=== PATIENT | female | born 1985 | race Caucasian/White ===

== ENCOUNTER 2017-10-06 18:30 | Emergency (ER) | payer MEDICAID, SELFPAY ==
[2017-10-06 18:32] VITALS: BP 109/81; PULSE 120; RESP 18; TEMP 36.9; O2SAT 97; BMI 17.6
--- NOTE | 2017-10-06 19:49 | RAD_ITS ---
STUDY: X-RAY - THORACIC SPINE REASON FOR EXAM: Female, 32 years old. Pain, fall TECHNIQUE: 2 view(s) of the thoracic spine were obtained. COMPARISON: None. FINDINGS: Normal kyphosis of the thoracic spine. There is no substantial scoliosis. Normal thoracic vertebrae and endplates. Normal disc space heights. The soft tissue structures are unremarkable. RAD/Thoracic Spine 3 Views IMPRESSION: Normal x-ray examination of the thoracic spine. Electronically Signed: Yoseph Wilson DO at 20:51 EDT Tel [phone], Service support ,
--- NOTE | 2017-10-06 19:49 | RAD_ITS ---
STUDY: X-RAY - LUMBAR SPINE REASON FOR EXAM: Female, 32 years old. Back pain, fall TECHNIQUE: 3 view(s) of the lumbar spine were obtained. COMPARISON: None FINDINGS: Normal lumbar lordosis. There is no substantial scoliosis. There is a normal alignment of the vertebrae. Normal vertebral bodies and endplates. Normal disc space heights. The soft tissue structures are unremarkable. RAD/Lumbar Spine 2 or 3 Views IMPRESSION: Normal x-ray examination of the lumbar spine. Electronically Signed: Yoseph Wilson DO at 20:50 EDT Tel [phone], Service support ,
--- NOTE | 2017-10-06 19:52 | ED.DCSUM_ITS ---
- ER Visit Summary Date of Service: 10/06/17 Chief Complaint: Fall History of Present Illness: The patient is a 32 F presenting after fall. She was running and tripped yesterday and fell. She does not believe she hit her head or lost consciousness. She complains of diffuse back pain today. She has had nausea secondary to pain. She did not take any medications prior to arrival. No vomiting. Denies other complaints. Physical Examination: Vitals are stable. Patient is afebrile. Alert no acute distress. HEENT exam is unremarkable. Neck is supple, diffuse tenderness Lungs are clear and equal bilaterally. Heart is regular rate and rhythm. Abdomen is soft nontender nondistended. Back: diffuse tenderness Extremities are unremarkable. Skin is warm and dry. No focal neurologic deficit. Remainder of exam is unremarkable. Emergency Department Course and Treatment: Patient is given morphine, Zofran IM with improvement. X-ray of the C-spine, thoracic spine, lumbar spine show no acute process. Patient feels improved on reevaluation. She is advised to take Naprosyn for pain. Advised to follow-up with her primary care physician. Advised return to ED if worsening complaints. Disposition: Discharge home Impression: Back strain status post fall This note was generated with [employer] dictation software. It may contain incorrect words, spelling, and punctuation that were not noted in review of the chart prior to signing ED Disposition - Plan for ED Patient: Chief Complaint: Back Referrals: Tee Vogel DO [Primary Care Provider] -
[2017-10-06] MEDS: morphine 8 MG/ML Syringe 6 MG IM (19:54)
[2017-10-06] MEDS: Ondansetron 4 MG/2 ML Vial IM (19:54)
--- NOTE | 2017-10-06 20:01 | RAD_ITS ---
STUDY: X-RAY - CERVICAL SPINE REASON FOR EXAM: Female, 32 years old. Fall TECHNIQUE: 4 view(s) of the cervical spine were obtained. COMPARISON: None FINDINGS: Normal anterior atlantoaxial articulation. Normal odontoid process. Straightening of the cervical lordosis. Normal vertebral bodies and endplates. Normal disc space heights. Normal visualized intervertebral neuroforamina. The soft tissue structures are unremarkable. RAD/Cerv Spine 2 or 3 Views IMPRESSION: Normal x-ray examination of the visualized cervical spine. Electronically Signed: Yoseph Wilson DO at 20:25 EDT Tel [phone], Service support ,
--- NOTE | 2017-10-06 21:43 | DCINST.ED_ITS ---
ED Disposition - Plan for ED Patient: Chief Complaint: Back Instructions: ED Neck Back Pain General Prescriptions: Hydrocodone Bitart/Apap 5-325 [[place] 5/325] 1 tablet PO Q6H PRN PRN 1 Days #4 tablet PRN Reason: Pain Naproxen [Naprosyn] 500 mg PO BID PRN #20 tablet Referrals: Tee Vogel DO [Primary Care Provider] -
[2017-10-06 21:54] VITALS: BP 109/52; PULSE 55; RESP 18; TEMP 36.6; O2SAT 100
== END 2017-10-06 22:05 | disposition home or self-care (01) ==
PROVIDERS: Emergency Provider Emergency Medicine; Family Provider Student in an Organized Health Care Education/Training Program; PCP Student in an Organized Health Care Education/Training Program
DX: S29.012A Strain of muscle and tendon of back wall of thorax, initial encounter (principal); S39.012A Strain of muscle, fascia and tendon of lower back, initial encounter; W01.0XXA Fall on same level from slipping, tripping and stumbling without subsequent striking against object, initial encounter; Y93.02 Activity, running
CPT/HCPCS: 72040; 72072; 72100; 96372; 99282; J2405

== ENCOUNTER 2018-02-19 13:42 | Emergency (ER) | payer MEDICAID, SELFPAY ==
[2018-02-19 13:43] VITALS: BP 119/68; PULSE 92; RESP 16; TEMP 36.6; O2SAT 97; BMI 18.3
--- NOTE | 2018-02-19 14:06 | ED.VISSUMM ---
- ER Visit Summary Date of Service: 02/19/18 Chief Complaint: Chest wall injury History of Present Illness: The patient is a 32 F no senior past medical or surgical history. Patient states last night she was sitting in a reclining chair. Got up quickly after being called by 1 of her children. And had immediate chest wall discomfort. It hurts to move. She denies any shortness of breath. She denies any hemoptysis. She denies any fever. She denies any pleuritic chest pain. She has never had a DVT or PE. She denies any leg pain or swelling. Physical Examination: Well-appearing young female. Vital signs are stable afebrile. Pulse ox 97% on room air no signs of hypoxia. No distress. H EENT exam unremarkable. Neck nontender no lymphadenopathy. Lungs clear to auscultation bilaterally. Heart regular rhythm no murmur. Chest wall is reproducibly tender in the anterior chest wall both sides more so on the left. No crepitance. No subcu air. No bony deformities. Collarbones appear normal. There are nontender without deformities. Abdomen is soft and nontender. She is moving all 4 extremities. They are neurovascularly intact. Equal symmetrical radial pulses. 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 Dorsi plantar flexion intact. Calves are nontender without edema or cords. Back is nontender. Neurologically she is awake and alert. Test Results: Two-view chest x-ray shows shows no acute abnormality. Read both by myself and the radiologist. No bony injuries. No pneumothoraces. Emergency Department Course and Treatment: Patient was offered but deferred anything for pain. Treatment Plan: Repeat exam patient doing well at 1454. Motrin for pain. Disposition: Discharge Impression: Acute chest wall strain This note was generated with [employer] dictation software. It may contain incorrect words, spelling, and punctuation that were not noted in review of the chart prior to signing ED Disposition - Plan for ED Patient: Chief Complaint: Chest Other Referrals: Tee Vogel DO [Primary Care Provider] -
--- NOTE | 2018-02-19 14:54 | ED.DEP ---
ED Disposition - Plan for ED Patient: Disposition: Home or Assisted Living Chief Complaint: Chest Other Instructions: ED Strain Chest Wall Referrals: Tee Vogel DO [Primary Care Provider] - 10-14 Days if not better Additional Instructions: Tylenol and Motrin for pain.
== END 2018-02-19 15:00 | disposition home or self-care (01) ==
PROVIDERS: Emergency Provider Emergency Medicine; Family Provider Student in an Organized Health Care Education/Training Program; PCP Student in an Organized Health Care Education/Training Program
DX: S29.011A Strain of muscle and tendon of front wall of thorax, initial encounter (principal); X50.1XXA Overexertion from prolonged static or awkward postures, initial encounter; Y93.89 Activity, other specified; Y92.9 Unspecified place or not applicable; Z72.0 Tobacco use
CPT/HCPCS: 71046; 99282

== ENCOUNTER 2019-04-01 11:05 | Emergency (ER) | payer MEDICAID, SELFPAY ==
[2019-04-01 11:07] VITALS: BP 108/77; PULSE 73; RESP 17; TEMP 36.6; O2SAT 99; BMI 18.9
[2019-04-01 11:37] LABS: Mucous, Urine 0 SEEN /hpf (<or=2+); White Blood Cells 0 SEEN /hpf (0-5)
[2019-04-01 11:39] LABS: Color, Urine Yellow (Yellow); Glucose, Dipstick Normal (Normal); Ketone-Dipstick Negative (Negative); Leukocyte Esterase-Dipstick 25 /ul (Negative); Nitrite-Dipstick Positive (Negative); Occult Blood-Urine 10 /ul (Negative); Protein-Dipstick Negative (Negative); Specific Gravity, Urine 1.015 (1.002-1.030); Urine Bilirubin Dipstick Negative (Negative); Urine Clarity Sl. Cloudy (Clear); Urine Urobilinogen 1 mg/dl (Normal)
[2019-04-01 11:46] LABS: Absolute Neutrophil Count 2.8 X10^3/uL (2.0-7.7); Basophil# 0.06 X10^3/uL; Basophil% 1.2 % (0-1); Eosinophil# 0.11 X10^3/uL; Eosinophils% 2.2 % (0-5); Hematocrit 44.5 % (37-47); Hemoglobin 14.5 g/dL (12.0-15.0); Lymphocyte % 31.8 % (19-41); Mean Corp Hgb Conc 32.6 g/dL (32-36); Mean Corpuscular Hgb 31.7 pg (27.0-32.0); Mean Corpuscular Volume 97.2 fL (81-99); Mean Platelet Vol. 9.9 fl (6.2-12.0); Monocyte# 0.47 X10^3/uL; Monocyte% 9.3 % (0-10); NRBC Flagged by Analyzer 0 % (0-5); Neutrophil # 2.77 X10^3/uL (2.7-7.7); Neutrophil % 55.1 % (47-70); Platelet Count 210 K/mm3 (150-450); RBC Distribution Width CV 11.9 % (11.6-14.6); RBC Distribution Width SD 42.9 fl (35.1-43.9); Red Blood Count 4.58 M/mm3 (4.2-5.4)
[2019-04-01 11:48] LABS: Bacteria 2+ /hpf (None Seen); Red Blood Cells-Urine 0-5 SEEN /hpf (0-5); Squamous Epithelial Cells - UA 5-10 SEEN /hpf (5-10)
[2019-04-01 11:56] LABS: Internal QC Validated? YES +Cl - CLEAR BKGD; Pregnancy, Serum, hCG Quali. NEGATIVE Negative
[2019-04-01 12:00] LABS: Anion Gap 2 (5-15); BUN 10 mg/dL (7-18); BUN/Creat Ratio 16.6 RATIO (10-20); Calcium,Total 8.8 mg/dL (8.5-10.1); Chloride 107 mmol/L (98-107); EST Glomerular Filtration Rate 123 mL/min (>60); Est Glom Filt Rate - Afr Amer 149 mL/min (>60); Glucose 89 mg/dL (74-106); Potassium 4.1 mmol/L (3.5-5.1); Sodium Level 139 mmol/L (136-145)
--- NOTE | 2019-04-01 13:08 | ED.DCSUM_ITS ---
- ER Visit Summary Date of Service: 04/01/19 Chief Complaint: Abdominal pain History of Present Illness: The patient is a 33 F who presents with abdominal pain that has been constant for the past 2 weeks. Patient states the pain is over the lower abdomen. Patient states it feels like there is a tightness in her uterus. Patient admits to some nausea but denies any vomiting. Patient states she took a home test which was questionably positive. Patient took another home test the next day and was negative. Patient noted some blood in her urine but denies any dysuria. Patient admits to some mild low back pain. Patient also admits to mild headache. Physical Examination: Vital signs are stable. Patient is afebrile. Patient is in no acute distress. Oral mucosa is pink and moist. Neck is supple. Trachea is midline. There is no JVD noted. Heart was regular rate and rhythm. Lungs are clear and equal bilaterally. Abdomen is soft. Bowel sounds are normal. There is no tenderness. There is no guarding noted. Skin is warm dry. Cranial nerves II through XII are intact. There are no focal motor or sensory deficits noted. The remaining physical exam is within normal limits. Test Results: CBC, basic metabolic profile and serum were obtained and were negative. Urinalysis was contaminated with 5-10 epithelial cells and 2+ bacteria. There is no evidence of urinary tract infection. 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 Patient was instructed to eat a bland diet. Patient understood and was agreeable with the plan. All questions were answered. Disposition: Discharge home Impression: Abdominal pain This note was generated with [employer] dictation software. It may contain incorrect words, spelling, and punctuation that were not noted in review of the chart prior to signing ED Disposition - Plan for ED Patient: Disposition: Home or Assisted Living Diagnosis: Abdominal pain Instructions: ABDOMINAL PAIN, Unknown Cause, (Female) Referrals: Tee Vogel DO [Primary Care Provider] - 3-5 Days
[2019-04-01 13:23] VITALS: BP 108/62; PULSE 71; RESP 16; O2SAT 98
== END 2019-04-01 13:23 | disposition home or self-care (01) ==
PROVIDERS: Emergency Provider Emergency Medicine; Family Provider Student in an Organized Health Care Education/Training Program; PCP Student in an Organized Health Care Education/Training Program
DX: R10.30 Lower abdominal pain, unspecified (principal); Z72.0 Tobacco use
CPT/HCPCS: 80048; 81001; 84703; 85025; 99283; A4216

== ENCOUNTER 2019-04-20 14:39 | Emergency (ER) | payer MEDICAID, SELFPAY ==
[2019-04-20 14:40] VITALS: BP 99/64; PULSE 84; RESP 18; TEMP 36.6; O2SAT 98; BMI 18.8
--- NOTE | 2019-04-20 15:04 | ED.VIS.GEN ---
History of Present Illness Chief Complaint: Headache Informant: Patient Onset: Days Context: Gradual Onset Current Severity: Moderate Maximum Severity: Severe Narrative: Patient presents with migraine headache that is been ongoing for the last 3 or 4 days. It is been gradual in onset. She has history of similar migraines. She has light sensitivity, nausea, photophobia. She denies recent head injury or URI symptoms. She tried some Excedrin Migraine yesterday which took the edge off of it. Patient also raises concern of . She states her. Normally start on the 17 every month. Last month she bled early, on the ninth. She then had some spotting late in the month. She had a home test that was questionably positive. She was seen here in the ER in early March and had a negative test. Past Medical History - Allergies and Home Meds Allergies/Adverse Reactions: Allergies No Known Allergies Allergy (Verified 04/20/19 14:43) Primary Care Physician: Tee Vogel DO [Primary Care Provider] - Prior records reviewed: Yes Past Medical History: - - Reviewed Lives: With Family Smoking Status: Current every day smoker Review of Systems General: Denies: Chills, Fever Eyes: Reports: - - Photophobia ENT: Denies: Bilateral ear pain Cardiovascular: Denies: Chest pain Respiratory: Denies: Dyspnea, Cough Gastrointestinal: Reports: Nausea. Denies: Vomiting Genitourinary: Denies: Dysuria Musculoskeletal: Denies: Neck pain, Back pain, Extremity Pain Skin: Denies: Rash Neurological: Reports: Headache. Denies: Weakness, Parasthesia, Numbness Hematologic: Denies: Easy bruising Allergy: Denies: Uticaria Physical Exam Vital Signs/Narrative: Vital Signs Temp Pulse Resp BP Pulse Ox 04/20/19 14:40 97.9 F 84 18 99/64 98 Inital Vital Signs reviewed: Yes General: Well nourished, Well developed Head: Normocephalic ENT: Moist mucous membranes Neck: Supple Cardiovascular: Regular rate, Regular rhythm Respiratory: No distress, CTA bilaterally Abdomen: Soft, Nontender, Hypoactive bowel sounds Extremities: Nontender Skin: Normal color Neurological: Alert, Oriented x3, Normal Strength, Normal Sensation Psychological: Normal affect Diagnostic/Tx/Re-eval Laboratory Results 04/20/19 15:20 Serum , Qual NEGATIVE - Medical Decision Making Patient reports having a bad experience with Reglan in the past. She is given Toradol, Zofran, Benadryl. On repeat evaluation she states her headache is significantly improved. She is comfortable being discharged home at this time. I did advise her that her patency test for me is negative. In light of the fact that she has had abnormal bleeding the last 2 months her migraines may be triggered by her hormone abnormalities. She was encouraged to follow-up with her RADIOLOGY THERAPIST, Dr. Grant. ED Disposition - Plan for ED Patient: Disposition: Home or Assisted Living Diagnosis: Migraine Instructions: ED, Migraine (Classical) Referrals: Elizabeth Grant MD [STAFF PHYSICIAN] - As soon as possible Tee Vogel, DO [Primary Care Provider] - 1-2 Days if not improving
[2019-04-20] MEDS: 0.9% Normal Saline 1,000 ML 1000 ML IV (15:27)
[2019-04-20] MEDS: DiphenhydrAMINE 50 MG/ML Syringe 25 MG IV (15:27)
[2019-04-20] MEDS: Ketorolac 30 MG/ML Syringe IV (15:28)
[2019-04-20] MEDS: Ondansetron 4 MG/2 ML Vial IV (15:28)
[2019-04-20 15:37] LABS: Internal QC Validated? YES +Cl - CLEAR BKGD; Pregnancy, Serum, hCG Quali. NEGATIVE Negative
[2019-04-20 16:35] VITALS: RESP 16
== END 2019-04-20 16:35 | disposition home or self-care (01) ==
PROVIDERS: Emergency Provider Emergency Medicine; Family Provider Student in an Organized Health Care Education/Training Program; PCP Student in an Organized Health Care Education/Training Program
DX: G43.909 Migraine, unspecified, not intractable, without status migrainosus (principal); F17.200 Nicotine dependence, unspecified, uncomplicated
CPT/HCPCS: 84703; 96361; 96374; 96375; 99283; J7030; J2405

== ENCOUNTER 2019-06-01 16:19 | Emergency (ER) | payer MEDICAID, SELFPAY ==
[2019-06-01 16:21] VITALS: BP 122/89; PULSE 85; RESP 14; TEMP 36.7; O2SAT 98; BMI 18.5
[2019-06-01] MEDS: Lactated Ringers 2,000 ML 999 ML IV (17:06)
[2019-06-01] MEDS: Ondansetron 4 MG/2 ML Vial IV (17:06)
[2019-06-01 17:20] LABS: Absolute Lymphocyte Count 0.96 X10^3/uL (0.83-4.51); Absolute Neutrophil Count 1.6 X10^3/uL (2.0-7.7); Basophil# 0.01 X10^3/uL; Basophil% 0.3 % (0-1); Eosinophil# 0.09 X10^3/uL; Eosinophils% 2.8 % (0-5); Hematocrit 41.7 % (37-47); Hemoglobin 13.7 g/dL (12.0-15.0); Lymphocyte # 0.96 X10^3/ul (4.0); Lymphocyte % 30.1 % (19-41); Mean Corp Hgb Conc 32.9 g/dL (32-36); Mean Corpuscular Hgb 30.6 pg (27.0-32.0); Mean Corpuscular Volume 93.3 fL (81-99); Mean Platelet Vol. 10.6 fl (6.2-12.0); Monocyte# 0.55 X10^3/uL; Monocyte% 17.2 % (0-10); NRBC Flagged by Analyzer 0 % (0-5); Neutrophil # 1.58 X10^3/uL (2.7-7.7); Neutrophil % 49.6 % (47-70); Platelet Count 153 K/mm3 (150-450); RBC Distribution Width CV 11.8 % (11.6-14.6); RBC Distribution Width SD 40.3 fl (35.1-43.9); Red Blood Count 4.47 M/mm3 (4.2-5.4); White Blood Count 3.2 K/mm3 (4.4-11.0)
--- NOTE | 2019-06-01 17:26 | ED.DCSUM_ITS ---
History of Present Illness Chief Complaint: General Illness Narrative: Patient presenting for evaluation secondary to nausea and vomiting and possible dehydration. Patient reports that over the course of about the last 4 days she has had persistent nausea vomiting. She states that this is associated with abdominal cramping. She denies any diarrhea. She does have some subjective fevers. No significant respiratory symptoms associated with this. Patient reports that she was seen at urgent care today, they recommended that she come to the ER as they thought that she looked dehydrated and may require IV. Patient denies any exacerbating relieving factors or sick contacts associated with this. Review of systems otherwise negative. Past Medical History - Allergies and Home Meds Allergies/Adverse Reactions: Allergies No Known Allergies Allergy (Verified 06/01/19 16:23) Primary Care Physician: Tee Vogel DO [Primary Care Provider] - Past Medical History: - - Migraine headaches Smoking Status: Current every day smoker Review of Systems All systems negative except as indicated General: Reports: Chills, Malaise Eyes: Denies: Visual changes - bilaterally, Diplopia ENT: Denies: Rhinorrhea, Sore throat Cardiovascular: Denies: Chest pain, Palpitations Respiratory: Denies: Dyspnea, Cough, Dyspnea on exertion Gastrointestinal: Reports: Abdominal pain, Nausea, Vomiting Genitourinary: Denies: Dysuria, Hematuria, Frequency Musculoskeletal: Denies: Back pain, Extremity Pain Skin: Denies: Rash, Wounds Neurological: Denies: Headache, Weakness, Numbness Psych: Denies: Depression Endocrine: Reports: - - Increased thirst secondary to vomiting Hematologic: Denies: Easy bruising Allergy: Denies: Uticaria Physical Exam Vital Signs/Narrative: Vital Signs Temp Pulse Resp BP Pulse Ox 06/01/19 16:21 98.1 F 85 14 122/89 H 98 Inital Vital Signs reviewed: Yes General: Well nourished, Well developed, No Acute Distress Head: Normocephalic, Atraumatic Eyes: Perrl, EOMI ENT: Moist mucous membranes, No rhinorrhea, - - Somewhat dry cracked lips, but moist mucous membranes Neck: Supple, Nontender Cardiovascular: Regular rate, Regular rhythm, No murmurs Respiratory: No distress, CTA bilaterally, Chest nontender Abdomen: Soft, Nontender, Nondistended, Normal bowel sounds Back: Nontender, Normal Inspection Extremities: Nontender, No edema Skin: Normal color, No rash Neurological: Alert, Oriented x3, Cranial nerves II-XII grossly intact, Normal Strength, Normal Sensation Psychological: Normal affect, Normal Mood Diagnostic/Tx/Re-eval - Medical Decision Making Patient presenting for evaluation secondary to nausea and vomiting. She does not have significant vital sign abnormalities but did have some dry cracked lips so work-up was obtained. CBC and chemistry unremarkable. Patient was given lactated Ringer's and Zofran and had symptomatic improvement on repeat evaluation. At this point a believe the patient to be safe and appropriate for discharge. She will be discharged with a course of Zofran. All questions were answered and the patient was discharged. Disposition: Home ED Disposition - Plan for ED Patient: Disposition: Home or Assisted Living Diagnosis: Gastroenteritis Instructions: GASTROENTERITIS, Viral (8y-Adult) Prescriptions: Ondansetron [Zofran Odt] 4 mg PO Q8H PRN PRN #10 tab PRN Reason: Nausea Transmission Status: Pending to [facility] Referrals: Tee Vogel, [Primary Care Provider] - 3-5 Days if not improving
[2019-06-01 17:33] LABS: Anion Gap 3 (5-15); BUN 10 mg/dL (7-18); BUN/Creat Ratio 13.1 RATIO (10-20); Calcium,Total 8.5 mg/dL (8.5-10.1); Chloride 110 mmol/L (98-107); Creatinine, Serum 0.77 mg/dL (0.55-1.02); EST Glomerular Filtration Rate 93 mL/min (>60); Est Glom Filt Rate - Afr Amer 112 mL/min (>60); Estimated Creatinine Clearance 99.89 ml/min; Glucose 80 mg/dL (74-106); Sodium Level 140 mmol/L (136-145)
[2019-06-01 17:35] LABS: Internal QC Validated? YES +Cl - CLEAR BKGD; Pregnancy, Serum, hCG Quali. NEGATIVE Negative
[2019-06-01 18:37] VITALS: BP 184/87; PULSE 65; RESP 16
== END 2019-06-01 19:07 | disposition home or self-care (01) ==
PROVIDERS: Emergency Provider Emergency Medicine; Family Provider Student in an Organized Health Care Education/Training Program; PCP Student in an Organized Health Care Education/Training Program
DX: K52.9 Noninfective gastroenteritis and colitis, unspecified (principal); F17.200 Nicotine dependence, unspecified, uncomplicated
CPT/HCPCS: 80048; 84703; 85025; 96361; 96374; 99284; J7120; A4216; J2405

== ENCOUNTER → 2019-11-03 15:16 | Outpatient (CLI) | payer OTHER, SELFPAY ==
[2019-11-03 15:06] VITALS: BMI 18.5
--- NOTE | 2019-11-03 15:21 | RAD_ITS ---
STUDY: X-RAY - RIGHT ELBOW REASON FOR EXAM: Female, 34 years old. Right elbow pain since May, lifted heavy boxes and felt pop -- pt has had trouble straightening arm TECHNIQUE: 3 view(s) of the elbow. COMPARISON: None. FINDINGS: Normal visualized humerus, radius and ulna. Normal radiocapitellar and ulnotrochlear articulations. The soft tissue structures are unremarkable. RAD/Elbow min 3 Views IMPRESSION: Normal x-ray examination of the elbow. Electronically Signed: Renard Cardoso, at 15:40 EDT , Service support ,
== END ==
PROVIDERS: PCP Student in an Organized Health Care Education/Training Program; Referring Provider Physician Assistant; Visit Provider Physician Assistant
DX: S59.901A Unspecified injury of right elbow, initial encounter (principal)
CPT/HCPCS: 73080

== ENCOUNTER → 2020-02-17 11:29 | Outpatient (CLI) | payer MEDICAID, SELFPAY ==
[2020-02-17 08:07] VITALS: BMI 19.7
--- NOTE | 2020-02-17 11:32 | US_ITS ---
STUDY: ULTRASOUND OF THE FEMALE PELVIS - COMPLETE REASON FOR EXAM: Female, 34 years old. PELVIC PAIN, WORSE LLQ LMP: TECHNIQUE: Transabdominal and Transvaginal TECHNICAL QUALITY: Adequate. COMPARISON: None. FINDINGS: The uterus is anteverted and is in a midline position. The uterus measures 9 x 5.5 x 3.8 cm. Normal uterine cervix. The endometrium measures 10 mm in thickness, and is hypoechoic. There is no demonstrated endometrial mass. There is no demonstrated myometrial mass. I.U.D. - The patient does not have an I.U.D. The right ovary is visualized. The right ovary measures 4 x 2.7 x 2.4 cm. There is a right ovarian cyst measures 2.6 cm. There is no visualized right adnexal mass or complex lesion. There is normal arterial and normal venous vascularity. The left ovary is visualized. The left ovary measures 2.9 x 2.8 x 2.2 cm. There is no left ovarian cyst or ovarian mass. There is no visualized left adnexal mass or complex lesion. There is normal arterial and normal venous vascularity. There is no fluid in the cul-de-sac. The pre void volume of the bladder was 41 ml. US/Transvaginal Non- IMPRESSION: There is a right ovarian cyst measures 2.6 cm. Electronically Signed: Kentrell Sánchez, at 15:01 EDT Tel , Service support ,
--- NOTE | 2020-02-17 11:32 | US_ITS ---
STUDY: ULTRASOUND OF THE FEMALE PELVIS - COMPLETE REASON FOR EXAM: Female, 34 years old. PELVIC PAIN, WORSE LLQ LMP: TECHNIQUE: Transabdominal and Transvaginal TECHNICAL QUALITY: Adequate. COMPARISON: None. FINDINGS: The uterus is anteverted and is in a midline position. The uterus measures 9 x 5.5 x 3.8 cm. Normal uterine cervix. The endometrium measures 10 mm in thickness, and is hypoechoic. There is no demonstrated endometrial mass. There is no demonstrated myometrial mass. I.U.D. - The patient does not have an I.U.D. The right ovary is visualized. The right ovary measures 4 x 2.7 x 2.4 cm. There is a right ovarian cyst measures 2.6 cm. There is no visualized right adnexal mass or complex lesion. There is normal arterial and normal venous vascularity. The left ovary is visualized. The left ovary measures 2.9 x 2.8 x 2.2 cm. There is no left ovarian cyst or ovarian mass. There is no visualized left adnexal mass or complex lesion. There is normal arterial and normal venous vascularity. There is no fluid in the cul-de-sac. The pre void volume of the bladder was 41 ml. US/Pelvic (Non ) IMPRESSION: There is a right ovarian cyst measures 2.6 cm. Electronically Signed: Kentrell Sánchez, at 15:01 EDT Tel , Service support ,
[2020-02-19 03:07] LABS: Chlamydia By Nucleic Acid AMP Negative (Negative)
[2020-02-19 07:31] LABS: Gonococcus By Nucleic Acid AMP Negative (Negative)
[2020-02-22 17:10] LABS: HPV APTIMA, High Risk Positive (Negative)
== END ==
PROVIDERS: PCP Student in an Organized Health Care Education/Training Program; Referring Provider Nurse Practitioner Women's Health; Visit Provider Nurse Practitioner Women's Health
DX: R10.2 Pelvic and perineal pain (principal); Z12.4 Encounter for screening for malignant neoplasm of cervix; Z11.3 Encounter for screening for infections with a predominantly sexual mode of transmission
CPT/HCPCS: 76830; 76856; 87070; 87077; 87205; 87491; 87591; 87624; 88175; 93976; G0145

== ENCOUNTER 2020-04-08 21:22 | Emergency (ER) | payer MEDICAID, SELFPAY ==
[2020-02-17 08:07] VITALS: BMI 19.7
[2020-04-08 21:22] VITALS: BP 134/87; PULSE 109; RESP 16; O2SAT 97
[2020-04-08 21:23] VITALS: BP 134/87; PULSE 106; RESP 16; TEMP 37.6; O2SAT 97; BMI 19.1
--- NOTE | 2020-04-08 22:27 | RAD_ITS ---
STUDY: X-RAY CHEST REASON FOR EXAM: Female, 34 years old. COUGH AND SOB TECHNIQUE: Single frontal view of the chest. COMPARISON: 02/19/2018 FINDINGS: The lungs remain hyperinflated. There is no new focal consolidation. Normal size heart. Normal mediastinum and marion. Normal visualized pulmonary arteries. Normal visualized aortic arch and descending thoracic aorta. Normal visualized thoracic spine. Normal visualized ribs, clavicles, and shoulders. There is no demonstrated abnormality of the visualized soft tissue structures of the upper abdomen. RAD/Chest 1 View (Portable) IMPRESSION: No acute cardiopulmonary process. Electronically Signed: Deidre Morgan MD at 22:51 EDT Tel , Service support ,
[2020-04-08] MEDS: Acetaminophen 500 MG Tablet 1000 MG PO (22:36)
[2020-04-08 22:37] VITALS: O2SAT 99
--- NOTE | 2020-04-08 22:56 | ED.VISSUMM ---
- ER Visit Summary Date of Service: 04/08/20 Chief Complaint: Cough History of Present Illness: The patient is a [address] Vogel. 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 She was exposed to COVID approximately 4 weeks ago. She was last tested for COVID 2 days ago does not have the results back. Patient reports that she began getting sick approximately 8 days ago. She thought that it was nasal congestion from steroids. However, she has developed subjective fever and chills. She has a cough that is productive of green sputum without blood. She reports that she has had mild shortness of breath is increased with exertion. She has a burning chest pain that began tonight and is increased with coughing. She denies any pleuritic chest pain. She reports that she has felt fatigued. She has diffuse myalgias and a headache that is 2 out of 10 in severity. She does have a history of similar headaches. Physical Examination: Vitals: Stable. Afebrile. General: Well-nourished and well-developed. Head: Normocephalic atraumatic. Neck: Supple, no lymphadenopathy. No JVD. Nontender. Cardiovascular: Regular rate and rhythm. No murmurs. Respiratory: No respiratory distress. Clear to auscultation bilaterally. Abdominal: Soft, nontender, nondistended, normal bowel sounds. No guarding, rebound, or peritoneal signs. Back: Nontender. Extremities: Nontender, no edema. Skin: Normal color, no rash. Neurologic: Alert and oriented ?3. Cranial nerves II through XII are intact. Normal strength and sensation. Psych: Normal affect. Test Results: COVID-19 is pending. Clinical Impression(s) from Imaging Studies Chest X-Ray 04/08/20 22:27 IMPRESSION: No acute cardiopulmonary process. Electronically Signed: Deidre Morgan MD at 22:51 EDT Tel , Service support , Emergency Department Course and Treatment: Patient was treated with Tylenol p.o. She is resting comfortably. She did not want an IV placed. Treatment Plan: Patient will be discharged with symptomatic treatment. She does understand that she may have COVID-19 and needs to quarantine. She is given a note for work. Follow-up with her primary care physician in 10 to 14 days if not improving. Return to the emergency department for any worsening symptoms. Disposition: To home in improved and stable condition. Impression: 1. URI, possible COVID-19 infection. This note was generated with [employer] dictation software. It may contain incorrect words, spelling, and punctuation that were not noted in review of the chart prior to signing ED Disposition - Plan for ED Patient: Disposition: Home or Assisted Living Instructions: ED Upper Resp Infec No Abx Tx Referrals: Tee Vogel DO [Primary Care Provider] - 10-14 Days if not better
[2020-04-08 23:14] VITALS: BP 118/83; PULSE 80; RESP 13; O2SAT 97
== END 2020-04-08 23:20 | disposition home or self-care (01) ==
LOC: ED 22:12
PROVIDERS: Emergency Provider Emergency Medicine; PCP Student in an Organized Health Care Education/Training Program
DX: J06.9 Acute upper respiratory infection, unspecified (principal)
CPT/HCPCS: 71045; 87635; 99282; U0003

== ENCOUNTER → 2020-05-09 13:03 | Outpatient (CLI) | payer MEDICAID, SELFPAY ==
--- NOTE | 2020-05-09 | IMM_PTH ---
PATIENT: MADDIE CREWS LOC: [facility] U#:[id number] AGE/SX: 40/F ROOM: RE05/09/[address]: Dr. Shanna Salas MD : 1985 BED: DIS: SPEC #: [id number] RECD: 05/10/20 13:18 STATUS: LAYO REQ #: [id number] HEYDI: 05/09/20 00:[address]: Shanna Salas DEPT: IMMUNOHISTOCHEMISTRY RECD BY: Maria Luisa Tavera ENTERED: 05/10/20 13:19 SP TYPE: IMMUNO OTHR DR: Dr. Tee Vogel DO Tissues: B - Uterine cervix, NOS Procedures: p16 (initial) KI-67 (add) PHYSICIAN & INSTITUTION [place] [id number] SPECIMEN INFORMATION: Tissue Source: B - Cervix, 6 o'clock, biopsy Clinical Info: LGSIL, HPV positive Specimen Number: [id number] CPT code: 87299, 24685 METHODOLOGY: Deparaffinized sections of prefer/formalin-fixed tissue or PAP/DQ stained slides are incubated with monoclonal/polyclonal antibodies/oligonucleotide probes. Localization is made via biotin free immunoperoxidase method. Appropriate controls are performed and reacted as expected. Results on target cell population are indicated in the following table: RESULTS: ANTIBODY / CLONE RESULT Block B P16 (E6H4) positive, block staining Ki-67 (30-9) positive, high These tests were developed and their performance characteristics determined by [facility]. They may not have been cleared or approved by the U.S. Food and Drug Administration. The FDA has determined that such clearance or approval is not necessary. The above immunohistochemical/dualISH markers are ordered and reviewed by the Pathologist. INTERPRETATION: Dara Cervix, 6 o'clock, biopsy: Focal severe squamous dysplasia. SJ:scar 05/11/20
--- NOTE | 2020-05-09 | ECC_PTH ---
PATIENT: MADDIE CREWS LOC: [facility] U#:[id number] AGE/SX: 40/F ROOM: RE05/09/[address]: Dr. Shanna Salas MD : 1985 BED: DIS: SPEC #: [id number] RECD: 05/09/20 12:38 STATUS: LAYO REMargy #: [id number] HEYDI: 05/09/20 00:[address]: Shanna Salas DEPT: SURGICAL PATHOLOGY RECD BY: Ariella Castellano ENTERED: 05/09/20 13:09 SP TYPE: ECC JULIEN DR: Dr. Tee Vogel DO Tissues: A - Endocervical B - Endocervical Procedures: Surgery Specimen Level IV HEADER OPERATION: Colposcopy PRE-OP DIAGNOSIS: LGSIL, HPV positive TISSUE SUBMITTED: A - ECC, B - 6 o'clock MICROSCOPIC DIAGNOSIS A. ECC: Numerous fragments of benign endocervical epithelium, scant fragment of benign ectocervical epithelium, blood and mucous, negative for dysplasia. B. 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 Moderate chronic inflammation and mild acute inflammation. See comment. ANTONIA:scar 05/10/20 COMMENT B. Immunohistochemistry ([id number]) for surrogate HPV marker (p16) supports the above diagnosis. MICROSCOPIC DESCRIPTION Slides are reviewed. GROSS DESCRIPTION A - Received in fixative is one container labeled with the patient's name and designated ECC. The specimen consists of scant fragments of uribe mucoid tissue measuring in aggregate 0.2 x 0.2 x 0.1 cm. The entire specimen is submitted in one cassette. B - Received in fixative is one container labeled with the patient's name and designated 6 o'clock. The specimen consists of one irregular fragment of light uribe soft tissue that measures 0.4 x 0.3 x 0.1 cm. The specimen is totally submitted in one cassette. / ANTONIA:scar 05/09/20 TC:5 CPT: 44214 x2
[2020-05-09 08:15] VITALS: BMI 19.3
== END ==
PROVIDERS: PCP Student in an Organized Health Care Education/Training Program; Referring Provider Obstetrics & Gynecology; Visit Provider Obstetrics & Gynecology
DX: R87.612 Low grade squamous intraepithelial lesion on cytologic smear of cervix (LGSIL) (principal)
CPT/HCPCS: 88305; 88341; 88342

== ENCOUNTER 2020-06-02 14:37 | Emergency (ER) | payer MEDICAID, SELFPAY ==
[2020-06-02 13:55] VITALS: BMI 18.8
[2020-06-02 14:47] VITALS: BP 122/81; PULSE 80; RESP 16; TEMP 36.3; O2SAT 99; BMI 18.2
--- NOTE | 2020-06-02 15:16 | CT_ITS ---
STUDY: CT ABDOMEN AND PELVIS WITH CONTRAST REASON FOR EXAM: Female, 35 years old. RECTAL BLEEDING SINCE COLONOSCOPY 05/09/20 -- , HEAVY VAG BLEEDING ALSO. RADIATION DOSAGE (If Supplied By Facility): CTDIvol = ( 11.46 ) mGy, DLP = ( 312.19 ) mGycm TECHNIQUE: Transaxial images were obtained from the dome of the diaphragm to the symphysis pubis without oral contrast. IV 100mL Isovue-300 was administered. Sagittal and coronal images were reconstructed. Individualized dose optimization techniques were used for this CT. COMPARISON: None. FINDINGS: The visualized lung bases are unremarkable. The visualized portions of the heart are within normal limits. Normal liver. Normal gallbladder and extrahepatic biliary system. Normal spleen. Normal pancreas. Normal bilateral adrenal glands. Normal right kidney. Normal left kidney. Normal visualized stomach. Normal small intestine. Normal colon. The appendix is visualized and appears normal. Normal abdominal aorta. Normal inferior vena cava. Normal retroperitoneum. Normal urinary bladder. Normal abdominal wall. Normal osseous structures. CT/Abdomen/Pelvis W IV Cont ONLY IMPRESSION: Normal enhanced CT of the abdomen and pelvis. Electronically Signed: Rodolfo Evans MD at 17:01 EST Tel , Service support ,
[2020-06-02] MEDS: 0.9% Normal Saline 1,000 ML 1000 ML IV (15:38)
[2020-06-02] MEDS: Morphine 4 MG/ML Syringe IV (15:38)
[2020-06-02] MEDS: Ondansetron 4 MG/2 ML Vial IV (15:39)
[2020-06-02 15:53] VITALS: BP 109/66; BP 115/73; BP 130/89; PULSE 49; PULSE 64; PULSE 74
[2020-06-02 15:58] LABS: Absolute Lymphocyte Count 2.16 X10^3/uL (0.83-4.51); Absolute Neutrophil Count 3.5 X10^3/uL (2.0-7.7); Basophil# 0.06 X10^3/uL; Basophil% 0.9 % (0-1); Eosinophil# 0.12 X10^3/uL; Eosinophils% 1.9 % (0-5); Hematocrit 43.5 % (37-47); Hemoglobin 14.3 g/dL (12.0-15.0); Lymphocyte # 2.16 X10^3/ul (4.0); Lymphocyte % 33.4 % (19-41); Mean Corp Hgb Conc 32.9 g/dL (32-36); Mean Corpuscular Hgb 31.1 pg (27.0-32.0); Mean Corpuscular Volume 94.6 fL (81-99); Mean Platelet Vol. 10.6 fl (6.2-12.0); Monocyte# 0.61 X10^3/uL; Monocyte% 9.4 % (0-10); NRBC Flagged by Analyzer 0 % (0-5); Neutrophil # 3.51 X10^3/uL (2.7-7.7); Neutrophil % 54.2 % (47-70); Platelet Count 213 K/mm3 (150-450); RBC Distribution Width CV 11.7 % (11.6-14.6); RBC Distribution Width SD 39.8 fl (35.1-43.9); White Blood Count 6.5 K/mm3 (4.4-11.0)
[2020-06-02 16:04] LABS: International Normalized Ratio 1.1; Prothrombin Time (Protime)PT. 13.7 SECONDS (11.7-14.9)
[2020-06-02 16:05] LABS: Partial Thromboplast Time 29.1 Seconds (24.1-36.2)
[2020-06-02 16:09] LABS: Internal QC Validated? YES +Cl - CLEAR BKGD; Pregnancy, Serum, hCG Quali. NEGATIVE Negative
[2020-06-02 16:10] LABS: ALB/GLOB Ratio 1.3 RATIO (0.9-2.4); AST(SGOT) 7 U/L (15-37); Alanine Aminotransfer ALT/SGPT 14 U/L (13-56); Albumin, Serum 4.3 g/dL (3.2-5.0); Alkaline Phosphatase 74 U/L (45-117); Anion Gap 6 (5-15); BUN 9 mg/dL (7-18); BUN/Creat Ratio 13.4 RATIO (10-20); Calcium,Total 8.9 mg/dL (8.5-10.1); Chloride 107 mmol/L (98-107); Creatinine, Serum 0.67 mg/dL (0.55-1.02); EST Glomerular Filtration Rate 107 mL/min (>60); Est Glom Filt Rate - Afr Amer 130 mL/min (>60); Estimated Creatinine Clearance 112.03 ml/min; Globulin 3.4 g/dL (2.2-4.2); Glucose 80 mg/dL (74-106); Lipase 430 U/L (73-393); Potassium 3.7 mmol/L (3.5-5.1); Protein, Total 7.7 g/dL (6.4-8.2); Sodium Level 142 mmol/L (136-145)
[2020-06-02 16:38] VITALS: BP 104/71; PULSE 61; RESP 16; O2SAT 98
[2020-06-02 16:59] LABS: Mucous, Urine 0 SEEN /hpf (<or=2+); Squamous Epithelial Cells - UA 0 SEEN /hpf (5-10)
[2020-06-02 17:03] LABS: Color, Urine Yellow (Yellow); Glucose, Dipstick Normal (Normal); Ketone-Dipstick 15 mg/dl (Negative); Leukocyte Esterase-Dipstick 25 /ul (Negative); Nitrite-Dipstick Negative (Negative); Occult Blood-Urine 250 /ul (Negative); Protein-Dipstick 30 mg/dl (Negative); Urine Bilirubin Dipstick Negative (Negative); Urine Clarity Clear (Clear); Urine Urobilinogen Normal (Normal)
[2020-06-02 17:16] LABS: Bacteria 1+ /hpf (None Seen); Red Blood Cells-Urine 0-5 SEEN /hpf (0-5); White Blood Cells 0-5 SEEN /hpf (0-5)
--- NOTE | 2020-06-02 17:50 | ED.VISSUMM ---
- ER Visit Summary Date of Service: 06/02/20 Chief Complaint: Vaginal bleeding, pelvic pain History of Present Illness: The patient is a [address] Vogel and Dr. Salas. She reports that she had a colposcopy on May 09 and has been bleeding ever since then. She reports that she has had heavy bleeding for the past 2 weeks and is changing her pad every 30 minutes. States she is passing clots. Patient complains of a sharp, crampy lower abdominal pain is 10 of 10 at worst and 4-10 currently. Is worsened by sitting or walking. Is relieved by nothing. She been nauseated had dry heaves. She reports that she is also had bright red blood in her stool for the past 2 weeks. Her last bowel was today. She denies any dysuria or frequency. Physical Examination: Vitals: Stable. Afebrile. General: Well-nourished and well-developed. Head: Normocephalic atraumatic. Neck: Supple, no lymphadenopathy. No JVD. Nontender. Cardiovascular: Regular rate and rhythm. No murmurs. Respiratory: No respiratory distress. Clear to auscultation bilaterally. Abdominal: Soft, mild diffuse tenderness palpation that is worst in the suprapubic region, nondistended, normal bowel sounds. No guarding, rebound, or peritoneal signs. Back: Nontender. Extremities: Nontender, no edema. Skin: Normal color, no rash. Neurologic: Alert and oriented ?3. Cranial nerves II through XII are intact. Normal strength and sensation. Psych: Normal affect. Test Results: CBC is normal. Of note her hemoglobin is 14.3. Chem-7 is normal. LFTs show an AST of 7. Lipase is 430. Coags are normal. UA shows no evidence of infection. test is negative. Clinical Impression(s) from Imaging Studies Abdomen/Pelvis CT 06/02/20 15:16 IMPRESSION: Normal enhanced CT of the abdomen and pelvis. Electronically Signed: Rodolfo Evans MD at 17:01 EST Tel , Service support , Emergency Department Course and Treatment: Patient was given a dose of morphine and Zofran IV. She is resting more comfortably. An OARRS report was obtained which was negative. Treatment Plan: Patient discussed with Dr. Salas. She will be discharged with instructions to follow-up Dr. Salas next week for another exam. Instructed to follow-up with her primary care physician 3 to 5 days for another exam. She will be given a prescription for 10 [place] and Colace. Return to the emergency department for any worsening symptoms. Disposition: To home in improved and stable condition. Impression: 1. Vaginal bleeding after colposcopy. 2. Stable lower GI bleed. This note was generated with [employer] software. It may contain incorrect words, spelling, and punctuation that were not noted in review of the chart prior to signing ED Disposition - Plan for ED Patient: Instructions: ED Lower GI Bleeding (Stable), ED Dysfunctional Uterine Bleeding Prescriptions: Docusate Sodium [Colace] 100 mg PO DAILY #20 capsule Hydrocodone Bitart/Apap 5-325 [[place] 5MG-325MG] 1 tablet PO Q4H PRN PRN 2 Days #10 tablet PRN Reason: Pain Referrals: Tee Vogel DO [Primary Care Provider] - 3-5 Days Shanna Salas MD [STAFF PHYSICIAN] - 1 Week
[2020-06-02 18:06] VITALS: BP 109/69; PULSE 75; RESP 14
== END 2020-06-02 18:16 | disposition home or self-care (01) ==
LOC: ED 16:07
PROVIDERS: Emergency Provider Emergency Medicine; PCP Student in an Organized Health Care Education/Training Program
DX: N93.9 Abnormal uterine and vaginal bleeding, unspecified (principal); K92.2 Gastrointestinal hemorrhage, unspecified; F17.200 Nicotine dependence, unspecified, uncomplicated
CPT/HCPCS: 74177; 80053; 81001; 83690; 84703; 85025; 85610; 85730; 96361; 96374; 96375; 99285; Q9967; J2405

== ENCOUNTER 2020-07-25 06:32 | Day surgery (SDC) | payer MEDICAID, SELFPAY ==
[2020-05-15 10:08] VITALS: BMI 19.5
[2020-07-06 13:21] VITALS: BMI 18.7
[2020-07-25] VITALS (13 sets, daily range): BP systolic 94–118; BP diastolic 47–90; PULSE 54–78; RESP 16–18; TEMP 36.6–36.8; O2SAT 94–100; BMI 18.8
--- NOTE | 2020-07-25 | IMM_PTH ---
PATIENT: MADDIE CREWS LOC: [facility] [place] U#:[id number] AGE/SX: 35/F ROOM: RE07/25/[address]: Dr. Shanna Salas MD : 1985 BED: DIS: 07/25/2020 SPEC #: [id number] RECD: 07/26/20 12:35 STATUS: LAYO REQ #: [id number] HEYDI: 07/25/20 00:[address]: Shanna Salas DEPT: IMMUNOHISTOCHEMISTRY RECD BY: Maria Luisa Tavera ENTERED: 07/26/20 12:37 SP TYPE: IMMUNO OTHR DR: Dr. Tee Vogel, Tissues: A - UTERINE CERVIX LEEP Procedures: p16 (initial) KI-67 (add) P16 (add) PHYSICIAN & INSTITUTION [place] [id number] SPECIMEN INFORMATION: Tissue Source: A - LEEP Clinical Info: NATALIE III with severe dysplasia Specimen Number: [id number] A1-A3 CPT code: 18902, 45685 x5 METHODOLOGY: Deparaffinized sections of prefer/formalin-fixed tissue or PAP/DQ stained slides are incubated with monoclonal/polyclonal antibodies/oligonucleotide probes. Localization is made via biotin free immunoperoxidase method. Appropriate controls are performed and reacted as expected. Results on target cell population are indicated in the following table: RESULTS: ANTIBODY / CLONE RESULT Block A1 P16 (E6H4) negative Ki-67 (30-9) negative Block A2 P16 (E6H4) negative Ki-67 (30-9) negative Block A3 P16 (E6H4) positive, focal, patchy Ki-67 (30-9) positive, low These tests were developed and their performance characteristics determined by [facility]. They may not have been cleared or approved by the U.S. Food and Drug Administration. The FDA has determined that such clearance or approval is not necessary. The above immunohistochemical/dualISH markers are ordered and reviewed by the Pathologist. INTERPRETATION: A. Cervix, LEEP conization: Focal HPV change is noted. AM:scar 07/27/2020
[2020-07-25 06:53] LABS: Internal QC Validated? YES +Cl - CLEAR BKGD; Pregnancy, Urine Negative Negative
--- NOTE | 2020-07-25 07:12 | HP.PCM_ITS ---
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 Pap was LSIL with positive HPV. Colpo showed NATALIE 3 with negative ECC. Pregancy History 1 Elective abortions Hx Para 1 Spontaneous abortions Hx # Term Pregnancies Ectopic pregnancies Hx # Pregnancies Multiple births # of living children 1 Past Pregnancies Del. Date Name GA/Weeks Outcome Route Bth Weight Infant Gen Labor Lgth Anesthesia Del Locatn Provider FOB Unknown 2005 Sergey Crews ROS Const Constitutional: Reports system reviewed and no additional complaints, except as docu; denies chills or fever(s) Eyes Eyes: Reports system reviewed and no additional complaints, except as docu ENT ENT: Reports system reviewed and no additional complaints, except as docu Cardio Card: Reports system reviewed and no additional complaints, except as docu; denies chest pain, leg swelling or rapid, pounding, or irregular heartbeat Resp Resp: Reports system reviewed and no additional complaints, except as docu; denies dyspnea GI GI: Reports system reviewed and no additional complaints, except as docu; denies constipation, nausea or vomiting : Reports system reviewed and no additional complaints, except as docu; denies painful urination, pelvic pain, urinary frequency, urinary hesitancy, urinary urgency, vaginal discharge, vaginal odor or vaginal itching Musc Musc: Reports system reviewed and no additional complaints, except as docu Skin Skin/Breast: Reports system reviewed and no additional complaints, except as docu Neuro Neuro: Reports system reviewed and no additional complaints, except as docu Psych Psych: Reports system reviewed and no additional complaints, except as docu Endo Endo: Reports system reviewed and no additional complaints, except as docu Exam Const General: cooperative, healthy appearing, comfortable, well developed, well groomed Neck Neck: normal visual inspection, full ROM Resp Effort & Inspection: normal respiratory effort, able to speak in complete sentences, symmetric chest movement Cardio Rate: regular rate Skin General: no rashes or lesions noted, elasticity normal, turgor normal Lesions: no lesions Rashes: no rashes Neuro General: alert, awake, oriented x3 Cranial Nerves: CN's II-XI intact bilaterally, PERRL, EOM intact bilaterally Cognition: normal cognition Speech: speech normal Gait: normal gait Extrem General: normal to inspection, full ROM, no pedal edema Psych Appearance: grossly normal Mental Status: mental status grossly normal Mood: congruent mood Affect: normal affect Speech and Movement: speech and movement normal Attitude: cooperative Thought Process: normal Thought Content: normal Assessment & Plan 1. 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 Patient was given the opportunity to ask further questions today. She denies further questions or concerns about the procedure. Discussed normal expectations postoperatively as well as postop precautions. Consent form signed with patient in the office today. UPDATE- I have seen the patient and performed any clinically relevant updates to the history and physical exam. Shanna Salas MD
[2020-07-25] MEDS: Lactated Ringers 1,000 ML 100 ML IV ×2 (07:15→09:49)
--- NOTE | 2020-07-25 07:17 | DCINST_ITS ---
Discharge Diet: No Restrictions Discharge Activity: Return to Normal Activity, May not drive while taking narcotic pain medications. May resume sexual activity in: 4 weeks - nothing in the vagina for 4 weeks. Call your doctor if you observe: Fever of 101 or Higher, Using more than one pad per hour Allergies/Adverse Reactions: Allergies No Known Allergies Allergy (Verified 07/25/20 07:00) Medications to take at Discharge Ibuprofen [Motrin] 800 mg PO TID PRN PRN 07/19/20 Orders to be completed after discharge: Type & Screen - PAT ONLY Time Frame: 07/25/20, Facility: [facility], Location: Laboratory CBC-Complete Blood Cnt No Diff Time Frame: 07/25/20, Facility: [facility], Location: Laboratory ,Urine Time Frame: 07/25/20, Facility: [facility], Location: Laboratory Primary Care Physician: Tee Vogel DO [Primary Care Provider] - Test Results: Test results from this visit will be discussed in further detail at your follow- up appointment, if applicable.
--- NOTE | 2020-07-25 08:25 | CONE_PTH ---
PATIENT: MADDIE CREWS LOC: [facility] [place] U#:[id number] AGE/SX: 35/F ROOM: RE07/25/[address]: Dr. Shanna Salas MD : 1985 BED: DIS: 07/25/2020 SPEC #: [id number] RECD: 07/25/20 09:23 STATUS: LAYO REMargy #: [id number] HEYDI: 07/25/20 08:[address]: Shanna Salas DEPT: SURGICAL PATHOLOGY RECD BY: Isabell Merchant ENTERED: 07/25/20 10:37 SP TYPE: Leep Cone JULIEN DR: Dr. Tee Vogel, DO Tissues: A - UTERINE CERVIX LEEP B - Endocervical Procedures: Surgery Specimen Level IV Surgery Specimen Level V HEADER OPERATION: LEEP cone PRE-OP DIAGNOSIS: NATALIE III with severe dysplasia, acute TISSUE SUBMITTED: A - LEEP, B - Endocervical curettings MICROSCOPIC DIAGNOSIS A. Cervix, LEEP conization: Focal mild dysplasia/HPV change. Squamous metaplasia and chronic inflammation. Margins of excision are free of dysplasia. See comment. B. Endocervix, curettings: Rare strips of benign superficial endocervix. No evidence of dysplasia. AM:scar 07/27/2020 COMMENT A. Results from immunohistochemistry ([id number]) for surrogate HPV marker (p16) will be reported separately. MICROSCOPIC DESCRIPTION Slides are reviewed. GROSS DESCRIPTION A - Received in fixative is one container labeled with the patient's name and designated LEEP. The specimen consists of a piece of uribe, indurated tissue consistent with LEEP conization measuring 1.7 x 1.7 cm and up to 1.2 cm in length. The specimen is not oriented. No mucosal lesion is identified. The nonmucosal surface is inked black. The endocervical margin is inked blue. The specimen radially sectioned and submitted entirely in four cassettes with each cassette containing one quadrant. B - Received in fixative is one container labeled with the patient's name and designated endocervical curettings. The specimen consists of multiple irregular fragments of uribe mucoid tissue that in aggregate measure 1 x 0.5 x 0.1 cm. The specimen is totally submitted in one cassette. / ANTONIA:scar 07/25/20 TC:3 CPT: 21017, 70762
[2020-07-25] MEDS: FERRIC SUBSULFATE 8 GM SOLN (08:43)
[2020-07-25] MEDS: Lidocaine 1% (20 ml mdv) 20 ML Vial (08:43)
[2020-07-25] MEDS: Iodine/Potassium Iodide 14ML Bottle 1 DRP TOPICAL (08:43)
--- NOTE | 2020-07-25 09:09 | OP.PCM_ITS ---
Problem List (1) NATALIE III with severe dysplasia Status: Acute Report of Operation Date of Procedure: 07/25/20 Pre-Operative Diagnosis: NATALIE III Post-Operative Diagnosis: Same Surgery/Procedure Performed:: LEEP, ECC Description of Surgical Findings:: Nonstaining area noted from 6-9 o'clock. web marketing specialist: None Type of Anesthesia:: Local MAC Specimen's removed: LEEP, ECC Estimated Blood Loss (mL): 10 cc Fluids Replaced: 600 cc Description of Procedure: Patient was taken to the operating room where general anesthesia was obtained without difficulty. She was prepped and draped in the dorsal lithotomy position with yellowfin stirrups. A insulated speculum was placed in the vagina. A paracervical block was performed using 10 cc of 1% lidocaine. Lugol's solution was applied to the cervix and a nonstaining area was noted from 6-9 o'clock. A 1 cm loop was then used to perform the LEEP on 70 W of pure cut energy. An endocervical curettage was then performed. The rollerball was then used to obtain hemostasis. Adequate hemostasis was noted and Monsel solution was applied to the cervix. All instruments were removed from the vagina. All counts were correct x2. The patient was taken to the recovery room in stable condition. - Complications None apparent - Admit VTE Documentation VTE Present on Admission: No VTE Mechan Device Prophylaxis: SCD's VTE Pharm Prophylaxis ordered?: No Multi Select Codes - Urinary/Genital Urinary/Genital CPT Codes: 67715 LEEP
[2020-07-25] MEDS: Nalbuphine 10 MG/ML Ampul 5 MG IV (10:04)
--- NOTE | 2020-07-25 10:22 | SUR.PHASEI ---
iv morphine given. pt immediately started itching. iv Benadryl given. pt continued to itch. unrelieved by Benadryl. Dr. Peck contacted and an order for iv Nubain given. morphine listed as an allergy on pt's chart. no signs of rash or lesions. will continue to monitor.
== END 2020-07-25 11:29 | disposition home or self-care (01) ==
LOC: SDC 06:32 → AC 06:33
PROVIDERS: Anesthesiology; PCP Student in an Organized Health Care Education/Training Program; Referring Provider Obstetrics & Gynecology; Visit Provider Obstetrics & Gynecology
PROC: 0UBC7ZZ Excision of Cervix, Via Natural or Artificial Opening (ICD-10-PCS; CPT 57522; principal; 2020-07-25 08:10)
DX: D06.9 Carcinoma in situ of cervix, unspecified (principal); K21.9 Gastro-esophageal reflux disease without esophagitis; Z87.891 Personal history of nicotine dependence; Z20.828 Contact with and (suspected) exposure to other viral communicable diseases
CPT/HCPCS: 57522; 81025; 87426; 88305; 88307; 88341; 88342; C9803; J7120; J2405

== ENCOUNTER → 2020-08-31 16:18 | Outpatient (CLI) | payer MEDICAID, SELFPAY ==
[2020-08-31 14:57] VITALS: BMI 19.1
== END ==
PROVIDERS: PCP Student in an Organized Health Care Education/Training Program; Referring Provider Obstetrics & Gynecology; Visit Provider Obstetrics & Gynecology
DX: N89.8 Other specified noninflammatory disorders of vagina (principal)
CPT/HCPCS: 87070; 87205

== ENCOUNTER 2020-09-17 | Emergency (ER) | payer MEDICAID, SELFPAY ==
[2020-08-31 14:57] VITALS: BMI 19.1
[2020-09-17 00:01] VITALS: BP 116/75; PULSE 76; RESP 18; TEMP 36.9; O2SAT 97; BMI 18.8
--- NOTE | 2020-09-17 00:24 | CT_ITS ---
STUDY: CT ABDOMEN AND PELVIS WITH CONTRAST REASON FOR EXAM: Female, 35 years old. Lower abd pain -- Family h/o Crohn''s RADIATION DOSAGE (If Supplied By Facility): CTDIvol = ( 7.58 ) mGy, DLP = ( 326.82 ) mGycm TECHNIQUE: Transaxial images were obtained from the dome of the diaphragm to the symphysis pubis with oral contrast. Oral and amp; IV Gastrografin and amp; 100mL Isovue-370 was administered. Sagittal and coronal images were reconstructed. Individualized dose optimization techniques were used for this CT. COMPARISON: 06/02/2020 FINDINGS: The visualized lung bases are unremarkable. The visualized portions of the heart are within normal limits. There is hepatomegaly with diffuse hepatic enlargement. Normal gallbladder and extrahepatic biliary system. Normal spleen. Normal pancreas. Normal bilateral adrenal glands. Normal right kidney. Normal left kidney. The rectum is distended with gas and stool. There is mild sigmoid colonic wall thickening. No oral contrast within this region at the time of study. The oral contrast reaches the splenic flexure and proximal descending colon at the time of exam. There is no free air identified. The appendix is visualized and appears normal. Normal abdominal aorta. Normal inferior vena cava. Nonspecific subcentimeter short axis mesenteric and retroperitoneal lymph nodes. Normal urinary bladder. Subcentimeter low-attenuation structures within the bilateral adnexa likely ovarian. There may be a tiny amount of fluid within the pelvis. Female hygiene product within the vaginal canal. Normal abdominal wall. Right L4 spondylolysis. CT/Abdomen/Pelvis WITH Contrast IMPRESSION: No CT evidence for acute appendicitis. There is some mild thickening of a segment of the sigmoid colon. However the oral contrast does not reach this region of the colon time of study. This may represent a segment of mild colitis given patient''s symptomology. However this area would be limited due to the lack of distention. There is no rim-enhancing fluid collections or free air identified. Other findings as above. Electronically Signed: Villa Dunaway MD at 4:19 EDT Tel , Service support ,
--- NOTE | 2020-09-17 00:39 | ED.VISSUMM ---
- ER Visit Summary Date of Service: 09/17/20 Chief Complaint: Nausea and vomiting History of Present Illness: The patient is a [address] Vogel. She reports she has had quite relentless nausea since April. She states that she is vomited once today. No blood in her emesis. She frequently has dry heaves. She denies any abdominal pain. Her last bowel was 2 days ago. Typically she goes twice a week. She denies any dysuria or frequency. She denies any vaginal bleeding or discharge. Patient is unsure when her last menstrual period was. She had a LEEP procedure in June by Dr. Salas. She has been spotting ever since. She does complain of generalized weakness. Patient has not seen a test engineer nuclear equipment. She is never had colonoscopy or endoscopies. She has not had CT for this. She does have a family history of Crohn's in her brother. Physical Examination: Vitals: Stable. Afebrile. General: Well-nourished and well-developed. Head: Normocephalic atraumatic. Neck: Supple, no lymphadenopathy. No JVD. Nontender. Cardiovascular: Regular rate and rhythm. No murmurs. Respiratory: No respiratory distress. Clear to auscultation bilaterally. Abdominal: Soft, nontender, nondistended, normal bowel sounds. No guarding, rebound, or peritoneal signs. Back: Nontender. Extremities: Nontender, no edema. Skin: Normal color, no rash. Neurologic: Alert and oriented ?3. Cranial nerves II through XII are intact. Normal strength and sensation. Psych: Depressed and tearful. Test Results: CBC is normal. Chem-7 is normal. LFTs show an AST of 11. Lipase 75. UA shows leukocytes, blood, ketones. test is negative. Clinical Impression(s) from Imaging Studies Abdomen/Pelvis CT 09/17/20 00:24 IMPRESSION: No CT evidence for acute appendicitis. There is some mild thickening of a segment of the sigmoid colon. However the oral contrast does not reach this region of the colon time of study. This may represent a segment of mild colitis given patient''s symptomology. However this area would be limited due to the lack of distention. There is no rim-enhancing fluid collections or free air identified. Other findings as above. Electronically Signed: Villa Dunaway MD at 4:19 EDT Tel , Service support , Emergency Department Course and Treatment: Patient had an IV placed. She is given a liter normal saline. She is given Zofran IV. She is resting comfortably. Treatment Plan: Patient's nausea is been well controlled here with Zofran. She will be discharged prescription for Zofran. Instructed to follow-up the test engineer nuclear equipment soon as possible for further evaluation and treatment. Return to the emergency department for any worsening symptoms. Disposition: To home in improved and stable condition. Impression: 1. Nausea, uncertain cause. This note was generated with [employer] dictation software. It may contain incorrect words, spelling, and punctuation that were not noted in review of the chart prior to signing ED Disposition - Plan for ED Patient: Instructions: ED Vomiting (Adult) Prescriptions: Ondansetron [Zofran Odt] 4 mg PO Q8H PRN PRN #10 tablet PRN Reason: Nausea Referrals: Tee Vgoel DO [Primary Care Provider] - 3-5 Days Elton Santo MD [NON-STAFF] - As soon as possible Santy Ibarra MD [STAFF PHYSICIAN] - As soon as possible
[2020-09-17] MEDS: Ondansetron 4 MG/2 ML Vial IV (01:16)
[2020-09-17] MEDS: 0.9% Normal Saline 1,000 ML 999 ML IV (01:16)
[2020-09-17 01:27] LABS: Absolute Lymphocyte Count 1.25 X10^3/uL (0.83-4.51); Absolute Neutrophil Count 2.8 X10^3/uL (2.0-7.7); Basophil# 0.03 X10^3/uL; Basophil% 0.7 % (0-1); Eosinophils% 2.2 % (0-5); Hematocrit 42.1 % (37-47); Lymphocyte # 1.25 X10^3/ul (4.0); Lymphocyte % 27.5 % (19-41); Mean Corp Hgb Conc 33.3 g/dL (32-36); Mean Corpuscular Hgb 31.1 pg (27.0-32.0); Mean Corpuscular Volume 93.6 fL (81-99); Mean Platelet Vol. 10.6 fl (6.2-12.0); Monocyte# 0.38 X10^3/uL; Monocyte% 8.4 % (0-10); NRBC Flagged by Analyzer 0 % (0-5); Neutrophil # 2.78 X10^3/uL (2.7-7.7); Platelet Count 195 K/mm3 (150-450); RBC Distribution Width CV 11.8 % (11.6-14.6); RBC Distribution Width SD 40.2 fl (35.1-43.9); Red Blood Cells-Urine 0 SEEN /hpf (0-5); White Blood Count 4.6 K/mm3 (4.4-11.0)
[2020-09-17 01:28] LABS: Color, Urine Yellow (Yellow); Glucose, Dipstick Normal (Normal); Leukocyte Esterase-Dipstick 25 /ul (Negative); Nitrite-Dipstick Negative (Negative); Occult Blood-Urine 50 /ul (Negative); Protein-Dipstick 15 mg/dl (Negative); Urine Bilirubin Dipstick Negative (Negative); Urine Clarity Clear (Clear); Urine Urobilinogen Normal (Normal)
[2020-09-17 01:32] LABS: Ketone-Dipstick 150 mg/dl (Negative)
[2020-09-17 01:42] LABS: Squamous Epithelial Cells - UA 0-5 SEEN /hpf (5-10); White Blood Cells 0-5 SEEN /hpf (0-5)
[2020-09-17 01:43] LABS: Bacteria 1+ /hpf (None Seen); Mucous, Urine 2+ /hpf (<or=2+)
[2020-09-17 01:47] LABS: Internal QC Validated? YES +Cl - CLEAR BKGD; Pregnancy, Serum, hCG Quali. NEGATIVE Negative
[2020-09-17 01:55] LABS: ALB/GLOB Ratio 1.2 RATIO (0.9-2.4); AST(SGOT) 11 U/L (15-37); Alanine Aminotransfer ALT/SGPT 16 U/L (13-56); Alkaline Phosphatase 71 U/L (45-117); Anion Gap 4 (5-15); BUN 11 mg/dL (7-18); BUN/Creat Ratio 15.7 RATIO (10-20); Calcium,Total 8.8 mg/dL (8.5-10.1); Chloride 106 mmol/L (98-107); EST Glomerular Filtration Rate 102 mL/min (>60); Est Glom Filt Rate - Afr Amer 124 mL/min (>60); Estimated Creatinine Clearance 107.19 ml/min; Globulin 3.2 g/dL (2.2-4.2); Glucose 90 mg/dL (74-106); Lipase 75 U/L (73-393); Potassium 4.1 mmol/L (3.5-5.1); Protein, Total 7.2 g/dL (6.4-8.2); Sodium Level 140 mmol/L (136-145)
[2020-09-17 04:33] VITALS: BP 101/72; PULSE 78; RESP 18; O2SAT 99
== END 2020-09-17 04:34 | disposition home or self-care (01) ==
LOC: ED 01:11
PROVIDERS: Emergency Provider Emergency Medicine; PCP Student in an Organized Health Care Education/Training Program
DX: R11.2 Nausea with vomiting, unspecified (principal)
CPT/HCPCS: 74177; 80053; 81001; 83690; 84703; 85025; 96361; 96374; 99284; J7030; Q9967; A4216; J2405

== ENCOUNTER 2020-09-28 10:23 | Day surgery (SDC) | payer MEDICAID, SELFPAY ==
[2020-09-28] VITALS (7 sets, daily range): BP systolic 102–104; BP diastolic 61–76; PULSE 45–77; RESP 16–18; TEMP 36.3–36.9; O2SAT 97–100; BMI 18.6
--- NOTE | 2020-09-28 | IMM_PTH ---
PATIENT: MADDIE CREWS LOC: EN U#:[id number] AGE/SX: 35/F ROOM: RE09/28/[address]: Dr. Santy Ibarra MD : 1985 BED: DIS: 09/28/2020 SPEC #: [id number] RECD: 10/02/20 11:40 STATUS: LAYO REQ #: [id number] HEYDI: 09/28/20 00:[address]: Santy Ibarra DEPT: IMMUNOHISTOCHEMISTRY RECD BY: Maria Luisa Tavera ENTERED: 10/02/20 11:41 SP TYPE: IMMUNO OTHR DR: Dr. Tee Vogel DO Tissues: A - Small intestine biopsy Procedures: BCL-2 (add) CD20 (add) CD43 (add) CD45 (add) CD5 (add) CD79A (add) KI-67 (add) CD3 (initial) PHYSICIAN & INSTITUTION [place] [id number] SPECIMEN INFORMATION: Tissue Source: A - Biopsy of small bowel Clinical Info: Lower GI bleed, abdomen pain Specimen Number: [id number] CPT code: 68104, 11908 x7 METHODOLOGY: Deparaffinized sections of prefer/formalin-fixed tissue or PAP/DQ stained slides are incubated with monoclonal/polyclonal antibodies/oligonucleotide probes. Localization is made via biotin free immunoperoxidase method. Appropriate controls are performed and reacted as expected. Results on target cell population are indicated in the following table: RESULTS: ANTIBODY / CLONE RESULT Block A CD3 (PS1) positive CD5 (SP10) positive CD20 (L26) positive CD43 (L60) positive CD45 (RP2/18) positive CD79a (11E3) positive BCL-2 (bcl-2/100/D5) positive Ki-67 (30-9) positive These tests were developed and their performance characteristics determined by [facility]. They may not have been cleared or approved by the U.S. Food and Drug Administration. The FDA has determined that such clearance or approval is not necessary. The above immunohistochemical/dualISH markers are ordered and reviewed by the Pathologist. INTERPRETATION: A. Small bowel, biopsy: Polytypic (benign) lymphoid aggregate. AM:scar 10/03/2020
--- NOTE | 2020-09-28 | COLBX_PTH ---
PATIENT: MADDIE CREWS LOC: EN U#:[id number] AGE/SX: 35/F ROOM: RE09/28/[address]: Dr. Santy Ibarra MD : 1985 BED: DIS: 09/28/2020 SPEC #: [id number] RECD: 09/28/20 13:48 STATUS: LAYO RAJAT #: [id number] HEYDI: 09/28/20 00:[address]: Santy Ibarra DEPT: SURGICAL PATHOLOGY RECD BY: Mikel Lang ENTERED: 09/29/20 07:58 SP TYPE: COLON BX OTHR DR: Dr. Tee Vogel DO Tissues: A - Small intestine biopsy B - COLON BIOPSY Procedures: Surgery Specimen Level IV HEADER OPERATION: Colonoscopy (MAC) PRE-OP DIAGNOSIS: Lower GI bleed, abdomen pain TISSUE SUBMITTED: A - Biopsy of small bowel, B - Random colon biopsies MICROSCOPIC DIAGNOSIS A. Small bowel, biopsy: Prominent polytypic lymphoid aggregates. See comment. B. Colon, random biopsy: No pathologic change. AM:scar 10/02/2020 COMMENT A. Immunohistochemistry ([id number]) supports the above diagnosis. Case has been reviewed in consultation with Dr. Hauser who concurs with the above diagnosis. IDC:ANTONIA MICROSCOPIC DESCRIPTION Slides are reviewed. GROSS DESCRIPTION A - Received in fixative is one container labeled with the patient's name and designated small bowel biopsy. The specimen consists of multiple irregular fragments of light uribe soft tissue that in aggregate measure 0.5 x 0.5 x 0.1 cm. The specimen is totally submitted in one cassette. B - Received in fixative is one container labeled with the patient's name and designated random colon biopsy. The specimen consists of multiple irregular fragments of light uribe soft tissue that in aggregate measure 2 x 0.6 x 0.1 cm. The specimen is totally submitted in one cassette. / ANTONIA:scar 09/29/20 TC:5 CPT: 16567 x2
--- NOTE | 2020-09-28 10:10 | PCM.HP.BLA ---
History and Physical Date of Admission: 09/28/20 HISTORY AND PHYSICAL ? Mayuri Dahl 1985 ? REFERRING PHYSICIAN: ??Sergio Singer, * ? CHIEF COMPLAINT: ??Consult ? HPI: The patient is a 35 year old female referred for endoscopy. ?Mayuri notes the following GI complaints:???Mayuri?notes abdominal pain.?Patient states that the pain is usually in the lower abdomen from the left lower quadrant over lower pelvis into the right lower quadrant..?. ?Mayuri denies?diarrhea. ??Mayuri notes?constipation. ?Mayuri denies?a change in bowel habits. ?Mayuri denies?melena. ?Mayuri notes?bright red blood per rectum. ???Mayuri denies?hemorrhoids. ? ? The patient??notes no history of upper GI complaints. ? Mayuri?has not?undergone prior endoscopy. ?She does have a brother with Crohn's disease. ? The patient is being seen by me today at the request of ?Tee Vogel, DO?for my opinion and advice regarding Lower gi bleed ?(primary encounter diagnosis) Abnormal cat scan.? ? ? PAST MEDICAL HISTORY PAST MEDICAL HISTORY Diagnosis Date ? Cervical dysplasia 06/2020 ? Irregular heart beat ? ? Migraine headache ? ? Pelvic pain in female ? ? ovarian cysts, [facility] ? SVT (supraventricular tachycardia) ([facility]) 2011 ? [address] Dr. Coburn at the time ? Tobacco abuse ? ? ? PAST SURGICAL HISTORY PAST SURGICAL HISTORY Procedure Laterality Date ? NONE ? ? ? UTERINE CERVIX-EXCISION (CONE/LEEP) SYNOPTIC RPT ? 06/2020 ? ? CURRENT MEDICATIONS Current Outpatient Medications Medication Sig ? ibuprofen (MOTRIN) 800 mg tablet Take 1 tablet by mouth every 8 hours as needed for Pain. Take with food. ? SUMAtriptan (IMITREX) 100 mg tablet Take 1 tablet at the onset of headache. ?May repeat dose in 2 hours if needed. Do not exceed 200 mg (2 tabs) in 24 hour period. ? hydrocodone/acetaminophen (VICODIN ORAL) Take by mouth. (Patient not taking: Reported on 09/18/2020 ) ? No current facility-administered medications for this visit. ? ALLERGIES:?Cats, Morphine, and Vicodin [Hydrocodone-Acetaminophen] ? PERSONAL HISTORY:? SOCIAL HISTORY Social History ? Tobacco Use ? Smoking status: Current Some Day Smoker ? ? Packs/day: 0.50 ? ? Years: 4.00 ? ? Pack years: 2.00 ? Smokeless tobacco: Never Used ? Tobacco comment: seldom/3 cigarettes a month Substance Use Topics ? Alcohol use: No ? Drug use: No ? FAMILY HISTORY:? FAMILY HISTORY FAMILY HISTORY Problem Relation Age of Onset ? Thyroid Mother 40 ?cancer ? Hypertension Maternal Grandmother ? ? Heart Maternal Grandmother ?MS ? Arthritis Maternal Grandfather ? ? Hypertension Maternal Grandfather ? ? Arthritis Paternal Grandmother ? ? Colon Cancer Maternal Uncle ? ? REVIEW OF SYMPTOMS: ??The review of systems data was entered by the nurse and reviewed by me ? Nursing Notes: Glenn Alejandre LPN ?09/18/2020 ?3:28 PM ?Signed REVIEW OF SYSTEMS: ?General:???The patient NOTES fatigue, NOTES weight loss, denies weight gain, NOTES feeling hot, and denies feelings of cold. ?Eyes: ?The patient denies glaucoma, denies eye injury/surgery, wears glasses or contacts. ?Ear/Nose/Throat: ?The patient NOTES allergies, denies hayfever, denies ear infections, and denies bloody noses. ?Cardiovascular: ?The patient denies chest pain, denies heart disease, denies high blood pressure,denies cardiac stent, denies prior heart attack, denies irregular heart beat, denies high cholesterol, ?denies poor circulation, denies heart failure, other cardiac issues, denies claudication, denies cold feet, denies peripheral arterial stent. ?Respiratory: ?The patient denies tuberculosis, denies pneumonia, denies frequent cough, denies pulmonary embolism, denies shortness of breath, and denies coughing up blood. ?Gastrointestinal: ?The patient denies difficulty swallowing, NOTES acid reflux, denies ulcers, NOTES vomiting, denies jaundice/hepatitis, denies gallbladder problems, denies black or tarry stools, denies hemorrhoids, NOTES bleeding from rectum, denies diverticulitis, NOTES constipation, denies diarrhea, denies loss of stool control, and denies hernias. ?Kidney/Bladder: ?The patient denies kidney stones, denies urine infections, and denies bloody urine. ?Skin: ?The patient denies a history of skin cancer, denies bleeding/changing moles, and NOTES a history of skin rash. ?Neurologic: ?The patient denies a history of epilepsy/convulsions, NOTES headaches, denies head/spinal injuries, and denies stroke/TIA. ?Psychiatric: ?The patient denies psychiatric medications, denies depression, and denies voices, denies substance abuse. ?Endocrine: ?The patient denies thyroid disorders, denies diabetes, and denies hormonal problems. ?Hematologic: ?The patient NOTES a history of bruising, NOTES bleeding, and denies anemia, denies blood clots. ?Infections: ?The patient denies a history of measles and mumps, denies rheumatic fever, and denies sexually transmitted diseases. ?Musculoskeletal: ?The patient NOTES back pain/injury, denies back problems, denies sciatica, denies knee/foot trouble, denies arthritis, or denies gout. ? ? When was patient's last Mammogram screening? N/A ? ?Last Colonoscopy: ?N/A ? PHYSICAL EXAMINATION: ? General: ?The patient is 35 year old female, well nourished, well hydrated in no acute distress. ?The patient is oriented to time, place, and person. ? VITALS:?Blood pressure 94/70, pulse 103, temperature 37.1 ?C (98.8 ?F), temperature source Temporal Artery, weight 59.9 kg (132 lb), last menstrual period 05/16/2019, SpO2 99 %.?Body mass index is 18.94 kg/m?.? ? HEENT: ?Normal cephalic, ataumatic, pupils are equally round, sclera are anicteric, mucous membranes are moist, oropharynx is clear. ?Neck has no masses, asymmetry or lymphadenopathy. ?Thyroid is unremarkable. ? Respiratory: ?Clear to auscultation and percussion. ?Normal respiratory excursion and pattern. ? Cardiac: ?Examination is regular rate and rhythm. ? Abdominal exam: ?Soft, nontender, ?with no palpable masses. ?No hepatosplenomegaly. ?No palpable hernias. ? Rectal exam:?exam deferred ? Extremities: ?no clubbing, cyanosis or edema. ?No adenopathy. ? Other: ? LABORATORY VALUES: As Noted ? RADIOLOGIC STUDIES:? IMPRESSION: No CT evidence for acute appendicitis. ? There is some mild thickening of a segment of the sigmoid colon. ?However the oral contrast does not reach this region of the colon time of study. This may represent a segment of mild colitis given patient''s symptomology. However this area would be limited due to the lack of distention. ? There is no rim-enhancing fluid collections or free air identified. ? Other findings as above. ? Electronically Signed: Villa Dunaway MD at 4:19 EDT Tel , Service support ? , ? ? ? Assessment ? IMPRESSION:?Lower gi bleed ?(primary encounter diagnosis) Abnormal cat scan ? PLAN: ?I plan to perform lower?endoscopy With random colon biopsies. ??We discussed the risks and benefits of the planned endoscopy. ?I have informed the patient that complications can occur including failure to complete the endoscopy and perforation. ?The patient had the opportunity to ask questions concerning the planned endoscopy. ?My staff has also explained the procedure to the patient in understandable terms and has given the patient printed material concerning the procedure. ?The patient freely consents to surgery. ? I plan to use Miralax bowel preperation for endoscopy? Diagnoses:?(K92.2) Lower GI bleed ?(primary encounter diagnosis) (R93.89) Abnormal CAT scan ? ? My findings have been communicated to Dr.??Tee Vogel DO?via shared medical record. ?This note will be forwarded to Dr. Tee Vogel DO. ?? Return to Clinic: The patient is instructed to follow-up with me?1 week post operatively. ? COVID (Procedure Consent) Procedure Criteria ? Procedure Criteria: Yes Elective ?The surgeon/proceduralist and patient have discussed in detail the risk of exposure to and/or potential harm posed by the COVID-19 virus with having a surgery/procedure at this time versus the risk of??delaying the surgery/procedure. It is not possible to know either the risk of delaying the surgery or procedure or chance of getting an infection with perfect accuracy, but a joint decision was made between the patient and the surgeon/proceduralist ?to proceed at this time with the scheduled surgery/procedure as indicated on the consent form. ? ? Santy Ibarra III, MD I have re-examined the patient. There are no clinical changes since date of exam.
[2020-09-28 10:47] LABS: Internal QC Validated? YES +Cl - CLEAR BKGD; Pregnancy, Urine Negative Negative
[2020-09-28] MEDS: Lactated Ringers 1,000 ML 100 ML IV (10:59)
--- NOTE | 2020-09-28 12:22 | OP.COLON_ITS ---
Patient Name: Mayuri Dahl Procedure Date: 09/28/2020 11:55 AM Date of : 1985 Age: 35 Procedure: Colonoscopy Indications: Gastrointestinal bleeding, Abnormal CT of the GI tract Providers: Santy Ibarra MD Referring MD: Tee Vogel Medicines: See the Anesthesia note for documentation of the administered medications Patient Profile: This is a 35 year old female. Refer to note in patient chart for documentation of history and physical. Last Colonoscopy: none. The patient's first colonoscopy is today. Complications: No immediate complications. Procedure: Pre-Anesthesia Assessment: - Prior to the procedure, a History and Physical was performed, and patient medications and allergies were reviewed. The patient's tolerance of previous anesthesia was also reviewed. The risks and benefits of the procedure and the sedation options and risks were discussed with the patient. All questions were answered, and informed consent was obtained. Prior Anticoagulants: The patient has taken no previous anticoagulant or antiplatelet agents. ASA Grade Assessment: II - A patient with mild systemic disease. After reviewing the risks and benefits, the patient was deemed in satisfactory condition to undergo the procedure. After I obtained informed consent, the scope was passed under direct vision. Throughout the procedure, the patient's blood pressure, pulse, and oxygen saturations were monitored continuously. The adult colonoscope was introduced through the anus and advanced to 5 cm into the ileum. The colonoscopy was performed without difficulty. The patient tolerated the procedure well. The quality of the bowel preparation was adequate to identify polyps 6 mm and larger in size. Scope In: 12:02:01 PM Scope Withdrawal Time 0 hours 7 minutes 33 seconds Scope Out: 12:15:25 PM Total Procedure Duration Time 0 hours 13 minutes 24 seconds Findings: The terminal ileum appeared normal. Biopsies were taken with a cold forceps for histology. Non-bleeding internal hemorrhoids were found during retroflexion. The hemorrhoids were mild and small. The colon (entire examined portion) appeared normal. Biopsies for histology were taken with a cold forceps from the entire colon for evaluation of microscopic colitis. The exam was otherwise without abnormality. Impression: - The examined portion of the ileum was normal. Biopsied. - Non-bleeding internal hemorrhoids. - The entire examined colon is normal. Biopsied. - The examination was otherwise normal. Recommendation: - Discharge patient to home. - Resume previous diet. - Continue present medications. - Await pathology results. - Repeat colonoscopy (date not yet determined) for surveillance based on pathology results. - Return to primary care physician PRN. Procedure Code(s): --- Professional --- 35159, Colonoscopy, flexible; with biopsy, single or multiple Diagnosis Code(s): --- Professional --- K64.8, Other hemorrhoids K92.2, Gastrointestinal hemorrhage, unspecified R93.3, Abnormal findings on diagnostic imaging of other parts of digestive tract CPT copyright 2017 [employer]. All rights reserved. The codes documented in this report are preliminary and upon boat cleaner review may be revised to meet current compliance requirements. MD Santy Zaldivar MD 09/28/2020 12:21:43 PM This report has been signed electronically. Number of Addenda: 0 Note Initiated On: 09/28/2020 11:55 AM
--- NOTE | 2020-09-28 12:22 | OP.CCLET_ITS ---
09/28/2020 Tee Vogel [address] [place] [address] Re : Colonoscopy procedure for Mayuri Dahl Dear Dr. Vogel This procedure was performed on September. My impressions and recommendations are as follows: Impressions : - The examined portion of the ileum was normal. Biopsied. - Non-bleeding internal hemorrhoids. - The entire examined colon is normal. Biopsied. - The examination was otherwise normal. Recommendations : - Discharge patient to home. - Resume previous diet. - Continue present medications. - Await pathology results. - Repeat colonoscopy (date not yet determined) for surveillance based on pathology results. - Return to primary care physician PRN. My findings are described in the full procedure note, which is enclosed. If I can be of further assistance, please feel free to contact me at Doctor phone number(s): , Fax: [phone], Work: . Sincerely, MD Santy Zaldivar MD 09/28/2020 12:21:43 PM This report has been signed electronically.
== END 2020-09-28 13:34 | disposition home or self-care (01) ==
LOC: EN 10:23 → AC 10:23
PROVIDERS: Anesthesiology; PCP Student in an Organized Health Care Education/Training Program; Referring Provider Student in an Organized Health Care Education/Training Program; Visit Provider Surgery
PROC: 0DJD8ZZ Inspection of Lower Intestinal Tract, Via Natural or Artificial Opening Endoscopic (ICD-10-PCS; CPT 45378; principal; 2020-09-28 11:55)
DX: K92.2 Gastrointestinal hemorrhage, unspecified (principal); K64.8 Other hemorrhoids; K92.1 Melena; Z20.828 Contact with and (suspected) exposure to other viral communicable diseases; R93.3 Abnormal findings on diagnostic imaging of other parts of digestive tract; K59.00 Constipation, unspecified; Z83.79 Family history of other diseases of the digestive system; G43.909 Migraine, unspecified, not intractable, without status migrainosus; F17.210 Nicotine dependence, cigarettes, uncomplicated; R94.8 Abnormal results of function studies of other organs and systems
CPT/HCPCS: 45380; 81025; 87426; 88305; 88341; 88342; C9803; J7120; J2405

== ENCOUNTER → 2020-10-02 16:27 | Outpatient (CLI) | payer MEDICAID, SELFPAY ==
[2020-10-05 03:07] LABS: Chlamydia By Nucleic Acid AMP Negative (Negative)
[2020-10-05 09:13] LABS: Gonococcus By Nucleic Acid AMP Negative (Negative)
== END ==
PROVIDERS: PCP Student in an Organized Health Care Education/Training Program; Referring Provider Nurse Practitioner Women's Health; Visit Provider Nurse Practitioner Women's Health
DX: R10.2 Pelvic and perineal pain (principal); N89.8 Other specified noninflammatory disorders of vagina
CPT/HCPCS: 87070; 87186; 87205; 87491; 87591

== ENCOUNTER → 2020-12-04 12:42 | Outpatient (CLI) | payer MEDICAID, SELFPAY ==
[2020-12-04 11:36] VITALS: BMI 19.5
== END ==
PROVIDERS: PCP Student in an Organized Health Care Education/Training Program; Referring Provider Nurse Practitioner Women's Health; Visit Provider Nurse Practitioner Women's Health
DX: N89.8 Other specified noninflammatory disorders of vagina (principal)
CPT/HCPCS: 87070; 87205

== ENCOUNTER 2021-10-10 06:28 | Outpatient (CLI) | payer MEDICAID, SELFPAY ==
[2021-10-11 22:07] LABS: Chlamydia By Nucleic Acid AMP Negative (Negative)
[2021-10-11 22:25] LABS: Gonococcus By Nucleic Acid AMP Negative (Negative)
[2021-10-15 18:18] LABS: HPV APTIMA, High Risk Negative (Negative)
== END 2021-10-10 23:59 | disposition home or self-care (01) ==
LOC: LABSPEC 10-11 06:28
PROVIDERS: PCP Student in an Organized Health Care Education/Training Program; Referring Provider Nurse Practitioner Women's Health; Visit Provider Nurse Practitioner Women's Health
DX: Z11.3 Encounter for screening for infections with a predominantly sexual mode of transmission (principal); Z12.4 Encounter for screening for malignant neoplasm of cervix; N76.0 Acute vaginitis
CPT/HCPCS: 87070; 87205; 87491; 87591; 87624; 88175; G0145

== ENCOUNTER 2022-03-04 11:16 | Emergency (ER) | payer MEDICAID, SELFPAY ==
[2022-03-04 11:17] VITALS: BP 133/86; PULSE 93; RESP 16; TEMP 36.7; O2SAT 99; BMI 19.0
--- NOTE | 2022-03-04 11:42 | EX.ED.UPPERE ---
HPI History of Present Illness Chief Complaint: Upper Extremity Injury Detail of Chief Complaint: pain, no injury, LUE Informant: patient Onset/Context/Timing Onset: Days (several) Context: Gradual Onset Timing: Continuous Quality of Pain: Aching Location: Left hand, ascending up to the shoulder Current Severity: Severe Maximum Severity: Severe Worsened by: Movement Relieved by: Remaining still Associated Symptoms Associated Symptoms: Positive for Parasthesia (Fingers 2-5); Negative for Weakness or Loss of Funtion Narrative Narrative: Patient denies any injury. She states she has been having pain that started in the joints of her left hand, followed by her wrist, then her elbow, and now her shoulder, and still involving all of the aforementioned joints as well. No other joints are involved. No redness or swelling or fevers or chills. No history of gonorrhea, chlamydia, and no recent suspicion for that, she states she has had no sexual activity in the past 2 years, and no vaginal symptoms or discharge. She is having some tingling, every finger except for her thumb. She denies any injury that she can remember. She has never had arthritis before, no rashes that she has noticed. No neck pain. [facility] Medical History Migraines overactive heart Home Medications sumatriptan succinate 25 mg tablet 25 mg PO .X1 PRN 09/22/20 [History Last Taken Unknown] multivitamin 1 tab PO DAILY 10/10/21 [History Last Taken Unknown] prednisone 10 mg tablet 10 mg PO UD #34 tabs 03/04/22 [Rx Last Taken Unknown] Allergy/AdvReac Type Severity Reaction Status Date / Time ketorolac [From Toradol] Allergy Intermediate Other Verified 03/04/22 11:16 acetaminophen [From Vicodin] Allergy Mild throat Verified 03/04/22 11:16 swelling, vomiting hydrocodone [From Vicodin] Allergy Mild throat Verified 03/04/22 11:16 swelling, vomiting morphine AdvReac Itching Verified 03/04/22 11:16 Family History Mother COPD (chronic obstructive pulmonary disease) WILY (obstructive sleep apnea) Brittle bone syndrome Surgical History H/O LEEP (~07/25/20) S/P tooth extraction Social History household members: significant other number of children: 1 current occupational status: employed current occupation: [employer] history of recent travel: No sexually active: Yes Smoking Status: Light Smoker (<10/day) alcohol intake: never substance use type: does not use caffeine: Yes what type of physical activity do you participate in: none seatbelt use: always do you feel safe at home: Yes additional social history: Fiance - Paula Legit ROS ROS ED Constitutional Constitutional ED: Denies chills or fever(s) Musculoskeletal Musculoskeletal: Reports arthralgias and extremity pain; Denies myalgias or neck pain Integumentary Denies Abrasions, rash or wounds Neurologic Neurologic: Reports paresthesias; Denies weakness EXAM Physical Exam Const Vital Signs: 03/04/22 11:17 Temperature 98.0 F Temperature Source Temporal Pulse Rate 93 Respiratory Rate 16 Blood Pressure 133/86 H Blood Pressure Mean 101 Pulse Ox 99 Oxygen Delivery Method Room Air Positive well nourished and well developed General Appearance ED: well developed and NAD Neck full ROM and supple Back/Spine normal ROM and normal to inspection Extremity normal to inspection and full ROM Extremity Narrative: Joints are normal-appearing. Mild diffuse left elbow and left shoulder tenderness, although the shoulder is focused more subacromial. No excessive warmth of any joint. Hand is normal-appearing. Brisk cap refill, strong pulses. Positive Tinel's at the ulnar tunnel. Equivocal median tunnel Tinel's, with that maneuver patient has numbness and tingling throughout fingers 2-5. Neuro oriented x3, no focal motor deficits and no sensory deficits noted Sensorium / Orientation: alert Psych thought process normal Mood & Affect: anxious and tearful Skin no wounds Lesions: no lesions Rashes: no rashes MDM MDM MDM Narrative Medical decision making narrative: Patient does not examine like a septic joint anywhere. She has no objective findings on inspection or palpation except for those mentioned, the Tinel's signs do not reproduce symptoms only in their respective nerve distributions. It is unknown if this could be a peripheral neuropathy, migratory arthritis/polyarthritis, it does not act like a radiculopathy since she is making all of the symptoms worse by moving the respective joints. I think putting her on prednisone would be reasonable to try to help with her pain, and having her follow-up as an outpatient. I do not think doing blood work or x-rays would be helpful at this time. I explained all that to her and she is comfortable with that plan, she was offered some NSAIDs here prior to discharge as well as a first dose of prednisone. Discharge Plan Triage Chief Complaint: Upper Extremity Injury ED Provider: Geovany Gardner Dx/Rx/DC Orders Clinical Impression: Arthralgia of left upper arm, Peripheral neuropathy Instructions: ED Arthralgia, ED Neuropathy, Peripheral Prescriptions: New prednisone 10 mg tablet 10 mg PO UD Qty: 34 0RF Rx Instructions: Take 4 tablets daily for 4 days, then 3 daily for 3 days, then 2 daily for 3 days, then 1 a day for 3 days No Action multivitamin Tablet 1 tab PO DAILY sumatriptan succinate 25 MG tablet 25 mg PO .X1 PRN Stand Alone Forms: ED Work / School Excuse Primary Care Provider: Tee Vogel Referrals: Tee Vogel DO [Primary Care Provider] - As soon as possible Activity Restrictions/Additional Instructions: Start prescription tomorrow (today's dose already given in ED) Disposition Disposition: Home, Self Care
[2022-03-04] MEDS: Ibuprofen 600 MG Tablet PO (11:51)
[2022-03-04] MEDS: predniSONE 20 MG Tablet 60 MG PO (11:52)
== END 2022-03-04 11:56 | disposition home or self-care (01) ==
PROVIDERS: Emergency Provider Emergency Medicine; PCP Student in an Organized Health Care Education/Training Program; Visit Provider Emergency Medicine
DX: M25.542 Pain in joints of left hand (principal); G62.9 Polyneuropathy, unspecified; F17.200 Nicotine dependence, unspecified, uncomplicated
CPT/HCPCS: 99283

== ENCOUNTER 2023-01-07 11:26 | Emergency (ER) | payer MEDICAID, SELFPAY ==
[2023-01-07 11:28] VITALS: BP 140/91; PULSE 126; RESP 24; TEMP 36.2; O2SAT 96; BMI 17.9
[2023-01-07 11:46] VITALS: BP 106/75; PULSE 89; RESP 28
--- NOTE | 2023-01-07 11:52 | EKG12_ITS ---
Test Reason : CP Blood Pressure : / mmHG Vent. Rate : 089 BPM Atrial Rate : 089 BPM P-R Int : 128 ms QRS Dur : 066 ms QT Int : 346 ms P-R-T Axes : 075 077 059 degrees QTc Int : 420 ms Normal sinus rhythm with sinus arrhythmia Right atrial enlargement Borderline ECG Confirmed by KHUSHI RODRIGEZ, ESPINOZA ([id number]), medical editor MADDIE MIDDLETON ([id number]) on 01/08/2023 10:23:16 AM Referred By: UMBERTO Confirmed By:ESPINOZA PURI MD
--- NOTE | 2023-01-07 11:53 | ED.VIS.CHEST ---
HPI History of Present Illness Chief Complaint: Chest Pain Informant: patient Narrative Narrative: Intermittent chest pain substernal since Friday states heaviness occasional sharp sensations right and left side. She has had dyspnea with this. Remote tobacco quit 4 months ago. States family history of heart issues brother at 35 had a pacemaker sister had valve issues. She states she seen Dr. Coburn in the past, states had a stress test sometime 2017. No history of heart cath. Denies any control. Denies recent travel surgery or immobilizations. No history of PE or DVT. Denies hypertension diabetes hyperlipidemia. Patient takes medicines only for migraines. States has tingling lips hands and feet. No weakness. Prior Similar Symptoms: No CVD Risk Factors: Negative for Hypertension, Diabetes, Hypercholesterolemia, Family History 1' </=55 or Smoking PE Risk Factors: Negative for Recent Travel/Surgery, Recent Immobilization, Prior DVT or PE or OCP + Smoking + >/=35 PFSH PFSH Medical History Migraines overactive heart Home Medications sumatriptan succinate 25 mg tablet 25 mg PO .X1 PRN 09/22/20 [History Last Taken Unknown] multivitamin 1 tab PO DAILY 10/10/21 [History Last Taken Unknown] Allergy/AdvReac Type Severity Reaction Status Date / Time ketorolac [From Toradol] Allergy Intermediate Other Verified 01/07/23 11:29 acetaminophen [From Vicodin] Allergy Mild throat Verified 03/04/22 11:16 swelling, vomiting hydrocodone [From Vicodin] Allergy Mild throat Verified 01/07/23 11:29 swelling, vomiting morphine AdvReac Itching Verified 01/07/23 11:29 Family History Mother COPD (chronic obstructive pulmonary disease) WILY (obstructive sleep apnea) Brittle bone syndrome Surgical History H/O LEEP (~07/25/20) S/P tooth extraction Social History household members: significant other number of children: 1 current occupational status: employed current occupation: [employer] history of recent travel: No sexually active: Yes Smoking Status: Light Smoker (<10/day) alcohol intake: never substance use type: does not use caffeine: Yes what type of physical activity do you participate in: none seatbelt use: always do you feel safe at home: Yes additional social history: Anitra Mitchell Starla ROS ROS ED Constitutional Constitutional ED: Denies chills, fever(s) or sweats Eyes Eyes: Denies change in vision ENT ENT ED: Denies dysphagia or sore throat Cardiovascular Cardiovascular: Reports chest pain; Denies leg edema, palpitations or racing heartbeat Respiratory/Chest Respiratory/Chest: Reports dyspnea; Denies cough or dyspnea on exertion Gastrointestinal Gastrointestinal: Denies abdominal pain, diarrhea, nausea or vomiting Genitourinary Genitourinary ED: Denies dysuria, hematuria or urinary frequency Musculoskeletal Musculoskeletal: Denies back pain, extremity pain or neck pain Integumentary Denies rash or wounds Neurologic Neurologic: Reports paresthesias; Denies headache(s) or weakness EXAM Physical Exam Const Vital Signs: 01/07/23 11:28 01/07/23 11:46 01/07/23 11:47 Temperature 97.2 F L Temperature Source Temporal Pulse Rate 126 H 89 Respiratory Rate 24 H 28 H Respiratory Effort Short of Breath Labored Blood Pressure 140/91 H 106/75 Blood Pressure Mean 107 85 Pulse Ox 96 Oxygen Delivery Method Room Air Room Air 01/07/23 12:00 01/07/23 12:00 01/07/23 13:01 Temperature Temperature Source Pulse Rate 85 78 Respiratory Rate 15 16 Respiratory Effort Blood Pressure 119/73 107/72 Blood Pressure Mean 87 82 Pulse Ox 94 Oxygen Delivery Method Room Air 01/07/23 14:00 01/07/23 15:00 Temperature Temperature Source Pulse Rate 65 68 Respiratory Rate 12 12 Respiratory Effort Blood Pressure 105/79 106/74 Blood Pressure Mean 87 84 Pulse Ox Oxygen Delivery Method Positive well nourished and well developed General Appearance ED: well developed and NAD HEENT Reports moist mucous membranes normocephalic and atraumatic Eyes PERRL, EOMs intact bilaterally and conjunctivae normal General Eye ED: Yes normal appearance of both eyes Neck no lymphadenopathy and supple General: Negative for tenderness Chest Wall Chest: Negative for tenderness Resp normal respiratory effort and normal air movement Effort and Inspection: symmetric chest movement; Negative for respiratory distress Cardio regular rate, regular rhythm and no murmurs Peripheral Pulses: pulses 2+ throughout GI normal to inspection, nondistended, normoactive bowel sounds and non-tender Palpation: Negative for guarding or rebound tenderness present Back/Spine no CVA tenderness and no thoracic nor lumbar tenderness Extremity normal to inspection General Extremety ED: Negative for edema or tenderness General Extremity: Negative for edema Neuro oriented x3 and no sensory deficits noted Sensorium / Orientation: awake and alert Skin no rashes or lesions noted and no wounds Heart Score History: Slightly/Non-Suspicious ECG: Normal Age: </= 45 years Risk Factors: 1 or 2 Risk Factors Troponin: </= Normal Limit Score: 1 MDM MDM MDM Narrative Medical decision making narrative: Interventions / MDM: Differential diagnosis: Chest pain, ACS, hyperventilation syndrome Diagnosis considered but do not suspect: Pulmonary embolism, low risk Wells criteria, D-dimer negative My EKG interpretation: Sinus rate of 89, no ST or T wave changes QTc 420. Imaging independently reviewed and interpreted by myself: 2 view chest x-ray: No acute process External documents reviewed: N/A Test considered but not ordered:N/A ED course: Patient presents with chest pains and EKG sinus rhythm present with tachycardia on arrival. Cardiac work-up initiated. Low risk Wells criteria for PE. D-dimer obtained. 2 troponins negative D-dimer negative. Potassium 3.2 orally replaced. Chest x-ray negative. Re-evaluation: stable symptom-free on reevaluation. Discussed hyperventilation syndrome causing paresthesias the patient., She seen cardiology Dr. Coburn in the past, she will follow-up with him. Return precautions. All questions were answered. Disposition discussed with patient/family/significant other: patient Case discussed with consulting clinician: N/A This note was generated with [employer] dictation software. It may contain incorrect words, spelling, and punctuation that were not noted in checking the note before signing. Lab Data Attestation: I reviewed the patient's lab results. Labs: Laboratory Results - last 24 hr 01/07/23 01/07/23 01/07/23 11:55 11:55 11:55 WBC 6.7 RBC 4.77 Hgb 14.9 Hct 43.5 MCV 91.2 MCH 31.2 MCHC 34.3 RDW Std Deviation 38.8 RDW Coeff of Ness 11.6 Plt Count 212 MPV 10.5 Immature Gran % (Auto) 0.100 Neut % (Auto) 60.7 Lymph % (Auto) 31.0 [place] % (Auto) 7.0 Eos % (Auto) 0.6 Baso % (Auto) 0.6 Absolute Neuts (auto) 4.1 Absolute Lymphs (auto) 2.08 Nucleated RBC % 0 PT 13.7 INR 1.0 APTT Cancelled 28.0 D-Dimer Quant (PE/DVT) Cancelled < 0.27 L Sodium 138 Potassium 3.2 L Chloride 107 Carbon Dioxide 24.0 Anion Gap 7 BUN 8 Creatinine 0.75 Estim Creat Clear Calc 93.71 Est GFR (MDRD) Af Amer 112 Est GFR (MDRD) Non-Af 93 BUN/Creatinine Ratio 10.6 Glucose 92 Calcium 9.4 Troponin I High Sens 3 Serum , Qual NEGATIVE 01/07/23 14:10 WBC RBC Hgb Hct MCV MCH MCHC RDW Std Deviation RDW Coeff of Ness Plt Count MPV Immature Gran % (Auto) Neut % (Auto) Lymph % (Auto) [place] % (Auto) Eos % (Auto) Baso % (Auto) Absolute Neuts (auto) Absolute Lymphs (auto) Nucleated RBC % PT INR APTT D-Dimer Quant (PE/DVT) Sodium Potassium Chloride Carbon Dioxide Anion Gap BUN Creatinine Estim Creat Clear Calc Est GFR (MDRD) Af Amer Est GFR (MDRD) Non-Af BUN/Creatinine Ratio Glucose Calcium Troponin I High Sens 4 Serum , Qual Radiography Diagnostic Testing: Clinical Impression(s) from Imaging Studies Chest X-Ray 01/07/23 14:38 IMPRESSION: Hyperinflation. Stable examination. Electronically Signed: Renard Cardoso MD at 15:04 EDT , Discharge Plan Triage Chief Complaint: Chest Pain ED Provider: Matthew Romero Dx/Rx/DC Orders Clinical Impression: Chest pain, Acute hypokalemia, Acute hyperventilation syndrome Instructions: Hyperventilation Syndrome, ED Chest Pain, Uncertain Cause Prescriptions: No Action multivitamin Tablet 1 tab PO DAILY sumatriptan succinate 25 MG tablet 25 mg PO .X1 PRN Stand Alone Forms: Work / School Excuse Primary Care Provider: Tee Vogel Referrals: Maulik Coburn MD [Med Staff - Active Staff] - 3-5 Days Tee Vogel DO [Primary Care Provider] - Activity Restrictions/Additional Instructions: Cardiac work-up including D-dimer negative. Potassium 3.2. Chest x-ray negative. Follow-up with Dr. Coburn as you seen him in the past for further work-up as an outpatient. Return if any worsening symptoms. Disposition Disposition: Home, Self Care Discharge Date/Time: 01/07/23 16:03
[2023-01-07 12:00] VITALS: BP 119/73; PULSE 85; RESP 15; O2SAT 94
[2023-01-07] MEDS: 0.9% Normal Saline 1,000 ML 150 ML IV (12:00)
[2023-01-07 12:09] LABS: Absolute Lymphocyte Count 2.08 X10^3/uL (0.83-4.51); Absolute Neutrophil Count 4.1 X10^3/uL (2.0-7.7); Basophil# 0.04 X10^3/uL; Basophil% 0.6 % (0-1); Eosinophil# 0.04 X10^3/uL; Eosinophils% 0.6 % (0-5); Hematocrit 43.5 % (37-47); Hemoglobin 14.9 g/dL (12.0-15.0); Lymphocyte # 2.08 X10^3/ul (0.83-4.51); Mean Corp Hgb Conc 34.3 g/dL (32-36); Mean Corpuscular Hgb 31.2 pg (27.0-32.0); Mean Corpuscular Volume 91.2 fL (81-99); Mean Platelet Vol. 10.5 fl (6.2-12.0); Monocyte# 0.47 X10^3/uL; NRBC Flagged by Analyzer 0 % (0-5); Neutrophil # 4.06 X10^3/uL (2.7-7.7); Neutrophil % 60.7 % (47-70); Platelet Count 212 K/mm3 (150-450); RBC Distribution Width CV 11.6 % (11.6-14.6); RBC Distribution Width SD 38.8 fl (35.1-43.9); Red Blood Count 4.77 M/mm3 (4.2-5.4); White Blood Count 6.7 K/mm3 (4.4-11.0)
[2023-01-07 12:26] LABS: Anion Gap 7 (5-15); BUN 8 mg/dL (7-18); BUN/Creat Ratio 10.6 RATIO (10-20); Calcium,Total 9.4 mg/dL (8.5-10.1); Chloride 107 mmol/L (98-107); Creatinine, Serum 0.75 mg/dL (0.55-1.02); EST Glomerular Filtration Rate 93 mL/min (>60); Est Glom Filt Rate - Afr Amer 112 mL/min (>60); Estimated Creatinine Clearance 93.71 ml/min; Glucose 92 mg/dL (74-106); Potassium 3.2 mmol/L (3.5-5.1); Sodium Level 138 mmol/L (136-145); Troponin-I HS (w/2H Reflex) 3 pg/mL (3.0-54.0)
[2023-01-07 12:32] LABS: Prothrombin Time (Protime)PT. 13.7 SECONDS (11.7-14.9)
[2023-01-07 12:39] LABS: Internal QC Validated? YES +Cl - CLEAR BKGD; Pregnancy, Serum, hCG Quali. NEGATIVE Negative
[2023-01-07] MEDS: Potassium Chloride Oral Tablet 20 MEQ 40 MEQ PO (12:59)
[2023-01-07 13:01] VITALS: BP 107/72; PULSE 78; RESP 16
[2023-01-07 13:43] LABS: D-Dimer Quantitative (DVT/PE) < 0.27 FEU/ug/m (0.27-0.49)
[2023-01-07 14:00] VITALS: BP 105/79; PULSE 65; RESP 12
[2023-01-07 14:04] LABS: Reflex Troponin-HS? (from REC) Y
[2023-01-07 14:38] LABS: Troponin-I HS 4 pg/mL (3.0-54.0)
--- NOTE | 2023-01-07 14:38 | RAD_ITS ---
STUDY: X-RAY CHEST REASON FOR EXAM: Female, 37 years old. Chest pain TECHNIQUE: Single AP portable view of the chest. COMPARISON: Comparison is made with prior study dated April 08, 2020. FINDINGS: Nipple shadows are seen bilaterally. There is hyperinflation of the lungs consistent with chronic obstructive lung disease (COPD). There is no demonstrated pleural abnormality. Normal size heart. Normal mediastinum and marion. Normal visualized pulmonary arteries. Normal visualized aortic arch and descending thoracic aorta. Normal visualized thoracic spine. Normal visualized ribs, clavicles, and shoulders. There is no demonstrated abnormality of the visualized soft tissue structures of the upper abdomen. RAD/Chest PA and Lateral IMPRESSION: Hyperinflation. Stable examination. Electronically Signed: Renard Cardoso MD at 15:04 EDT ,
[2023-01-07 15:00] VITALS: BP 106/74; PULSE 68; RESP 12
== END 2023-01-07 16:03 | disposition home or self-care (01) ==
PROVIDERS: Emergency Provider Emergency Medicine; PCP Student in an Organized Health Care Education/Training Program; Visit Provider Emergency Medicine
DX: R07.9 Chest pain, unspecified (principal); E87.6 Hypokalemia; F45.8 Other somatoform disorders; Z87.891 Personal history of nicotine dependence
CPT/HCPCS: 71046; 80048; 84484; 84703; 85025; 85379; 85610; 85730; 93005; 99284; J7030; A4216

== ENCOUNTER 2023-07-09 07:30 | Emergency (ER) | payer MEDICAID, SELFPAY ==
[2023-07-09 07:31] VITALS: BP 154/105; PULSE 91; RESP 18; TEMP 35.5; O2SAT 98; BMI 18.5
--- NOTE | 2023-07-09 07:41 | EX.ED.DYSGE1 ---
HPI History of Present Illness Chief Complaint: Nausea/Vomiting/Diarrhea Detail of Chief Complaint: Vomiting and diarrhea and upper abdomen pain Informant: patient Narrative Narrative: Patient presents the emergency department with complaint of nausea vomiting and diarrhea. Patient initially started with symptoms 1 week ago mostly with nausea. She started throwing up 5 days ago. 3 days ago she started with diarrhea having about 3-4 stools per day. She describes a burning sensation in her epigastric region. She has been taking Tums without relief. She went to urgent care today and they were concerned about gallbladder so they referred her to the emergency department. Patient has had no prior abdominal surgeries. Denies other sick contacts. [facility] Medical History (Updated 07/09/23 @ 11:[address] Reece Schwarz, ) Migraines overactive heart SVT (supraventricular tachycardia) Home Medications ibuprofen 800 mg tablet 800 mg PO Q8H PRN 02/17/23 [History Last Taken Unknown] propranolol 40 mg tablet 40 mg PO DAILY 02/17/23 [History Last Taken Unknown] sumatriptan succinate 100 mg tablet 100 mg PO ONCE PRN 02/17/23 [History Last Taken Unknown] lansoprazole 30 mg capsule,delayed release (Prevacid) 30 mg PO DAILY #14 caps 07/09/23 [Rx Last Taken Unknown] ondansetron 4 mg disintegrating tablet 4 mg PO Q8H PRN PRN Nausea #10 tabs 07/09/23 [Rx Last Taken Unknown] Allergy/AdvReac Type Severity Reaction Status Date / Time ketorolac [From Toradol] Allergy Intermediate Other Verified 01/07/23 11:29 acetaminophen [From Vicodin] Allergy Mild throat Verified 03/04/22 11:16 swelling, vomiting hydrocodone [From Vicodin] Allergy Mild throat Verified 01/07/23 11:29 swelling, vomiting cat dander Allergy Unknown Throat Verified 02/17/23 14:50 tightness morphine AdvReac Itching Verified 01/07/23 11:29 Family History (Updated 02/17/23 @ 15:06 by Keren Faustin) Mother COPD (chronic obstructive pulmonary disease) WILY (obstructive sleep apnea) Brittle bone syndrome Thyroid cancer Grandmother Hypertension Myocardial infarction Grandfather Hypertension Brother Pacemaker Sister Heart disease Surgical History H/O LEEP (~07/25/20) History of colonoscopy S/P tooth extraction Social History household members: significant other number of children: 1 current occupational status: employed current occupation: [employer] history of recent travel: No sexually active: Yes Smoking Status: Light Smoker (<10/day) alcohol intake: never substance use type: does not use caffeine: Yes what type of physical activity do you participate in: none seatbelt use: always do you feel safe at home: Yes additional social history: Anitra Cha ROS ROS ED Review of Systems ROS Unobtainable: other Constitutional Constitutional ED: Reports lethargy; Denies chills, fever(s), sweats or weight loss Eyes Eyes: Denies blurry vision, change in vision or diplopia ENT ENT ED: Denies rhinorrhea or sore throat Cardiovascular Cardiovascular: Denies chest pain, orthopnea or racing heartbeat Respiratory/Chest Respiratory/Chest: Denies cough, dyspnea, dyspnea on exertion, orthopnea or sputum Gastrointestinal Gastrointestinal: Reports abdominal pain, diarrhea, nausea and vomiting Genitourinary Genitourinary ED: Denies dysuria, hematuria or urinary frequency Musculoskeletal Musculoskeletal: Denies arthralgias, back pain, myalgias or neck pain Integumentary Denies abscess, Abrasions or rash Neurologic Neurologic: Denies headache(s) or weakness Psychiatric Psychiatric: Denies anxiety, depression or suicidal thoughts Endocrine Endocrinology: Denies polydipsia, polyphagia or polyuria Hematologic/Lymphatic Hematologic/Lymphatic: Denies easy bleeding, easy bruising or lymphadenopathy Allergic/Immunologic Allergic/Immunologic ED: Denies mouth swelling, tongue swelling or urticaria EXAM Physical Exam Const Vital Signs: 07/09/23 07:31 07/09/23 09:30 07/09/23 11:30 Temperature 96 F L Temperature Source Temporal Pulse Rate 91 Respiratory Rate 18 16 16 Blood Pressure 154/105 H Blood Pressure Mean 121 Pulse Ox 98 Oxygen Delivery Method Room Air Positive well nourished and well developed General Appearance ED: well developed and NAD HEENT Reports TM's clear and moist mucous membranes normocephalic and atraumatic; Negative for trauma or tenderness Tympanic Membrane ED: Yes TM's clear Eyes PERRL and EOMs intact bilaterally General Eye ED: Negative for pale conjunctiva or scleral icterus Neck no lymphadenopathy, supple and no JVD General: Negative for tenderness Chest Wall inspection of chest normal and palpation of chest normal Chest: Negative for tenderness Resp normal respiratory effort and clear to auscultation bilaterally Effort and Inspection: Negative for respiratory distress or pain with movement Auscultation: Negative for rhonchi, wheezes or diminished lung sounds Cardio regular rate, regular rhythm, S1 normal heart sound, S2 normal heart sound and no murmurs Peripheral Pulses: pulses 2+ throughout GI normal to inspection, nondistended, normoactive bowel sounds, soft to palpation, non-distended and no masses GI Narrative: Hyperactive bowel sounds. Mild tenderness over the epigastric region which causes her to feel quite nauseated on palpation. Negative Flores sign. There is no rebound ,rigidity or peritoneal signs. Back/Spine no CVA tenderness and no thoracic nor lumbar tenderness Extremity normal to inspection General Extremety ED: Negative for edema General Extremity: Negative for edema Neuro oriented x3, CN's II-XII intact bilaterally, no sensory deficits noted and gait normal Sensorium / Orientation: awake, alert, oriented to person, oriented to place and oriented to time Motor Exam: strength 5/5 throughout and strength abnormal Psych mental status grossly normal Skin no rashes or lesions noted and no wounds MDM MDM MDM Narrative Medical decision making narrative: Patient presents with 1 week history of upper abdomen burning. She started vomiting 5 days ago and started with diarrhea 3 days ago. IV line established. She had a CBC with differential that showed a normal white count of 7.0 with hemoglobin 15.6 and platelet count of 218. Chemistries unremarkable. BUN 15 and creatinine 0.76. LFTs were normal. Lipase was elevated 401. serum was negative. Urinalysis was unremarkable. Patient given the elevated lipase had a CT scan of the abdomen pelvis to rule out mass versus inflammatory changes around the pancreas. CT was read as essentially unremarkable other than some small amount of fluid in the cul-de-sac. Patient received Protonix IV 80 mg x 1. She was given a GI cocktail. She was given Zofran 4 mg IV. She did feel somewhat improved. Discussed case with buffing and sueding machine operator on-call Dr. York and will refer to his office for follow-up as she may need a EGD to evaluate further. Patient was started on Prevacid and will be given a prescription for Zofran. Discharged to home in stable condition. Suspect she may have a gastritis or possibility for peptic ulcer disease. Symptoms may also be due to a viral gastroenteritis. Lab Data Attestation: I reviewed the patient's lab results. Labs: Laboratory Results - last 24 hr 07/09/23 07/09/23 07/09/23 07:50 07:53 08:52 WBC 7.0 RBC 5.05 Hgb 15.6 H Hct 47.7 H MCV 94.5 MCH 30.9 MCHC 32.7 RDW Std Deviation 40.1 RDW Coeff of Ness 11.7 Plt Count 218 MPV 10.4 Immature Gran % (Auto) 0.300 Neut % (Auto) 77.0 H Lymph % (Auto) 15.8 L [place] % (Auto) 5.9 Eos % (Auto) 0.6 Baso % (Auto) 0.4 Absolute Neuts (auto) 5.4 Absolute Lymphs (auto) 1.10 Nucleated RBC % 0 Sodium 139 Potassium 4.3 Chloride 107 Carbon Dioxide 27.0 Anion Gap 5 BUN 15 Creatinine 0.76 Estim Creat Clear Calc 95.99 Est GFR (MDRD) Af Amer 110 Est GFR (MDRD) Non-Af 91 BUN/Creatinine Ratio 19.7 Glucose 113 H Calcium 9.1 Total Bilirubin 0.40 AST 13 L ALT 20 Alkaline Phosphatase 80 Total Protein 7.5 Albumin 4.0 Globulin 3.5 Albumin/Globulin Ratio 1.1 Lipase 401 H Serum , Qual NEGATIVE Urine Color Yellow Urine Clarity Clear Urine pH 6.0 Ur Specific [place] 1.015 Urine Protein Negative Urine Glucose (UA) Normal Urine Ketones Negative Urine Occult Blood 25 H Urine Nitrite Negative Urine Bilirubin Negative Urine Urobilinogen Normal Ur Leukocyte Esterase Negative Urine RBC 0 SEEN Urine WBC 0 SEEN Ur Squamous Epith Cells 0 SEEN Urine Bacteria 0 SEEN Urine Mucus 0 SEEN Radiography Diagnostic Testing: Clinical Impression(s) from Imaging Studies Abdomen/Pelvis CT 07/09/23 10:17 IMPRESSION: Small amount of free fluid is seen in the cul-de-sac. Electronically Signed: Renard Cardoso MD at 11:13 EST , Discharge Plan Triage Chief Complaint: Nausea/Vomiting/Diarrhea ED Provider: Reece Schwarz Dx/Rx/DC Orders Clinical Impression: Viral gastroenteritis, Gastritis, Abdominal pain Instructions: ED Abdominal Pain Unkn Cause Fem, ED Gastritis Ulcer No Abx, ED Gastroenteritis, Viral (Adult), ED Vomit Diarrhea Nonspec Adult Prescriptions: New ondansetron [ondansetron] 4 mg tablet,disintegrating 4 mg PO Q8H PRN PRN (Reason: Nausea) Qty: 10 0RF lansoprazole [Prevacid] 30 mg capsule,delayed release(DR/EC) 30 mg PO DAILY Qty: 14 0RF No Action sumatriptan succinate 100 mg tablet 100 mg PO ONCE PRN Patient Comments: Emergency script Take 1 tablet at the onset of headache. May repeat dose in 2 hours if needed. Do not exceed 2 tablets in 24 hour period. ibuprofen 800 mg tablet 800 mg PO Q8H PRN propranolol 40 mg tablet 40 mg PO DAILY Primary Care Provider: Tee Vogel Referrals: eTe Vogel DO [Primary Care Provider] - FriendBlayne DO [Med Staff - Active Staff] - 3-5 Days Disposition Disposition: Home, Self Care Discharge Date/Time: 07/09/23 11:52
[2023-07-09] MEDS: Ondansetron 4 MG/2 ML Vial IV (07:57)
[2023-07-09] MEDS: 0.9% Normal Saline (1000mL) 1,000 ML 1000 ML IV (07:57)
[2023-07-09 08:00] LABS: Bacteria 0 SEEN /hpf (None Seen); Mucous, Urine 0 SEEN /hpf (<or=2+); Red Blood Cells-Urine 0 SEEN /hpf (0-5); Squamous Epithelial Cells - UA 0 SEEN /hpf (5-10); White Blood Cells 0 SEEN /hpf (0-5)
[2023-07-09 08:06] LABS: Color, Urine Yellow (Yellow); Glucose, Dipstick Normal (Normal); Ketone-Dipstick Negative (Negative); Leukocyte Esterase-Dipstick Negative /ul (Negative); Nitrite-Dipstick Negative (Negative); Occult Blood-Urine 25 /ul (Negative); Protein-Dipstick Negative (Negative); Specific Gravity, Urine 1.015 (1.002-1.030); Urine Bilirubin Dipstick Negative (Negative); Urine Clarity Clear (Clear); Urine Urobilinogen Normal (Normal)
[2023-07-09 08:16] LABS: Absolute Neutrophil Count 5.4 X10^3/uL (2.0-7.7); Basophil# 0.03 X10^3/uL; Basophil% 0.4 % (0-1); Eosinophil# 0.04 X10^3/uL; Eosinophils% 0.6 % (0-5); Hematocrit 47.7 % (37-47); Hemoglobin 15.6 g/dL (12.0-15.0); Lymphocyte % 15.8 % (19-41); Mean Corp Hgb Conc 32.7 g/dL (32-36); Mean Corpuscular Hgb 30.9 pg (27.0-32.0); Mean Corpuscular Volume 94.5 fL (81-99); Mean Platelet Vol. 10.4 fl (6.2-12.0); Monocyte# 0.41 X10^3/uL; Monocyte% 5.9 % (0-10); NRBC Flagged by Analyzer 0 % (0-5); Neutrophil # 5.37 X10^3/uL (2.7-7.7); Platelet Count 218 K/mm3 (150-450); RBC Distribution Width CV 11.7 % (11.6-14.6); RBC Distribution Width SD 40.1 fl (35.1-43.9); Red Blood Count 5.05 M/mm3 (4.2-5.4)
[2023-07-09] MEDS: Pantoprazole Sodium 80 MG in 0.9% Normal Saline (50mL Bag) 15 ML 420 MG IV BOLUS (09:07)
[2023-07-09 09:16] LABS: Internal QC Validated? YES +Cl - CLEAR BKGD; Pregnancy, Serum, hCG Quali. NEGATIVE Negative; Record Kit Lot#, Serum Preg. HCG0000667200
[2023-07-09 09:30] VITALS: RESP 16
[2023-07-09 10:04] LABS: ALB/GLOB Ratio 1.1 RATIO (0.9-2.4); AST(SGOT) 13 U/L (15-37); Alanine Aminotransfer ALT/SGPT 20 U/L (13-56); Alkaline Phosphatase 80 U/L (45-117); Anion Gap 5 (5-15); BUN 15 mg/dL (7-18); BUN/Creat Ratio 19.7 RATIO (10-20); Calcium,Total 9.1 mg/dL (8.5-10.1); Chloride 107 mmol/L (98-107); Creatinine, Serum 0.76 mg/dL (0.55-1.02); EST Glomerular Filtration Rate 91 mL/min (>60); Est Glom Filt Rate - Afr Amer 110 mL/min (>60); Estimated Creatinine Clearance 95.99 ml/min; Globulin 3.5 g/dL (2.2-4.2); Glucose 113 mg/dL (74-106); Lipase 401 U/L (13-75); Potassium 4.3 mmol/L (3.5-5.1); Protein, Total 7.5 g/dL (6.4-8.2); Sodium Level 139 mmol/L (136-145)
--- NOTE | 2023-07-09 10:17 | CT_ITS ---
STUDY: CT ABDOMEN AND PELVIS WITH CONTRAST REASON FOR EXAM: Female, 38 years old. Abdominal pain , elevated lipase RADIATION DOSAGE (If Supplied By Facility): CTDIvol = ( 8.19 ) mGy, DLP = ( 323.52 ) mGycm TECHNIQUE: Transaxial images were obtained from the dome of the diaphragm to the symphysis pubis without oral contrast. IV 100mL Isovue-300 was administered. Sagittal and coronal images were reconstructed. Individualized dose optimization techniques were used for this CT. COMPARISON: Comparison is made with prior study dated September 17, 2020. FINDINGS: The visualized lung bases are unremarkable. The visualized portions of the heart are within normal limits. Normal liver. Normal gallbladder and extrahepatic biliary system. Normal spleen. Normal pancreas. Normal bilateral adrenal glands. Normal right kidney. Normal left kidney. Normal visualized stomach. Normal small intestine. Normal colon. The appendix is visualized and appears normal. Normal abdominal aorta. Normal inferior vena cava. Normal retroperitoneum. Normal urinary bladder. Small amount of free fluid is seen in the cul-de-sac. This may be related to the patient''s menstrual cycle. Normal abdominal wall. Normal osseous structures. CT/Abdomen/Pelvis W IV Cont ONLY IMPRESSION: Small amount of free fluid is seen in the cul-de-sac. Electronically Signed: Renard Cardoso MD at 11:13 EST ,
[2023-07-09 11:30] VITALS: RESP 16
[2023-07-09] MEDS: Mag Hydrox/Al Hydrox/Simeth 30 ML UDC PO (11:35)
== END 2023-07-09 11:52 | disposition home or self-care (01) ==
PROVIDERS: Emergency Provider Emergency Medicine; PCP Student in an Organized Health Care Education/Training Program; Visit Provider Emergency Medicine
DX: A08.4 Viral intestinal infection, unspecified (principal); K29.70 Gastritis, unspecified, without bleeding; F17.200 Nicotine dependence, unspecified, uncomplicated
CPT/HCPCS: 74177; 80053; 81001; 83690; 84703; 85025; 96365; 96366; 96375; 99284; J7030; Q9967; A4216; J2405; J3490

== ENCOUNTER 2023-07-14 10:23 | Outpatient (CLI) | payer MEDICAID, SELFPAY ==
[2023-07-14 10:58] LABS: Erythrocyte Sedimentation Rate < 1 mm/hr (0-30)
[2023-07-14 11:00] LABS: Absolute Lymphocyte Count 1.22 X10^3/uL (0.83-4.51); Absolute Neutrophil Count 5.5 X10^3/uL (2.0-7.7); Basophil# 0.05 X10^3/uL; Basophil% 0.7 % (0-1); Eosinophil# 0.07 X10^3/uL; Hematocrit 43.9 % (37-47); Hemoglobin 14.5 g/dL (12.0-15.0); Lymphocyte # 1.22 X10^3/ul (0.83-4.51); Lymphocyte % 16.6 % (19-41); Mean Corpuscular Volume 93.8 fL (81-99); Mean Platelet Vol. 10.8 fl (6.2-12.0); Monocyte# 0.55 X10^3/uL; Monocyte% 7.5 % (0-10); NRBC Flagged by Analyzer 0 % (0-5); Neutrophil # 5.45 X10^3/uL (2.7-7.7); Neutrophil % 73.9 % (47-70); Platelet Count 200 K/mm3 (150-450); RBC Distribution Width CV 11.7 % (11.6-14.6); RBC Distribution Width SD 40.2 fl (35.1-43.9); Red Blood Count 4.68 M/mm3 (4.2-5.4); White Blood Count 7.4 K/mm3 (4.4-11.0)
[2023-07-14 11:19] LABS: Vitamin B12 365 pg/mL (211-911)
[2023-07-14 13:02] LABS: ALB/GLOB Ratio 1.2 RATIO (0.9-2.4); AST(SGOT) 12 U/L (15-37); Alanine Aminotransfer ALT/SGPT 25 U/L (13-56); Albumin, Serum 3.8 g/dL (3.2-5.0); Alkaline Phosphatase 73 U/L (45-117); Anion Gap 6 (5-15); BUN 14 mg/dL (7-18); BUN/Creat Ratio 19.6 RATIO (10-20); CRP < 2.90 mg/L (0.0-3.0); Calcium,Total 8.6 mg/dL (8.5-10.1); Chloride 105 mmol/L (98-107); Creatinine, Serum 0.71 mg/dL (0.55-1.02); EST Glomerular Filtration Rate 98 mL/min (>60); Est Glom Filt Rate - Afr Amer 119 mL/min (>60); Globulin 3.2 g/dL (2.2-4.2); Glucose 92 mg/dL (74-106); LDH 160 U/L (84-246); Potassium 4.1 mmol/L (3.5-5.1); Sodium Level 139 mmol/L (136-145); T4 Free Direct 0.94 ng/dL (0.76-1.46); Triglycerides 75 mg/dL
[2023-07-16 19:09] LABS: Chromogranin A 81.7 ng/mL (0.0-101.8); Cytoplasmic Ab (C-ANCA) <1:20 titer (Neg:<1:20); Endomysial Antibody IgA Negative (Negative); Gastrin, Serum 20 pg/mL (0-115); IgG, Quant 916 mg/dL (586-1602); Immunoglobulin A 153 mg/dL (87-352); Immunoglobulin E 36 IU/mL (6-495); Immunoglobulin G, Subclass 1 553 mg/dL (248-810); Immunoglobulin G, Subclass 2 204 mg/dL (130-555); Immunoglobulin G, Subclass 3 75 mg/dL (15-102); Immunoglobulin G, Subclass 4 30 mg/dL (2-96); Immunoglobulin M 111 mg/dL (26-217); Perinuclear Ab (P-ANCA) <1:20 titer (Neg:<1:20); t-Transglutaminase IgA <2 U/mL (0-3)
[2023-07-16 21:07] LABS: Anti-Centromere B Ab <0.2 AI (0.0-0.9); Anti-Chromatin <0.2 AI (0.0-0.9); Anti-Jo <0.2 AI (0.0-0.9); Anti-Scleroderma-70 AB <0.2 AI (0.0-0.9); Anti-dsDNA Ab 11 IU/mL (0-9); Beef <0.10 kU/L (Class 0); Chocolate <0.10 kU/L (Class 0); Codfish <0.10 kU/L (Class 0); Corn <0.10 kU/L (Class 0); Egg, Whole <0.10 kU/L (Class 0); Milk (Cow) <0.10 kU/L (Class 0); Mussels <0.10 kU/L (Class 0); Peanut <0.10 kU/L (Class 0); Pork <0.10 kU/L (Class 0); RNP Ab <0.2 AI (0.0-0.9); SJOGREN'S Anti-SS-A test < 0.2 AI (0.0-0.9); SJOGREN'S Anti-SS-B test < 0.2 AI (0.0-0.9); Salmon <0.10 kU/L (Class 0); Shrimp <0.10 kU/L (Class 0); Smith Ab <0.2 AI (0.0-0.9); Soybean <0.10 kU/L (Class 0); Tuna <0.10 kU/L (Class 0); Vitamin D 1,25-Dihydroxy 52.1 pg/mL (24.8-81.5); Wheat <0.10 kU/L (Class 0)
== END 2023-07-14 23:59 | disposition home or self-care (01) ==
PROVIDERS: PCP Student in an Organized Health Care Education/Training Program; Referring Provider Internal Medicine Gastroenterology; Visit Provider Internal Medicine Gastroenterology
DX: R10.9 Unspecified abdominal pain (principal)
CPT/HCPCS: 80053; 82533; 82607; 82652; 82746; 82784; 82785; 82787; 82941; 83516; 83615; 84439; 84443; 84478; 84481; 85025; 85652; 86003; 86005; 86140; 86225; 86235; 86255; 86256; 86316; 86335

== ENCOUNTER 2023-07-17 05:18 | Day surgery (SDC) | payer MEDICAID, SELFPAY ==
[2023-07-17 05:52] VITALS: BP 108/72; PULSE 70; RESP 16; TEMP 36.6; O2SAT 100; BMI 18.7
[2023-07-17] MEDS: Lactated Ringers 1,000 ML 15 ML IV (05:54)
[2023-07-17 06:00] LABS: Internal QC Validated? YES +Cl - CLEAR BKGD; Pregnancy, Urine Negative Negative
--- NOTE | 2023-07-17 06:30 | EGD_PTH ---
PATHOLOGY RESULTS PATIENT: MADDIE CREWS LOC: EN U#:[id number] AGE/SX: 38/F ROOM: RE07/17/[address]: Dr. Blayne York DO : 1985 BED: DIS: 07/17/2023 SPEC #: [id number] RECD: 07/17/23 11:39 STATUS: LAYO RAJAT #: [id number] HEYDI: 07/17/23 06:[address]: Blayne York DEPT: SURGICAL PATHOLOGY RECD BY: Heather Patel ENTERED: 07/17/23 11:40 SP TYPE: EGD BIOPSY OT DR: Dr. Tee Vogel DO Tissues: Duodenum, NOS Gastric mucous membrane Procedures: Surgery Specimen Level IV HEADER OPERATION: EGD, biopsy PRE-OP DIAGNOSIS: Abdominal pain TISSUE SUBMITTED: A - Duodenum biopsy, B - Gastric antrum biopsy for histo and H. pylori MICROSCOPIC DIAGNOSIS A. Duodenum, biopsy: No pathologic change. B. Gastric antrum, biopsy: Chronic gastritis. See comment. AM:scar 07/18/2023 COMMENT B. The results of immunohistochemistry for Helicobacter pylori will be reported separately ([id number]). MICROSCOPIC DESCRIPTION Slides are reviewed. GROSS DESCRIPTION A - Received in fixative is one container labeled with the patient's name and designated duodenum biopsy. The specimen consists of multiple irregular fragments of light uribe soft tissue that in aggregate measure 1.0 x 0.3 x 0.1 cm. The specimen is totally submitted in one cassette. B - Received in fixative is one container labeled with the patient's name and designated gastric antrum biopsy. The specimen consists of two irregular fragments of light uribe soft tissue that in aggregate measure 0.6 x 0.3 x 0.1 cm. The specimen is totally submitted in one cassette. / SJ:scar 07/17/2023 TC:3 CPT: 58129 x2
--- NOTE | 2023-07-17 06:30 | IMM_PTH ---
PATHOLOGY RESULTS PATIENT: MADDIE CREWS LOC: EN U#:[id number] AGE/SX: 38/F ROOM: RE07/17/[address]: Dr. Blayne York DO : 1985 BED: DIS: 07/17/2023 SPEC #: [id number] RECD: 07/17/23 12:44 STATUS: LAYO REMargy #: [id number] HEYDI: 07/17/23 06:[address]: Blayne York DEPT: IMMUNOHISTOCHEMISTRY RECD BY: Maria Luisa Tavera ENTERED: 07/17/23 12:44 SP TYPE: IMMUNO OTHR DR: Dr. Tee Vogel DO Tissues: Stomach, NOS Procedures: H Pylori (initial) PHYSICIAN & INSTITUTION [place] [id number] SPECIMEN INFORMATION: Tissue Source: B - Gastric antrum Clinical Info: Abdominal pain Specimen Number: [id number] CPT code: 35368 METHODOLOGY: Deparaffinized sections of prefer/formalin-fixed tissue or PAP/DQ stained slides are incubated with monoclonal/polyclonal antibodies/oligonucleotide probes. Localization is made via biotin free immunoperoxidase method. Appropriate controls are performed and reacted as expected. Results on target cell population are indicated in the following table: RESULTS: ANTIBODY / CLONE RESULT Block B H Pylori (polyclonal) negative These tests were developed and their performance characteristics determined by [facility]. They may not have been cleared or approved by the U.S. Food and Drug Administration. The FDA has determined that such clearance or approval is not necessary. The above immunohistochemical/dualISH markers are ordered and reviewed by the Pathologist. INTERPRETATION: B. Gastric antrum, biopsy: Negative for Helicobacter pylori organisms. AM:scar 07/18/2023
--- NOTE | 2023-07-17 06:36 | HP.PCM_ITS ---
History and Physical Date of Admission: 07/17/23 38 F who presents to the office today for FH Crohn?s, brother. [facility] general surgery established for evaluation of GIB with abnormal CT. ? CT abd/pel with contrast 09.17.20 diffuse hepatomegaly; rectum distended with gas and stool; sigmoid wall thickening; oral contrast does not reach sigmoid colon ? Colonoscopy 09.28.20 internal hemorrhoids. Small bowel pathology prominent polytypic lymphoid aggregates. [facility] ED 07.09.23 with N/V/D for the last week. GI cocktail and IV Zofran helpful. Discharged. ? Biochemical CBC, CMP without pertinent abnormality.? Lipase H401 ? CT abd/pel IV only small amount of free fluid in cul-de-sac, r/t menstrual cycle. *[facility] established 07.14.23 she has had symptoms throughout her life of symptoms occurring in acute episodes and resolving. Symptoms include N/V, night sweats, stomach gurgling, postprandial cough. Does not weight her self regularly but between and today has lost approximately 40lbs. Her father fall and this has been especially hard for her, but feels she is progressing well through the grieving process. ROS Const Constitutional: No anorexia, fatigue, fever(s), weight change or sleep problems Eyes Eyes: No change in vision ENT ENT: No abnormal hearing, difficulty swallowing, mouth lesions, tongue swelling or throat swelling Resp Respiratory: No cough or shortness of breath Cardio Cardiology: No chest pain at rest, chest pain with exertion, shortness of breath or dyspnea on exertion Gastro GI: No difficulty swallowing Genitourinary-Female: No difficulty urinating or burning urination Musc Musculoskeletal: No joint pain, joint swelling, muscle weakness or decreased muscle mass Skin Skin: No hair loss in leg, yellowing of the eye, itchy eyes, rash, skin ulcer or skin swelling Neuro Neurology: No abnormal hearing, abnormal movements, confusion, unsteady gait /balance or memory loss Psych Psychiatric: No anxiety, No confusion and No memory loss Endo Endocrine: No fatigue or weight change Aller/Imm Allergy/Immunologic: No itchy eyes, throat swelling or tongue swelling Oliver/Lymp Hematologic/Lymphatic: No easy bleeding, easy bruising or enlarged lymph nodes Quality Reporting Tobacco Screening ([facility] 138) Smoking Status: Light Smoker (<10/day) Assessment and Plan Assessment and Plan (1) Abdominal pain: Status: Chronic Qualifiers: Abdominal location: epigastric Qualified Code(s): R10.13 - Epigastric pain Plan: The differential diagnosis for abdominal pain does include peptic ulcer disease, gastroparesis, irritable bowel syndrome, superior mesenteric artery syndrome, acute recurrent pancreatitis. We will get a gastric emptying study, upper endoscopy. Will also get a CT scan with pancreatic protocol and possibly MRI. She was noted to have elevated hemoglobin when she went to the ER. I do not get a chance to ask her she smokes cigarettes. Pending her workup we may need to check erythropoietin level for polycythemia vera. Orders: Orders CBC W/Diff, Automated Today R10.9 - Unspecified abdominal pain Allergen, Food Profile 14 Today R10.9 - Unspecified abdominal pain Erythrocyte Sed Rate Today R10.9 - Unspecified abdominal pain Immunoglobulins G/A/M/E Today R10.9 - Unspecified abdominal pain Comprehensive Metabolic Profil Today R10.9 - Unspecified abdominal pain Immunofixation Urine Today R10.9 - Unspecified abdominal pain CRP Today R10.9 - Unspecified abdominal pain ANCA Today R10.9 - Unspecified abdominal pain LDH Today R10.9 - Unspecified abdominal pain PRECIOUS Comprehensive Panel Today R10.9 - Unspecified abdominal pain Thyroid Stim Hormone (TSH) Today R10.9 - Unspecified abdominal pain Celiac Disease Profile Today R10.9 - Unspecified abdominal pain Free T3 Today R10.9 - Unspecified abdominal pain Miscellaneous Lab Procedure Today R10.9 - Unspecified abdominal pain T4 Free Direct Today R10.9 - Unspecified abdominal pain Gastric Emptying Study Today R10.9 - Unspecified abdominal pain Abdomen without IV Contrast Today R10.9 - Unspecified abdominal pain Triglycerides Today R10.9 - Unspecified abdominal pain IgG Subclasses Today R10.9 - Unspecified abdominal pain MRCP Abdomen without Contrast Today R10.9 - Unspecified abdominal pain Calprotectin, Stool Today R10.9 - Unspecified abdominal pain Stool Lactoferrin/WBC Today K58.9 - Irritable bowel syndrome without diarrhea, R10.9 - Unspecified abdominal pain OVA+PARA w/Giardia EIA [id number] Today R10.9 - Unspecified abdominal pain Pancreatic Elastase, Fecal Today R10.9 - Unspecified abdominal pain Fecal Fat, Qualitative Today R10.9 - Unspecified abdominal pain Vitamin B12 Today R10.9 - Unspecified abdominal pain Vitamin D 1,25-Dihydroxy Today R10.9 - Unspecified abdominal pain Folates, (Folic Acid) Today R10.9 - Unspecified abdominal pain CORTISOL SERUM Today R10.9 - Unspecified abdominal pain Gastrin, Serum Today R10.9 - Unspecified abdominal pain EGD 07/17/23 R10.9 - Unspecified abdominal pain Medications: New scopolamine base 1 patch transdermal Q3D 10 ea 0RF dicyclomine 10 mg PO TID 90 caps 1RF I have examined the patient and the H&P has been reviewed. There are no clinical changes since date of exam.
[2023-07-17 06:53] VITALS: BP 106/73; BP 108/72; PULSE 71; RESP 16; TEMP 36.8; O2SAT 97
[2023-07-17 06:55] VITALS: BP 101/61; BP 108/72; PULSE 73; RESP 16; O2SAT 96
[2023-07-17 07:00] VITALS: BP 108/72; BP 98/60; PULSE 73; RESP 16; O2SAT 95
--- NOTE | 2023-07-17 07:00 | OP.EGD_ITS ---
Patient Name: Mayuri Dahl Procedure Date: 07/17/2023 6:17 AM Date of : 1985 Age: 38 Procedure: Upper GI endoscopy Indications: Epigastric abdominal pain Providers: Blayne York DO Referring MD: Tee Vogel Medicines: Monitored Anesthesia Care Patient Profile: This is a 38 year old female. Refer to note in patient chart for documentation of history and physical. Patient has symptoms of chronic epigastric abdominal pain. Complications: No immediate complications. Procedure: Pre-Anesthesia Assessment: - Prior to the procedure, a History and Physical was performed, and patient medications and allergies were reviewed. The patient is competent. The risks and benefits of the procedure and the sedation options and risks were discussed with the patient. All questions were answered and informed consent was obtained. Patient identification and proposed procedure were verified by the physician in the pre-procedure area. Mental Status Examination: alert and oriented. Airway Examination: normal oropharyngeal airway and neck mobility. Respiratory Examination: clear to auscultation. CV Examination: normal. Prophylactic Antibiotics: The patient does not require prophylactic antibiotics. Prior Anticoagulants: The patient has taken no anticoagulant or antiplatelet agents. ASA Grade Assessment: II - A patient with mild systemic disease. After reviewing the risks and benefits, the patient was deemed in satisfactory condition to undergo the procedure. The anesthesia plan was to use monitored anesthesia care (MAC). Immediately prior to administration of medications, the patient was re-assessed for adequacy to receive sedatives. The heart rate, respiratory rate, oxygen saturations, blood pressure, adequacy of pulmonary ventilation, and response to care were monitored throughout the procedure. The physical status of the patient was re-assessed after the procedure. After obtaining informed consent, the endoscope was passed under direct vision. Throughout the procedure, the patient's blood pressure, pulse, and oxygen saturations were monitored continuously. The gastroscope was introduced through the mouth, and advanced to the second part of duodenum. The upper GI endoscopy was accomplished without difficulty. The patient tolerated the procedure well. Scope In: 6:41:14 AM Scope Out: 6:47:33 AM Total Procedure Duration Time 0 hours 6 minutes 19 seconds Findings: The examined esophagus was normal. Localized mildly erythematous mucosa without bleeding was found in the gastric body. Biopsies were taken with a cold forceps for histology. Verification of patient identification for the specimen was done. Estimated blood loss was minimal. Biopsies were taken with a cold forceps for Helicobacter pylori testing. Verification of patient identification for the specimen was done. Estimated blood loss was minimal. No gross lesions were noted in the second portion of the duodenum. Impression: - Normal esophagus. - Erythematous mucosa in the gastric body. Biopsied. - No gross lesions in the second portion of the duodenum. Recommendation: - Discharge patient to home. - Resume previous diet. - Continue present medications. - Await pathology results. Procedure Code(s): --- Professional --- 42877, Esophagogastroduodenoscopy, flexible, transoral; with biopsy, single or multiple CPT copyright 2021 [employer]. All rights reserved. The codes documented in this report are preliminary and upon financial brokers review may be revised to meet current compliance requirements. Blayne York DO 07/17/2023 6:59:22 AM This report has been signed electronically. Number of Addenda: 0 Note Initiated On: 07/17/2023 6:17 AM
--- NOTE | 2023-07-17 07:01 | OP.CCLET_ITS ---
07/17/2023 Tee Vogel [address] [place] [address] Re : Upper GI endoscopy procedure for Mayuri Hesham Dear Dr. Vogel This procedure was performed on June. My impressions and recommendations are as follows: Impressions : - Normal esophagus. - Erythematous mucosa in the gastric body. Biopsied. - No gross lesions in the second portion of the duodenum. Recommendations : - Discharge patient to home. - Resume previous diet. - Continue present medications. - Await pathology results. My findings are described in the full procedure note, which is enclosed. If I can be of further assistance, please feel free to contact me at . Sincerely, Blayne York, 07/17/2023 6:59:22 AM This report has been signed electronically.
[2023-07-17 07:05] VITALS: BP 108/72; BP 94/59; PULSE 76; RESP 16; TEMP 36.8; O2SAT 100
[2023-07-17 07:25] VITALS: BP 108/72
== END 2023-07-17 07:34 | disposition home or self-care (01) ==
LOC: EN 05:19 → AC 05:21
PROVIDERS: Anesthesiology; PCP Student in an Organized Health Care Education/Training Program; Referring Provider Student in an Organized Health Care Education/Training Program; Visit Provider Internal Medicine Gastroenterology
PROC: 0DJ08ZZ Inspection of Upper Intestinal Tract, Via Natural or Artificial Opening Endoscopic (ICD-10-PCS; CPT 43235; principal; 2023-07-17 06:25)
DX: K29.50 Unspecified chronic gastritis without bleeding (principal); R10.13 Epigastric pain; F17.200 Nicotine dependence, unspecified, uncomplicated; K31.89 Other diseases of stomach and duodenum
CPT/HCPCS: 43239; 81025; 88305; 88342; J7120; J2405

== ENCOUNTER → 2023-07-22 | Outpatient (CLI) | payer MEDICAID, SELFPAY ==
--- NOTE | 2023-07-22 11:41 | NM_ITS ---
CLINICAL: 38-year-old female with history of abdominal pain and nausea, clinical gastroparesis. SOLID PHASE 99m Tc SULFUR COLLOID GASTRIC EMPTYING STUDY COMPARISON: None available FINDINGS: The patient was administered 1.0 mCi of 99m Tc sulfur colloid mixed with egg and consumed per os. Image acquisitions in the anterior projection were obtained for 60 minutes. There is prompt visualization of the stomach. There is no gastroesophageal reflux identified. First order kinetics are maintained throughout the duration of the acquisitions. The T ? linear fit was calculated to be 57.22 minutes, (Normal 65-110 minutes). NM/Gastric Emptying Study IMPRESSION: 1. NORMAL 99m Tc sulfur colloid solid phase gastric emptying imaging examination. A. There is upper limits of normal and preserved solid phase gastric emptying compared to normal controls with maintained first order kinetics throughout all components of the examination. (Paulo et al, Gastroenterology 77: 75, 1979 Neva et al, Semin Nucl Med 12: 116, 1981 Jessica et al, SN Procedure Guidelines Adult Solid Meal Gastric Emptying Study 3.0 [email or web address]). Electronically Signed: Rodolfo Neves DO at 23:01 EST ,
== END | disposition home or self-care (01) ==
LOC: NM 11:40
PROVIDERS: PCP Student in an Organized Health Care Education/Training Program; Referring Provider Internal Medicine Gastroenterology; Visit Provider Internal Medicine Gastroenterology
DX: R10.9 Unspecified abdominal pain (principal)
CPT/HCPCS: 78264; A9541

== ENCOUNTER → 2023-07-28 | Outpatient (CLI) | payer MEDICAID, SELFPAY ==
--- NOTE | 2023-07-28 07:11 | MRI_ITS ---
EXAM: MR ABDOMEN WITHOUT INTRAVENOUS CONTRAST, MRCP PROTOCOL CLINICAL INDICATION: pancreatitis TECHNIQUE: Multiplanar and multisequence MR images of the abdomen without intravenous contrast obtained with MRCP sequence. Three-dimensional post-processing reconstructions were performed. COMPARISON: No relevant prior studies available. FINDINGS: LOWER THORAX: Normal. No pleural effusion. LIVER: Prominent Maribeth''s lobe of liver. GALLBLADDER AND BILE DUCTS: Normal. No gallstones. No gallbladder distention or wall edema. No intra- or extrahepatic biliary ductal dilation. No choledochal filling defect. PANCREAS: Normal. No focal cystic mass. No pancreatic duct dilation. SPLEEN: Normal. Non-enlarged. ADRENALS: Normal. No nodules. KIDNEYS AND URETERS: Normal. Normal renal size and position. No hydronephrosis. INTRAPERITONEAL SPACE: Normal. No ascites or other fluid collection. VASCULATURE: Normal. Abdominal aorta is non-dilated. LYMPH NODES: No enlarged lymph nodes. MRI/MRCP Abdomen without Contrast IMPRESSION: Normal MR/MRCP. Electronically Signed: Gabriel Contreras MD at 8:54 EST ,
--- OUTSIDE RECORDS SUMMARY | 2023-07-28 07:26 | XMS RPT_ITS | CCD ---
Author Name Unknown Address [id number] [place] [address] Organization [facility] Care Team Providers Care Junior Bookkeeper Name Role Phone Paula RODRIGEZ, Elizabeth Zacarias Unavailable [phone] Chelsy BHAGAT, Lore Pemberton Unavailable Jerri Elliott Unavailable Unavailable MARTINE Hay RN, Addie Vivas Unavailable Unavailabl e Jerri Elliott Unavailable Unavailable Tee Horvath DO Primary Care Provider Tee Horvath DO Primary Care Provider Tee Horvath DO Primary Care Provider FRANCES MORILLO Referring Unavailable TEE HORVATH Primary Care Unavailable FRANCES MORILLO Attending Unavailable TEE HORVATH Primary Care Unavailable TEE HORVATH Primary Care Unavailable FRANCES MORILLO Attending Unavailable TEE HORVATH Primary Care Unavailable TEE HORVATH Primary Care Unavailable TEE HORVATH Primary Care Unavailable Allergies Allergy Classification Reported Allergen(s) Allergy Type Date of Onset Reaction(s) Facility (12 sources) Acetaminophen / HYDROcodone; Translations: [HYDROCODONE-ACET AMINOPHEN] Drug Allergy 1 GI Upset [facility] (12 sources) Cat; Translations: [CATS] Allergy to substance 0 Other: See Comments [facility] (12 sources) Morphine; Translations: [MORPHINE] Drug Allergy 1 GI Upset, Itching [facility] Medications Completed/Discontinued Medications Medication Drug Class(es) Dates Sig (Normalized) Sig (Original) Acetaminophen / HYDROcodone (2 sources) Opioid Agonist End: 03-05-2022 hydrocodone/acetami nophen (VICODIN ORAL) Take by mouth. 0 03/05/2022 Discontinued (Course of therapy completed) Problems Active Problems Problem Classification Problem Date Documented Date Episodic/Chronic Abdominal pain (12 sources) Unspecified symptom associated with female genital organs; Translations: [Right upper quadrant pain] Onset: 07-14-2012 07-14-2012 Episodic Cardiac dysrhythmias (6 sources) Paroxysmal supraventricular tachycardia; Translations: [Supraventricular tachycardia] Onset: 08-30-2011 08-30-2011 Chronic Female infertility (6 sources) Anovulation; Translations: [Female infertility associated with anovulation] Onset: 04-02-2017 04-02-2017 Chronic Headache; including migraine (4 sources) Migraine with aura; Translations: [Migraine with aura, not intractable, without status migrainosus] Chronic Immunizations and screening for infectious disease (1 source) Patient encounter status; Translations: [Encounter for immunization] 02-07-2023 Episodic Other connective tissue disease (1 source) Pain in left arm; Translations: [Pain in left arm] Episodic Other nervous system disorders (1 source) Paresthesia of upper limb; Translations: [Anesthesia of skin] Episodic Other upper respiratory infections (1 source) Pharyngitis; Translations: [Acute pharyngitis, unspecified] 02-17-2023 Episodic Unclassified (4 sources) Counseling for infertility done; Translations: [Encounter for other general counseling and advice on procreation] Onset: 04-02-2017 04-02-2017 Viral infection (1 source) Viral disease; Translations: [Viral infection, unspecified] 02-17-2023 Episodic Past or Other Problems Problem Classification Problem Date Documented Da te Episodic/Chronic Cardiac dysrhythmias (6 sources) Palpitations; Translations: [Palpitations] Onset: 08-30-2011 08-30-2011 Episodic Contraceptive and procreative management (2 sources) Encounter for other general counseling and advice on procreation; Translations: [Encounter for other general counseling and advice on procreation] Onset: 04-02-2017 04-02-2017 Episodic Other non-traumatic joint disorders (11 sources) Pain in right knee; Translations: [Pain in joint, lower leg] Onset: 12-18-2012 12-18-2012 Episodic Residual codes; unclassified (11 sources) Tobacco user; Translations: [Tobacco use] Onset: 12-18-2012 12-18-2012 Episodic Residual codes; unclassified (11 sources) Family history of breast cancer; Translations: [Family history of malignant neoplasm of breast] Onset: 09-30-2014 09-30-2014 Episodic Spondylosis; intervertebral disc disorders; other back problems (11 sources) Neck pain; Translations: [Cervicalgia] Onset: 06-10-2016 06-10-2016 Episodic Results Test Name Value Interpretation Reference Range Facil ity Vital Signs Date Time Vital Sign Value Performing Clinician Facility 07-09-2023 07:11-0500 Body temperature 96.91 [degF] Azar Ryan DEICER REPAIRER.RESPIRATORY THERAPIST Work Phone: [facility] 07-09-2023 07:11-0500 Body weight 59.42 kg Azar Ryan DEICER REPAIRER.RESPIRATORY THERAPIST Work Phone: [facility] 07-09-2023 07:11-0500 Diastolic blood pressure 80 mm[Hg] Azar Ryan DEICER REPAIRER.RESPIRATORY THERAPIST Work Phone: [facility] 07-09-2023 07:11-0500 Heart rate 72 /min Azar Ryan DEICER REPAIRER.RESPIRATORY THERAPIST Work Phone: [facility] 07-09-2023 07:11-0500 Respiratory rate 16 /min Azar Ryan DEICER REPAIRER.RESPIRATORY THERAPIST Work Phone: [facility] 07-09-2023 07:11-0500 SaO2% (BldA) [Mass fraction] 98 % Azar Ryan DEICER REPAIRER.RESPIRATORY THERAPIST Work Phone: [facility] 07-09-2023 07:11-0500 Systolic blood pressure 122 mm[Hg] Azar Ryan DEICER REPAIRER.RESPIRATORY THERAPIST Work Phone: [facility] 02-17-2023 09:12-0400 Body temperature 98.91 [degF] Azar Ryan DEICER REPAIRER.RESPIRATORY THERAPIST Work Phone: [facility] 02-17-2023 09:12-0400 Body weight 62.41 kg Azar Ryan DEICER REPAIRER.RESPIRATORY THERAPIST Work Phone: [facility] 02-17-2023 09:12-0400 Diastolic blood pressure 70 mm[Hg] Azar Pendlebury DEICER REPAIRER.RESPIRATORY THERAPIST Work Phone: [facility] 02-17-2023 09:12-0400 Heart rate 92 /min Azar Pendlebury DEICER REPAIRER.RESPIRATORY THERAPIST Work Phone: [facility] 02-17-2023 09:12-0400 Respiratory rate 18 /min Azar Pendlebury DEICER REPAIRER.RESPIRATORY THERAPIST Work Phone: [facility] 02-17-2023 09:12-0400 SaO2% (BldA) [Mass fraction] 96 % Azar Pendlebury DEICER REPAIRER.RESPIRATORY THERAPIST Work Phone: [facility] 02-17-2023 09:12-0400 Systolic blood pressure 109 mm[Hg] Azar Pendlebury DEICER REPAIRER.RESPIRATORY THERAPIST Work Phone: [facility] 02-07-2023 07:06-0400 Body height 180 cm Frances Morillo DEICER REPAIRER.RESPIRATORY THERAPIST Work Phone: [facility] 02-07-2023 07:06-0400 Body weight 62.23 kg Frances Morillo DEICER REPAIRER.RESPIRATORY THERAPIST Work Phone: [facility] 02-07-2023 07:06-0400 Diastolic blood pressure 62 mm[Hg] Frances Morillo DEICER REPAIRER.RESPIRATORY THERAPIST Work Phone: [facility] 02-07-2023 07:06-0400 Heart rate 68 /min Frances Morillo DEICER REPAIRER.RESPIRATORY THERAPIST Work Phone: [facility] 02-07-2023 07:06-0400 Respiratory rate 14 /min Frances Morillo DEICER REPAIRER.RESPIRATORY THERAPIST Work Phone: [facility] 02-07-2023 07:06-0400 Systolic blood pressure 94 mm[Hg] Frances Morillo DEICER REPAIRER.RESPIRATORY THERAPIST Work Phone: [facility] 01-30-2023 08:02-0400 Body temperature 97.9 [degF] Anuj PAGE Work Phone: [facility] 01-30-2023 08:02-0400 Body weight 62.6 kg Krislyn Aberegg PA Work Phone: [facility] 01-30-2023 08:02-0400 Diastolic blood pressure 70 mm[Hg] Krislyn Aberegg PA Work Phone: [facility] 01-30-2023 08:02-0400 Heart rate 78 /min Krislyn Aberegg PA Work Phone: [facility] 01-30-2023 08:02-0400 Respiratory rate 16 /min Krislyn Aberegg PA Work Phone: [facility] 01-30-2023 08:02-0400 SaO2% (BldA) [Mass fraction] 97 % Krislyn Aberegg PA Work Phone: [facility] 01-30-2023 08:02-0400 Systolic blood pressure 96 mm[Hg] Krislyn Aberegg PA Work Phone: [facility] 03-05-2022 09:51-0400 Body weight 58.97 kg Kayla Older DEICER REPAIRER.RESPIRATORY THERAPIST Work Phone: [facility] 03-05-2022 09:51-0400 Diastolic blood pressure 68 mm[Hg] Kayla Older DEICER REPAIRER.RESPIRATORY THERAPIST Work Phone: [facility] 03-05-2022 09:51-0400 Heart rate 64 /min Kayla Older DEICER REPAIRER.RESPIRATORY THERAPIST Work Phone: [facility] 03-05-2022 09:51-0400 Respiratory rate 12 /min Kayla Older DEICER REPAIRER.RESPIRATORY THERAPIST Work Phone: [facility] 03-05-2022 09:51-0400 Systolic blood pressure 104 mm[Hg] Kayla Older DEICER REPAIRER.RESPIRATORY THERAPIST Work Phone: [facility] 08-19-2012 11:33-0500 BMI (Body Mass Index) 1.73 kg/m2 Lore Valentino NP [facility] 08-19-2012 11:33-0500 BP Diastolic 60 mm[Hg] oLre Valentino MANAGER CORPORATE COMM[employer]ICATIONS [facility] 08-19-2012 11:33-0500 BP Systolic 90 mm[Hg] Lore Valentino MANAGER CORPORATE COMMUNICATIONS [facility] 08-19-2012 11:33-0500 Pulse (Heart Rate) 90 /min Lore Valentino MANAGER CORPORATE COMMUNICATIONS [facility] 08-19-2012 11:33-0500 Respiratory Rate 20 /min Lore Olyphant MANAGER [employer]PORATE COMMUNICATIONS [facility] 08-19-2012 11:33-0500 Weight 59.01 kg Lore Nugents MANAGER CORPORATE COMMUNICATIONS [facility] 09-05-2011 10:26-0500 Height 177.8 cm Lore Nugents MANAGER [employer]PORATE COMM[employer]ICATIONS [facility] Encounters Encounter Date Encounter Type Care Provider Facility Start: 07-16-2023 End: 07-16-2023 ambulatory FRANCES MORILLO Facility:[facility] Start: 07-09-2023 End: 07-09-2023 ambulatory TEE HORVATH Facility:[facility] Start: 07-09-2023 End: 07-09-2023 Office outpatient visit 15 minutes Azar Ryan APRN.CNP Work Phone: [facility] Procedures Date Procedure Procedure Detail Performing Clinician Start: 02-17-2023 STREP A MOLECULAR (POC) Azar Ryan APRN.CNP Work Phone: Start: 04-08-2017 End: 04-23-2017 Progesterone [Mass/volume] in Serum or Plasma Lore Valentino MANAGER CORPORATE COMMUNICATIONS Work Phone: Start: 04-02-2017 End: 04-08-2017 Estradiol (E2) [Mass/volume] in Serum or Plasma Lore Valentino MANAGER [employer]PORATE COMMUNICATIONS Work Phone: Start: 04-02-2017 End: 04-08-2017 Follitropin [Units/volume] in Serum or Plasma Lore Valentino MANAGER CORPORATE COMMUNICATIONS Work Phone: Start: 04-02-2017 End: 04-08-2017 Prolactin [Mass/volume] in Serum or Plasma Lore Valentino MANAGER CORPORATE COMMUNICATIONS Work Phone: Start: 04-02-2017 End: 04-08-2017 Thyrotropin [Units/volume] in Serum or Plasma Loreluann PettyOlyphant NP Work Phone: Start: 05-17-2016 Adult depression scr eening assessment Petrona Aggarwal DEICER REPAIRER.RESPIRATORY THERAPIST Work Phone: Start: 08-19-2012 End: 08-19-2012 FIBER TECHNICIAN Maulik Coburn MD Start: 08-19-2012 End: 08-19-2012 Follow Up Appt 3 months Haroldo Christine Start: 05-13-2012 End: 05-13-2012 Follow Up Appt 3 months Haroldo Christine Start: 05-13-2012 End: 08-19-2012 Xtrnl mobile cv telemetry w/i&report 30 days Maulik Coburn MD Start: 09-05-2011 End: 09-05-2011 Follow Up Appt 6 months Haroldo Christine Start: 09-05-2011 End: 08-19-2012 Stress Echocardiogram (treadmill) Maulik Coburn MD Plan of Treatment Date Care Activity Detail Author Start: 02-07-2033 Urine microalbumin profile [facility] Start: 02-08-2024 COVID-19 VACCINE (#1) COVID-19 VACCI NE (#1) [facility] Immunizations Immunization Date Immunization Notes Care Provider Kirt dale 02-07-2023 pneumococcal (PCV20) vaccine, 20 valent (PREVNAR 20) Frances Morillo DEICER REPAIRER.RESPIRATORY THERAPIST Work Phone: [facility] 02-07-2023 tetanus toxoid, redu daisha diphtheria toxoid, and acellular pertussis vaccine, adsorbed Francesmir Morillo DEICER REPAIRER.RESPIRATORY THERAPIST Work Phone: [facility] 02-07-2023 pneumococcal Conjuga te, unspecified formulation Frances Morillo DEICER REPAIRER.RESPIRATORY THERAPIST Work Phone: [facility] Work Phone: Payers Date Payer Category Payer Medicaid [id number] 2009 Medicaid [employer] [facility] [facility] MED[facility]ID [id number] 2009-Present [phone] [address] [place] [address] Medicaid [id number] 2009 Medicaid [id number] Social History Date Type Detail Facility Start: 09-30-2014 End: 01-30-2023 Tobacco smoking status NHIS Occasional tobacco smoker [facility] Work Phone: Start: 09-30-2014 End: 02-07-2023 Cigarettes smoked current (pack per day) - Reported 0.5 [facility] Work Phone: Start: 09-30-2014 End: 01-30-2023 Tobacco use and exposure Smokeless tobacco non-user [facility] Work Phone: Start: 10-02-2020 End: 07-09-2023 Alcohol intake Current non-drinker of alcohol (finding) [facility] Start: 09-18-2020 End: 01-30-2023 Tobacco Comment seldom/3 cigarettes a month [facility] Start: 1985 Sex Assigned At Not on file [facility] History of tobacco use Cigarette Smoker [facility] Start: 02-23-2022 End: 03-05-2022 Exposure to SARS-CoV-2 (event) Not sure [facility] Start: 01-30-2023 End: 02-07-2023 Tobacco use panel [facility] Work Phone: Adult Depression Screening Assessment 1 [facility] Work Phone: Clinical Notes 08-29-2005 to 07-16-2023 Azar Ryan APRN.RESPIRATORY THERAPIST - 07/09/2023 7:15 AM ESTTelephone Encounter - Renate Ivan - 02/24/2023 12:06 PM EDTTelephone Encounter - Frances Morillo APRN.CNP - 02/24/2023 11:13 AM EDT Note Date & Type Note Facility 07-16-2023 Note HNO ID: [id number] Author: FRANCES MORILLO APRN.SUMMER Service: ? Author Type: Nurse Practitioner Type: Progress Notes Filed: 07/16/2023 08:51 Note Text: Chief Complaint Patient presents with: short term disabilityfor migraines HPI Maddie Crews is a 38 year old female who presents here today for Above Complaints. Maddie is an established patient of Dr. Horvath, Do and myself. Concerns today... Headaches -- Ongoing intermittent migraines. Was seen 02/07/23 for this same complaint, please refer to office note. Pt asking about fmla intermittent leave for this. Migraines can be debilitating that she is unable to work and has to call off about 2-3x per month for this. 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 Pt reports when she has a migraine she is unable to focus/concentrate on a task and the noisy and bright environment of her working condition makes it even harder to function with a migraine. Pt reports currently getting migraines anywhere from 1-3x per week -- sometimes they are more mild and manageable with her work environment. Pt has tried changing diet and taking vitamins of Vit D, B2 and Mag without much relief. Imitrex prn works very well for her if she is able to catch headaches quickly. Pt is prescribed Propranolol 40 mg daily --- admits to not taking this since father in February. Admits that she stopped taking care of herself due to this and wants to get back on track. Would like refill of propranolol. Reports she did notice a slight improvement in frequency of migraines while on it. Pt reports she needs ability to take off 3x per month as needed without getting penalized for debilitating headaches. Following with Dr. York for recent GI issues of abd pain and indigestion. Pt has endoscopy and GI emptying test scheduled for this week. Dr. York believes GI issues may be contributing to worsening headaches recently as well. No other concerns or complaints. Past medical history, appointments, medications, allergies reviewed. Previous Medical History PAST MEDICAL HISTORY Diagnosis Date Cervical dysplasia 06/2020 Irregular heart beat Migraine headache Pelvic pain in female ovarian cysts, [facility] SVT (supraventricular tachycardia) [address] Coburn at the time Tobacco abuse Previous Surgical History PAST SURGICAL HISTORY Procedure Laterality Date COLONOSCOPY W/BIOPSY SINGLE/MULTIPLE 09/28/2020 NONE UTERINE CERVIX-EXCISION (CONE/LEEP) SYNOPTIC RPT 06/2020 Family History FAMILY HISTORY Problem Relation Age of Onset Thyroid Mother 40 cancer Hypertension Maternal Grandmother Heart Maternal Grandmother [place] Arthritis Maternal Grandfather Hypertension Maternal Grandfather Arthritis Paternal Grandmother Colon Cancer Maternal Uncle Patient Allergies ALLERGIES Allergen Reactions Cats Other: See Comments Tightness in throat, sinus congestion, swollen eyes Morphine GI Upset, Itching Vicodin [Hydrocodon* GI Upset Current Medications Current Outpatient Medications on File Prior to Visit Medication Sig SUMAtriptan (IMITREX) 100 mg tablet Take 1 tablet at the onset of headache. May repeat dose in 2 hours if needed. Do not exceed 2 tablets in 24 hour period. propranolol (INDERAL) 40 mg tablet Take 1 tablet by mouth once daily. ibuprofen (MOTRIN) 800 mg tablet Take 1 tablet by mouth every 8 hours as needed for Pain. Take with food. No current facility-administered medications on file prior to visit. Social History Social History Tobacco Use Smoking status: Some Days Packs/day: 0.50 Years: 4.00 Additional pack years: 0.00 Total pack years: 2.00 Types: Cigarettes Smokeless tobacco: Never Tobacco comments: seldom/3 cigarettes a month Substance Use Topics Alcohol use: No Drug use: No REVIEW OF SYSTEMS: as above Reviewed relevant PMHx, PSHx, Social Hx, current medications and allergies. Review of Symptoms REVIEW OF SYSTEMS See HPI. EXAM: BP 94/60 (BP Site: Left Arm, BP Position: Sitting, BP Cuff Size: Regular Adult) Pulse 68 Resp 12 Wt 60.1 kg (132 lb 6.4 oz) LMP 05/16/2019 BMI 18.54 kg/m? General Appearance: Well appearing, alert, in no acute distress, well-hydrated, well nourished.. Skin: Skin color, texture, turgor normal, no suspicious rashes or lesions. Head: Normocephalic, no masses, lesions, tenderness or abnormalities. Lungs: Lungs clear to auscultation. No wheezing, rhonchi, rales.. Heart: RRR without murmur, gallop, or rubs. No ectopy. Neurologic: Gait normal. Reflexes normal and symmetric. Sensation grossly intact. Health Maintenance List Hepatitis B Vaccine(1 of 3 - 3-dose series) Never done HPV Testing due on 2017 Pap Testing due on 10/01/2019 Influenza Vaccine(1) Never done Depression Assessment due on 06/30/2023 Covid-19 Vaccine(1) due on 02/08/2024 DTaP,Tdap,Td Vaccine(2 - Td or Tdap) due on (more content not included)... [facility] 07-09-2023 Note HNO ID: [id number] Author: AZAR RYAN APRN.RESPIRATORY THERAPIST Service: ? Author Type: Nurse Practitioner Type: Progress Notes Filed: 07/09/2023 07:37 Note Text: Subjective HPI Nontoxic-appearing female presents urgent care chief complaint nausea vomiting loose stools abdominal cramping. Patient states few loose stools yesterday and 1 loose stool today. States abdominal cramping comes and goes. Describes it as sharp right upper quadrant pain. Is having some sweats with it. Rates pain 11 out of 10. Currently pain is 2-3 out of 10. States a few minutes prior to arriving here she had a sharp attack . Has been using OTC medications for acid reflux this has not helped. Presents today for evaluation. Denies any fevers cough chest pain shortness of breath hemoptysis or rashes. Past medical historyprescription medications allergies reviewed. .Patient presents with: Nausea AND Vomiting: diarrhea, abdominal cramping x 1 week. PAST MEDICAL HISTORY Diagnosis Date Cervical dysplasia 06/2020 Irregular heart beat Migraine headache Pelvic pain in female ovarian cysts, [facility] SVT (supraventricular tachycardia) [address] Coburn at the time Tobacco abuse PAST SURGICAL HISTORY Procedure Laterality Date COLONOSCOPY W/BIOPSY SINGLE/MULTIPLE 09/28/2020 NONE UTERINE CERVIX-EXCISION (CONE/LEEP) SYNOPTIC RPT 06/2020 ALLERGIES Cats, Morphine, and Vicodin [Hydrocodone-Acetaminophen] MEDICATIONS SUMAtriptan (IMITREX) 100 mg tablet Take 1 tablet at the onset of headache. May repeat dose in 2 hours if needed. Do not exceed 2 tablets in 24 hour period. propranolol (INDERAL) 40 mg tablet Take 1 tablet by mouth once daily. ibuprofen (MOTRIN) 800 mg tablet Take 1 tablet by mouth every 8 hours as needed for Pain. Take with food. FAMILY HISTORY Problem Relation Age of Onset Thyroid Mother 40 cancer Hypertension Maternal Grandmother Heart Maternal Grandmother [place] Arthritis Maternal Grandfather Hypertension Maternal Grandfather Arthritis Paternal Grandmother Colon Cancer Maternal Uncle Social History Tobacco Use Smoking status: Some Days Packs/day: 0.50 Years: 4.00 Additional pack years: 0.00 Total pack years: 2.00 Types: Cigarettes Smokeless tobacco: Never Tobacco comments: seldom/3 cigarettes a month Substance Use Topics Alcohol use: No Drug use: No BP 122/80 Pulse 72 Temp 36.1 ?C (96.9 ?F) Resp 16 Wt 59.4 kg (131 lb) LMP 05/16/2019 SpO2 98% BMI 18.34 kg/m? Review of Systems Constitutional: Negative for chills, fever and malaise/fatigue. HENT: Negative for congestion, ear discharge, ear pain, sinus pain and sore throat. Eyes: Negative for blurred vision, pain, discharge and redness. Respiratory: Negative for cough, hemoptysis, sputum production, shortness of breath, wheezing and stridor. Cardiovascular: Negative for chest pain. Gastrointestinal: Positive for abdominal pain, diarrhea, nausea and vomiting. Musculoskeletal: Negative for myalgias. Skin: Negative for itching and rash. Neurological: Negative for dizziness and headaches. Objective Physical Exam Constitutional: General: She is not in acute distress. Appearance: She is not diaphoretic. HENT: Head: Normocephalic. Jaw: No trismus, tenderness, swelling or pain on movement. Mouth/Throat: Mouth: Mucous membranes are moist. Pharynx: Oropharynx is clear. Uvula midline. No pharyngeal swelling, oropharyngeal exudate, posterior oropharyngeal erythema or uvula swelling. Eyes: Conjunctiva/sclera: Conjunctivae normal. Pupils: Pupils are equal, round, and reactive to light. Cardiovascular: Rate and Rhythm: Normal rate and regular rhythm. Heart sounds: Normal heart sounds. Pulmonary: Effort: Pulmonary effort is normal. No tachypnea, accessory muscle usage or respiratory distress. Breath sounds: Normal breath sounds. No stridor. No wheezing, rhonchi or rales. Abdominal: General: There is no distension. Palpations: Abdomen is soft. Tenderness: There is abdominal tenderness in the right upper quadrant. There is guarding. There is no rebound. Musculoskeletal: Cervical back: Normal range of motion and neck supple. No edema, erythema, rigidity or tenderness. No pain with movement. Normal range of motion. Lymphadenopathy: Cervical: No cervical adenopathy. Skin: General: Skin is warm and dry. Neurological: Mental Status: She is alert and oriented to person, place, and time. ASSESSMENT/PLAN: 1. Right upper quadrant pain - ICD9: 789.01, ICD10: R10.11 Differentials include pancreatitis, stomach ulcers, kidney stone, gallstones or viral gastroenteritis. With patient's presenting symptoms concerned about possible c. With patient's level of discomfort I recommended patient be seen the ED today for further evaluation care. Will be sending to [facility]. Azar Ryan APRN.[facility] 07-09-2023 History of Presen t illness Narrative Subjective HPI Nontoxic-appearing female presents urgent care chief complaint nausea vomiting loose stools abdominal cramping. Patient states few loose stools yesterday and 1 loose stool today. States abdominal cramping comes and goes. Describes it as sharp right upper quadrant pain. Is having some sweats with it. Rates pain 11 out of 10. Currently pain is 2-3 out of 10. States a few minutes prior to arriving here she had a sharp attack . Has been using OTC medications for acid reflux this has not helped. Presents today for evaluation. Denies any fevers cough chest pain shortness of breath hemoptysis or rashes. Past medical history prescription medications allergies reviewed. .Patient presents with: Nausea & Vomiting: diarrhea, abdominal cramping x 1 week. PAST MEDICAL HISTORY Diagnosis Date Cervical dysplasia 06/2020 Irregular heart beat Migraine headache Pelvic pain in female ovarian cysts, [facility] SVT (supraventricular tachycardia) [address] Coburn at the time Tobacco abuse PAST SURGICAL HISTORY Procedure Laterality Date COLONOSCOPY W/BIOPSY SINGLE/MULTIPLE 09/28/2020 NONE UTERINE CERVIX-EXCISION (CONE/LEEP) SYNOPTIC RPT 06/2020 ALLERGIES Cats, Morphine, and Vicodin [Hydrocodone-Acetaminophen] MEDICATIONS SUMAtriptan (IMITREX) 100 mg tablet Take 1 tablet at the onset of headache. May repeat dose in 2 hours if needed. Do not exceed 2 tablets in 24 hour period. propranolol (INDERAL) 40 mg tablet Take 1 tablet by mouth once daily. ibuprofen (MOTRIN) 800 mg tablet Take 1 tablet by mouth every 8 hours as needed for Pain. Take with food. FAMILY HISTORY Problem Relation Age of Onset Thyroid Mother 40 cancer Hypertension Maternal Grandmother Heart Maternal Grandmother [place] Arthritis Maternal Grandfather Hypertension Maternal Grandfather Arthritis Paternal Grandmother Colon Cancer Maternal Uncle Social History Tobacco Use Smoking status: Some Days Packs/day: 0.50 Years: 4.00 Additional pack years: 0.00 Total pack years: 2.00 Types: Cigarettes Smokeless tobacco: Never Tobacco comments: seldom/3 cigarettes a month Substance Use Topics Alcohol use: No Drug use: No BP 122/80 Pulse 72 Temp 36.1 C (96.9 F) Resp 16 Wt 59.4 kg (131 lb) LMP 05/16/2019 SpO2 98% BMI 18.34 kg/m Review of Systems Constitutional: Negative for chills, fever and malaise/fatigue. HENT: Negative for congestion, ear discharge, ear pain, sinus pain and sore throat. Eyes: Negative for blurred vision, pain, discharge and redness. Respiratory: Negative for cough, hemoptysis, sputum production, shortness of breath, wheezing and stridor. Cardiovascular: Negative for chest pain. Gastrointestinal: Positive for abdominal pain, diarrhea, nausea and vomiting. Musculoskeletal: Negative for myalgias. Skin: Negative for itching and rash. Neurological: Negative for dizziness and headaches. Objective Physical Exam Constitutional: General: She is not in acute distress. Appearance: She is not diaphoretic. HENT: Head: Normocephalic. Jaw: No trismus, tenderness, swelling or pain on movement. Mouth/Throat: Mouth: Mucous membranes are moist. Pharynx: Oropharynx is clear. Uvula midline. No pharyngeal swelling, oropharyngeal exudate, posterior oropharyngeal erythema or uvula swelling. Eyes: Conjunctiva/sclera: Conjunctivae normal. Pupils: Pupils are equal, round, and reactive to light. Cardiovascular: Rate and Rhythm: Normal rate and regular rhythm. Heart sounds: Normal heart sounds. Pulmonary: Effort: Pulmonary effort is normal. No tachypnea, accessory muscle usage or respiratory distress. Breath sounds: Normal breath sounds. No stridor. No wheezing, rhonchi or rales. Abdominal: General: There is no distension. Palpations: Abdomen is soft. Tenderness: There is abdominal tenderness in the right upper quadrant. There is guarding. There is no rebound. Musculoskeletal: Cervical back: Normal range of motion and neck supple. No edema, erythema, rigidity or tenderness. No pain with movement. Normal range of motion. Lymphadenopathy: Cervical: No cervical adenopathy. Skin: General: Skin is warm and dry. Neurological: Mental Status: She is alert and oriented to person, place, and time. ASSESSMENT/PLAN: 1. Right upper quadrant pain - ICD9: 789.01, ICD10: R10.11 Differentials include pancreatitis, stomach ulcers, kidney stone, gallstones or viral gastroenteritis. With patient's presenting symptoms concerned about possible c. With patient's level of discomfort I recommended patient be seen the ED today for further evaluation care. Will be sending to [facility]. Azar Ryan APRN.SUMMER documented in this encounter [facility] 02-24-2023 Miscellaneous Notes Pt informed, verbalized understanding Renate Ivan Per CDC guidelines, pt only needs to quarantine x 5 days as long as no fever present. Then pt is able to return to normal activities wearing a mask x 5 days -- despite son having it currently. Thank you, Frances Morillo APRN.RESPIRATORY THERAPIST Pt calls to report she is done with her five days of quarantine for Covid but now her son has Covid with a fever. Pt herself does not have a fever. Pt is asking if she can still go out without worrying that she is going to infect others. Please review and advise. Katiana Lombardo LPN documented in this encounter [facility] 02-23-2023 Miscellaneous Notes Reason for Call: Patient tested positive for Covid on 02/17/23. She was planning on returning to work tomorrow but her child has now developed covid symptoms. Asking if she can still return to work or does she need to extend her quarantine? Outcome: Reviewed Covid protocol and referenced CDC.gov but unable to provide an answer. Offered pt to speak to [facility]. She is afebrile but still has slight cough, congestion and fatigue. Suggested pt remain quarantine until certain. documented in this encounter [facility] 02-18-2023 Miscellaneous Notes Patient notified.Eva Orlando LPN Letter done, available at desk, please notify patient. Pt was seen in [facility] on 02/17. Pt calls to report she needs a letter for work that states she tested positive for Covid and how long she has to quarantine and wear a mask. 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 Katiana Lombardo LPN documented in this encounter [facility] 02-17-2023 Note HNO ID: [id number] Author: Azar Ryan APRN.SUMMER Service: ? Author Type: Nurse Practitioner Type: Progress Notes Filed: 02/17/2023 9:45 AM Note Text: Subjective HPI Nontoxic-appearing female presents urgent care chief complaint sore throat vomiting body aches chills fever chest congestion cough. Duration of symptoms 2 days. Associated symptoms as above. Patient states frequent episodes of vomiting last night. Has not vomited in the last hour. Has been able to tolerate some oral fluids. No known sick contacts. Did take Tamiflu yesterday. No medicine today. Denies any significant pain currently. Does have some generalized abdominal pain before vomiting. Denies any high fevers productive cough chest pain shortness of breath rashes change in bowel or bladder habits. Past medical history prescription medication use allergies reviewed. .Patient presents with: Cough: Chest congestion, ST, vomiting x2 days PAST MEDICAL HISTORY Diagnosis Date Cervical dysplasia 06/2020 Irregular heart beat Migraine headache Pelvic pain in female ovarian cysts, [facility] SVT (supraventricular tachycardia) (HCC) [address] Coburn at the time Tobacco abuse PAST SURGICAL HISTORY Procedure Laterality Date COLONOSCOPY W/BIOPSY SINGLE/MULTIPLE 09/28/2020 NONE UTERINE CERVIX-EXCISION (CONE/LEEP) SYNOPTIC RPT 06/2020 ALLERGIES Cats, Morphine, and Vicodin [Hydrocodone-Acetaminophen] MEDICATIONS SUMAtriptan (IMITREX) 100 mg tablet Take 1 tablet at the onset of headache. May repeat dose in 2 hours if needed. Do not exceed 2 tablets in 24 hour period. propranolol (INDERAL) 40 mg tablet Take 1 tablet by mouth once daily. ibuprofen (MOTRIN) 800 mg tablet Take 1 tablet by mouth every 8 hours as needed for Pain. Take with food. FAMILY HISTORY Problem Relation Age of Onset Thyroid Mother 40 cancer Hypertension Maternal Grandmother Heart Maternal Grandmother [place] Arthritis Maternal Grandfather Hypertension Maternal Grandfather Arthritis Paternal Grandmother Colon Cancer Maternal Uncle Social History Tobacco Use Smoking status: Some Days Packs/day: 0.50 Years: 4.00 Additional pack years: 0.00 Total pack years: 2.00 Types: Cigarettes Smokeless tobacco: Never Tobacco comments: seldom/3 cigarettes a month Substance Use Topics Alcohol use: No Drug use: No BP 109/70 Pulse 92 Temp 37.2 ?C (98.9 ?F) Resp 18 Wt 62.4 kg (137 lb 9.6 oz) LMP 05/16/2019 SpO2 96% BMI 19.26 kg/m? Review of Systems Constitutional: Positive for chills, fever and malaise/fatigue. HENT: Positive for congestion and sore throat. Negative for ear discharge, ear pain and sinus pain. Eyes: Negative for blurred vision, pain, discharge and redness. Respiratory: Negative for cough, hemoptysis, sputum production, shortness of breath, wheezing and stridor. Cardiovascular: Negative for chest pain. Gastrointestinal: Positive for abdominal pain, nausea and vomiting. Negative for diarrhea. Musculoskeletal: Positive for myalgias. Skin: Negative for itching and rash. Neurological: Positive for headaches. Negative for dizziness. Objective Physical Exam Constitutional: General: She is not in acute distress. Appearance: She is not diaphoretic. HENT: Head: Normocephalic. Jaw: No trismus, tenderness, swelling or pain on movement. Nose: Rhinorrhea present. Mouth/Throat: Mouth: Mucous membranes are moist. Pharynx: Oropharynx is clear. Uvula midline. No pharyngeal swelling, oropharyngeal exudate, posterior oropharyngeal erythema or uvula swelling. Eyes: Conjunctiva/sclera: Conjunctivae normal. Pupils: Pupils are equal, round, and reactive to light. Cardiovascular: Rate and Rhythm: Normal rate and regular rhythm. Heart sounds: Normal heart sounds. Pulmonary: Effort: Pulmonary effort is normal. No tachypnea, accessory muscle usage or respiratory distress. Breath sounds: Normal breath sounds. No stridor. No wheezing, rhonchi or rales. Abdominal: General: There is no distension. Palpations: Abdomen is soft. Tenderness: There is generalized abdominal tenderness. There is no guarding or rebound. Musculoskeletal: Cervical back: Normal range of motion and neck supple. No edema, erythema, rigidity or tenderness. No pain with movement. Normal range of motion. Lymphadenopathy: Cervical: No cervical adenopathy. Skin: General: Skin is warm and dry. Neurological: Mental Status: She is alert and oriented to person, place, and time. ASSESSMENT/PLAN: 1. Pharyngitis, unspecified etiology - ICD9: 462, ICD10: J02.9 (primary diagnosis) - STREP A MOLECULAR (POC) - COVID AND INFLUENZA A/B AND RSV NAAT, ROUTINE - COVID NAAT, ROUTINE - ROUTINE FLU A/B + RSV 2. Viral illness - ICD9: 079.99, ICD10: B34.9 - COVID AND INFLUENZA A/B AND RSV NAAT, ROUTINE - COVID NAAT, ROUTINE - ROUTINE FLU A/B + RSV Strep test negative. No evidence of dehydration. No focal tende (more content not included)... [facility] 02-17-2023 Instructions Azar Ryan APRN.[facility] - 02/17/2023 9:27 AM EDT How to Manage Common Symptoms Associated with COVID for Adults Fever- Fever is a temperature over 100.4 F and can occur when the body is fighting an infection. To help treat a fever: Drink plenty of fluids and stay well hydrated. Eat small amounts of easy to digest food. Rest. Your body needs rest to recover, but getting up and moving around the house frequently is a good idea. You should try to continue doing your normal daily activities (bathing, toileting, grooming, cooking), though you will probably feel tired, and need to rest often. Avoid any heavy activity or exercise, as this will increase your body temperature. Dress in light clothing and stay covered in a light sheet. Keep the room temperature cool. Take a slightly warm (not cold or cool) bath, or apply damp washcloths to the forehead and wrists. Cough- Cough is a common symptom associated with COVID and can be bothersome. To help treat a cough: Stay well hydrated. Try warm water or tea with lemon and/or honey to help soothe the cough. Use a humidifier to add moisture to the air. Try a product with menthol, like a cough drop or a rub for your chest such as Vicks, which can help reduce cough. Try cough drops. Avoid smoking and other strong odors or perfumes. Try breathing exercises to keep your lungs open and clear. Take a big deep breath through your nose and hold for 5 seconds before slowly releasing. Repeat frequently, while you are awake. Congestion- Runny nose or nasal congestion can occur with COVID. Treatment can help relieve symptoms: Try OTC nasal saline spray, or nasal saline rinse to relieve mucus congestion. Nasal strips can help keep nasal passages open, to increase airflow. Elevating your head with an extra pillow in bed can help reduce congestion. Using a humidifier can increase moisture in the air, and make breathing easier. Sore Throat- Another common symptom with COVID, can be managed at home by: Stay well hydrated. Gargle with salt water - mix teaspoon salt with 1 cup of warm water and gargle. This helps to loosen mucus in the back of the throat and may reduce discomfort. Try ice chips, popsicles or lozenges to soothe the throat. Nausea/Vomiting/Diarrhea- These are common symptoms, and staying hydrated is most important. If you are nauseous or vomiting, start with small sips of water every 10-15 minutes and increase as tolerated. You can try sucking an ice cube too. If tolerating, you can try pedialyte or Gatorade, or flat sprite or christy-donna. Start slowly and increase as you are able to. Instead of meals, try smaller, more frequent snacks. Try eating bland foods like crackers, toast, rice, and applesauce. Avoid spicy, greasy or fried foods and dairy containing foods. Even if you aren't feeling hungry due to lack of smell or taste, it is important to try to take in some food when you are able. After drinking and eating, rest in an upright position for up to two hours as needed to help decrease nauseous feelings. Try closing your eyes, avoid moving and watching TV. Avoid strong odors that can make you feel more nauseated. When to seek emergency medical attention Look for emergency warning signs for COVID-19. If having any of these symptoms, seek emergency medical care immediately: Trouble breathing Persistent pain or pressure in the chest New confusion Inability to wake or stay awake Bluish lips or face *This list is not all possible symptoms. Please call your medical provider for any other symptoms that are severe or concerning to you. documented in this encounter [facility] 02-17-2023 History of Presen t illness Narrative Subjective HPI Nontoxic-appearing female presents urgent care chief complaint sore throat vomiting body aches chills fever chest congestion cough. Duration of symptoms 2 days. Associated symptoms as above. Patient states frequent episodes of vomiting last night. Has not vomited in the last hour. Has been able to tolerate some oral fluids. No known sick contacts. Did take Tamiflu yesterday. No medicine today. Denies any significant pain currently. Does have some generalized abdominal pain before vomiting. Denies any high fevers productive cough chest pain shortness of breath rashes change in bowel or bladder habits. Past medical history prescription medication use allergies reviewed. .Patient presents with: Cough: Chest congestion, ST, vomiting x2 days PAST MEDICAL HISTORY Diagnosis Date Cervical dysplasia 06/2020 Irregular heart beat Migraine headache Pelvic pain in female ovarian cysts, [facility] SVT (supraventricular tachycardia) (HCC) [address] Coburn at the time Tobacco abuse PAST SURGICAL HISTORY Procedure Laterality Date COLONOSCOPY W/BIOPSY SINGLE/MULTIPLE 09/28/2020 NONE UTERINE CERVIX-EXCISION (CONE/LEEP) SYNOPTIC RPT 06/2020 ALLERGIES Cats, Morphine, and Vicodin [Hydrocodone-Acetaminophen] MEDICATIONS SUMAtriptan (IMITREX) 100 mg tablet Take 1 tablet at the onset of headache. May repeat dose in 2 hours if needed. Do not exceed 2 tablets in 24 hour period. propranolol (INDERAL) 40 mg tablet Take 1 tablet by mouth once daily. ibuprofen (MOTRIN) 800 mg tablet Take 1 tablet by mouth every 8 hours as needed for Pain. Take with food. FAMILY HISTORY Problem Relation Age of Onset Thyroid Mother 40 cancer Hypertension Maternal Grandmother Heart Maternal Grandmother [place] Arthritis Maternal Grandfather Hypertension Maternal Grandfather Arthritis Paternal Grandmother Colon Cancer Maternal Uncle Social History Tobacco Use Smoking status: Some Days Packs/day: 0.50 Years: 4.00 Additional pack years: 0.00 Total pack years: 2.00 Types: Cigarettes Smokeless tobacco: Never Tobacco comments: seldom/3 cigarettes a month Substance Use Topics Alcohol use: No Drug use: No BP 109/70 Pulse 92 Temp 37.2 C (98.9 F) Resp 18 Wt 62.4 kg (137 lb 9.6 oz) LMP 05/16/2019 SpO2 96% BMI 19.26 kg/m Review of Systems Constitutional: Positive for chills, fever and malaise/fatigue. HENT: Positive for congestion and sore throat. Negative for ear discharge, ear pain and sinus pain. Eyes: Negative for blurred vision, pain, discharge and redness. Respiratory: Negative for cough, hemoptysis, sputum production, shortness of breath, wheezing and stridor. Cardiovascular: Negative for chest pain. Gastrointestinal: Positive for abdominal pain, nausea and vomiting. Negative for diarrhea. Musculoskeletal: Positive for myalgias. Skin: Negative for itching and rash. Neurological: Positive for headaches. Negative for dizziness. Objective Physical Exam Constitutional: General: She is not in acute distress. Appearance: She is not diaphoretic. HENT: Head: Normocephalic. Jaw: No trismus, tenderness, swelling or pain on movement. Nose: Rhinorrhea present. Mouth/Throat: Mouth: Mucous membranes are moist. Pharynx: Oropharynx is clear. Uvula midline. No pharyngeal swelling, oropharyngeal exudate, posterior oropharyngeal erythema or uvula swelling. Eyes: Conjunctiva/sclera: Conjunctivae normal. Pupils: Pupils are equal, round, and reactive to light. Cardiovascular: Rate and Rhythm: Normal rate and regular rhythm. Heart sounds: Normal heart sounds. Pulmonary: Effort: Pulmonary effort is normal. No tachypnea, accessory muscle usage or respiratory distress. Breath sounds: Normal breath sounds. No stridor. No wheezing, rhonchi or rales. Abdominal: General: There is no distension. Palpations: Abdomen is soft. Tenderness: There is generalized abdominal tenderness. There is no guarding or rebound. Musculoskeletal: Cervical back: Normal range of motion and neck supple. No edema, erythema, rigidity or tenderness. No pain with movement. Normal range of motion. Lymphadenopathy: Cervical: No cervical adenopathy. Skin: General: Skin is warm and dry. Neurological: Mental Status: She is alert and oriented to person, place, and time. ASSESSMENT/PLAN: 1. Pharyngitis, unspecified etiology - ICD9: 462, ICD10: J02.9 (primary diagnosis) - STREP A MOLECULAR (POC) - COVID & INFLUENZA A/B & RSV NAAT, ROUTINE - COVID NAAT, ROUTINE - ROUTINE FLU A/B + RSV 2. Viral illness - ICD9: 079.99, ICD10: B34.9 - COVID & INFLUENZA A/B & RSV NAAT, ROUTINE - COVID NAAT, ROUTINE - ROUTINE FLU A/B + RSV Strep test negative. No evidence of dehydration. No focal tenderness or evidence of acute abdomen. Hemodynamically stable. URI-like symptoms. Suspicious of viral etiology at this time. Treat conservatively. Red flags for prompt reevaluation discussed. Patient was educated on supportive therapies. Patient will follow up with primary care provider as needed. Patient was instructed to immediately proceed to emergency room for any new, worsening, or symptoms lasting longer than anticipated. The patient's clinical presentation is otherwise unremarkable at this time. Based on exam and clinical finding, the patient is stable for discharge. Plan of care was discussed with patient. Patient verbalizes understanding and agrees to plan of care. This note was generated using [employer] software. It may contain errors in wording, punctuation, or spelling. Azar Ryan APRN.SUMMER documented in this encounter [facility] 02-11-2023 Miscellaneous Notes Spoke with pt and information listed below given. Pt verbalizes understanding. Lisa Yadav LPN Yes, this can be normal due to the vaccines. Would recommend tylenol 500 mg every 6-8 hours for the next 24-48 hours as well as increased hydration Tee Horvath DO Pt called to report she was seen on Friday02-07-23. Pt was given a tetanus shot and pneumonia shot. Friday evening started with slight headache, then nauseated, vomiting and now having cold sweats, fever 101 at 4:00 am and tired all the time. Pt asking if this is normal from the above shots . Please advise pt. Lisa Yadav LPN documented in this encounter [facility] 02-07-2023 Note HNO ID: [id number] Author: Frances Morillo APRN.SUMMER Service: ? Author Type: Nurse Practitioner Type: Progress Notes Filed: 02/07/2023 8:56 AM Note Text: Chief Complaint Patient presents with: Physical HPI Maddie Crews is a 37 year old female who presents here today for Above Complaints. Maddie is an established patient of Dr. Jaspreet DO. She is a new patient to me today. Concerns today... Headaches -- Urgent care visit on 01/30 due to migraine. Refilled sumatriptan short-term and given IM Toradol. Migraine with aura presents with eyeball burning, jaw pain, and temporal pain. This most recent migraine lasted 7 days. 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 Pt reports feeling terrible when she has to miss work due to these. Hx of migraines for years, increasing in frequency x 2 months now. Pt reports so debilitating that she is willing to try anything to improve these. Has tried changing diet, taking supplements of Vitamin D, B2, and Mag, and chiropractor with little to no relief. Triptan therapy normally is the only thing to help -- but only if she catches migraine early and takes medication early. No other concerns or complaints. -- PAP testing up to date from OBGYN -- hx of LEEP procedure. Past medical history, appointments, medications, allergies reviewed. Previous Medical History PAST MEDICAL HISTORY Diagnosis Date Cervical dysplasia 06/2020 Irregular heart beat Migraine headache Pelvic pain in female ovarian cysts, [facility] SVT (supraventricular tachycardia) (HCC) [address] Coburn at the time Tobacco abuse Previous Surgical History PAST SURGICAL HISTORY Procedure Laterality Date COLONOSCOPY W/BIOPSY SINGLE/MULTIPLE 09/28/2020 NONE UTERINE CERVIX-EXCISION (CONE/LEEP) SYNOPTIC RPT 06/2020 Family History FAMILY HISTORY Problem Relation Age of Onset Thyroid Mother 40 cancer Hypertension Maternal Grandmother Heart Maternal Grandmother [place] Arthritis Maternal Grandfather Hypertension Maternal Grandfather Arthritis Paternal Grandmother Colon Cancer Maternal Uncle Patient Allergies ALLERGIES Allergen Reactions Cats Other: See Comments Tightness in throat, sinus congestion, swollen eyes Morphine GI Upset, Itching Vicodin [Hydrocodon* GI Upset Current Medications Current Outpatient Medications on File Prior to Visit Medication Sig SUMAtriptan (IMITREX) 100 mg tablet Take 1 tablet at the onset of headache. May repeat dose in 2 hours if needed. Do not exceed 2 tablets in 24 hour period. ibuprofen (MOTRIN) 800 mg tablet Take 1 tablet by mouth every 8 hours as needed for Pain. Take with food. No current facility-administered medications on file prior to visit. Social History Social History Tobacco Use Smoking status: Some Days Packs/day: 0.50 Years: 4.00 Total pack years: 2.00 Types: Cigarettes Smokeless tobacco: Never Tobacco comments: seldom/3 cigarettes a month Substance Use Topics Alcohol use: No Drug use: No REVIEW OF SYSTEMS: as above Reviewed relevant PMHx, PSHx, Social Hx, current medications and allergies. Review of Symptoms REVIEW OF SYSTEMS See HPI. EXAM: BP 94/62 (BP Site: Left Arm, BP Position: Sitting, BP Cuff Size: Regular Adult) Pulse 68 Resp 14 Ht 180 cm (5' 10.87 ) Wt 62.2 kg (137 lb 3.2 oz) LMP 05/16/2019 BMI 19.21 kg/m? General Appearance: Well appearing, alert, in no acute distress, well-hydrated, well nourished.. Skin: Skin color, texture, turgor normal, no suspicious rashes or lesions. Head: Normocephalic, no masses, lesions, tenderness or abnormalities. Nose/Sinuses: Nares normal, septum midline, mucosa normal, no drainage or sinus tenderness. Oropharynx: Lips, mucosa, and tongue normal, teeth and gums normal, oropharynx normal. Neck: Supple, no adenopathy; thyroid symmetric, normal size, no bruits. Back:no pain to palpation of vertebrae, good flexion and extension, good range of motion, no muscle tenderness, reflexes are 2+ and symmetric, motor and sensory appear to be normal, negative SLR test, no evidence of scoliosis Lungs: Lungs clear to auscultation. No wheezing, rhonchi, rales.. Heart: RRR without murmur, gallop, or rubs. No ectopy. Abdomen: Normal abdominal exam, Abdomen soft, non-tender. Bowel sounds normal. No masses, organomegaly. Neurologic: Gait normal. Reflexes normal and symmetric. Sensation grossly intact.. Health Maintenance List HEPATITIS B(1 of 3 - 3-dose series) Never done PNEUMOCOCCAL(1 - PCV) Never done DTAP,TDAP,TD(1 - Tdap) Never done HPV TESTING due on 2017 PAP TESTING due on 10/01/2019 DEPRESSION ASSESSMENT Never done COVID-19 VACCINE(1) due on 02/08/2024 INFLUENZA(1) due on 02/28/2023 HEPATITIS C SCREENING Completed HIV SCREENING Completed HPV VACCINE Aged Out ASSESSMENT/PLAN: 1. Wellness examination - ICD9: V70.0, ICD10: Z00. (more content not included)... [facility] 02-07-2023 History of Presen t illness Narrative Chief Complaint Patient presents with: Physical HPI Maddie Crews is a 37 year old female who presents here today for Above Complaints. Maddie is an established patient of Dr. Jaspreet DO. She is a new patient to me today. Concerns today... Headaches -- Urgent care visit on 01/30 due to migraine. Refilled sumatriptan short-term and given IM Toradol. Migraine with aura presents with eyeball burning, jaw pain, and temporal pain. This most recent migraine lasted 7 days. 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 Pt reports feeling terrible when she has to miss work due to these. Hx of migraines for years, increasing in frequency x 2 months now. Pt reports so debilitating that she is willing to try anything to improve these. Has tried changing diet, taking supplements of Vitamin D, B2, and Mag, and chiropractor with little to no relief. Triptan therapy normally is the only thing to help -- but only if she catches migraine early and takes medication early. No other concerns or complaints. -- PAP testing up to date from OBGYN -- hx of LEEP procedure. Past medical history, appointments, medications, allergies reviewed. Previous Medical History PAST MEDICAL HISTORY Diagnosis Date Cervical dysplasia 06/2020 Irregular heart beat Migraine headache Pelvic pain in female ovarian cysts, [facility] SVT (supraventricular tachycardia) ([facility]) [address] Coburn at the time Tobacco abuse Previous Surgical History PAST SURGICAL HISTORY Procedure Laterality Date COLONOSCOPY W/BIOPSY SINGLE/MULTIPLE 09/28/2020 NONE UTERINE CERVIX-EXCISION (CONE/LEEP) SYNOPTIC RPT 06/2020 Family History FAMILY HISTORY Problem Relation Age of Onset Thyroid Mother 40 cancer Hypertension Maternal Grandmother Heart Maternal Grandmother [place] Arthritis Maternal Grandfather Hypertension Maternal Grandfather Arthritis Paternal Grandmother Colon Cancer Maternal Uncle Patient Allergies ALLERGIES Allergen Reactions Cats Other: See Comments Tightness in throat, sinus congestion, swollen eyes Morphine GI Upset, Itching Vicodin [Hydrocodon* GI Upset Current Medications Current Outpatient Medications on File Prior to Visit Medication Sig SUMAtriptan (IMITREX) 100 mg tablet Take 1 tablet at the onset of headache. May repeat dose in 2 hours if needed. Do not exceed 2 tablets in 24 hour period. ibuprofen (MOTRIN) 800 mg tablet Take 1 tablet by mouth every 8 hours as needed for Pain. Take with food. No current facility-administered medications on file prior to visit. Social History Social History Tobacco Use Smoking status: Some Days Packs/day: 0.50 Years: 4.00 Total pack years: 2.00 Types: Cigarettes Smokeless tobacco: Never Tobacco comments: seldom/3 cigarettes a month Substance Use Topics Alcohol use: No Drug use: No REVIEW OF SYSTEMS: as above Reviewed relevant PMHx, PSHx, Social Hx, current medications and allergies. Review of Symptoms REVIEW OF SYSTEMS See HPI. EXAM: BP 94/62 (BP Site: Left Arm, BP Position: Sitting, BP Cuff Size: Regular Adult) Pulse 68 Resp 14 Ht 180 cm (5' 10.87 ) Wt 62.2 kg (137 lb 3.2 oz) LMP 05/16/2019 BMI 19.21 kg/m General Appearance: Well appearing, alert, in no acute distress, well-hydrated, well nourished.. Skin: Skin color, texture, turgor normal, no suspicious rashes or lesions. Head: Normocephalic, no masses, lesions, tenderness or abnormalities. Nose/Sinuses: Nares normal, septum midline, mucosa normal, no drainage or sinus tenderness. Oropharynx: Lips, mucosa, and tongue normal, teeth and gums normal, oropharynx normal. Neck: Supple, no adenopathy; thyroid symmetric, normal size, no bruits. Back:no pain to palpation of vertebrae, good flexion and extension, good range of motion, no muscle tenderness, reflexes are 2+ and symmetric, motor and sensory appear to be normal, negative SLR test, no evidence of scoliosis Lungs: Lungs clear to auscultation. No wheezing, rhonchi, rales.. Heart: RRR without murmur, gallop, or rubs. No ectopy. Abdomen: Normal abdominal exam, Abdomen soft, non-tender. Bowel sounds normal. No masses, organomegaly. Neurologic: Gait normal. Reflexes normal and symmetric. Sensation grossly intact.. Health Maintenance List HEPATITIS B(1 of 3 - 3-dose series) Never done PNEUMOCOCCAL(1 - PCV) Never done DTAP,TDAP,TD(1 - Tdap) Never done HPV TESTING due on 2017 PAP TESTING due on 10/01/2019 DEPRESSION ASSESSMENT Never done COVID-19 VACCINE(1) due on 02/08/2024 INFLUENZA(1) due on 02/28/2023 HEPATITIS C SCREENING Completed HIV SCREENING Completed HPV VACCINE Aged Out ASSESSMENT/PLAN: 1. Wellness examination - ICD9: V70.0, ICD10: Z00.00 (primary diagnosis) - Counseled on healthy diet and regular exercise - Recommend vitamin containing 0.4 mg of folic acid - Calcium intake with supplements or by diet of 1000 mg/day for under 50, 8953-2070 mg/day for 50+ - Depression screening tool completed and reviewed with patient. Based on score and interview, patient is not at risk for depression and recommended no further intervention at this time. - Follow up for annual exam in one year - COMP METABOLIC PANEL - CBC + DIFF - LIPID PANEL BASIC - HGB A1C 2. Encounter for immunization - ICD9: V03.89, ICD10: Z23 - TDAP VACCINE, AGE 7+ YR (ADACEL, BOOSTRIX) - PNEUMOCOCCAL VACCINE (PREVNAR 20) 3. Migraine without status migrainosus, not intractable, unspecified migraine type - ICD9: 346.90, ICD10: G43.909 Refilled sumatriptan as needed for breakthrough migraines. Start propranolol 40 mg daily for prevention of migraines. RTO in 2 months if headaches do not improve. Discussed possible headache clinic if no improvement as well. - SUMATRIPTAN 100 MG TABLET - PROPRANOLOL 40 MG TABLET RTO in 2 months if symptoms do not improve and annually for wellness. Prescription instructions reviewed with patient as applicable. Potential red flag symptoms discussed with the patient. Reviewed appropriate action plan to take if red flag symptoms occur. Patient agreeable to treatment plan. Frances Hsu APRN.SUMMER [address] [place] [address] documented in this encounter [facility] 01-30-2023 Note HNO ID: [id number] Author: Anuj Arguello PA Service: ? Author Type: Physician Boilers Inspector Type: Progress Notes Filed: 01/30/2023 8:18 AM Note Text: This note was created using Caarbonriter. Subjective Maddie Crews is a 37 year old female. HPI 37-year-old female presents for migraine headache. Patient has history of migraines. She is prescribed sumatriptan hand. She states that she recently ran out of her medication. She has a follow-up scheduled with her primary care doctor next week, this was the earliest she could get in. States she has had a migraine for about 3 days now. It is on the right side of her head. This is typical of her migraines. She said it came on gradually is gradually been getting worse. She has photophobia, nausea and a few episodes of vomiting. No vision changes. No numbness or weakness in the arms or legs. Not the worst headache of her life. Has been using Excedrin Migraine with minimal relief. PAST MEDICAL HISTORY Diagnosis Date Cervical dysplasia 06/2020 Irregular heart beat Migraine headache Pelvic pain in female ovarian cysts, [facility] SVT (supraventricular tachycardia) ([facility]) [address] Coburn at the time Tobacco abuse PAST SURGICAL HISTORY Procedure Laterality Date COLONOSCOPY W/BIOPSY SINGLE/MULTIPLE 09/28/2020 NONE UTERINE CERVIX-EXCISION (CONE/LEEP) SYNOPTIC RPT 06/2020 ALLERGIES Cats, Morphine, and Vicodin [Hydrocodone-Acetaminophen] MEDICATIONS SUMAtriptan (IMITREX) 100 mg tabletTake 1 tablet at the onset of headache. May repeat dose in 2 hours if needed. Do not exceed 2 tablets in 24 hour period.Disp: 9 tabletRfl: 0 ibuprofen (MOTRIN) 800 mg tabletTake 1 tablet by mouth every 8 hours as needed for Pain. Take with food.Disp: 40 tabletRfl: 1 FAMILY HISTORY Problem Relation Age of Onset Thyroid Mother 40 cancer Hypertension Maternal Grandmother Heart Maternal Grandmother [place] Arthritis Maternal Grandfather Hypertension Maternal Grandfather Arthritis Paternal Grandmother Colon Cancer Maternal Uncle Social History Tobacco Use Smoking status: Some Days Packs/day: 0.50 Years: 4.00 Total pack years: 2.00 Types: Cigarettes Smokeless tobacco: Never Tobacco comments: seldom/3 cigarettes a month Substance Use Topics Alcohol use: No Drug use: No Review of Systems Constitutional: Negative for chills and fever. HENT: Negative for congestion, ear pain and sore throat. Eyes: Positive for photophobia. Respiratory: Negative for cough and shortness of breath. Cardiovascular: Negative for chest pain. Gastrointestinal: Positive for nausea and vomiting. Negative for diarrhea. Neurological: Positive for headaches. Objective BP 96/70 Pulse 78 Temp 36.6 ?C (97.9 ?F) Resp 16 Wt 62.6 kg (138 lb) LMP 05/16/2019 SpO2 97% BMI 19.80 kg/m? Physical Exam Vitals and nursing note reviewed. Constitutional: General: She is not in acute distress. Appearance: Normal appearance. She is not toxic-appearing. HENT: Nose: Nose normal. Eyes: Extraocular Movements: Extraocular movements intact. Conjunctiva/sclera: Conjunctivae normal. Pupils: Pupils are equal, round, and reactive to light. Comments: + Photophobia Cardiovascular: Rate and Rhythm: Normal rate and regular rhythm. Pulmonary: Effort: Pulmonary effort is normal. Breath sounds: Normal breath sounds. Neurological: Mental Status: She is alert and oriented to person, place, and time. Sensory: No sensory deficit. Motor: No weakness. Gait: Gait normal. Assessment and Plan ASSESSMENT/PLAN: 1. Migraine without status migrainosus, not intractable, unspecified migraine type - ICD9: 346.90, ICD10: G43.909 (primary diagnosis) -Refill for sumatriptan. Appears she last got this in August. She has a follow-up scheduled with PCP on 02/07. 9 tablets given. - KETOROLAC 60 MG/2 ML INTRAMUSCULAR SOLUTION -No concern for . Has tolerated Toradol in the past. -Advised if symptoms do not improve or any new or worsening neurological symptoms, be evaluated in the emergency room. -If migraine and symptoms intractable at home, recommended ER evaluation for migraine cocktail. She understands. Diagnosis and treatment plan were discussed and questions were answered to the patient's satisfaction. Pt acknowledged understanding of concepts and follow up plan. Specific signs and symptoms that would indicate the need for higher level of care were discussed in detail warranting prompt ER evaluation. KAYLEE Douglas [facility] 01-30-2023 History of Presen t illness Narrative This note was created using Caarbonriter. Subjective Maddie Crews is a 37 year old female. HPI 37-year-old female presents for migraine headache. Patient has history of migraines. She is prescribed sumatriptan hand. She states that she recently ran out of her medication. She has a follow-up scheduled with her primary care doctor next week, this was the earliest she could get in. States she has had a migraine for about 3 days now. It is on the right side of her head. This is typical of her migraines. She said it came on gradually is gradually been getting worse. She has photophobia, nausea and a few episodes of vomiting. No vision changes. No numbness or weakness in the arms or legs. Not the worst headache of her life. Has been using Excedrin Migraine with minimal relief. PAST MEDICAL HISTORY Diagnosis Date Cervical dysplasia 06/2020 Irregular heart beat Migraine headache Pelvic pain in female ovarian cysts, [facility] SVT (supraventricular tachycardia) ([facility]) [address] Coburn at the time Tobacco abuse PAST SURGICAL HISTORY Procedure Laterality Date COLONOSCOPY W/BIOPSY SINGLE/MULTIPLE 09/28/2020 NONE UTERINE CERVIX-EXCISION (CONE/LEEP) SYNOPTIC RPT 06/2020 ALLERGIES Cats, Morphine, and Vicodin [Hydrocodone-Acetaminophen] MEDICATIONS SUMAtriptan (IMITREX) 100 mg tablet^Take 1 tablet at the onset of headache. May repeat dose in 2 hours if needed. Do not exceed 2 tablets in 24 hour period.^Disp: 9 tablet^Rfl: 0 ibuprofen (MOTRIN) 800 mg tablet^Take 1 tablet by mouth every 8 hours as needed for Pain. Take with food.^Disp: 40 tablet^Rfl: 1 FAMILY HISTORY Problem Relation Age of Onset Thyroid Mother 40 cancer Hypertension Maternal Grandmother Heart Maternal Grandmother [place] Arthritis Maternal Grandfather Hypertension Maternal Grandfather Arthritis Paternal Grandmother Colon Cancer Maternal Uncle Social History Tobacco Use Smoking status: Some Days Packs/day: 0.50 Years: 4.00 Total pack years: 2.00 Types: Cigarettes Smokeless tobacco: Never Tobacco comments: seldom/3 cigarettes a month Substance Use Topics Alcohol use: No Drug use: No Review of Systems Constitutional: Negative for chills and fever. HENT: Negative for congestion, ear pain and sore throat. Eyes: Positive for photophobia. Respiratory: Negative for cough and shortness of breath. Cardiovascular: Negative for chest pain. Gastrointestinal: Positive for nausea and vomiting. Negative for diarrhea. Neurological: Positive for headaches. Objective BP 96/70 Pulse 78 Temp 36.6 C (97.9 F) Resp 16 Wt 62.6 kg (138 lb) LMP 05/16/2019 SpO2 97% BMI 19.80 kg/m Physical Exam Vitals and nursing note reviewed. Constitutional: General: She is not in acute distress. Appearance: Normal appearance. She is not toxic-appearing. HENT: Nose: Nose normal. Eyes: Extraocular Movements: Extraocular movements intact. Conjunctiva/sclera: Conjunctivae normal. Pupils: Pupils are equal, round, and reactive to light. Comments: + Photophobia Cardiovascular: Rate and Rhythm: Normal rate and regular rhythm. Pulmonary: Effort: Pulmonary effort is normal. Breath sounds: Normal breath sounds. Neurological: Mental Status: She is alert and oriented to person, place, and time. Sensory: No sensory deficit. Motor: No weakness. Gait: Gait normal. Assessment and Plan ASSESSMENT/PLAN: 1. Migraine without status migrainosus, not intractable, unspecified migraine type - ICD9: 346.90, ICD10: G43.909 (primary diagnosis) -Refill for sumatriptan. Appears she last got this in August. She has a follow-up scheduled with PCP on 02/07. 9 tablets given. - KETOROLAC 60 MG/2 ML INTRAMUSCULAR SOLUTION -No concern for . Has tolerated Toradol in the past. -Advised if symptoms do not improve or any new or worsening neurological symptoms, be evaluated in the emergency room. -If migraine and symptoms intractable at home, recommended ER evaluation for migraine cocktail. She understands. Diagnosis and treatment plan were discussed and questions were answered to the patient's satisfaction. Pt acknowledged understanding of concepts and follow up plan. Specific signs and symptoms that would indicate the need for higher level of care were discussed in detail warranting prompt ER evaluation. KAYLEE Douglas documented in this encounter [facility] 09-07-2022 Miscellaneous Notes Last office visit: 06/05/20 F/u scheduled: none Pt has not been seen since 2019. Zena Rowley Ma documented in this encounter [facility] 03-05-2022 History of Presen t illness Narrative CC: Patient presents with: ED Follow-up HPI Maddie Crews is a 36 year old female who presents today for above follow-up. Facility: [facility] Date of visit: 03/04/22 Reason for visit: left arm pain Hospital course: Exam findings were inconclusive. No concerns for septic arthritis. ER physician did not feel that imaging or lab work was indicated. She was started on prednisone burst with taper and advised to follow-up with PCP Current symptoms: patient has only had one dose of prednisone given in the ER, will take the second dose later today. There has been no improvement in symptoms and no worsening. Pain is located in the left hand, wrist, elbow and shoulder area. Patient states pain started in the left hand/wrist a few months ago and gradually spread up her arm. Described as constant aching along with numbness/tingling in fingers 2-5. Worse at night, has not been able to sleep. Aggravated by movement and eases with rest. Denies joint redness, swelling, stiffness, increased warmth, weakness, decreased ROM, injury. 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 REVIEW OF SYSTEMS General: no fevers, no chills, no night sweats, no change in energy, and no significant changes in weight Skin: Negative for lesions, rash, and itching PAST MEDICAL HISTORY Diagnosis Date Cervical dysplasia 06/2020 Irregular heart beat Migraine headache Pelvic pain in female ovarian cysts, [facility] SVT (supraventricular tachycardia) ([facility]) [address] Coburn at the time Tobacco abuse PAST SURGICAL HISTORY Procedure Laterality Date COLONOSCOPY W/BX 09/28/2020 NONE UTERINE CERVIX-EXCISION (CONE/LEEP) SYNOPTIC RPT 06/2020 ALLERGIES Cats, Morphine, and Vicodin [Hydrocodone-Acetaminophen] MEDICATIONS SUMAtriptan (IMITREX) 100 mg tablet Take 1 tablet at the onset of headache. May repeat dose in 2 hours if needed. Do not exceed 200 mg (2 tabs) in 24 hour period. ibuprofen (MOTRIN) 800 mg tablet Take 1 tablet by mouth every 8 hours as needed for Pain. Take with food. hydrocodone/acetaminophen (VICODIN ORAL) Take by mouth. (Patient not taking: Reported on 09/18/2020 ) FAMILY HISTORY Problem Relation Age of Onset Thyroid Mother 40 cancer Hypertension Maternal Grandmother Heart Maternal Grandmother [place] Arthritis Maternal Grandfather Hypertension Maternal Grandfather Arthritis Paternal Grandmother Colon Cancer Maternal Uncle Social History Tobacco Use Smoking status: Some Days Packs/day: 0.50 Years: 4.00 Pack years: 2.00 Types: Cigarettes Smokeless tobacco: Never Tobacco comments: seldom/3 cigarettes a month Substance Use Topics Alcohol use: No Drug use: No PHYSICAL EXAM BP 104/68 Pulse 64 Resp 12 Wt 59 kg (130 lb) LMP 05/16/2019 BMI 18.65 kg/m General Appearance: well appearing, in no acute distress, alert Pysch: affect is anxious Upper Extremities: No deformities, edema, skin discoloration, clubbing or cyanosis. Good capillary refill. , Pulses: 2+, muscle strength 5/5 bilaterally Musculoskeletal: Tenderness with palpation of left hand, wrist, elbow and shoulder. Full ROM of upper extremity joints but painful. No deformities, erythema, increased warmth, crepitus. Positive Tinel at wrist and elbow. DATA REVIEWED: Outside chart from [facility] ER reviewed. ASSESSMENT/PLAN: 1. Pain of left upper extremity - ICD9: 729.5, ICD10: M79.602 (primary diagnosis) Symptoms and exam findings suspicious for nerve impingement. Arthritis seems unlikely. Discussed options including continued monitoring vs nerve conduction study. Patient prefers to have nerve conduction study done now - check EMG(NEURO/NI), will be done at [facility] per pt request - continue with prednisone as prescribed - recommend wrist splint/brace for Carpal Tunnel - follow-up pending results 2. Numbness and tingling of left upper extremity - ICD9: 782.0, ICD10: R20.0, R20.2 As above - EMG(NEURO/NI) Prescription instructions reviewed with patient as applicable. Potential red flag symptoms discussed with the patient. Reviewed appropriate action plan to take if red flag symptoms occur. Patient agreeable to treatment plan. Kayla Aguilar APRN.CNP documented in this encounter [facility] documented as of this encounter (statuses as of 12/17/2021) [facility] History of Past illness Narrative* Problem Noted Date Resolved Date Hyperemesis gravidarum with metabolic disturbance, antepartum 08/29/2005 11/28/2011 documented as of this encounter (statuses as of 03/05/2022) [address]02-2006 History of Past illness Narrative* Problem Noted Date Resolved Date Hyperemesis gravidarum with metabolic disturbance, antepartum 08/29/2005 11/28/2011 documented as of this encounter (statuses as of 09/09/2022) [address]2006 History of Past illness Narrative* Problem Noted Date Diagnosed Date Resolved Date Hyperemesis gravidarum with metabolic disturbance, antepartum 08/29/2005 11/28/2011 documented as of this encounter (statuses as of 01/30/2023) [address]2006 History of Past illness Narrative* Problem Noted Date Diagnosed Date Resolved Date Hyperemesis gravidarum with metabolic disturbance, antepartum 08/29/2005 11/28/2011 documented as of this encounter (statuses as of 02/07/2023) [address]2006 History of Past illness Narrative* Problem Noted Date Diagnosed Date Resolved Date Hyperemesis gravidarum with metabolic disturbance, antepartum 08/29/2005 11/28/2011 documented as of this encounter (statuses as of 02/11/2023) [address]2006 History of Past illness Narrative* Problem Noted Date Diagnosed Date Resolved Date Hyperemesis gravidarum with metabolic disturbance, antepartum 08/29/2005 11/28/2011 documented as of this encounter (statuses as of 02/17/2023) [facility] History of Past illness Narrative* Problem Noted Date Diagnosed Date Resolved Date Hyperemesis gravidarum with metabolic disturbance, antepartum 08/29/2005 11/28/2011 documented as of this encounter (statuses as of 02/18/2023) [facility] History of Past illness Narrative* Problem Noted Date Diagnosed Date Resolved Date Hyperemesis gravidarum with metabolic disturbance, antepartum 08/29/2005 11/28/2011 documented as of this encounter (statuses as of 02/23/2023) [place] [id number] History of Past illness Narrative* Problem Noted Date Diagnosed Date Resolved Date Hyperemesis gravidarum with metabolic disturbance, antepartum 08/29/2005 11/28/2011 documented as of this encounter (statuses as of 02/24/2023) [address]2006 History of Past illness Narrative* Problem Noted Date Diagnosed Date Resolved Date Hyperemesis gravidarum with metabolic disturbance, antepartum 08/29/2005 11/28/2011 documented as of this encounter (statuses as of 07/09/2023) [facility] note* Diagnosis Migraine with aura, not intractable, without status migrainosus [facility] Diagnosis Pain of left upper extremity- Primary Numbness and tingling of left upper extremity [facility] Diagnosis Migraine with aura, not intractable, without status migrainosus [facility] Diagnosis Migraine without status migrainosus, not intractable, unspecified migraine type- Primary [facility] Diagnosis Wellness examination- Primary Encounter for immunization Need for other specified prophylactic vaccination against single bacterial disease Migraine without status migrainosus, not intractable, unspecified migraine type documented in this encounter [facility] note* Diagnosis Pharyngitis, unspecified etiology- Primary Viral illness Unspecified viral infection, in conditions classified elsewhere and of unspecified site [facility] Diagnosis Right upper quadrant pain- Primary Abdominal pain, right upper quadrant [facility] (narrative)* Outpatient Procedure (Routine) - Pending Review Specialty Diagnoses / Procedures Referred By Lucien mata Referred To [facility] Diagnoses Pain of left upper extremity Numbness and tingling of left upper extremity Procedures EMG(NEURO/NI) NERVE CONDUCTION STUDIES 9-10 STUDIES Kayla Aguilar APRN.CNP [address] [place] [address] [facility] [place] [address] [place] [id number] Referral ID Status Reason Start Date Expiration Date Visits Requested Visits Authorized [id number] Pending Review Auto-Generat ed Referral 03/05/2022 03/05/2023 1 1 [facility] Medications Administered Section Inactive Administered Medications - up to 3 most recent administrations Medication Order MAR Action Action Date Dose Rate Site keTORolac 60 mg injection (Toradol) 60 mg, INTRAMUSCULAR, ONCE, 1 dose, On [place] 01/30/23 at 0830, Ketorolac (Toradol) is indicated for the short-term (up to 5 days) management of moderately severe acute pain. Continuation of ketorolac (Toradol) beyond 5 days increases the risk of developing serious adverse events. Please verify the duration of therapy for ketorolac (Toradol)., If ordered PRN for pain, patient/guardian may elect to receive this medication for higher pain levels INSTEAD of the opioid, if preferred: Yes Given 01/30/2023 8:14 AM EDT 60 mg Buttocks, Right Health Concerns Infection Onset Date Last Indicated Resolved Time COVID-19 Rule-Out 02/17/2023 02/17/2023 Infection Onset Date Last Indicated Resolved Time COVID-19 Confirmed 02/17/2023 02/17/2023 Summary Purpose Family History No Family History Records Found Advance Directives No Advanced Directives Records Found Additional Source Comments Source Comments (unrecognize d section and content) In the event this informatio n is protected by the Federal Confidentiality of Alcohol and Drug Abuse Patient Records regulations: The Federal rules restrict any use of the information to criminally investigate or prosecute any alcohol or drug abuse patient.[facility] the event this information is protected by the Federal Confidentiality of Alcohol and Drug Abuse Patient Records regulations: The Federal rules restrict any use of the information to criminally investigate or prosecute any alcohol or drug abuse patient.[facility] the event this information is protected by the Federal Confidentiality of Alcohol and Drug Abuse Patient Records regulations: The Federal rules restrict any use of the information to criminally investigate or prosecute any alcohol or drug abuse patient.[facility] the event this information is protected by the Federal Confidentiality of Alcohol and Drug Abuse Patient Records regulations: The Federal rules restrict any use of the information to criminally investigate or prosecute any alcohol or drug abuse patient.[facility] the event this information is protected by the Federal Confidentiality of Alcohol and Drug Abuse Patient Records regulations: The Federal rules restrict any use of the information to criminally investigate or prosecute any alcohol or drug abuse patient.[facility] the event this information is protected by the Federal Confidentiality of Alcohol and Drug Abuse Patient Records regulations: The Federal rules restrict any use of the information to criminally investigate or prosecute any alcohol or drug abuse patient.[facility] the event this information is protected by the Federal Confidentiality of Alcohol and Drug Abuse Patient Records regulations: The Federal rules restrict any use of the information to criminally investigate or prosecute any alcohol or drug abuse patient.[facility] the event this information is protected by the Federal Confidentiality of Alcohol and Drug Abuse Patient Records regulations: The Federal rules restrict any use of the information to criminally investigate or prosecute any alcohol or drug abuse patient.[facility] the event this information is protected by the Federal Confidentiality of Alcohol and Drug Abuse Patient Records regulations: The Federal rules restrict any use of the information to criminally investigate or prosecute any alcohol or drug abuse patient.[facility] the event this information is protected by the Federal Confidentiality of Alcohol and Drug Abuse Patient Records regulations: The Federal rules restrict any use of the information to criminally investigate or prosecute any alcohol or drug abuse patient.[facility] the event this information is protected by the Federal Confidentiality of Alcohol and Drug Abuse Patient Records regulations: The Federal rules restrict any use of the information to criminally investigate or prosecute any alcohol or drug abuse patient.[facility] Reason for Visit (unrecogniz ed section and content) Reason Comments ED Follow-up Reason Comments Headache X3 days Reason Comments Physical Reason Comments Question regarding sxs after injections Reason Comments Cough Chest congestion, ST , vomiting x2 days Reason Comments Letter Reason Comments Covid19 Concern Reason Comments Covid Question Reason Comments Nausea & Vomiting diarrhea, abdominal cramping x 1 week. Care Teams (unrecognized sec tion and content) Junior Bookkeeper Relationship Specialty Start Date End Date Tee Horvath DO [address] [place] [address] PCP - General Family Practice 01/18/13 Junior Bookkeeper Relationship Specialty Start Date End Date Tee Horvath DO [address] [place] [address] PCP - General Family Medicine 01/18/13 Junior Bookkeeper Relationship Specialty Start Date End Date Tee Horvath DO [address] [place] [address] PCP - General Family Medicine 01/18/13 Junior Bookkeeper Relationship Specialty Start Date End Date Tee Horvath DO [address] [place] [address] PCP - General Family Medicine 01/18/13 Junior Bookkeeper Relationship Specialty Start Date End Date Tee Horvath DO [address] [place] [address] PCP - General Family Medicine 01/18/13 Junior Bookkeeper Relationship Specialty Start Date End Date Tee Horvath, [address] [place] [address] PCP - General Family Medicine 01/18/13 Junior Bookkeeper Relationship Specialty Start Date End Date Tee Horvath, [address] [place] [address] PCP - General Family Medicine 01/18/13 Junior Bookkeeper Relationship Specialty Start Date End Date Tee Horvath, DO [address] [place], [place] [id number] PCP - General Family Medicine 01/18/13 INFORMATION SOURCE (unrecogn ized section and content) FOR RECORDS PERTAINING TO PATIENTS WHO ARE OR HAVE BEEN ENROLLED IN A CHEMICAL DEPENDENCY/SUBSTANCEABUSE PROGRAM, SOME INFORMATION MAY BE OMITTED. This clinical summary was aggregated from multiple sources. Caution should be exercised in using it in the provision of clinical care. This summary normalizes information from multiple sources, and as a consequence, information in this document may materially change the coding, format and clinical context of patient data. In addition, data may be omitted in some cases. CLINICAL DECISIONS SHOULD BE BASED ON THE PRIMARY CLINICAL RECORDS. [facility] [employer] provides no warranty or guarantee of the accuracy or completeness of information in this document.
== END | disposition home or self-care (01) ==
PROVIDERS: PCP Student in an Organized Health Care Education/Training Program; Referring Provider Internal Medicine Gastroenterology; Visit Provider Internal Medicine Gastroenterology
DX: R10.9 Unspecified abdominal pain (principal)
CPT/HCPCS: 74181

== ENCOUNTER → 2023-09-16 | Outpatient (CLI) | payer MEDICAID, SELFPAY | END | disposition home or self-care (01) | LOC: PSN 06:34 | PROVIDERS: PCP Student in an Organized Health Care Education/Training Program; Referring Provider Internal Medicine Cardiovascular Disease; Visit Provider Internal Medicine Cardiovascular Disease | DX: R07.9 Chest pain, unspecified (principal); R00.2 Palpitations; R06.02 Shortness of breath | CPT/HCPCS: 93225; 93226 ==

== ENCOUNTER → 2023-09-19 | Outpatient (CLI) | payer MEDICAID, SELFPAY ==
--- NOTE | 2023-09-19 12:40 | ECHOD_ITS ---
Reason For Study: chest pain Procedure This was a 2D Doppler, Color Flow transthoracic echocardiogram. Exam performed in department. Left Ventricle Normal LV size. Left ventricular systolic function is normal. The estimated ejection fraction is 60 %. No evidence for diastolic dysfunction. No regional wall motion abnormalities noted. Right Ventricle Normal right ventricle. Normal systolic function. Atria The left and right atria are normal. Mitral Valve The mitral valve is structurally normal. No prolapse or stenosis seen. Trivial mitral valve insufficiency. Tricuspid Valve Normal tricuspid valve. Trivial tricuspid valve insufficiency. Unable to estimate RV systolic pressure due to insufficient tricuspid regurgitant envelope. Aortic Valve Trisinus/trileaflet aortic valve. Pulmonic Valve The pulmonic valve is not well visualized. Great Vessels Normal aortic root. Pericardium/Pleural No pericardial effusion. MMode/2D Measurements & Calculations LVIDd: 4.1 cm IVSd: 0.77 cm Ao root diam: 2.6 cm LVIDs: 3.2 cm LVPWd: 0.90 cm RVDd: 3.0 cm FS: 22.2 % LAV(MOD-bp): 51.0 ml LA A4 area: 19.1 cm2 LA dimension(2D): 2.7 cm LAV(MOD-bp) Indexed: 29.3 ml/m2 LAV(MOD-sp2): 41.6 ml LAV(MOD-sp4): 53.1 ml TAPSE: 2.4 cm RA A4 area: 10.3 cm2 Time Measurements MV dec time: 0.30 sec Doppler Measurements & Calculations MV E max patel: 58.6 cm/sec Lat Peak E' Patel: 14.1 cm/sec Med Peak E' Patel: 13.7 cm/sec MV A max patel: 37.8 cm/sec E/E' lat: 4.1 E/E' med: 4.3 MV E/A: 1.5 MV V2 max: 86.0 cm/sec MV dec slope: 196.9 cm/sec2 Ao V2 max: 106.2 cm/sec MV max P.0 mmHg Ao max P.5 mmHg MV V2 mean: 53.7 cm/sec Ao V2 mean: 67.2 cm/sec MV mean P.3 mmHg Ao mean P.2 mmHg MV V2 VTI: 24.0 cm Ao V2 VTI: 23.8 cm AV (velocity ratio): 0.71 LV V1 max: 92.2 cm/sec PA V2 max: 74.5 cm/sec LV V1 max P.4 mmHg LV V1 mean P.6 mmHg LV V1 mean: 58.6 cm/sec LV V1 VTI: 16.8 cm ECHO/Echo Complete Interpretation Summary The estimated ejection fraction is 60 %. No evidence for diastolic dysfunction. Structually normal valves. Ordering Physician: Jennifer Fernando Referring Physician: Jennifer Fernando Performed By: Sandra Richardson RCS
--- NOTE | 2023-09-24 15:33 | STRESSREP_ITS ---
Stress Test Report Date: 09/19/2023 Procedure: Exercise tolerance test Indications: Chest pain/palpitations Consent: Per the patient Procedure: The patient exercised on a Elio protocol for 12 minutes achieving a peak heart rate of 184 bpm (100% predicted maximal heart rate) with a peak blood pressure 160/70 mmHg and a peak MET capacity of approximately 13.4 MET's. The baseline ECG demonstrated sinus rhythm. The peak exercise ECG demonstrated sinus tachycardia with no ischemic changes. There were no cardiac dysrhythmias pretest, during exercise, or recovery. The functional capacity was considered very good. Patient complained of mild chest tightness at peak exercise. The examination was discontinued secondary to target heart rate being achieved. Impression: 1. Technically adequate (percent predicted maximal heart rate greater than 85%) exercise tolerance test 2. Peak exercise ECG with no ischemic changes 3. There were no cardiac dysrhythmias during exercise or recovery This note was generated with [employer] software. It may contain incorrect words, spelling, and punctuation that were not noted in checking the note before signing.
== END | disposition home or self-care (01) ==
PROVIDERS: PCP Student in an Organized Health Care Education/Training Program; Referring Provider Internal Medicine Cardiovascular Disease; Visit Provider Internal Medicine Cardiovascular Disease
DX: R07.9 Chest pain, unspecified (principal); R00.2 Palpitations; R06.02 Shortness of breath
CPT/HCPCS: 93017; 93306

== ENCOUNTER 2023-10-15 05:45 | Emergency (ER) | payer MEDICAID, SELFPAY ==
[2023-10-15 05:46] VITALS: BP 112/79; PULSE 135; RESP 19; TEMP 37.2; O2SAT 98; BMI 19.2
--- NOTE | 2023-10-15 05:56 | EX.ED.DYSGE1 ---
HPI History of Present Illness Chief Complaint: General Illness Informant: patient Onset/Context/Timing Onset: Days Context: Gradual Onset Timing: Continuous Quality: Burning Location: Epigastric area Worsened by: Laying down Relieved by: Nothing Narrative Narrative: Patient presents with nausea, dizziness, and abdominal pain that has been getting worse over the past few days. Patient states she has had similar symptoms that have been intermittent since the beginning of June. Patient describes her pain as burning. Patient states it is over the upper abdomen. Patient states it is worse when she lays down. Patient states nothing makes it better. Patient admits to some sweats but denies any fevers or chills. Patient also admits to some shortness of breath and cough. Patient states her primary care physician is evaluating that. Patient denies any diarrhea, melena, or hematochezia. Patient denies any urinary complaints. [facility] Medical History Cardiology follow-up encounter NATALIE III with severe dysplasia Easy bruising Friable cervix GERD (gastroesophageal reflux disease) History of echocardiogram History of hiatal hernia History of stress test Irregular heart beat Migraines Ovarian cyst Smoker Strain of right elbow SVT (supraventricular tachycardia) Tobacco dependence Wears glasses Home Medications sumatriptan succinate 100 mg tablet 100 mg PO ONCE PRN migraine headache 02/17/23 [History Last Taken Unknown] cholecalciferol (vitamin D3) 1,250 mcg (50,000 unit) capsule 50,000 unit PO QWEEK 08/26/23 [History Last Taken Unknown] omeprazole 20 mg capsule,delayed release 20 mg PO DAILY #30 CAPSULES 10/15/23 [Rx Last Taken Unknown] propranolol 40 mg tablet 40 mg PO DAILY 10/15/23 [History Last Taken Unknown] Allergy/AdvReac Type Severity Reaction Status Date / Time ketorolac [From Toradol] Allergy Intermediate Other Verified 10/15/23 05:47 acetaminophen [From Vicodin] Allergy Mild throat Verified 10/15/23 05:47 swelling, vomiting hydrocodone [From Vicodin] Allergy Mild throat Verified 10/15/23 05:47 swelling, vomiting cat dander Allergy Unknown Throat Verified 10/15/23 05:47 tightness morphine AdvReac Itching Verified 10/15/23 05:47 Family History Mother COPD (chronic obstructive pulmonary disease) WILY (obstructive sleep apnea) Brittle bone syndrome Thyroid cancer 40 Grandmother Hypertension Myocardial infarction Grandfather Hypertension Arthritis Brother Pacemaker Sister Heart disease Grandmother Arthritis Uncle Colon cancer Surgical History H/O LEEP (~07/25/20) History of colonoscopy History of esophagogastroduodenoscopy (EGD) S/P tooth extraction Social History household members: significant other number of children: 1 current occupational status: employed 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 [employer] history of recent travel: No sexually active: Yes Smoking Status: Former smoker how long ago did patient quit smoking: since May alcohol intake: never substance use type: does not use caffeine: Yes what type of physical activity do you participate in: none seatbelt use: always do you feel safe at home: Yes additional social history: Anitra Cha ROS ROS ED Constitutional Constitutional ED: Reports sweats; Denies chills or fever(s) Eyes Eyes: Denies blurry vision or change in vision ENT ENT ED: Denies rhinorrhea or sore throat Cardiovascular Cardiovascular: Denies chest pain or palpitations Respiratory/Chest Respiratory/Chest: Reports cough and dyspnea Gastrointestinal Gastrointestinal: Reports abdominal pain and nausea; Denies vomiting Genitourinary Genitourinary ED: Denies dysuria or hematuria Musculoskeletal Musculoskeletal: Denies back pain or neck pain Integumentary Denies abscess or rash Neurologic Neurologic: Reports headache(s); Denies weakness Allergic/Immunologic Allergic/Immunologic ED: Denies mouth swelling or urticaria EXAM Physical Exam Const Vital Signs: 10/15/23 05:46 10/15/23 05:46 10/15/23 07:46 Temperature 98.9 F Temperature Source Temporal Pulse Rate 135 H 78 Respiratory Rate 19 H 16 Respiratory Effort Normal Non-Labored Respiratory Pattern Normal Blood Pressure 112/79 119/72 Blood Pressure Mean 90 87 Pulse Ox 98 100 Oxygen Delivery Method Room Air Room Air Positive well nourished and well developed General Appearance ED: well developed and NAD HEENT Reports moist mucous membranes Neck supple and no JVD Resp normal respiratory effort and clear to auscultation bilaterally Cardio regular rhythm Rate: tachycardic GI non-distended Palpation: soft and tender epigastric and LUQ; Negative for guarding or rebound tenderness present Extremity normal to inspection Neuro oriented x3, CN's II-XII intact bilaterally and no sensory deficits noted Sensorium / Orientation: alert Motor Exam: strength 5/5 throughout MDM MDM MDM Narrative Medical decision making narrative: Differential diagnosis includes gastritis, gastroenteritis, peptic ulcer disease, duodenal ulcer, pancreatitis, cholecystitis, cholelithiasis, viral illness, and urinary tract infection. CBC will be obtained to assess for leukocytosis and anemia. Comprehensive metabolic profile will be obtained to assess for hepatic function, renal function, and electrolyte abnormality. Lipase will be obtained to assess for pancreatitis. Urinalysis will be obtained to assess for urinary tract infection. Serum hCG will be obtained to assess for . COVID-19, influenza, and RSV PCR will be obtained to assess for viral illness. Lab Data Attestation: I reviewed the patient's lab results. Lab results narrative: CBC was reviewed and was within normal limits. Serum hCG was reviewed and was negative. Comprehensive metabolic profile was reviewed and was within normal limits. Lipase was reviewed and was normal at 39. COVID-19 PCR was reviewed and was negative. Influenza PCR was reviewed and was negative for influenza A and influenza B. RSV PCR was reviewed and was negative. Urinalysis was reviewed. There is no evidence of urinary tract infection or hematuria. Labs: Laboratory Results - last 24 hr 10/15/23 10/15/23 05:59 08:15 WBC 6.0 RBC 4.82 Hgb 15.0 Hct 45.9 MCV 95.2 MCH 31.1 MCHC 32.7 RDW Std Deviation 40.5 RDW Coeff of Ness 11.7 Plt Count 237 MPV 10.5 Immature Gran % (Auto) 0.200 Neut % (Auto) 54.6 Lymph % (Auto) 32.1 [place] % (Auto) 9.6 Eos % (Auto) 2.7 Baso % (Auto) 0.8 Absolute Neuts (auto) 3.3 Absolute Lymphs (auto) 1.91 Nucleated RBC % 0 Sodium 139 Potassium 4.8 Chloride 106 Carbon Dioxide 28.0 Anion Gap 5 BUN 12 Creatinine 0.73 Estim Creat Clear Calc 105.29 Est GFR (MDRD) Af Amer 116 Est GFR (MDRD) Non-Af 96 BUN/Creatinine Ratio 16.5 Glucose 120 H Calcium 9.2 Total Bilirubin 0.50 AST 28 ALT 19 Alkaline Phosphatase 75 Total Protein 7.3 Albumin 3.9 Globulin 3.4 Albumin/Globulin Ratio 1.1 Lipase 39 Serum , Qual NEGATIVE Urine Color Straw Urine Clarity Clear Urine pH 7.0 Ur Specific [place] 1.010 Urine Protein Negative Urine Glucose (UA) Normal Urine Ketones Negative Urine Occult Blood Negative Urine Nitrite Negative Urine Bilirubin Negative Urine Urobilinogen Normal Ur Leukocyte Esterase Negative Urine RBC 0-5 SEEN Urine WBC 0 SEEN Ur Squamous Epith Cells 0-5 SEEN Urine Bacteria 0 SEEN Urine Mucus 0 SEEN Radiography Diagnostic Testing: Clinical Impression(s) from Imaging Studies Abdomen/Pelvis CT 10/15/23 07:07 IMPRESSION: No acute abnormality is seen. Electronically Signed: Renard Cardoso MD at 8:41 EDT , Treatment and Re-Evaluation :: Patient was given IV fluids and Zofran. Patient was given a dose of Protonix here. Patient was feeling slightly better on reevaluation. Patient was advised of her findings. Patient was given a prescription for omeprazole. Patient was instructed to follow-up with her primary care physician in 3 to 5 days. Patient understood and was agreeable with the plan. All questions were answered. Discharge Plan Triage Chief Complaint: General Illness ED Provider: Tino Elizalde Dx/Rx/DC Orders Clinical Impression: Abdominal pain, Gastritis Instructions: ED Abdominal Pain Unkn Cause Fem Prescriptions: New omeprazole [omeprazole] 20 mg capsule,delayed release(DR/EC) 20 mg PO DAILY Qty: 30 0RF No Action sumatriptan succinate 100 mg tablet 100 mg PO ONCE PRN (Reason: migraine headache) Patient Comments: Emergency script Take 1 tablet at the onset of headache. May repeat dose in 2 hours if needed. Do not exceed 2 tablets in 24 hour period. cholecalciferol (vitamin D3) 1,250 mcg (50,000 unit) capsule 50,000 unit PO QWEEK Patient Comments: take 1 capsule by mouth every week propranolol 40 mg tablet 40 mg PO DAILY Primary Care Provider: Tee Vogel Referrals: Tee Vogel, [Primary Care Provider] - 3-5 Days [facility] Doctor,Out of [Non-Staff] - Disposition Disposition: Home, Self Care
[2023-10-15 06:47] LABS: Absolute Lymphocyte Count 1.91 X10^3/uL (0.83-4.51); Absolute Neutrophil Count 3.3 X10^3/uL (2.0-7.7); Basophil# 0.05 X10^3/uL; Basophil% 0.8 % (0-1); Eosinophil# 0.16 X10^3/uL; Eosinophils% 2.7 % (0-5); Hematocrit 45.9 % (37-47); Lymphocyte # 1.91 X10^3/ul (0.83-4.51); Lymphocyte % 32.1 % (19-41); Mean Corp Hgb Conc 32.7 g/dL (32-36); Mean Corpuscular Hgb 31.1 pg (27.0-32.0); Mean Corpuscular Volume 95.2 fL (81-99); Mean Platelet Vol. 10.5 fl (6.2-12.0); Monocyte# 0.57 X10^3/uL; Monocyte% 9.6 % (0-10); NRBC Flagged by Analyzer 0 % (0-5); Neutrophil # 3.25 X10^3/uL (2.7-7.7); Neutrophil % 54.6 % (47-70); Platelet Count 237 K/mm3 (150-450); RBC Distribution Width CV 11.7 % (11.6-14.6); RBC Distribution Width SD 40.5 fl (35.1-43.9); Red Blood Count 4.82 M/mm3 (4.2-5.4)
[2023-10-15 07:02] LABS: Internal QC Validated? YES +Cl - CLEAR BKGD; Pregnancy, Serum, hCG Quali. NEGATIVE Negative
--- NOTE | 2023-10-15 07:07 | CT_ITS ---
STUDY: CT ABDOMEN AND PELVIS WITH CONTRAST REASON FOR EXAM: Female, 38 years old. Abdominal pain. Nausea. RADIATION DOSAGE (If Supplied By Facility): CTDIvol = ( 10.13 ) mGy, DLP = ( 370.69 ) mGycm TECHNIQUE: Transaxial images were obtained from the dome of the diaphragm to the symphysis pubis without oral contrast. IV 100mL Isovue-300 was administered. Sagittal and coronal images were reconstructed. Individualized dose optimization techniques were used for this CT. COMPARISON: Comparison is made with prior study dated July 09, 2023. FINDINGS: The visualized lung bases are unremarkable. The visualized portions of the heart are within normal limits. Normal liver. Normal gallbladder and extrahepatic biliary system. Normal spleen. Normal pancreas. Normal bilateral adrenal glands. Normal right kidney. Normal left kidney. Normal visualized stomach. Normal small intestine. Moderate amount of fecal material is seen throughout the colon. The appendix is visualized and appears normal. Normal abdominal aorta. Normal inferior vena cava. Normal retroperitoneum. Normal urinary bladder. Normal abdominal wall. Normal osseous structures. CT/Abdomen/Pelvis W IV Cont ONLY IMPRESSION: No acute abnormality is seen. Electronically Signed: Renard Cardoso MD at 8:41 EDT ,
[2023-10-15 07:11] LABS: ALB/GLOB Ratio 1.1 RATIO (0.9-2.4); AST(SGOT) 28 U/L (15-37); Alanine Aminotransfer ALT/SGPT 19 U/L (13-56); Albumin, Serum 3.9 g/dL (3.2-5.0); Alkaline Phosphatase 75 U/L (45-117); Anion Gap 5 (5-15); BUN 12 mg/dL (7-18); BUN/Creat Ratio 16.5 RATIO (10-20); Calcium,Total 9.2 mg/dL (8.5-10.1); Chloride 106 mmol/L (98-107); Creatinine, Serum 0.73 mg/dL (0.55-1.02); EST Glomerular Filtration Rate 96 mL/min (>60); Est Glom Filt Rate - Afr Amer 116 mL/min (>60); Estimated Creatinine Clearance 105.29 ml/min; Globulin 3.4 g/dL (2.2-4.2); Glucose 120 mg/dL (74-106); Lipase 39 U/L (13-75); Potassium 4.8 mmol/L (3.5-5.1); Protein, Total 7.3 g/dL (6.4-8.2); Sodium Level 139 mmol/L (136-145)
[2023-10-15] MEDS: 0.9% Normal Saline (1000mL) 1,000 ML 1000 ML IV (07:21)
[2023-10-15] MEDS: Ondansetron 4 MG/2 ML Vial IV (07:22)
[2023-10-15 07:46] VITALS: BP 119/72; PULSE 78; RESP 16; O2SAT 100
[2023-10-15] MEDS: Pantoprazole Sodium 80 MG in 0.9% Normal Saline (50mL Bag) 15 ML 420 MG IV BOLUS (07:49)
[2023-10-15 08:21] LABS: Bacteria 0 SEEN /hpf (None Seen); Mucous, Urine 0 SEEN /hpf (<or=2+); White Blood Cells 0 SEEN /hpf (0-5)
[2023-10-15 08:23] LABS: Color, Urine Straw (Yellow); Glucose, Dipstick Normal (Normal); Ketone-Dipstick Negative (Negative); Leukocyte Esterase-Dipstick Negative /ul (Negative); Nitrite-Dipstick Negative (Negative); Occult Blood-Urine Negative /ul (Negative); Protein-Dipstick Negative (Negative); Urine Bilirubin Dipstick Negative (Negative); Urine Clarity Clear (Clear); Urine Urobilinogen Normal (Normal)
[2023-10-15 08:29] LABS: Red Blood Cells-Urine 0-5 SEEN /hpf (0-5); Squamous Epithelial Cells - UA 0-5 SEEN /hpf (5-10)
[2023-10-15 09:00] VITALS: BP 119/81; PULSE 67; RESP 16; TEMP 36.7; O2SAT 100
== END 2023-10-15 09:01 | disposition home or self-care (01) ==
PROVIDERS: Emergency Provider Emergency Medicine; PCP Student in an Organized Health Care Education/Training Program; Visit Provider Emergency Medicine
DX: R10.13 Epigastric pain (principal); K29.70 Gastritis, unspecified, without bleeding; Z87.891 Personal history of nicotine dependence; Z79.899 Other long term (current) drug therapy
CPT/HCPCS: 74177; 80053; 81001; 83690; 84703; 85025; 87631; 96365; 96375; 99283; J7030; Q9967; A4216; J2405; J3490

== ENCOUNTER → 2023-10-23 | Outpatient (CLI) | payer MEDICAID, SELFPAY ==
[2023-10-23 13:15] LABS: Amylase 50 U/L (25-115); CRP < 2.90 mg/L (0.0-3.0); LDH 150 U/L (84-246); Lipase 19 U/L (13-75)
[2023-10-28 12:09] LABS: Albumin 4.1 g/dL (2.9-4.4); Alpha-1-Globulins 0.2 g/dL (0.0-0.4); Alpha-2-Globulins 0.7 g/dL (0.4-1.0); Dopamine, Pl <30 pg/mL (0-48); Epinephrine, Pl 41 pg/mL (0-62); Gastrin, Serum 39 pg/mL (0-115); Immunoglobulin A 152 mg/dL (87-352); Immunoglobulin G 1019 mg/dL (586-1602); Immunoglobulin M 127 mg/dL (26-217); Norepinephrine, Pl 397 pg/mL (0-874); PROEL- TOTAL PROTEIN 6.9 g/dL (6.0-8.5)
== END | disposition home or self-care (01) ==
LOC: LAB 11:23
PROVIDERS: PCP Student in an Organized Health Care Education/Training Program; Referring Provider Internal Medicine Gastroenterology; Visit Provider Internal Medicine Gastroenterology
DX: R07.9 Chest pain, unspecified (principal)
CPT/HCPCS: 36415; 82150; 82384; 82784; 82941; 83615; 83690; 84165; 86140; 86316; 86334

== ENCOUNTER → 2023-10-24 | Outpatient (CLI) | payer MEDICAID, SELFPAY | END | disposition home or self-care (01) | LOC: LABSPEC 11:38 | PROVIDERS: PCP Student in an Organized Health Care Education/Training Program; Referring Provider Internal Medicine Gastroenterology; Visit Provider Internal Medicine Gastroenterology | DX: R10.9 Unspecified abdominal pain (principal); K58.9 Irritable bowel syndrome, unspecified | CPT/HCPCS: 80307 ×2; 82384; 84585; 82653; 82705; 83630; 83993; 87177; 87209; 87329 ==

== ENCOUNTER → 2023-10-28 | Outpatient (CLI) | payer MEDICAID, SELFPAY ==
[2023-11-03 17:07] LABS: Dopamine, 24Ur 105 ug/24 hr (0-510); Dopamine, UR 350 ug/L (Undefined); Epinephrine, 24Ur 6 ug/24 hr (0-20); Epinephrine, Ur 21 ug/L (Undefined); Norepinephrine, 24Ur 17 ug/24 hr (0-135); Norepinephrine, Ur 58 ug/L (Undefined); VMA, 24UR 1.2 mg/24 hr (0.0-7.5)
== END | disposition home or self-care (01) ==
LOC: LAB 14:04
PROVIDERS: PCP Student in an Organized Health Care Education/Training Program; Referring Provider Internal Medicine Gastroenterology; Visit Provider Internal Medicine Gastroenterology
DX: R07.9 Chest pain, unspecified (principal); R10.9 Unspecified abdominal pain
CPT/HCPCS: 80307 ×2; 82384; 84585

== ENCOUNTER → 2023-11-25 | Outpatient (CLI) | payer MEDICAID, SELFPAY ==
--- NOTE | 2023-11-25 06:45 | MRI_ITS ---
MRCP without contrast 11/25/2023 6:58 AM COMPARISON: 07/28/2023 CLINICAL HISTORY: Abd pain, nausea TECHNIQUE: Multiplanar and multisequence MR images of the abdomen were obtained with MRCP sequence. Three-dimensional post-processing reconstructions were performed. FINDINGS: Liver: Unremarkable Gallbladder: Unremarkable Bile Ducts: Unremarkable Pancreas: Unremarkable Spleen: Unremarkable Adrenal Glands: Unremarkable Kidneys: Unremarkable GI Tract: Unremarkable Lymphadenopathy: Absent Ascites: Absent Bones: No suspicious lesions MRI/MRCP Abdomen without Contrast IMPRESSION: Normal MRI and MRCP of the abdomen Electronically Signed: Beni Mcclellan MD at 23:46 EDT ,
== END | disposition home or self-care (01) ==
LOC: MRI 06:34
PROVIDERS: PCP Student in an Organized Health Care Education/Training Program; Referring Provider Internal Medicine Gastroenterology; Visit Provider Internal Medicine Gastroenterology
DX: R10.9 Unspecified abdominal pain (principal); R11.0 Nausea
CPT/HCPCS: 74181

== ENCOUNTER → 2024-04-28 | Outpatient (CLI) | payer MEDICAID, SELFPAY ==
--- NOTE | 2024-04-28 07:48 | RAD_ITS ---
STUDY: AIR CONTRAST ESOPHAGRAM AND UPPER GI SERIES REASON FOR EXAM: Female, 39 years old. Epigastric pain,Foreign body sensation, throat FLUOROSCOPY TIME (if supplied): (1 minute and 28 second) minutes/seconds. 10 mGy. TECHNIQUE: SINGLE CONTRAST AND AIR CONTRAST FLUOROSCOPIC IMAGES. COMPARISON: None. FINDINGS: The cervical esophagus demonstrates normal motility without aspiration. There is no stricture or extrinsic mass effect. No intraluminal polypoid mass is identified. The thoracic esophagus distends well without stricture or mucosal fold thickening. No mucosal ulcerations are identified. There is no extrinsic mass effect. There are no diverticula. No hiatal hernia or gastroesophageal reflux was identified. The stomach distends well without mucosal fold thickening or mucosal ulceration. There is no intraluminal mass. The duodenal bulb is freely distensible without deformity or ulceration. The duodenal sweep is normal in position and caliber. RAD/Upper GI w/BA Swallow IMPRESSION: Normal air-contrast upper GI series. Electronically Signed: Renard Cardoso MD at 11:09 EDT ,
--- OUTSIDE RECORDS SUMMARY | 2024-04-28 08:00 | XMS RPT_ITS | CCD ---
Author Organization [facility] Care Team Providers Care Dulite Machine Bluer Name Role Phone Paula RODRIGEZ, Elizabeth Zacarias Unavailable [phone] Chelsy MACHINE OPERATOR HELPER, Lore Pemberton Unavailable Jerri Elliott Unavailable Unavailable MARTINE Hay RN, Addie Vivas Unavailable Unavailalessandra e Jerri Elliott Unavailable Unavailable VogelTee deras DO Primary Care Provider Tee Vogel DO Primary Care Provider VogelTee deras DO Primary Care Provider Vogel DO Tee Inga Primary Care Provider JASPREET TEE L Primary Care Unavailable VGOEL, TEE L Primary Care Unavailable MORILLO, CAILIN Attending Unavailable VOGEL, TEE L Primary Care Unavailable MORILLO, CAILIN Attending Unavailable VOGEL, TEE L Primary Care Unavailable MORILLO, CAILIN Referring Unavailable VOGEL, TEE L Primary Care Unavailable LOGAN RUIZ Attending Unavailable VOGEL, TEE L Primary Care Unavailable LOGAN RUIZ Referring Unavailable VOGEL, TEE L Primary Care Unavailable MORILLO, CAILIN Referring Unavailable MELQUIADES, NARIMAN A Attending Unavailable VOGEL, TEE L Primary Care Unavailable RONNIE, DANIEL Referring Unavailable VOGEL, TEE L Primary Care Unavailable ANITA SWIFT Attending Unavailable MELQUIADES, NARIMAN A Referring Unavailable VOGEL, TEE L Primary Care Unavailable MORILLO, CAILIN Attending Unavailable VOGEL, TEE L Primary Care Unavailable MORILLO, CAILIN Referring Unavailable VOGEL, TEE L Primary Care Unavailable MELQUIADES, NARIMAN A Referring Unavailable VOGEL, TEE L Primary Care Unavailable RONNIE, DANIEL Referring Unavailable VOGEL, TEE L Primary Care Unavailable MORILLO, CAILIN Attending Unavailable TEE VOGEL Primary Care Unavailable MORILLOCAILIN NEGRETE Attending Unavailable TEE VOGEL Primary Care Unavailable MORILLOCAILIN NEGRETE Attending Unavailable TEE VOGEL Primary Care Unavailable MORILLOCAILIN NEGRETE Attending Unavailable TEE VOGEL Primary Care Unavailable MORILLO, CAILIN Referring Unavailable TEE VOGEL Primary Care Unavailable DANIEL TRUJILLO Attending Unavailable TEE VOGEL Primary Care Unavailable MORILLOFISH NEGRETEYSON Referring Unavailable TEE VOGEL Primary Care Unavailable MORILLOFISH NEGRETEYSON Referring Unavailable TEE VOGEL Primary Care Unavailable CAILIN MORILLO Attending Unavailable Allergies Allergy Classification Reported Allergen(s) Allergy Type Date of Onset Reaction(s) Facility (20 sources) Acetaminophen / HYDROcodone; Translations: [HYDROCODONE-ACET AMINOPHEN] Drug Allergy 1 GI Upset [facility] (20 sources) Cat; Translations: [CATS] Allergy to substance 0 Other: See Comments [facility] (20 sources) Morphine; Translations: [MORPHINE] Drug Allergy 1 GI Upset, Itching [facility] (20 sources) Amitriptyline; Translations: [AMITRIPTYLINE] Drug Allergy 4 GI Upset [facility] Medications Current Medications Medication Drug Class(es) Dates Sig (Normalized) Sig (Original) [id number] 200 actuat albuterol 0.09 mg/actuat metered dose inhaler (13 sources) beta2-Adrenergic Agonist Start: 01-13-2024 End: 02-07-2025 take 1 puff(s) by inhalation every four hours as needed for wheezing albuterol HFA (PROVENTIL HFA, VENTOLIN HFA) 90 mcg/actuation inhaler Inhale 1 Puff as instructed every 4 hours as needed for wheezing/shortness of breath. 1 Each 01/13/2024 02/07/2025 Active amoxicillin 875 mg / clavulanate 125 mg oral tablet (2 sources) Penicillin-class Antibacterial Start: 02-16-2024 End: 02-21-2024 take 1 tablet by mouth twice daily amoxicillin-clavulan ate potassium (AUGMENTIN) 875-125 mg per tablet Indications: Bacterial sinusitis Take 1 tablet by mouth two times a day for 5 days. 10 tablet 02/16/2024 02/21/2024 Active Budesonide / formoterol (3 sources) Corticosteroid, beta2-Adrenergic Agonist Start: 04-15-2024 take 2 puff(s) by inhalation twice daily budesonide-formotero l (SYMBICORT) 80-4.5 mcg/actuation inhaler Indications: SOB (shortness of breath) Inhale 2 Puffs as instructed two times a day. 1 Each 5 04/15/2024 Active iv contrast (will be provided with radiology test) (3 sources) Start: 12-16-2023 End: 12-17-2023 iv contrast (will be provided with radiology test) Indications: Systemic lupus erythematosus, unspecified SLE type, unspecified organ involvement status (HCC) , SOB (shortness of breath) , Generalized abdominal pain , Chest pain, unspecified type , Cough, persistent CT Chest W -Inject, intravenously, once for 1 dose.No IV access, insert saline lock prior to the beginning of sedation, infusion, injection of imaging exam. Discontinue saline lock post exam. If Pt. has a central line or IVAD, may access for administration according to line specific nursing protocol. Once exam is complete flush line and de-access according to line specific nursing protocol in the CT contrast administration guidelines link. 1 Each 0 12/16/2023 12/17/2023 Active Start: 11-19-2023 End: 11-20-2023 iv contrast (will be provide d with radiology test) Indications: Systemic lupus erythematosus, unspecified SLE type, unspecified organ involvement status (HCC) , Generalized abdominal pain , SOB (shortness of breath) , Chest pain, unspecified type , Cough, persistent CT Chest W -Inject, intravenously, once for 1 dose.No IV access, insert saline lock prior to the beginning of sedation, infusion, injection of imaging exam. Discontinue saline lock post exam. If Pt. has a central line or IVAD, may access for administration according to line specific nursing protocol. Once exam is complete flush line and de-access according to line specific nursing protocol in the CT contrast administration guidelines link. 1 Each 0 11/19/2023 11/20/2023 Start: 11-19-2023 End: 11-20-2023 iv contrast (will be provide d with radiology test) Indications: Systemic lupus erythematosus, unspecified SLE type, unspecified organ involvement status (HCC) , Generalized abdominal pain , SOB (shortness of breath) , Chest pain, unspecified type , Cough, persistent CT Chest W -Inject, intravenously, once for 1 dose.No IV access, insert saline lock prior to the beginning of sedation, infusion, injection of imaging exam. Discontinue saline lock post exam. If Pt. has a central line or IVAD, may access for administration according to line specific nursing protocol. Once exam is complete flush line and de-access according to line specific nursing protocol in the CT contrast administration guidelines link. 1 Each 0 11/19/2023 11/20/2023 Active propranolol hydrochloride 40 mg oral tablet (20 sources) beta-Adrenergic Caity Start: 07-16-2023 End: 08-14-2024 take 1 tablet by mouth once daily propranolol (INDERAL) 40 mg tablet Indications: Migraine without status migrainosus, not intractable, unspecified migraine type Take 1 tablet by mouth once daily. 30 tablet 4 03/17/2024 08/14/2024 Active Start: 02-07-2023 End: 05-08-2023 take 1 tablet by mouth once daily propranolol (INDERAL) 40 mg tablet Indications: Migraine without status migrainosus, not intractable, unspecified migraine type Take 1 tablet by mouth once daily. 30 tablet 2 02/07/2023 Active Comment on above: Take 1 tablet by chloe th once daily. sucralfate 1000 mg oral tablet (19 sources) Aluminum Complex Start: 03-17-2024 End: 04-16-2024 take 1 tablet by mouth at bedtime sucralfate (CARAFATE) 1 gram tablet Indications: Nausea and vomiting, unspecified vomiting type , Epigastric pain , Feeling of foreign body in throat Take 1 tablet by mouth before meals and at bedtime. 120 tablet 03/17/2024 04/16/2024 Active Start: 10-20-2023 End: 11-19-2023 take 1 tablet by mouth at bedtime sucralfate (CARAFATE) 1 gram tablet Indications: Generalized abdominal pain , Nausea and vomiting, unspecified vomiting type Take 1 tablet by mouth before meals and at bedtime. 120 tablet 0 10/20/2023 11/19/2023 SUMAtriptan 100 mg oral tablet (20 sources) Serotonin-1b and Serotonin-1d Receptor Agonist Start: 09-29-2023 End: 04-22-2024 SUMAtriptan (IMITREX) 100 mg tablet Indications: Migraine without status migrainosus, not intractable, unspecified migraine type Take 1 tablet at the onset of headache. May repeat dose in 2 hours if needed. Do not exceed 2 tablets in 24 hour period. 15 tablet 1 04/22/2024 Active Start: 09-20-2020 End: 09-26-2023 SUMAtriptan (IMITREX) 100 mg tablet Indications: Migraine without status migrainosus, not intractable, unspecified migraine type Take 1 tablet at the onset of headache. May repeat dose in 2 hours if needed. Do not exceed 2 tablets in 24 hour period. 15 tablet 1 02/07/2023 09/26/2023 Discontinued Start: 05-13-2012 End: 04-02-2017 IMITREX 50 MG TABS 1 tablet by mouth at onset of h/a, may repeat X 1 in 2 hours, max 4 per day SUMATRIPTAN SUCCINATE [id number] Maulik Coburn MD Comment on above: Take 1 tablet at the onset of headache. May repeat dose in 2 hours if needed. Do not exceed 200 mg (2 tabs) in 24 hour period. Take 1 tablet at the onset of headache. May repeat dose in 2 hours if needed. Do not exceed 2 tablets in 24 hour period. Completed/Discontinued Medications Medication Drug Class(es) Dates Sig (Normalized) Sig (Original) Acetaminophen / HYDROcodone (2 sources) Opioid Agonist End: 03-05-2022 hydrocodone/acetami nophen (VICODIN ORAL) Take by mouth. 0 03/05/2022 Discontinued (Course of therapy completed) hydrocodone/acet aminophen (VICODIN ORAL) Take by mouth. 0 Active Comment on above: Take by mouth. amitriptyline hydrochloride 10 mg oral tablet (5 sources) Tricyclic Antidepressant Start: End: take 1 tablet by mouth once daily at bedtime amitriptyline (ELAVIL) 10 mg tablet Indications: Fatigue, unspecified type , Migraine without status migrainosus, not intractable, unspecified migraine type , Nausea and vomiting, unspecified vomiting type , Generalized abdominal pain Take 1 tablet by mouth daily at bedtime. 30 tablet 1 10/13/2023 10/20/2023 Discontinued (Other) Comment on above: Take 1 tablet by chloe th daily at bedtime. cholecalciferol 1.25 mg oral capsule (20 sources) Vitamin D Start: End: take 1 capsule by mouth every week cholecalciferol, Vitamin D3, (VITAMIN D3) 1,250 mcg (50,000 unit) cap capsule Take 1 capsule by mouth one time a week. 4 capsule 2 08/21/2023 03/17/2024 Discontinued Comment on above: Take 1 capsule by mo uth one time a week. dicyclomine hydrochloride 10 mg oral capsule (20 sources) Anticholinergic End: take 1 capsule by mouth at bedtime dicyclomine (BENTYL) 10 mg capsule Take 10 mg by mouth before meals and at bedtime. 03/17/2024 Discontinued Comment on above: Take 10 mg by mouth before meals and at bedtime. 120 actuat fluticasone propionate 0.11 mg/actuat metered dose inhaler (11 sources) Corticosteroid Start: End: take 1 puff(s) by mouth twice daily fluticasone (FLOVENT) 110 mcg/actuation inhaler Inhale 1 Puff as instructed two times a day. Shake well before use. Rinse mouth after use. 1 Each 01/13/2024 04/15/2024 Discontinued (Changing Therapy/Dosage Form) ibuprofen 800 mg oral tablet (12 sources) Nonsteroidal Anti-inflammatory Drug Start: End: take 1 tablet by mouth every eight hours as needed for pain ibuprofen (MOTRIN) 800 mg tablet Indications: Pelvic pain Take 1 tablet by mouth every 8 hours as needed for Pain. Take with food. 40 tablet 1 06/05/2020 08/20/2023 Discontinued Comment on above: Take 1 tablet by chloe th every 8 hours as needed for Pain. Take with food. 2 ml ketorolac tromethamine 30 mg/ml injection (1 source) Nonsteroidal Anti-inflammatory Drug, Cyclooxygenase Inhibitor Start: End: keTORolac 60 mg injection (Toradol) Start: 01-30-2023 End: 01-30-2023 keTORolac 60 mg injection (T oradol) lansoprazole 30 mg delayed release oral capsule (20 sources) Proton Pump Inhibitor End: 03-17-2024 take 1 capsule by mouth once daily lansoprazole (PREVACID) 30 mg capsule Take 30 mg by mouth once daily. 03/17/2024 Discontinued Comment on above: Take 30 mg by mouth once daily. 24 hr metoprolol succinate 25 mg extended release oral tablet (12 sources) beta-Adrenergic Caity Start: 08-19-2012 End: 04-02-2017 take 1 tablet by mouth once daily TOPROL XL 25 MG [id number] One tablet by mouth daily METOPROLOL SUCCINATE [id number] Pedro Osborne MD omeprazole 20 mg delayed release oral capsule (20 sources) Proton Pump Inhibitor Start: 10-15-2023 End: 03-17-2024 take 1 capsule by mouth once omeprazole (PRILOSEC) 20 mg capsule Indications: Generalized abdominal pain , Nausea and vomiting, unspecified vomiting type Take 1 capsule by mouth every afternoon. 30 capsule 2 10/20/2023 03/17/2024 Discontinued PARoxetine hydrochloride 20 mg oral tablet (20 sources) Serotonin Reuptake Inhibitor Start: 10-23-2023 End: 03-17-2024 take 1 tablet by mouth once daily PARoxetine (PAXIL) 20 mg tablet Indications: Generalized abdominal pain , Nausea and vomiting, unspecified vomiting type , JUAN MANUEL (generalized anxiety disorder) Take 1 tablet by mouth once daily. 90 tablet 10/23/2023 03/17/2024 Discontinued 72 hr scopolamine 0.0139 mg/hr transdermal system (20 sources) Anticholinergic End: 03-17-2024 scopolamine (TRANSDERM-SCOP) patch 1.5 mg/72 hr (delivers 1 mg over 3 days) Apply 1 Patch as directed every 72 hours. 03/17/2024 Discontinued Comment on above: Apply 1 Patch as dir ected every 72 hours. Problems Active Problems Problem Classification Problem Date Documented Date Episodic/Chronic Anxiety disorders (1 source) Generalized anxiety disorder; Translations: [Generalized anxiety disorder] 10-23-2023 Chronic Asthma (1 source) Uncomplicated mild persistent asthma; Translations: [Mild persistent asthma, uncomplicated] 01-13-2024 Chronic Cardiac dysrhythmias (7 sources) Paroxysmal supraventricular tachycardia; Translations: [Supraventricular tachycardia] Onset: 08-30-2011 08-30-2011 Chronic Female infertility (6 sources) Anovulation; Translations: [Female infertility associated with anovulation] Onset: 04-02-2017 04-02-2017 Chronic Headache; including migraine (8 sources) Migraine with aura; Translations: [Migraine with aura, not intractable, without status migrainosus] Chronic Immunizations and screening for infectious disease (2 sources) Patient encounter status; Translations: [Encounter for immunization] 02-07-2023 Episodic Nausea and vomiting (8 sources) Nausea and vomiting; Translations: [Nausea with vomiting, unspecified] Onset: 03-19-2024 08-20-2023 Episodic Nutritional deficiencies (2 sources) Vitamin D deficiency; Translations: [Vitamin D deficiency, unspecified] Onset: 10-20-2023 08-21-2023 Chronic Other circulatory disease (8 sources) Air trapping; Translations: [Other specified symptoms and signs involving the circulatory and respiratory systems] 10-13-2023 Episodic Other connective tissue disease (1 source) Pain in left arm; Translations: [Pain in left arm] Episodic Other lower respiratory disease (10 sources) Dyspnea; Translations: [Shortness of breath] 11-05-2023 Episodic Other lower respiratory disease (3 sources) Persistent cough; Translations: [Cough, persistent] 11-19-2023 Episodic Other lower respiratory disease (2 sources) Multiple nodules of lung; Translations: [Other nonspecific abnormal finding of lung field] 01-07-2024 Episodic Other nervous system disorders (1 source) Paresthesia of upper limb; Translations: [Anesthesia of skin] Episodic Other screening for suspected conditions (not mental disorders or infectious disease) (1 source) Lung function testing abnormal; Translations: [Abnormal results of pulmonary function studies] 10-30-2023 Episodic Other upper respiratory disease (2 sources) Sensation of foreign body in throat; Translations: [Feeling of foreign body in throat] 03-17-2024 Episodic Other upper respiratory disease (1 source) Feeling of lump in throat; Translations: [Globus sensation] 04-15-2024 Episodic Other upper respiratory infections (1 source) Bacterial sinusitis; Translations: [Chronic sinusitis, unspecified] 02-16-2024 Chronic Other upper respiratory infections (4 sources) Pharyngitis; Translations: [Acute pharyngitis, unspecified] Onset: 02-16-2024 02-17-2023 Episodic Residual codes; unclassified (2 sources) Family history of malignant neoplasm of thyroid; Translations: [Family history of malignant neoplasm of other organs or systems] 03-17-2024 Episodic Residual codes; unclassified (1 source) Family history of malignant neoplasm of other organs or systems; Translations: [Family history of thyroid cancer] Onset: 03-19-2024 Episodic Systemic lupus erythematosus and connective tissue disorders (8 sources) Systemic lupus erythematosus; Translations: [Systemic lupus erythematosus, unspecified] Onset: 03-19-2024 11-05-2023 Chronic Unclassified (4 sources) Counseling for infertility done; Translations: [Encounter for other general counseling and advice on procreation] Onset: 04-02-2017 04-02-2017 Unclassified (1 source) Feeling of foreign body in throat; Translations: [Feeling of foreign body in throat] Onset: 03-19-2024 Unclassified (1 source) Cough, persistent; Translations: [Cough, persistent] Onset: 01-06-2024 Viral infection (1 source) Viral disease; Translations: [Viral infection, unspecified] 02-17-2023 Episodic Past or Other Problems Problem Classification Problem Date Documented Da te Episodic/Chronic Abdominal pain (20 sources) Unspecified symptom associated with female genital organs; Translations: [Right upper quadrant pain] Onset: 07-14-2012 07-14-2012 Episodic Administrative/social admission (3 sources) Financial problem; Translations: [Problem related to housing and economic circumstances, unspecified] Onset: 11-19-2023 11-19-2023 Episodic Cardiac dysrhythmias (6 sources) Palpitations; Translations: [Palpitations] Onset: 08-30-2011 08-30-2011 Episodic Contraceptive and procreative management (2 sources) Encounter for other general counseling and advice on procreation; Translations: [Encounter for other general counseling and advice on procreation] Onset: 04-02-2017 04-02-2017 Episodic Malaise and fatigue (6 sources) Fatigue; Translations: [Other fatigue] Onset: 08-20-2023 08-20-2023 Episodic Nonspecific chest pain (4 sources) Chest pain; Translations: [Chest pain, unspecified] Onset: 01-06-2024 11-19-2023 Episodic Other circulatory disease (2 sources) Other specified symptoms and signs involving the circulatory and respiratory systems; Translations: [Pulmonary air trapping] Onset: 10-27-2023 Episodic Other complications of (20 sources) Hyperemesis gravidarum with metabolic disturbance; Translations: [Hyperemesis gravidarum with metabolic disturbance] Onset: 08-29-2005 Resolved: 11-28-2011 11-28-2011 Episodic Other lower respiratory disease (1 source) Other nonspecific abnormal finding of lung field; Translations: [Lung nodules] Onset: 01-13-2024 Episodic Other lower respiratory disease (1 source) Shortness of breath; Translations: [SOB (shortness of breath)] Onset: 01-13-2024 Episodic Other non-traumatic joint disorders (20 sources) Pain in right knee; Translations: [Pain in joint, lower leg] Onset: 12-18-2012 12-18-2012 Episodic Residual codes; unclassified (20 sources) Tobacco user; Translations: [Tobacco use] Onset: 12-18-2012 12-18-2012 Episodic Residual codes; unclassified (20 sources) Family history of breast cancer; Translations: [Family history of malignant neoplasm of breast] Onset: 09-30-2014 09-30-2014 Episodic Spondylosis; intervertebral disc disorders; other back problems (20 sources) Neck pain; Translations: [Cervicalgia] Onset: 06-10-2016 06-10-2016 Episodic Results Test Name Value Interpretation Reference Range Facility [facility] MAYURI CREWS ([id number]) 1985 F Date Time Provider Department 04/16/24 ANITA SWIFT PULWS During your visit today, we recorded the following information about you: Slime Brennan 04/16/2024 11:28 AM Signed Patient contacted office for assistance with scheduling XR Esophogram and Methacholine Challenge. PSS unable to find [facility] facility with availability that was conducive to patient's personal schedule. Patient choosing to locate external [facility] facility and will call back to notify office where orders are to be sent. Krystal Anderson LPN 04/16/2024 11:51 AM Signed Patient spoke with [facility] and she is able to have the testing completed there. She would like the orders faxed to [phone]. MANSOOR Ramirez Kathleen, LPN 04/16/2024 1:25 PM Signed Orders prepped and signed by EB. Faxed to [facility] scheduling. Nelly Coleman LPN Allergies As of Date: 04/16/2024 Noted Allergy Reaction AMITRIPTYLINE 10/20/2023 8 - GI Upset Comments: GI upset and eye problem CATS 01/21/2020 14 - Other: See Comments Comments: Tightness in throat, sinus congestion, swollen eyes MORPHINE 09/18/2020 8 - GI Upset 9 - Itching VICODIN (HYDROCODONE-ACETAMIN OPHE*09/18/2020 8 - GI Upset Date Reviewed: 04/15/2024 Reviewed by: Anita Swift MD - Fully Assessed Reason for Visit: External Referrals/resources [[id number]] Cmt: Esophogram/Methacholi ne Challenge Prescriptions as of 04/16/2024 - budesonide-formoterol (SYMBICORT) 80-4.5 mcg/actuation inhaler Inhale 2 Puffs as instructed two times a day. - propranolol (INDERAL) 40 mg tablet Take 1 tablet by mouth once daily. - sucralfate (CARAFATE) 1 gram tablet Take 1 tablet by mouth before meals and at bedtime. - albuterol HFA (PROVENTIL HFA, VENTOLIN HFA) 90 mcg/actuation inhaler Inhale 1 Puff as instructed every 4 hours as needed for wheezing/shortness of breath. - SUMAtriptan (IMITREX) 100 mg tablet Take 1 tablet at the onset of headache. May repeat dose in 2 hours if needed. Do not exceed 2 tablets in 24 hour period. Problem List As Of Date 04/16/2024 Noted Resolved Hyperemesis gravidarum with metabolic disturban*08/29/2005 11/28/2011 Pelvic pain 07/14/2012 Tobacco abuse [Z72.0] 12/18/2012 Knee pain, bilateral [M25.561, M25.562] 12/18/2012 Family history of breast cancer [Z80.3] 09/30/2014 Neck and shoulder pain [M54.2, M25.519] 06/10/2016 Encounter Status:Closed by NELLY COLEMAN on 04/16/24 [facility] CNOVon 04-15-2024 CNOV Office Visit (PULMWS ) MAYURI CREWS ([id number]) 1985 F Date Time Provider Department 04/15/24 3:15 PM ANITA SWIFT PULMWS During your visit today, we recorded the following information about you: Weight 62.6 kg Anita Swift MD 04/15/2024 4:43 PM Signed . [facility] [place] Note Patient name: Mayuri Crews PCP: Tee Vogel DO CC: Air trapping HPI: Mayuri Crews 38 year old female former minimal smoker with PMH significant for possible asthma, lung nodules and possible SLE recently seen by Dr. Arnett for her pulmonary issues. Started on ICS with as needed albuterol. She is transferring her care to [facility] office for convenience. She is scheduled for follow up chest CT in December of 2024. She relates her history of respiratory issues starting approximately 2 years ago. She does not have a history of antecedent upper respiratory infection. No history of asthma or allergies as a child. She first presented to [facility] ED for shortness of breath and tingling in her fingertips. She does have a history of anxiety and was concerned that she may be having a panic attack. Chest x-ray at that time showed large lung volumes consistent with hyperinflation. She was prescribed albuterol which she uses up to 6 times a day. Albuterol does help her shortness of breath. She states she is short of breath all the time, has frequent sighing and difficulty speaking. She does not have significant cough or wheezing. She has significant globus sensation. No postnasal drip. She has had intermittent chest pain and recent evaluation for possible reflux was negative. Pulmonary function tests showed air trapping although she had difficulty performing the testing and may have had incomplete emptying. When she was seen by Dr. Arnett, she ordered exhaled nitric oxide level and started her on inhaled corticosteroid. Her exhaled nitric oxide level today was normal. She is not noted any difference in her shortness of breath with the addition of inhaled corticosteroid to her regimen. She is pending evaluation for possible lupus. She has a positive PRECIOUS and slightly positive double-stranded DNA with diffuse joint pain and facial rash. DATA: SERVICE DATE: 04/15/2024 SERVICE TIME: 2:46 PM Oral Exhaled Nitric Oxide measurement: 7.0 (ppb) PFT 09/2023: No obstruction. Air trapping. Technicians comments note that FEV1 may not be valid as patient complained of burning pain in her lungs during forced exhalation which brings up the question of whether she had complete emptying or not Labs: Positive PRECIOUS Double-stranded DNA 11 Imaging / Diagnostic Studies: DATE OF EXAM: Jan 06 2024 11:28AM [facility] 0539 - CT CHEST W IVCON / IMPRESSION: No CT evidence of acute abnormality. 4.5 mm nodule in the right lower lobe I personally reviewed the images which shows several small pulmonary nodules most subpleural. Pertinent for no mosaicism Chest x-ray from [facility] from 2022 read as hyperinflation. She did have borderline large lung volumes but no flattening of her diaphragms PAST MEDICAL HISTORY Diagnosis Date Cervical dysplasia 06/2020 Irregular heart beat Migraine headache Pelvic pain in female ovarian cysts, [facility] Sleep apnea SVT (supraventricular tachycardia) ([facility] [address] Coburn at the time ALLERGIES Allergen Reactions Amitriptyline GI Upset GI upset and eye problem Cats Other: See Comments Tightness in throat, sinus congestion, swollen eyes Morphine GI Upset, Itching Vicodin [Hydrocodon* GI Upset budesonide-formoterol (SYMBICORT) 80-4.5 mcg/actuation inhaler Inhale 2 Puffs as instructed two times a day. propranolol (INDERAL) 40 mg tablet Take 1 tablet by mouth once daily. sucralfate (CARAFATE) 1 gram tablet Take 1 tablet by mouth before meals and at bedtime. albuterol HFA (PROVENTIL HFA, VENTOLIN HFA) 90 mcg/actuation inhaler Inhale 1 Puff as instructed every 4 hours as needed for wheezing/shortness of breath. SUMAtriptan (IMITREX) 100 mg tablet Take 1 tablet at the onset of headache. May repeat dose in 2 hours if needed. Do not exceed 2 tablets in 24 hour period. Social History Tobacco Use Smoking status: Former Current packs/day: 0.00 Average packs/day: 0.5 packs/day for 18.0 years (9.0 ttl pk-yrs) Types: Cigarettes Start date: 05/30/2005 Quit date: 05/30/2023 Years since quittin.8 Smokeless tobacco: Never Substance Use Topics Alcohol use: No Drug use: No Pets: None FAMILY HISTORY Problem Relation Age of Onset Thyroid Mother 40 cancer COPD Mother other (bladder cancer) Father other (alcoholic) Father Celiac Disease Sister Crohn's Disease Brother Hypertension Maternal Grandmother Heart Maternal Grandmother MD Arthritis Maternal Grandfather Hypertension Maternal Grandfather A (more content not included)... Normal [facility] NITRIC OXIDE, EXHALEDon 10- Abelino Maldonado RPF T 04/15/2024 2:46 PM RESPIRATORY THERAPY ORAL EXHALED NITRIC OXIDE SERVICE DATE: 04/15/2024 SERVICE TIME: 2:46 PM Oral Exhaled Nitric Oxide measurement: 7.0 (ppb) Normal: Adult <25 ppb, pediatric (<12 years) <20 ppb High Normal / Increased: Adult 25-50 ppb, pediatric (<12 years) 20-35 ppb Moderately raised exhaled Nitric Oxide may indicate underlying inflammation, but note that: Cold and influenza can raise exhaled Nitric Oxide and some patients have higher baseline exhaled Nitric Oxide levels than others. High: Adult >50 ppb, pediatric (<12 years) >35 ppb Indicative of ongoing eosinophilic inflammation. Symptomatic patient likely to respond to steroids. Possible causes (if already on steroids): Poor compliance, recent allergen exposure, steroid dose inadequate, and steroid resistance. Note that not all patients with high exhaled nitric oxide levels display symptoms. Oral Exhaled Nitric Oxide measurement (Previous Encounters) Test Date Oral Exhaled Nitric Oxide (ppb) 04/15/2024 7.0 NAME: KELSI Snyder PATIENT NAME: Mayuri Crews DATE: April 15, 2024 TIME: 2:46 PM [facility] 03-23-2024 [facility] Telephone (FAMWS) MAYURI CREWS ([id number]) 1985 F Date Time Provider Department 03/23/24 DANIEL TRUJILLO [facility] During your visit today, we recorded the following information about you: Daniel Trujillo APRN.MONITOR TECH 03/23/2024 5:33 PM Signed Please let her know I received her lab results. Her PRECIOUS level is positive, which can be indicative of an autoimmune condition, but not always. The rest of her lab work is all negative. I would recommend she see a aircraft maintenance engineer for further assessment. Please assist her to schedule. Daniel Trujillo APRN.Renate Rosales MA 03/24/2024 9:43 AM Signed Left message to return call SEUN Shore Sherill A, LPN 03/24/2024 10:03 AM Signed Patient notified of results and provider's instructions. Patient verbalizes understanding. Pt advises that she has a Rheumatology appointment already scheduled in Apr with Niurka Rollins in [place]. This was set up through Dr Ortiz's office. Shane Rust LPN Allergies As of Date: 03/23/2024 Noted Allergy Reaction AMITRIPTYLINE 10/20/2023 8 - GI Upset Comments: GI upset and eye problem CATS 01/21/2020 14 - Other: See Comments Comments: Tightness in throat, sinus congestion, swollen eyes MORPHINE 09/18/2020 8 - GI Upset 9 - Itching VICODIN (HYDROCODONE-ACETAMIN OPHE*09/18/2020 8 - GI Upset Date Reviewed: 03/17/2024 Reviewed by: Daniel Trujillo APRN.MONITOR TECH - Fully Assessed Reason for Visit: Results [95] Primary Visit Diagnosis:Positive PRECIOUS (antinuclear antibody) [R76.8] Order(s):CONSULT TO RHEUM/IMMUN DISEASE [9039] Order #: [id number]: 1 FUTURE Prescriptions as of 03/24/2024 - propranolol (INDERAL) 40 mg tablet Take 1 tablet by mouth once daily. - sucralfate (CARAFATE) 1 gram tablet Take 1 tablet by mouth before meals and at bedtime. - albuterol HFA (PROVENTIL HFA, VENTOLIN HFA) 90 mcg/actuation inhaler Inhale 1 Puff as instructed every 4 hours as needed for wheezing/shortness of breath. - fluticasone (FLOVENT) 110 mcg/actuation inhaler Inhale 1 Puff as instructed two times a day. Shake well before use. Rinse mouth after use. - SUMAtriptan (IMITREX) 100 mg tablet Take 1 tablet at the onset of headache. May repeat dose in 2 hours if needed. Do not exceed 2 tablets in 24 hour period. Problem List As Of Date 03/23/2024 Noted Resolved Hyperemesis gravidarum with metabolic disturban*08/29/2005 11/28/2011 Pelvic pain 07/14/2012 Tobacco abuse [Z72.0] 12/18/2012 Knee pain, bilateral [M25.561, M25.562] 12/18/2012 Family history of breast cancer [Z80.3] 09/30/2014 Neck and shoulder pain [M54.2, M25.519] 06/10/2016 Encounter Status:Closed by [facility]UST [facility] Telephone (FAMPWS) MAYURI CREWS ([id number]) 1985 F Date Time Provider Department 03/22/24 TEE VOGEL During your visit today, we recorded the following information about you: Roma Sorenson RN 03/22/2024 12:45 PM Signed Patient calling to say she has been having persistent symptoms of nausea and vomiting with migraine headache since OV on 03/17. She says see has not been able to eat or drink much x 6 days. She says she vomits after eating or drinking anything. She says she has no worsening symptoms but she has a new symptom of esophageal burning. She states she is weak and dizzy. She says the last time she voided was yesterday. She can't remember the time and does not know the color of her urine. Advised ER evaluation due to possible dehydration. She was not able to slate picker Sucralfate stating it was not sent to [facility]. [facility] MARTINE Sahu Bernadette, PA-C 03/22/2024 1:29 PM Signed Agree with ED if vomiting, weakness, dizziness, and last void >12 hours ago. Jackeline Davis PA-C 03/22/2024 Roma Sorenson RN 03/22/2024 1:58 PM Signed Spoke with patient. Given message from provider's office. Patient verbalizes understanding. Roma Michel RN, RN 03/22/2024 2:06 PM Addendum This nurse contacted [facility] regarding Sucralfate script. [facility] says script is there and ready. Attempted to notify patient. No answer. Roma Sorenson RN Allergies As of Date: 03/22/2024 Noted Allergy Reaction AMITRIPTYLINE 10/20/2023 8 - GI Upset Comments: GI upset and eye problem CATS 01/21/2020 14 - Other: See Comments Comments: Tightness in throat, sinus congestion, swollen eyes MORPHINE 09/18/2020 8 - GI Upset 9 - Itching VICODIN (HYDROCODONE-ACETAMIN OPHE*09/18/2020 8 - GI Upset Date Reviewed: 03/17/2024 Reviewed by: Daniel Trujillo APRN.MONITOR TECH - Fully Assessed Reason for Visit: Patient Update [1234] Prescriptions as of 03/22/2024 - propranolol (INDERAL) 40 mg tablet Take 1 tablet by mouth once daily. - sucralfate (CARAFATE) 1 gram tablet Take 1 tablet by mouth before meals and at bedtime. - albuterol HFA (PROVENTIL HFA, VENTOLIN HFA) 90 mcg/actuation inhaler Inhale 1 Puff as instructed every 4 hours as needed for wheezing/shortness of breath. - fluticasone (FLOVENT) 110 mcg/actuation inhaler Inhale 1 Puff as instructed two times a day. Shake well before use. Rinse mouth after use. - SUMAtriptan (IMITREX) 100 mg tablet Take 1 tablet at the onset of headache. May repeat dose in 2 hours if needed. Do not exceed 2 tablets in 24 hour period. Problem List As Of Date 03/22/2024 Noted Resolved Hyperemesis gravidarum with metabolic disturban*08/29/2005 11/28/2011 Pelvic pain 07/14/2012 Tobacco abuse [Z72.0] 12/18/2012 Knee pain, bilateral [M25.561, M25.562] 12/18/2012 Family history of breast cancer [Z80.3] 09/30/2014 Neck and shoulder pain [M54.2, M25.519] 06/10/2016 Encounter Status:Closed by JACKELINE DAVIS on 03/22/24 Normal [facility] US THYROID/PARATHYROIDon US THYROID/PARATHYROID * * *Final Report* * * DATE OF EXAM: Mar 19 2024 8:54AM [facility] 1048 - US THYROID/PARATHYROID / PROCEDURE REASON: multiple diagnoses * * * * Physician Interpretation * * * * EXAMINATION: THYROID ULTRASOUND CLINICAL HISTORY: Nausea and vomiting, unspecified vomiting type Feeling of foreign body in throat Fatigue, unspecified type SOB (shortness of breath) TECHNIQUE: Sonography and Doppler imaging of the thyroid was performed. Images were obtained and stored in a permanent archive. MQ: UST_1 COMPARISON: None. RESULT: Right Lobe: 4.3 x 1.5 x 1.9 cm; homogeneous echogenicity, mildly increased vascular flow on color Doppler imaging. Left Lobe: 4.7 x 1.4 x 1.9 cm; homogeneous echogenicity, mildly increased vascular flow on color Doppler imaging. Isthmus: 0.2 cm Nodules: No discrete nodules seen. IMPRESSION: Unremarkable thyroid ultrasound study. Pump Service Supervisor: MARLENE Transcribe Date/Time: Mar 19 2024 11:12A Dictated by : RANDI BROWNLEE MD This examination was interpreted and the report reviewed and electronically signed by: RANDI BROWNLEE MD on Mar 19 2024 11:13AM EST [id number] N Normal [facility] US Thyroid glandon IMPRESSION: Unremarkable thyroid ultrasound study. Pump Service Supervisor: [facility] Transcribe Date/Time: Mar 19 2024 11:12A Dictated by : RANDI BROWNLEE MD This examination was interpreted and the report reviewed and electronically signed by: RANDI BROWNLEE MD on Mar 19 2024 11:13AM EST DIVISION OF RADIOLOGY * * *Final Report* * * DATE OF EXAM: Mar 19 2024 8:54AM [facility] 1048 - US THYROID/PARATHYROID / PROCEDURE REASON: multiple diagnoses * * * * Physician Interpretation * * * * EXAMINATION: THYROID ULTRASOUND CLINICAL HISTORY: Nausea and vomiting, unspecified vomiting type Feeling of foreign body in throat Fatigue, unspecified type SOB (shortness of breath) TECHNIQUE: Sonography and Doppler imaging of the thyroid was performed. Images were obtained and stored in a permanent archive. MQ: UST_1 COMPARISON: None. RESULT: Right Lobe: 4.3 x 1.5 x 1.9 cm; homogeneous echogenicity, mildly increased vascular flow on color Doppler imaging. Left Lobe: 4.7 x 1.4 x 1.9 cm; homogeneous echogenicity, mildly increased vascular flow on color Doppler imaging. Isthmus: 0.2 cm Nodules: No discrete nodules seen. DIVISION OF RADIOLOGY [facility] * * *Final Report* * * DATE OF EXAM: Mar 19 2024 8:54AM [facility] 1048 - US THYROID/PARATHYROID / PROCEDURE REASON: multiple diagnoses * * * * Physician Interpretation * * * * EXAMINATION: THYROID ULTRASOUND CLINICAL HISTORY: Nausea and vomiting, unspecified vomiting type Feeling of foreign body in throat Fatigue, unspecified type SOB (shortness of breath) TECHNIQUE: Sonography and Doppler imaging of the thyroid was performed. Images were obtained and stored in a permanent archive. MQ: UST_1 COMPARISON: None. RESULT: Right Lobe: 4.3 x 1.5 x 1.9 cm; homogeneous echogenicity, mildly increased vascular flow on color Doppler imaging. Left Lobe: 4.7 x 1.4 x 1.9 cm; homogeneous echogenicity, mildly increased vascular flow on color Doppler imaging. Isthmus: 0.2 cm Nodules: No discrete nodules seen. IMPRESSION IMPRESSION: Unremarkable thyroid ultrasound study. Pump Service Supervisor: PSCB Transcribe Date/Time: Mar 19 2024 11:12A Dictated by : RANDI BROWNLEE MD This examination was interpreted and the report reviewed and electronically signed by: RANDI BROWNLEE MD on Mar 19 2024 11:13AM EST [facility] Radiology Study observation (narrative) [facility] US Thyroid glandOrdered By: Ccf Provider on 03-19-2024 [facility] CBC W Auto Differential pane l (Bld)on 03-17-2024 Basophils (Bld) [#/Vol] 0.04 10*3/uL [facility] Basophils/100 WBC (Bld) 0.5 % [facility] Differential cell count method Nom (Bld) Auto [facility] Eosinophils (Bld) [#/Vol] 0.10 10*3/uL [facility] Eosinophils/100 WBC (Bld) 1.4 % [facility] Erythrocyte distribution width (RBC) [Ratio] 11.7 % 11.5 - 15.0 % [facility] Hematocrit (Bld) [Volume fraction] 43.2 % 36.0 - 46.0 % [facility] Hemoglobin (Bld) [Mass/Vol] 14.4 g/dL 11.5 - 15.5 g/dL [facility] Immature granulocytes (Bld) [#/Vol] 0.03 10*3/uL [facility] Immature granulocytes/100 WBC (Bld) 0.4 % [facility] Lymphocytes (Bld) [#/Vol] 1.48 10*3/uL [facility] Lymphocytes/100 WBC (Bld) 20.3 % [facility] MCH (RBC) [Entitic mass] 31.0 pg 26.0 - 34.0 pg [facility] MCHC (RBC) [Mass/Vol] 33.3 g/dL 30.5 - 36.0 g/dL [facility] MCV (RBC) [Entitic vol] 92.9 fL 80.0 - 100.0 fL [facility] Monocytes (Bld) [#/Vol] 0.58 10*3/uL [facility] Monocytes/100 WBC (Bld) 8.0 % [facility] Neutrophils (Bld) [#/Vol] 5.06 10*3/uL [facility] Neutrophils/100 WBC (Bld) 69.4 % [facility] Nucleated RBC (Bld) [#/Vol] NINF [facility] Nucleated RBC/100 WBC (Bld) [Ratio] 0.0 % /100 WBC [facility] Platelet mean volume (Bld) [Entitic vol] 11.1 fL 9.0 - 12.7 fL [facility] Platelets (Bld) [#/Vol] 196 10*3/uL [facility] RBC (Bld) [#/Vol] 4.65 10*6/uL 3.90 - 5.2 0 m/uL [facility] WBC (Bld) [#/Vol] 7.29 10*3/uL [facility] Basophils (Bld) [#/Vol] 0.04 10*3/uL Normal <0.11 [facility] Comment on above: Order Comment: Speci men Type: BLOOD SPECIMENOrdering Facility: [facility] Address: [address] [place] [address] Performed By: #### 5 7021-8 ####[facility] LABCLIA [id number] [place] [address] [place] Basophils/100 WBC (Bld) 0.5 % Normal [facility] Comment on above: Order Comment: Speci men Type: BLOOD SPECIMENOrdering Facility: [facility] Address: [address] [place] [address] Performed By: #### 5 7021-8 ####[facility] LABCLIA [id number] [place] [address] [place] Differential cell count method Nom (Bld) Auto Normal [facility] Comment on above: Order Comment: Speci men Type: BLOOD SPECIMENOrdering Facility: [facility] Address: [address] [place] [address] Performed By: #### 5 7021-8 ####[facility] LABCLIA [id number] [place] [address] [place] Eosinophils (Bld) [#/Vol] 0.10 10*3/uL Normal <0.46 [facility] Comment on above: Order Comment: Speci men Type: BLOOD SPECIMENOrdering Facility: [facility] Address: [address] [place] [address] Performed By: #### 5 7021-8 ####[facility] LABCLIA [id number] [place] [address] [place] Eosinophils/100 WBC (Bld) 1.4 % Normal [facility] Comment on above: Order Comment: Speci men Type: BLOOD SPECIMENOrdering Facility: [facility] Address: [address] [place] [address] Performed By: #### 5 7021-8 ####[facility] LABCLIA [id number] [place] [address] [place] Erythrocyte distribution width (RBC) [Ratio] 11.7 % Normal 11.5-15.0 [facility] Comment on above: Order Comment: Speci men Type: BLOOD SPECIMENOrdering Facility: [facility] Address: [address] [place] [address] Performed By: #### 5 7021-8 ####[facility] LABCLIA [id number] [place] [address] [place] Hematocrit (Bld) [Volume fraction] 43.2 % Normal 36.0-46.0 [facility] Comment on above: Order Comment: Speci men Type: BLOOD SPECIMENOrdering Facility: [facility] Address: [address] [place] [address] Performed By: #### 5 7021-8 ####[facility] LABCLIA [id number] [place] [address] [place] Hemoglobin (Bld) [Mass/Vol] 14.4 g/dL Normal 11.5-15.5 [facility] Comment on above: Order Comment: Speci men Type: BLOOD SPECIMENOrdering Facility: [facility] Address: [address] [place] [address] Performed By: #### 5 7021-8 ####[facility] LABCLIA [id number] [place] [address] [place] Immature granulocytes (Bld) [#/Vol] 0.03 10*3/uL Normal <0.10 [facility] Comment on above: Order Comment: Speci men Type: BLOOD SPECIMENOrdering Facility: [facility] Address: [address] [place] [address] Performed By: #### 5 7021-8 ####[facility] LABIA [id number] [place] [address] [place] Immature granulocytes/100 WBC (Bld) 0.4 % Normal [facility] Comment on above: Order Comment: Speci men Type: BLOOD SPECIMENOrdering Facility: [facility] Address: [address] [place] [address] Performed By: #### 5 7021-8 ####[facility] LABCLIA [id number] [place] [address] [place] Lymphocytes (Bld) [#/Vol] 1.48 10*3/uL Normal 1.00-4.00 [facility] Comment on above: Order Comment: Speci men Type: BLOOD SPECIMENOrdering Facility: [facility] Address: [address] [place] [address] Performed By: #### 5 7021-8 ####[facility] LABIA [id number] [place] [id number] [place] Lymphocytes/100 WBC (Bld) 20.3 % Normal [facility] Comment on above: Order Comment: Speci men Type: BLOOD SPECIMENOrdering Facility: [facility] Address: [address] [place] [address] Performed By: #### 5 7021-8 ####[facility] LABCLIA [id number] [place] [address] [place] MCH (RBC) [Entitic mass] 31.0 pg Normal 26.0-34.0 [facility] Comment on above: Order Comment: Speci men Type: BLOOD SPECIMENOrdering Facility: [facility] Address: [address] [place] [address] Performed By: #### 5 7021-8 ####[facility] LABCLIA [id number] [place] [address] [place] MCHC (RBC) [Mass/Vol] 33.3 g/dL Normal 30.5-36.0 [facility] Comment on above: Order Comment: Speci men Type: BLOOD SPECIMENOrdering Facility: [facility] Address: [address] [place] [address] Performed By: #### 5 7021-8 ####[facility] LABCLIA [id number] [place] [address] [place] MCV (RBC) [Entitic vol] 92.9 fL Normal 80.0-100.0 [facility] Comment on above: Order Comment: Speci men Type: BLOOD SPECIMENOrdering Facility: [facility] Address: [address] [place] [address] Performed By: #### 5 7021-8 ####[facility] LABCLIA [id number] [place] [address] [place] Monocytes (Bld) [#/Vol] 0.58 10*3/uL Normal <0.87 [facility] Comment on above: Order Comment: Speci men Type: BLOOD SPECIMENOrdering Facility: [facility] Address: [address] [place] [address] Performed By: #### 5 7021-8 ####[facility] LABCLIA [id number] [place] [address] [place] Monocytes/100 WBC (Bld) 8.0 % Normal [facility] Comment on above: Order Comment: Speci men Type: BLOOD SPECIMENOrdering Facility: [facility] Address: [address] [place] [address] Performed By: #### 5 7021-8 ####[facility] LABCLIA [id number] [place] [address] [place] Neutrophils (Bld) [#/Vol] 5.06 10*3/uL Normal 1.45-7.50 [facility] Comment on above: Order Comment: Speci men Type: BLOOD SPECIMENOrdering Facility: [facility] Address: [address] [place] [address] Performed By: #### 5 7021-8 ####[facility] LABCLIA [id number] [place] [address] [place] Neutrophils/100 WBC (Bld) 69.4 % Normal [facility] Comment on above: Order Comment: Speci men Type: BLOOD SPECIMENOrdering Facility: [facility] Address: [address] [place] [address] Performed By: #### 5 7021-8 ####[facility] LABCLIA [id number] [place] [address] [place] Nucleated RBC (Bld) [#/Vol] 10*3/uL Normal <0.01 [facility] Comment on above: Order Comment: Speci men Type: BLOOD SPECIMENOrdering Facility: [facility] Address: [address] [place] [address] Performed By: #### 5 7021-8 ####[facility] LABCLIA [id number] [place] [address] [place] Nucleated RBC/100 WBC (Bld) [Ratio] 0.0 /100 WBC Normal [facility] Comment on above: Order Comment: Speci men Type: BLOOD SPECIMENOrdering Facility: [facility] Address: [address] [place] [address] Performed By: #### 5 7021-8 ####[facility] LABCLIA [id number] [place] [address] [place] Platelet mean volume (Bld) [Entitic vol] 11.1 fL Normal 9.0-12.7 [facility] Comment on above: Order Comment: Speci men Type: BLOOD SPECIMENOrdering Facility: [facility] Address: [address] [place] [address] Performed By: #### 5 7021-8 ####[facility] LABCLIA [id number] [place] [address] [place] Platelets (Bld) [#/Vol] 196 10*3/uL Normal 150-400 [facility] Comment on above: Order Comment: Speci men Type: BLOOD SPECIMENOrdering Facility: [facility] Address: [address] [place] [address] Performed By: #### 5 7021-8 ####[facility] LABIA [id number] [place] [address] [place] RBC (Bld) [#/Vol] 4.65 10*6/uL Normal 3.90-5.20 [facility] Comment on above: Order Comment: Speci men Type: BLOOD SPECIMENOrdering Facility: [facility] Address: [address] [place] [address] Performed By: #### 5 7021-8 ####[facility] LABCLIA [id number] [place] [address] [place] WBC (Bld) [#/Vol] 7.29 10*3/uL Normal 3.70-11.00 [facility] Comment on above: Order Comment: Speci men Type: BLOOD SPECIMENOrdering Facility: [facility] Address: [address] [place] [address] Performed By: #### 5 7021-8 ####[facility] LABCLIA [id number] [address] [place] [id number] [address] [place] CNOVon 03-17-2024 CNOV Office Visit (FAMPWS ) MAYURI CREWS ([id number]) 1985 F Date Time Provider Department 03/17/24 8:20 AM [facility] During your visit today, we recorded the following information about you: Pulse Respiration Blood pressure Weight 83/minute 16/minute 122/76 63.2 kg Daniel Trujillo APRN.MONITOR TECH 03/17/2024 7:55 PM Signed Chief Complaint Patient presents with: Follow Up: Multiple consistent sx, dizziness, fatigue, sob, poor appetite,night sweats. Reports she was recently dx with lupus 09/2023, appt with Rheum in Apr. Mayuri Crews is a 38 year old female who presents here today for Above Complaints.. In 10/[address] Ortiz with [facility] for a lot of GI sx, he did blood work and dx her with lupus. He told her she had inflammation in her stomach lining. Patient states her fecal calprotectin was abnormal, but by review of her labs by myself was 79 and WNL. Epigastric burning, pain. Frequent vomiting, about 4-5 days per week. Very nauseated all the time. Eats only once daily d/t lack of appetite and that any eating makes her nauseated. Tries to eat little packs such as cheese for protein. Is scheduled to see rheumatology in April with Niurka Lucero in [place]. This is the closest place to her. States she is afraid to drive any further than this because it scares her and that she is afraid that she will need to throw up. Mother hx thyroid cancer. Past medical history, appointments, medications, allergies reviewed. [...] cancer Hypertension Maternal Grandmother Heart Maternal Grandmother MD Arthritis Maternal Grandfather Hypertension Maternal Grandfather Arthritis Paternal Grandmother Colon Cancer Maternal Uncle Patient Allergies ALLERGIES Allergen Reactions Amitriptyline GI Upset GI upset and eye problem Cats Other: See Comments Tightness in throat, sinus congestion, swollen eyes Morphine GI Upset, Itching Vicodin [Hydrocodon* GI Upset Current Medications Current Outpatient Medications on File Prior to Visit Medication Sig albuterol HFA (PROVENTIL HFA, VENTOLIN HFA) 90 mcg/actuation inhaler Inhale 1 Puff as instructed every 4 hours as needed for wheezing/shortness of breath. fluticasone (FLOVENT) 110 mcg/actuation inhaler Inhale 1 Puff as instructed two times a day. Shake well before use. Rinse mouth after use. SUMAtriptan (IMITREX) 100 mg tablet Take 1 tablet at the onset of headache. May repeat dose in 2 hours if needed. Do not exceed 2 tablets in 24 hour period. propranolol (INDERAL) 40 mg tablet Take 1 tablet by mouth once daily. PARoxetine (PAXIL) 20 mg tablet Take 1 tablet by mouth once daily. omeprazole (PRILOSEC) 20 mg capsule Take 1 capsule by mouth every afternoon. cholecalciferol, Vitamin D3, (VITAMIN D3) 1,250 mcg (50,000 unit) cap capsule Take 1 capsule by mouth one time a week. dicyclomine (BENTYL) 10 mg capsule Take 10 mg by mouth before meals and at bedtime. lansoprazole (PREVACID) 30 mg capsule Take 30 mg by mouth once daily. scopolamine (TRANSDERM-SCOP) patch 1.5 mg/72 hr (delivers 1 mg over 3 days) Apply 1 Patch as directed every 72 hours. No current facility-administered medications on file prior to visit. Social History Social History Tobacco Use Smoking status: Former Current packs/day: 0.00 Average packs/day: 0.5 packs/day for 18.0 years (9.0 ttl pk-yrs) Types: Cigarettes Start date: 05/30/2005 Quit date: 05/30/2023 Years since quittin.8 Smokeless tobacco: Never Substance Use Topics Alcohol use: No Drug use: No Review of Symptoms REVIEW OF SYSTEMS See HPI, otherwise negative EXAM: BP 122/76 (BP Site: Left Arm, BP Position: Sitting, BP Cuff Size: Regular Adult) Pulse 83 Resp 16 Wt 63.2 kg (139 lb 5.3 oz) LMP 10/13/2023 (Approximate) SpO2 99% BMI 19.99 kg/m? General Appearance: ill-appearing, alert, in no acute distress, well-hydrated, well nourished.. Head: Normocephalic, no masses, lesions, tenderness or abnormalities. Eyes: Anicteric sclera. Pupils are equally round and reactive to light. Extraocular movements are intact. . Ears: External ears normal, canals clear. Nose/Sinuses: Nares normal, septum midline, mucosa normal, no drainage or sinus tenderness. Oropharynx: Lips, mucosa, and tongue normal, teeth and gums normal, oropharynx normal. (more content not included)... Normal [facility] Centromere Ab IF Ql (S)on Centromere Ab Qn (S) <0.2 Normal <1.0 [facility] Comment on above: Order Comment: Speci men Type: BLOOD SPECIMENOrdering Facility: [facility] Address: [address] [place] [address] Result Comment: Anti -centromere antibody is used as in aid in diagnosis of systemic sclerosis. Clinical correlation is required. Test Methodology: Multiplex flow immunoassay. Performed By: #### 1 6570-4, 18796-4, 46685-7, 93552-2, 46961-0, 03834-7 ####[facility] LABCLIA [id number] [place] [id number] [place] CENTROMERE AB QUAL Negative Normal Negative [facility] Comment on above: Order Comment: Speci men Type: BLOOD SPECIMENOrdering Facility: [facility] Address: [address] [place] [address] Performed By: #### 1 6570-4, 21433-8, 56171-6, 47123-1, 92563-7, 80804-5 ####[facility] LABCLIA [id number] [place] [address] [place] Chromatin Ab Qnon 03-17-2024 CHROMATIN AB QUAL Negative Normal Negative [facility] Comment on above: Order Comment: Speci men Type: BLOOD SPECIMENOrdering Facility: [facility] Address: [address] [place] [address] Performed By: #### 2 9374-6, 84246-5, 13845-8 ####[facility] LABIA [id number] [place] [address] [place] Chromatin Ab SerPl-aCncon Chromatin Ab Qn <0.2 Normal <1.0 [facility] Comment on above: Order Comment: Speci men Type: BLOOD SPECIMENOrdering Facility: [facility] Address: [address] [place] [address] Result Comment: Test Methodology: Multiplex flow immunoassay. Performed By: #### 2 9374-6, 65155-4, 14414-9 ####[facility] LABCLIA [id number] [place] [address] [place] Comprehensive metabolic 2000 panelon 03-17-2024 Albumin [Mass/Vol] 4.6 g/dL 3.9 - 4.9 g/dL [facility] ALP [Catalytic activity/Vol] 69 U/L 34 - 123 U/L [facility] ALT [Catalytic activity/Vol] 8 U/L 7 - 38 U/L [facility] Anion gap [Moles/Vol] 11 mmol/L 8 - 15 mmol/L [facility] AST [Catalytic activity/Vol] 13 U/L 13 - 35 U/L [facility] Bilirubin [Mass/Vol] 0.5 mg/dL 0.2 - 1 .3 mg/dL [facility] Calcium [Mass/Vol] 9.4 mg/dL 8.5 - 10. 2 mg/dL [facility] Chloride [Moles/Vol] 103 mmol/L 98 - 10 7 mmol/L [facility] CO2 [Moles/Vol] 26 mmol/L 22 - 30 mmol/L [facility] Creatinine [Mass/Vol] 0.67 mg/dL 0.58 - 0.96 mg/dL [facility] GFR/1.73 sq M.predicted among non-blacks MDRD (S/P/Bld) [Vol rate/Area] 116 mL/min/{1.73_m2} - PINF [facility] Comment on above: Estimated Glomerular Filtration Rate (eGFR) is calculated using the 2020 CKD-EPI creatinine equation. This equation utilizes serum creatinine, sex, and age as parameters. The creatinine assay has traceable calibration to isotope dilution-mass spectrometry. Refer to KDIGO guidelines for clinical interpretation. In patients with unstable renal function, e.g. those with acute kidney injury, the eGFR may not accurately reflect actual GFR. Glucose [Mass/Vol] 99 mg/dL 74 - 99 mg/dL [facility] Comment on above: The [place] Diabete s Association (ADA) provides guidance for cutoff values for fasting glucose and random glucose. The ADA defines fasting as no caloric intake for at least 8 hours. Fasting plasma glucose results between 100 to 125 mg/dL indicate increased risk for diabetes (prediabetes). Fasting plasma glucose results greater than or equal to 126 mg/dL meet the criteria for diagnosis of diabetes. In the absence of unequivocal hyperglycemia, results should be confirmed by repeat testing. In a patient with classic symptoms of hyperglycemia or hyperglycemic crisis, random plasma glucose results greater than or equal to 200 mg/dL meet the criteria for diagnosis of diabetes. Reference: Standards of Medical Care in Diabetes 2016, [place] Diabetes Association. Diabetes Care. 2016.39(Suppl 1). Interpretation and review of laboratory results Normal [facility] Potassium [Moles/Vol] 4.1 mmol/L 3.7 - 5.1 mmol/L [facility] Protein [Mass/Vol] 6.9 g/dL 6.3 - 8.0 g/dL [facility] Sodium [Moles/Vol] 140 mmol/L 136 - 144 mmol/L [facility] Urea nitrogen [Mass/Vol] 7 mg/dL 7 - 21 mg/dL [facility] Albumin [Mass/Vol] 4.6 g/dL Normal 3.9-4.9 [facility] Comment on above: Order Comment: Speci men Type: BLOOD SPECIMENOrdering Facility: [facility] Address: [address] [place] [address] Performed By: #### 3 024-7, 3053-6, 301-3, 82213-4 ####[facility] LABCLIA [id number] [place] [address] [place] ALP [Catalytic activity/Vol] 69 U/L Normal 34-123 [facility] Comment on above: Order Comment: Speci men Type: BLOOD SPECIMENOrdering Facility: [facility] Address: [address] [place] [address] Performed By: #### 3 024-7, 3053-6, 301-3, 09636-4 ####[facility] LABCLIA [id number] [place] [address] [place] ALT [Catalytic activity/Vol] 8 U/L Normal 7-38 [facility] Comment on above: Order Comment: Speci men Type: BLOOD SPECIMENOrdering Facility: [facility] Address: [address] [place] [address] Performed By: #### 3 024-7, 3053-6, 301-3, 72448-8 ####[facility] LABCLIA [id number] [address] [address] [place] Anion gap [Moles/Vol] 11 mmol/L Normal 8-15 [facility] Comment on above: Order Comment: Speci men Type: BLOOD SPECIMENOrdering Facility: [facility] Address: [address] [place] [address] Performed By: #### 3 024-7, 3053-6, 3016-3, 19076-5 ####[facility] LABCLIA [id number] [place] [id number] [place] AST [Catalytic activity/Vol] 13 U/L Normal 13-35 [facility] Comment on above: Order Comment: Speci men Type: BLOOD SPECIMENOrdering Facility: [facility] Address: [address] [place] [address] Performed By: #### 3 024-7, 3053-6, 3016-3, 06826-9 ####[facility] LABCLIA [id number] [place] [address] [place] Bilirubin [Mass/Vol] 0.5 mg/dL Normal 0.2-1.3 [facility] Comment on above: Order Comment: Speci men Type: BLOOD SPECIMENOrdering Facility: [facility] Address: [address] [place] [address] Performed By: #### 3 024-7, 3053-6, 3016-3, 58349-3 ####[facility] LABCLIA [id number] [place] [address] [place] Calcium [Mass/Vol] 9.4 mg/dL Normal 8.5-10.2 [facility] Comment on above: Order Comment: Speci men Type: BLOOD SPECIMENOrdering Facility: [facility] Address: [address] [place] [address] Performed By: #### 3 024-7, 3053-6, 3016-3, 11519-1 ####[facility] LABCLIA [id number] [place] [id number] [place] Chloride [Moles/Vol] 103 mmol/L Normal 98-107 [facility] Comment on above: Order Comment: Speci men Type: BLOOD SPECIMENOrdering Facility: [facility] Address: [address] [place] [address] Performed By: #### 3 024-7, 3053-6, 3016-3, 12918-2 ####[facility] LABCLIA [id number] [place] [address] [place] CO2 [Moles/Vol] 26 mmol/L Normal 22-30 [facility] Comment on above: Order Comment: Speci men Type: BLOOD SPECIMENOrdering Facility: [facility] Address: [address] [place] [address] Performed By: #### 3 024-7, 3053-6, 6-3, 95602-2 ####[facility] LABCLIA [id number] [place] [id number] [place] Creatinine [Mass/Vol] 0.67 mg/dL Normal 0.58-0.96 [facility] Comment on above: Order Comment: Speci men Type: BLOOD SPECIMENOrdering Facility: [facility] Address: [address] [place] [address] Performed By: #### 3 024-7, 3053-6, 3015-08, 72800-4 ####[facility] LABIA [id number] [place] [address] [place] Creatinine and Glomerular filtration rate.predicted panel (S/P/Bld) 116 mL/min/1.73m??? Normal >=60 [facility] Comment on above: Order Comment: Speci men Type: BLOOD SPECIMENOrdering Facility: [facility] Address: [address] [place] [address] Result Comment: Francine mated Glomerular Filtration Rate (eGFR) is calculated using the 2020 CKD-EPI creatinine equation. This equation utilizes serum creatinine, sex, and age as parameters. The creatinine assay has traceable calibration to isotope dilution-mass spectrometry. Refer to KDIGO guidelines for clinical interpretation. In patients with unstable renal function, e.g. those with acute kidney injury, the eGFR may not accurately reflect actual GFR. Performed By: #### 3 024-7, 3053-6, 3016-3, 57701-0 ####[facility] LABCLIA [id number] [address] [address] [place] Glucose [Mass/Vol] 99 mg/dL Normal 74-99 [facility] Comment on above: Order Comment: Speci men Type: BLOOD SPECIMENOrdering Facility: [facility] Address: [address] [place] [address] Result Comment: The [place] Diabetes Association (ADA) provides guidance for cutoff values for fasting glucose and random glucose. The ADA defines fasting as no caloric intake for at least 8 hours. Fasting plasma glucose results between 100 to 125 mg/dL indicate increased risk for diabetes (prediabetes). Fasting plasma glucose results greater than or equal to 126 mg/dL meet the criteria for diagnosis of diabetes. In the absence of unequivocal hyperglycemia, results should be confirmed by repeat testing. In a patient with classic symptoms of hyperglycemia or hyperglycemic crisis, random plasma glucose results greater than or equal to 200 mg/dL meet the criteria for diagnosis of diabetes. Reference: Standards of Medical Care in Diabetes 2016, [place] Diabetes Association. Diabetes Care. 2016.39(Suppl 1). Performed By: #### 3 024-7, 3053-6, 3016-3, 83181-6 ####[facility] LABCLIA [id number] [place] [address] [place] Potassium [Moles/Vol] 4.1 mmol/L Normal 3.7-5.1 [facility] Comment on above: Order Comment: Eriki men Type: BLOOD SPECIMENOrdering Facility: [facility] Address: [address] [place] [address] Performed By: #### 3 024-7, 3053-6, 3016-3, 89911-5 ####[facility] LABCLIA [id number] [place] [id number] [place] Protein [Mass/Vol] 6.9 g/dL Normal 6.3-8.0 [facility] Comment on above: Order Comment: Speci men Type: BLOOD SPECIMENOrdering Facility: [facility] Address: [address] [place] [address] Performed By: #### 3 024-7, 3053-6, 3016-3, 06967-5 ####[facility] LABCLIA [id number] [place] [address] [place] Sodium [Moles/Vol] 140 mmol/L Normal 136-144 [facility] Comment on above: Order Comment: Speci men Type: BLOOD SPECIMENOrdering Facility: [facility] Address: [address] [place] [address] Performed By: #### 3 024-7, 3053-6, 3016-3, 50564-4 ####[facility] [id number] [place] [address] [place] Urea nitrogen [Mass/Vol] 7 mg/dL Normal 7-21 [facility] Comment on above: Order Comment: Speci men Type: BLOOD SPECIMENOrdering Facility: [facility] Address: [address] [place] [address] Performed By: #### 3 024-7, 3053-6, 3016-3, 28645-1 ####[facility] [id number] [place] [address] [place] Cyclic citrullinated peptide IgG Qnon 03-17-2024 CCP ANTIBODY IGG QUALITATIVE Negative Normal Negative [facility] Comment on above: Order Comment: Speci men Type: BLOOD SPECIMENOrdering Facility: [facility] Address: [address] [place] [address] Performed By: #### 3 3935-8 ####[facility] [id number] [place] [address] [place] HERLINDA Jo1 Ab Ser-aCncon 2023 Sommer-1 extractable nuclear Ab Qn (S) <0.2 Normal <1.0 [facility] Comment on above: Order Comment: Speci men Type: BLOOD SPECIMENOrdering Facility: [facility] Address: [address] [place] [address] Performed By: #### 1 6570-4, 59486-6, 98291-4, 17374-9, 14450-0, 99333-3 ####[facility] LABCLIA [id number] [place] [address] [place] HERLINDA STEEP TENDER Ab Ser-aCncon 2023 Ribonucleoprotein extractable nuclear Ab Qn (S) <0.2 Normal <1.0 [facility] Comment on above: Order Comment: Speci men Type: BLOOD SPECIMENOrdering Facility: [facility] Address: [address] [place] [address] Performed By: #### 2 9374-6, 25048-1, 57850-0 ####[facility] LABIA [id number] [place] [address] [place] HERLINDA SM IgG Ser-aCncon 2023 Mcginnis extractable nuclear IgG Qn (S) <0.2 Normal <1.0 [facility] Comment on above: Order Comment: Speci men Type: BLOOD SPECIMENOrdering Facility: [facility] Address: [address] [place] [address] Performed By: #### 1 6570-4, 59927-8, 12637-0, 85744-1, 93646-5, 00308-0 ####[facility] LABIA [id number] [place] [address] [place] HERLINDA SS-A Ab Ser-aCncon 03-17 Sjogrens syndrome-A extractable nuclear Ab Qn (S) <0.2 Normal <1.0 [facility] Comment on above: Order Comment: Speci men Type: BLOOD SPECIMENOrdering Facility: [facility] Address: [address] [place] [address] Result Comment: Test Methodology: Multiplex flow immunoassay. Performed By: #### 2 9374-6, 41786-4, 90362-8 ####[facility] LABIA [id number] [place] [address] [place] HERLINDA SS-B Ab Ser-aCncon 03-17 Sjogrens syndrome-B extractable nuclear Ab Qn (S) <0.2 Normal <1.0 [facility] Comment on above: Order Comment: Annika cao Type: BLOOD SPECIMENOrdering Facility: [facility] Address: [address] [place] [address] Result Comment: Anti -SSB (anti-La) antibody is used as an aid in diagnosis of a variety of systemic autoimmune diseases, especially for Sjogren's syndrome and systemic lupus erythematosus. Clinical correlation is required. Test Methodology: Multiplex flow immunoassay. Performed By: #### 1 6570-4, 33435-1, 03803-9, 48686-5, 68032-0, 01844-4 ####[facility] [id number] [place] [address] [place] Sommer-1 extractable nuclear Ab Qn (S)on 03-17-2024 SOMMER 1 ANTIBODY QUAL Negative Normal Negative [facility] Comment on above: Order Comment: Annika cao Type: BLOOD SPECIMENOrdering Facility: [facility] Address: [address] [place] [address] Result Comment: Anti -SOMMER-1 antibody is used as an aid in diagnosis of polymyositis and dermatomyositis especially with pulmonary involvement. A negative result cannot rule out polymyositis or dermatomyositis. Clinical correlation is required. Test Methodology: Multiplex flow immunoassay. Performed By: #### 1 6570-4, 89652-4, 97502-2, 94813-5, 83263-0, 50134-4 ####[facility] LABIA [id number] [place] [id number] [place] No Panel Informationon 03-17 Interpretation and review of laboratory results Normal [facility] Nuclear Ab IA Ql (S)on 03-17 PRECIOUS SCR QUAL Positive Abnormal Negative [facility] Comment on above: Order Comment: Annika cao Type: BLOOD SPECIMENOrdering Facility: [facility] Address: [address] [place] [address] Result Comment: The qualitative antinuclear antibody screen test performed using the following antigens: dsDNA, Chromatin, Ribosomal P, SS-A 60, SS-A 52, SS-B, Sm, SmRNP, STEEP TENDER A, STEEP TENDER 68, Scl-70, Sommer-1, and Centromere B. Methodology: Multiplex flow immunoassay. Performed By: #### 1 6570-4, 76080-4, 16436-2, 48563-0, 07355-7, 04761-9 ####[facility] LABCLIA [id number] [place] [address] [place] RHEUMATOID FACTORon 03-17-20 24 Rheumatoid factor Qn NINF [facility] Rheumatoid fact SerPl-aCncon 03-17-2024 Rheumatoid factor Qn [IU]/mL Normal <16 [facility] Comment on above: Order Comment: Annika cao Type: BLOOD SPECIMENOrdering Facility: [facility] Address: [address] [place] [address] Performed By: #### 1 1572-5 ####[facility] LABIA [id number] [place] [address] [place] Rheumatoid factor Qnon 03-17 Interpretation and review of laboratory results Normal [facility] Ribonucleoprotein extractabl e nuclear Ab Qn (S)on 03-17-2024 ANTI-STEEP TENDER QUAL Negative Normal Negative [facility] Comment on above: Order Comment: Annika cao Type: BLOOD SPECIMENOrdering Facility: [facility] Address: [address] [place] [address] Performed By: #### 2 9374-6, 51131-4, 89282-1 ####[facility] LABIA [id number] [place] [address] [place] RIBOSOMAL STEEP TENDER QUAL Negative Normal Negative [facility] Comment on above: Order Comment: Annika cao Type: BLOOD SPECIMENOrdering Facility: [facility] Address: [address] [place] [address] Result Comment: Anti -Ribosomal RNA (Ribosomal P) antibody is used as an aid in diagnosis of systemic autoimmune diseases especially systemic lupus erythematosus and mixed connective tissue disease. Cross-reactivity with Anti-mcginnis antibody is not uncommon. Clinical correlation is required. Test Methodology: Multiplex flow immunoassay. Performed By: #### 2 9374-6, 64306-7, 94482-9 ####[facility] [id number] [place] [address] [place] SCL-70 extractable nuclear I gG IA Qn (S)on 03-17-2024 SCLERODERMA AB QUAL Negative Normal Negative [facility] Comment on above: Order Comment: Speci men Type: BLOOD SPECIMENOrdering Facility: [facility] Address: [address] [place] [address] Performed By: #### 1 6570-4, 59359-7, 47613-1, 75823-3, 14195-2, 60967-2 ####[facility] [id number] [address] [place] SCLERODERMA IGG AB <0.2 Normal <1.0 [facility] Comment on above: Order Comment: Speci men Type: BLOOD SPECIMENOrdering Facility: [facility] Address: [address] [place] [address] Result Comment: Scl- 70/Scleroderma antibody test is used as an aid in diagnosis of systemic sclerosis especially the diffuse cutaneous form. A negative result cannot rule out systemic sclerosis. The final interpretation should consider clinical picture and other test results such as anti-centromere antibody. Test Methodology: Multiplex flow immunoassay. Performed By: #### 1 6570-4, 14297-7, 56090-9, 15109-7, 59176-5, 56157-5 ####[facility] [id number] [place] [address] [place] Sjogrens syndrome-A extracta ble nuclear Ab Qn (S)on 03-17-2024 SSA ANTIBODY QUAL Negative Normal Negative [facility] Comment on above: Order Comment: Speci men Type: BLOOD SPECIMENOrdering Facility: [facility] Address: [address] [place] [address] Performed By: #### 2 9374-6, 94036-0, 52435-4 ####[facility] LABIA [id number] [place] [id number] [place] Sjogrens syndrome-B extracta ble nuclear Ab Qn (S)on 03-17-2024 SSB ANTIBODY QUAL Negative Normal Negative [facility] Comment on above: Order Comment: Speci men Type: BLOOD SPECIMENOrdering Facility: [facility] Address: [address] [place] [address] Performed By: #### 1 6570-4, 22363-9, 17465-8, 16366-1, 50454-2, 02935-4 ####[facility] [id number] [place] [address] [place] Mcginnis extractable nuclear Ig G Qn (S)on 03-17-2024 SM ANTIBODY QUAL Negative Normal Negative [facility] Comment on above: Order Comment: Speci men Type: BLOOD SPECIMENOrdering Facility: [facility] Address: [address] [place] [address] Result Comment: Anti -Sm (Mcginnis) antibody is used as an aid in diagnosis of systemic lupus erythematosus and its presence is associated with renal disease. A negative result cannot rule out systemic lupus erythematosus. Clinical correlation is required. Test Methodology: Multiplex flow immunoassay. Performed By: #### 1 6570-4, 05935-2, 90137-2, 46377-9, 15186-8, 54331-4 ####[facility] [id number] [place] [address] [place] T3on 03-17-2024 T3 [Mass/Vol] 137 ng/dL 79 - 165 ng/dL [facility] T3 SerPl-mCncon 03-17-2024 T3 [Mass/Vol] 137 ng/dL Normal 79-165 [facility] Comment on above: Order Comment: Speci men Type: BLOOD SPECIMENOrdering Facility: [facility] Address: [address] [place] [address] Performed By: #### 3 024-7, 3053-6, 3016-3, 79910-6 ####[facility] LABCLIA [id number] [address] [address] [place] T4 FREE/FREE THYROXINEon Free T4 [Mass/Vol] 1.4 ng/dL 0.9 - 1.7 ng/dL [facility] T4 Free SerPl-mCncon 024 Free T4 [Mass/Vol] 1.4 ng/dL Normal 0.9-1.7 [facility] Comment on above: Order Comment: Speci men Type: BLOOD SPECIMENOrdering Facility: [facility] Address: [address] [place] [address] Performed By: #### 3 024-7, 3053-6, 3016-3, 47386-3 ####[facility] LABCLIA [id number] [place] [address] [place] THYROGLOBULIN ANTIBODYon Thyroglobulin Ab Qn [IU]/mL Normal <4.0 [facility] Comment on above: Order Comment: Speci men Type: BLOOD SPECIMENOrdering Facility: [facility] Address: [address] [place] [address] Result Comment: The Thyroglobulin Antibody test was performed using the [employer] Unicel DXI paramagnetic particle chemiluminescent immunoassay method. Results obtained with different assay methods or kits cannot be used interchangeably. Performed By: #### T JOEL ####[facility] LABIA [id number] [place] [address] [place] THYROID PEROXIDASE ANTIBODYo n 03-17-2024 Interpretation and review of laboratory results Normal [facility] TPO Ab Qn NINF [facility] Comment on above: Thyroid Peroxidase A ntibody test is used as an aid in diagnosis of autoimmune thyroid disease. Clinical correlation is required. [facility] TPO Ab Qn [IU]/mL Normal <5.6 [facility] Comment on above: Order Comment: Speci men Type: BLOOD SPECIMENOrdering Facility: [facility] Address: [address] [place] [address] Result Comment: Thyr oid Peroxidase Antibody test is used as an aid in diagnosis of autoimmune thyroid disease. Clinical correlation is required. Performed By: #### M ICRO ####[facility] LABCLIA [id number] [place] [address] [place] THYROID STIMULATING HORMONEo n 03-17-2024 TSH Qn 1.050 m[IU]/L [facility] Comment on above: If the patient is pr egnant, TSH reference range varies by gestational period: First Trimester (weeks 9-12): 0.180-2.990 mIU/L Second Trimester: 0.110-3.980 mIU/L Third Trimester: 0.480-4.710 mIU/L Gabriel Xiong et al. A Practical Approach for the Verifications and Determination of Site- and Trimester-Specific Reference Intervals for Thyroid Function tests in . Thyroid, 2019:29:3:412-420. Isaiah Zacarias, et al. 2017 Guidelines of the [place] Thy[employer] for the Diagnosis and Management of Thyroid Disease during and the . Thyroid, 2017:27:3:315-389. TSH SerPl-aCncon 03-17-2024 TSH Qn 1.050 m[IU]/L Normal 0.270-4.200 [facility] Comment on above: Order Comment: Speci men Type: BLOOD SPECIMENOrdering Facility: [facility] Address: [address] [place] [address] Result Comment: If t he patient is , TSH reference range varies by gestational period: First Trimester (weeks 9-12): 0.180-2.990 mIU/L Second Trimester: 0.110-3.980 mIU/L Third Trimester: 0.480-4.710 mIU/L Gabriel Xiong et al. A Practical Approach for the Verifications and Determination of Site- and Trimester-Specific Reference Intervals for Thyroid Function tests in . Thyroid, 2019:29:3:412-420. Isaiah Zacarias et al. 2017 Guidelines of the [place] Thy[employer] Association for the Diagnosis and Management of Thyroid Disease during and the . Thyroid, 2017:27:3:315-389. Performed By: #### 3 024-7, 3053-6, 3016-3, 22174-0 ####[facility] LABCLIA [id number] [place] [address] [place] cCP IgG SerPl-aCncon 03-17- 024 Cyclic citrullinated peptide IgG Qn <15 Normal <20 [facility] Comment on above: Order Comment: Speci men Type: BLOOD SPECIMENOrdering Facility: [facility] Address: [address] [place] [address] Performed By: #### 3 3935-8 ####[facility] LABCLIA [id number] [address] [place] [facility] CNPN Telephone (HERIBERTO) MAYURI CREWS ([id number]) 1985 F Date Time Provider Department 02/17/24 LOGAN RUIZ During your visit today, we recorded the following information about you: Logan Ruiz APRN.MONITOR TECH 02/17/2024 8:34 AM Signed Please let patient know her viral testing and monotest are normal. Her blood work is also normal. Heather Lora MA 02/17/2024 9:41 AM Signed Left message for patient to return call to office SEUN Rose M Robin, MARTINE 02/17/2024 11:26 AM Signed Pt returned call and given provider's message below with verbalized understanding. Allergies As of Date: 02/17/2024 Noted Allergy Reaction AMITRIPTYLINE 10/20/2023 8 - GI Upset Comments: GI upset and eye problem CATS 01/21/2020 14 - Other: See Comments Comments: Tightness in throat, sinus congestion, swollen eyes MORPHINE 09/18/2020 8 - GI Upset 9 - Itching VICODIN (HYDROCODONE-ACETAMIN OPHE*09/18/2020 8 - GI Upset Date Reviewed: 02/16/2024 Reviewed by: Heather Lora MA - Fully Assessed Reason for Visit: Results [95] Prescriptions as of 02/17/2024 - amoxicillin-clavulana te potassium (AUGMENTIN) 875-125 mg per tablet Take 1 tablet by mouth two times a day for 5 days. - albuterol HFA (PROVENTIL HFA, VENTOLIN HFA) 90 mcg/actuation inhaler Inhale 1 Puff as instructed every 4 hours as needed for wheezing/shortness of breath. - fluticasone (FLOVENT) 110 mcg/actuation inhaler Inhale 1 Puff as instructed two times a day. Shake well before use. Rinse mouth after use. - PARoxetine (PAXIL) 20 mg tablet Take 1 tablet by mouth once daily. - omeprazole (PRILOSEC) 20 mg capsule Take 1 capsule by mouth every afternoon. - SUMAtriptan (IMITREX) 100 mg tablet Take 1 tablet at the onset of headache. May repeat dose in 2 hours if needed. Do not exceed 2 tablets in 24 hour period. - cholecalciferol, Vitamin D3, (VITAMIN D3) 1,250 mcg (50,000 unit) cap capsule Take 1 capsule by mouth one time a week. - dicyclomine (BENTYL) 10 mg capsule Take 10 mg by mouth before meals and at bedtime. - lansoprazole (PREVACID) 30 mg capsule Take 30 mg by mouth once daily. - scopolamine (TRANSDERM-SCOP) patch 1.5 mg/72 hr (delivers 1 mg over 3 days) Apply 1 Patch as directed every 72 hours. - propranolol (INDERAL) 40 mg tablet Take 1 tablet by mouth once daily. Problem List As Of Date 02/17/2024 Noted Resolved Hyperemesis gravidarum with metabolic disturban*08/29/2005 11/28/2011 Pelvic pain 07/14/2012 Tobacco abuse [Z72.0] 12/18/2012 Knee pain, bilateral [M25.561, M25.562] 12/18/2012 Family history of breast cancer [Z80.3] 09/30/2014 Neck and shoulder pain [M54.2, M25.519] 06/10/2016 Encounter Status:Closed by Haroldo SHIN on 02/17/24 Normal [facility] CBC W Auto Differential pane l (Bld)on 02-16-2024 Basophils (Bld) [#/Vol] 0.04 10*3/uL Normal <0.11 [facility] Comment on above: Order Comment: Speci men Type: BLOOD SPECIMENOrdering Facility: [facility] Address: [address] [place] [address] Performed By: #### 5 7021-8 ####[facility] LABCLIA [id number] [place] [address] [place] Basophils/100 WBC (Bld) 0.7 % Normal [facility] Comment on above: Order Comment: Speci men Type: BLOOD SPECIMENOrdering Facility: [facility] Address: [address] [place] [address] Performed By: #### 5 7021-8 ####[facility] LABCLIA [id number] [place] [address] [place] Differential cell count method Nom (Bld) Auto Normal [facility] Comment on above: Order Comment: Speci men Type: BLOOD SPECIMENOrdering Facility: [facility] Address: [address] [place] [address] Performed By: #### 5 7021-8 ####[facility] LABCLIA [id number] [place] [address] [place] Eosinophils (Bld) [#/Vol] 0.08 10*3/uL Normal <0.46 [facility] Comment on above: Order Comment: Speci men Type: BLOOD SPECIMENOrdering Facility: [facility] Address: [address] [place] [address] Performed By: #### 5 7021-8 ####[facility] LABCLIA [id number] [place] [address] [place] Eosinophils/100 WBC (Bld) 1.3 % Normal [facility] Comment on above: Order Comment: Speci men Type: BLOOD SPECIMENOrdering Facility: [facility] Address: [address] [place] [address] Performed By: #### 5 7021-8 ####[facility] LABCLIA [id number] [place] [address] [place] Erythrocyte distribution width (RBC) [Ratio] 12.2 % Normal 11.5-15.0 [facility] Comment on above: Order Comment: Speci men Type: BLOOD SPECIMENOrdering Facility: [facility] Address: [address] [place] [address] Performed By: #### 5 7021-8 ####[facility] LABCLIA [id number] [place] [address] [place] Hematocrit (Bld) [Volume fraction] 44.2 % Normal 36.0-46.0 [facility] Comment on above: Order Comment: Speci men Type: BLOOD SPECIMENOrdering Facility: [facility] Address: [address] [place] [address] Performed By: #### 5 7021-8 ####[facility] LABCLIA [id number] [place] [address] [place] Hemoglobin (Bld) [Mass/Vol] 14.5 g/dL Normal 11.5-15.5 [facility] Comment on above: Order Comment: Speci men Type: BLOOD SPECIMENOrdering Facility: [facility] Address: [address] [place] [address] Performed By: #### 5 7021-8 ####[facility] LABCLIA [id number] [place] [address] [place] Immature granulocytes (Bld) [#/Vol] 10*3/uL Normal <0.10 [facility] Comment on above: Order Comment: Speci men Type: BLOOD SPECIMENOrdering Facility: [facility] Address: [address] [place] [address] Performed By: #### 5 7021-8 ####[facility] LABCLIA [id number] [place] [address] [place] Immature granulocytes/100 WBC (Bld) 0.2 % Normal [facility] Comment on above: Order Comment: Speci men Type: BLOOD SPECIMENOrdering Facility: [facility] Address: [address] [place] [address] Performed By: #### 5 7021-8 ####[facility] LABIA [id number] [place] [address] [place] Lymphocytes (Bld) [#/Vol] 1.51 10*3/uL Normal 1.00-4.00 [facility] Comment on above: Order Comment: Speci men Type: BLOOD SPECIMENOrdering Facility: [facility] Address: [address] [place] [address] Performed By: #### 5 7021-8 ####[facility] LABIA [id number] [place] [address] [place] Lymphocytes/100 WBC (Bld) 25.0 % Normal [facility] Comment on above: Order Comment: Speci men Type: BLOOD SPECIMENOrdering Facility: [facility] Address: [address] [place] [address] Performed By: #### 5 7021-8 ####[facility] [id number] [place] [address] [place] MCH (RBC) [Entitic mass] 31.4 pg Normal 26.0-34.0 [facility] Comment on above: Order Comment: Speci men Type: BLOOD SPECIMENOrdering Facility: [facility] Address: [address] [place] [address] Performed By: #### 5 7021-8 ####[facility] LABIA [id number] [place] [address] [place] MCHC (RBC) [Mass/Vol] 32.8 g/dL Normal 30.5-36.0 [facility] Comment on above: Order Comment: Speci men Type: BLOOD SPECIMENOrdering Facility: [facility] Address: [address] [place] [address] Performed By: #### 5 7021-8 ####[facility] LABIA [id number] [place] [address] [place] MCV (RBC) [Entitic vol] 95.7 fL Normal 80.0-100.0 [facility] Comment on above: Order Comment: Speci men Type: BLOOD SPECIMENOrdering Facility: [facility] Address: [address] [place] [address] Performed By: #### 5 7021-8 ####[facility] LABIA [id number] [place] [address] [place] Monocytes (Bld) [#/Vol] 0.53 10*3/uL Normal <0.87 [facility] Comment on above: Order Comment: Speci men Type: BLOOD SPECIMENOrdering Facility: [facility] Address: [address] [place] [address] Performed By: #### 5 7021-8 ####[facility] LABIA [id number] [place] [address] [place] Monocytes/100 WBC (Bld) 8.8 % Normal [facility] Comment on above: Order Comment: Speci men Type: BLOOD SPECIMENOrdering Facility: [facility] Address: [address] [place] [address] Performed By: #### 5 7021-8 ####[facility] LABIA [id number] [place] [address] [place] Neutrophils (Bld) [#/Vol] 3.88 10*3/uL Normal 1.45-7.50 [facility] Comment on above: Order Comment: Speci men Type: BLOOD SPECIMENOrdering Facility: [facility] Address: [address] [place] [address] Performed By: #### 5 7021-8 ####[facility] LABCLIA [id number] [place] [address] [place] Neutrophils/100 WBC (Bld) 64.0 % Normal [facility] Comment on above: Order Comment: Speci men Type: BLOOD SPECIMENOrdering Facility: [facility] Address: [address] [place] [address] Performed By: #### 5 7021-8 ####[facility] LABCLIA [id number] [place] [address] [place] Nucleated RBC (Bld) [#/Vol] 10*3/uL Normal <0.01 [facility] Comment on above: Order Comment: Speci men Type: BLOOD SPECIMENOrdering Facility: [facility] Address: [address] [place] [address] Performed By: #### 5 7021-8 ####[facility] LABCLIA [id number] [place] [address] [place] Nucleated RBC/100 WBC (Bld) [Ratio] 0.0 /100 WBC Normal [facility] Comment on above: Order Comment: Speci men Type: BLOOD SPECIMENOrdering Facility: [facility] Address: [address] [place] [address] Performed By: #### 5 7021-8 ####[facility] LABCLIA [id number] [place] [address] [place] Platelet mean volume (Bld) [Entitic vol] 10.9 fL Normal 9.0-12.7 [facility] Comment on above: Order Comment: Speci men Type: BLOOD SPECIMENOrdering Facility: [facility] Address: [address] [place] [address] Performed By: #### 5 7021-8 ####[facility] LABCLIA [id number] [place] [address] [place] Platelets (Bld) [#/Vol] 227 10*3/uL Normal 150-400 [facility] Comment on above: Order Comment: Speci men Type: BLOOD SPECIMENOrdering Facility: [facility] Address: [address] [place] [address] Performed By: #### 5 7021-8 ####[facility] LABCLIA [id number] [place] [address] [place] RBC (Bld) [#/Vol] 4.62 10*6/uL Normal 3.90-5.20 [facility] Comment on above: Order Comment: Speci men Type: BLOOD SPECIMENOrdering Facility: [facility] Address: [address] [place] [address] Performed By: #### 5 7021-8 ####[facility] LABCLIA [id number] [place] [address] [place] WBC (Bld) [#/Vol] 6.05 10*3/uL Normal 3.70-11.00 [facility] Comment on above: Order Comment: Speci men Type: BLOOD SPECIMENOrdering Facility: [facility] Address: [address] [place] [address] Performed By: #### 5 7021-8 ####[facility] LABCLIA [id number] [place] [address] [place] CNOVon 02-16-2024 CNOV Office Visit ([facility] ) MAYURI CREWS ([id number]) 1985 F Date Time Provider Department 02/16/24 11:20 AM LOGAN RUIZ During your visit today, we recorded the following information about you: Temperature Pulse Respiration Blood pressure 98.7 degrees 81/minute 14/minute 107/73 Weight 62.1 kg Logan Ruiz, [employer]ATION HELPER.MONITOR TECH 02/16/2024 11:58 AM Signed Chief Complaint Patient presents with: Sore Throat Sinus Problem Head Congestion Cough HPI Mayuri Crews is a 38 year old female who presents here today for Above Complaints.. Patient presents for sore throat, cough, head congestion, and sinus congestion for 3 weeks. Patient has lupus but has not started immunosuppressives at this time. Patient reports symptoms are constant but rotate which ones are worst from day to day. Reports aching pain in shoulders, fatigue. Denies fever, worsening SOB, chest pain, n/v/d/constipation. Past medical history, appointments, medications, allergies reviewed. Previous Medical History PAST MEDICAL HISTORY 06/2020: Cervical dysplasia No date: Irregular heart beat No date: Migraine headache No date: Pelvic pain in female Comment: ovarian cysts, [facility] 2012: SVT (supraventricular tachycardia) ([facility]) Comment: saw Dr. Coburn at the time No date: Tobacco abuse Previous Surgical History PAST SURGICAL HISTORY 09/28/2020: COLONOSCOPY W/BIOPSY SINGLE/MULTIPLE No date: NONE 06/2020: UTERINE CERVIX-EXCISION (CONE/LEEP) SYNOPTIC RPT Family History FAMILY HISTORY Problem Relation Age of Onset Thyroid Mother 40 cancer Hypertension Maternal Grandmother Heart Maternal Grandmother MD Arthritis Maternal Grandfather Hypertension Maternal Grandfather Arthritis Paternal Grandmother Colon Cancer Maternal Uncle Patient Allergies ALLERGIES Allergen Reactions Amitriptyline GI Upset GI upset and eye problem Cats Other: See Comments Tightness in throat, sinus congestion, swollen eyes Morphine GI Upset, Itching Vicodin [Hydrocodon* GI Upset Current Medications Current Outpatient Medications on File Prior to Visit Medication Sig albuterol HFA (PROVENTIL HFA, VENTOLIN HFA) 90 mcg/actuation inhaler Inhale 1 Puff as instructed every 4 hours as needed for wheezing/shortness of breath. fluticasone (FLOVENT) 110 mcg/actuation inhaler Inhale 1 Puff as instructed two times a day. Shake well before use. Rinse mouth after use. PARoxetine (PAXIL) 20 mg tablet Take 1 tablet by mouth once daily. omeprazole (PRILOSEC) 20 mg capsule Take 1 capsule by mouth every afternoon. SUMAtriptan (IMITREX) 100 mg tablet Take 1 tablet at the onset of headache. May repeat dose in 2 hours if needed. Do not exceed 2 tablets in 24 hour period. cholecalciferol, Vitamin D3, (VITAMIN D3) 1,250 mcg (50,000 unit) cap capsule Take 1 capsule by mouth one time a week. dicyclomine (BENTYL) 10 mg capsule Take 10 mg by mouth before meals and at bedtime. lansoprazole (PREVACID) 30 mg capsule Take 30 mg by mouth once daily. scopolamine (TRANSDERM-SCOP) patch 1.5 mg/72 hr (delivers 1 mg over 3 days) Apply 1 Patch as directed every 72 hours. propranolol (INDERAL) 40 mg tablet Take 1 tablet by mouth once daily. No current facility-administered medications on file prior to visit. Social History Social History Tobacco Use Smoking status: Former Current packs/day: 0.00 Average packs/day: 0.5 packs/day for 18.0 years (9.0 ttl pk-yrs) Types: Cigarettes Start date: 05/30/2005 Quit date: 05/30/2023 Years since quittin.7 Smokeless tobacco: Never Substance Use Topics Alcohol use: No Drug use: No Review of Symptoms REVIEW OF SYSTEMS SEE HPI EXAM: BP 107/73 Pulse 81 Temp 37.1 ?C (98.7 ?F) Resp 14 Wt 62.1 kg (137 lb) LMP 10/13/2023 (Approximate) SpO2 96% BMI 19.66 kg/m? General Appearance: Well appearing, alert, in no acute distress, well-hydrated, well nourished.. Oropharynx: Lips, mucosa, and tongue normal, teeth and gums normal, oropharynx normal. Neck: Supple, no adenopathy; thyroid symmetric, normal size, no bruits. Lungs: Lungs clear to auscultation. No wheezing, rhonchi, rales.. Heart: RRR without murmur, gallop, or rubs. No ectopy. Abdomen: Positive findings: tenderness mild generalized. Health Maintenance List Depression Screening Never done Anxiety Screening Never done Hepatitis B Vaccine(1 of 3 - 19+ 3-dose series) Never done Cervical Cancer Screening due on 10/01/2015 Covid-19 Vaccine( - 2022- season) due on 10/12/2024 Influenza Vaccine(1) due on 02/29/2024 DTaP,Tdap,Td Vaccine(2 - Td or Tdap) due on 02/07/2033 Hepatitis C Screening Completed HIV Screening Completed HPV Vaccine Aged Out ASSESSMENT/PLAN: 1. Viral URI - ICD9: 465.9, ICD10: J06.9 (primary diagnosis) - Discussed viral etiology and rationale for treatment. - Symptomatic treatment with prn analgesia (more content not included)... Normal [facility] COVID AND INFLUENZA A/B AND RSV NAAT, ROUTINEon 02-16-2024 SARS-CoV-2 (COVID-19) RNA BLUE+probe Ql (Unsp spec) COVID 19 RESULT: Not detected The method used is RT-PCR or an equivalent NAAT method. Reference Range (the expected result in uninfected individuals): Not detected INFLUENZA A PCR: Not detected INFLUENZA B PCR: Not detected RSV PCR: Not detected Normal [facility] Comment on above: Performed By: #### C VFLRS ####[facility] LABCLIA [id number] [place] [address] [place] Heteroph Ab Ser Ql LAon 01-28 Heterophile Ab LA Ql (S) Negative Normal Negative [facility] Comment on above: Order Comment: Speci men Type: BLOOD SPECIMENOrdering Facility: [facility] Address: [address] [place] [address] Result Comment: Infe ctious Mononucleosis rapid test is used as an aid in diagnosis of acute infection with Erasmo-De Leon virus (EBV). The antibody levels may occasionally remain elevated up to several months after a primary EBV infection. Final interpretation should be done in conjunction with EBV-specific serology and clinical correlation. False positive results may occasionally be seen with other infectious agents such as Cytomegalovirus, Toxoplasma, and HIV among others as well as non-infectious conditions such as lymphoma. Clinical correlation is required. Performed By: #### 5 213-4 ####[facility] LABCLIA [id number] [place] [address] [place] STREP A MOLECULAR (POC)on Procedural Control Valid [facility] Strep A (POCT) Negative Negative [facility] CNOVon 01-13-2024 CNOV Office Visit ([facility] ) MAYURI CREWS ([id number]) 1985 F Date Time Provider Department 01/13/24 1:00 PM SHANELLE ARNETT [facility] During your visit today, we recorded the following information about you: Pulse Blood pressure Weight 86/minute 121/88 60 kg Shanelle Arnett MD 01/13/2024 1:36 PM [facility] OFFICE VISIT CONSULT 01/13/2024 Patient Name: Mayuri Crews PRIMARY CARE PHYSICIAN: Tee Vogel DO REASON FOR CONSULT: lung nodule, abnormal PFTs/air trapping, PND, SLE, ex smoker, SVT REFERRING PHYSICIAN: Cailin Morillo APRN.MONITOR TECH My final recommendations will be communicated to the requesting health care provider by way of the shared medical record for internal providers or by letter via US mail for external providers. CHIEF COMPLAINT: Air trapping, HISTORY OF PRESENT ILLNESS: Mayuri Crews is a 38 year old female, BMI 18.98 kg/m2 with a PMH significant for ex smoking, getting evaluated for SLE, here for abnormal PFTs and lung nodule. Patient feels SOB on exertion since May. She was diagnosed with SLE in June No cough but has post nasal drip and throat clearing Episodes of wheezing Mother accompanying her- has COPD No h/o asthma Sometimes feels dizzy because of her breathing Ex smoker- smoked since age 20- quit in May 2023 No vaping No pets Allergic to cats Not surrently working- no occupational exposure Described epigastric pain- not relieved by PPI- wondering if it is caused by her lungs The symptoms are mild, intermittent, occur at rest and on exertion CT chest12/2023 4.5 mm nodule in the right lower lobe. Spirometry no airflow obstruction Air trapping MMRC Dyspnea Scale: 0. Not troubled by breathlessness except on strenuous exercise Short of breath when hurrying or walking up a slight hill Walks slower than contemporaries on the level because of breathlessness, or has to stop for breath when walking at own pace Stops for breath after about 100 m or after a few minutes on the level Too breathless to leave the house, or breathless when dressing or undressing Environmental/ Occupational Exposure History: Pets: No birds Asbestos: No significant exposure Silica: No significant exposure Curry: No significant exposure Mold: No significant exposure Hot tub: No significant exposure Fumes: No significant exposure Metal dust: No significant exposure Beryllium: No significant exposure Dust: No significant exposure Medications: No relevant exposure for interstitial lung diseases PAST MEDICAL HISTORY Diagnosis Date Cervical dysplasia 06/2020 Irregular heart beat Migraine headache Pelvic pain in female ovarian cysts, [facility] SVT (supraventricular tachycardia) ([facility]) [address] Coburn at the time Tobacco abuse PAST SURGICAL HISTORY Procedure Laterality Date COLONOSCOPY W/BIOPSY SINGLE/MULTIPLE 09/28/2020 NONE UTERINE CERVIX-EXCISION (CONE/LEEP) SYNOPTIC RPT 06/2020 FAMILY HISTORY Problem Relation Age of Onset Thyroid Mother 40 cancer Hypertension Maternal Grandmother Heart Maternal Grandmother MD Arthritis Maternal Grandfather Hypertension Maternal Grandfather Arthritis Paternal Grandmother Colon Cancer Maternal Uncle no pertinent family history Social History Tobacco Use Smoking status: Former Packs/day: 0.50 Years: 18.00 Additional pack years: 0.00 Total pack years: 9.00 Types: Cigarettes Quit date: 05/30/2023 Years since quittin.6 Smokeless tobacco: Never Substance Use Topics Alcohol use: No Drug use: No ALLERGIES ALLERGIES Allergen Reactions Amitriptyline GI Upset GI upset and eye problem Cats Other: See Comments Tightness in throat, sinus congestion, swollen eyes Morphine GI Upset, Itching Vicodin [Hydrocodon* GI Upset CURRENT OUTPATIENT MEDICATIONS SUMAtriptan (IMITREX) 100 mg tablet Take 1 tablet at the onset of headache. May repeat dose in 2 hours if needed. Do not exceed 2 tablets in 24 hour period. PARoxetine (PAXIL) 20 mg tablet Take 1 tablet by mouth once daily. omeprazole (PRILOSEC) 20 mg capsule Take 1 capsule by mouth every afternoon. cholecalciferol, Vitamin D3, (VITAMIN D3) 1,250 mcg (50,000 unit) cap capsule Take 1 capsule by mouth one time a week. dicyclomine (BENTYL) 10 mg capsule Take 10 mg by mouth before meals and at bedtime. lansoprazole (PREVACID) 30 mg capsule Take 30 mg by mouth once daily. scopolamine (TRANSDERM-SCOP) patch 1.5 mg/72 hr (delivers 1 mg over 3 days) Apply 1 Patch as directed every 72 hours. propranolol (INDERAL) 40 mg tablet Take 1 tablet by mouth once daily. REVIEW OF SYSTEMS Review of Systems Constitutional: Negative for chills, fever and weight loss. Respiratory: Positive for shortness of breath and wheezing. Negative for cough, hemoptysis and sputum produ (more content not included)... [facility] MAYURI CREWS ([id number]) 1985 F Date Time Provider Department 01/07/24 CAILIN MORILLO [facility] During your visit today, we recorded the following information about you: Viji Dai LPN 01/07/2024 9:35 AM Signed Pt received a [employer] message regarding the CT scan she had yesterday. The message said unexpected results were found. Pt asking for results. MANSOOR Chauhan Rebekah, APRN.CNP 01/07/2024 10:[address] overall looked good. There was a very small incidental lung nodule on the CT. This is no cause for concern but we can repeat the CT in 12 months just to monitor. Daniel Trujillo APRN.Shannan Gill RN 01/07/2024 11:32 AM Signed Patient returned call and given provider's message below. Patient asking provider why is she having air trapping, SOB and a hard time take a deep breath intermittently? Please advise. Thank you. Daniel Trujillo APRN.CNP 01/07/2024 12:08 PM Signed This can be due to inflammation, occasionally other causes. I'd like her to see pulmonology for further workup if necessary, please assist her to schedule. Daniel Trujillo APRN.Kim Forde LPN 01/07/2024 1:07 PM Signed Phoned patient went over notes below from Lexi Trujillo MACHINE OPERATOR HELPER with understanding. Assisted with transfer to equipment scheduler to get Pulmonary appt set up. Allergies As of Date: 01/07/2024 Noted Allergy Reaction AMITRIPTYLINE 10/20/2023 8 - GI Upset Comments: GI upset and eye problem CATS 01/21/2020 14 - Other: See Comments Comments: Tightness in throat, sinus congestion, swollen eyes MORPHINE 09/18/2020 8 - GI Upset 9 - Itching VICODIN (HYDROCODONE-ACETAMIN OPHE*09/18/2020 8 - GI Upset Date Reviewed: 01/05/2024 Reviewed by: Loraine Gastelum, RT(R) - Fully Assessed Reason for Visit: Results - Ct [3560] Primary Visit Diagnosis:Lung nodules [R91.8] Other Visit Diagnoses:SOB (shortness of breath) [R06.02] Pulmonary air trapping [R09.89] Order(s):CT CHEST WO IVCON [[id number]] Order #: [id number] FUTURE CONSULT TO PULM/CRITICAL CARE [[id number]] Order #: [id number]: 1 FUTURE Prescriptions as of 01/07/2024 - PARoxetine (PAXIL) 20 mg tablet Take 1 tablet by mouth once daily. - omeprazole (PRILOSEC) 20 mg capsule Take 1 capsule by mouth every afternoon. - SUMAtriptan (IMITREX) 100 mg tablet Take 1 tablet at the onset of headache. May repeat dose in 2 hours if needed. Do not exceed 2 tablets in 24 hour period. - cholecalciferol, Vitamin D3, (VITAMIN D3) 1,250 mcg (50,000 unit) cap capsule Take 1 capsule by mouth one time a week. - dicyclomine (BENTYL) 10 mg capsule Take 10 mg by mouth before meals and at bedtime. - lansoprazole (PREVACID) 30 mg capsule Take 30 mg by mouth once daily. - scopolamine (TRANSDERM-SCOP) patch 1.5 mg/72 hr (delivers 1 mg over 3 days) Apply 1 Patch as directed every 72 hours. - propranolol (INDERAL) 40 mg tablet Take 1 tablet by mouth once daily. Problem List As Of Date 01/07/2024 Noted Resolved Hyperemesis gravidarum with metabolic disturban*08/29/2005 11/28/2011 Pelvic pain 07/14/2012 Tobacco abuse [Z72.0] 12/18/2012 Knee pain, bilateral [M25.561, M25.562] 12/18/2012 Family history of breast cancer [Z80.3] 09/30/2014 Neck and shoulder pain [M54.2, M25.519] 06/10/2016 Encounter Status:Closed by KIM PRIEST on 01/07/24 Normal [facility] CT CHEST W IVCONon 4 CT CHEST W IVCON * * *Final Report* * * DATE OF EXAM: Jan 06 2024 11:28AM [facility] 0539 - CT CHEST W IVCON / PROCEDURE REASON: multiple diagnoses * * * * Physician Interpretation * * * * EXAMINATION: CHEST CT WITH CONTRAST CLINICAL HISTORY: SLE. Technique: Spiral CT acquisition of the chest from the thoracic inlet to the upper abdomen following IV contrast. MQ: CTCW_6 Contrast: 50 mL Omnipaque [address] Radiation dose: Integrated Dose-length product (DLP) for this visit = 140 mGy*cm CT Dose Reduction Employed: Automated exposure control(AEC) and iterative recon Comparison: None. RESULT: Limitations: None. Lines, tubes, and devices: None. Lung parenchyma and airways: The central airways are patent. The lungs are clear of consolidations or reticular opacities. No mass lesion identified. There is a 4.5 mm solid nodule in the right lower lobe abutting the pleural surface, series 7 image 123. Mild biapical scarring noted. Pleural space: No pleural effusion. No pleural thickening. Lower neck, lymph nodes, and mediastinum: The imaged thyroid gland is normal. No lymphadenopathy in the supraclavicular, axillary, mediastinal, or hilar regions. Heart, pericardium, and thoracic vessels: The thoracic aorta and main pulmonary artery are normal in caliber. The cardiac chambers are normal in size. No coronary artery atherosclerotic calcifications are noted, although the study is not optimized for coronary assessment. No pericardial effusion or thickening. Bones and soft tissues: No destructive bone lesion. Chest wall soft tissue is unremarkable. Upper abdomen: No abnormality in the imaged upper abdomen. Localizer images: No additional findings. IMPRESSION: No CT evidence of acute abnormality. 4.5 mm nodule in the right lower lobe. Incidental Finding: Follow-up Acuity: Incidental Finding: Solid: <6 mm (solitary or multiple) Routing Code: N/A Recommendation: No imaging follow-up is recommended Time Frame: N/A Comments: If there are risk factors for lung malignancy, a follow-up chest CT exam could be obtained in 12 months --END OF FINDING-- Pump Service Supervisor: [facility] Transcribe Date/Time: Jan 06 2024 3:45P Dictated by : RANDI BROWNLEE MD This examination was interpreted and the report reviewed and electronically signed by: RANDI BROWNLEE MD on Jan 06 2024 3:48PM EST [id number] ACTIONABLE Invalid Interpretation Code [facility] CT Chest W contrast IVOrdere d By: [facility] Provider on 01-06-2024 Interpretation and review of laboratory results Abnormal [facility] Radiology Result ACTIONABLE Abnormal [facility] Comment on above: This report contains an incidental or actionable finding. This finding may be a new finding separate from the reason your provider ordered the imaging test or it may be an already known finding that needs additional or continued follow-up. Because of this incidental or actionable finding, you may need another test (imaging or a different type of test). Please contact your provider for the next steps. [facility] CT Chest W contrast Dao IMPRESSION: No CT evidence of acute abnormality. 4.5 mm nodule in the right lower lobe. Incidental Finding: Follow-up Acuity: Incidental Finding: Solid: <6 mm (solitary or multiple) Routing Code: N/A Recommendation: No imaging follow-up is recommended Time Frame: N/A Comments: If there are risk factors for lung malignancy, a follow-up chest CT exam could be obtained in 12 months --END OF FINDING-- Pump Service Supervisor: [facility] Transcribe Date/Time: Jan 06 2024 3:45P Dictated by : RANDI BROWNLEE MD This examination was interpreted and the report reviewed and electronically signed by: RANDI BROWNLEE MD on Jan 06 2024 3:48PM EST DIVISION OF RADIOLOGY * * *Final Report* * * DATE OF EXAM: Jan 06 2024 11:28AM [facility] 0539 - CT CHEST W IVCON / PROCEDURE REASON: multiple diagnoses * * * * Physician Interpretation * * * * EXAMINATION: CHEST CT WITH CONTRAST CLINICAL HISTORY: SLE. Technique: Spiral CT acquisition of the chest from the thoracic inlet to the upper abdomen following IV contrast. MQ: CTCW_6 Contrast: 50 mL Omnipaque [address] Radiation dose: Integrated Dose-length product (DLP) for this visit = 140 mGy*cm CT Dose Reduction Employed: Automated exposure control(AEC) and iterative recon Comparison: None. RESULT: Limitations: None. Lines, tubes, and devices: None. Lung parenchyma and airways: The central airways are patent. The lungs are clear of consolidations or reticular opacities. No mass lesion identified. There is a 4.5 mm solid nodule in the right lower lobe abutting the pleural surface, series 7 image 123. Mild biapical scarring noted. Pleural space: No pleural effusion. No pleural thickening. Lower neck, lymph nodes, and mediastinum: The imaged thyroid gland is normal. No lymphadenopathy in the supraclavicular, axillary, mediastinal, or hilar regions. Heart, pericardium, and thoracic vessels: The thoracic aorta and main pulmonary artery are normal in caliber. The cardiac chambers are normal in size. No coronary artery atherosclerotic calcifications are noted, although the study is not optimized for coronary assessment. No pericardial effusion or thickening. Bones and soft tissues: No destructive bone lesion. Chest wall soft tissue is unremarkable. Upper abdomen: No abnormality in the imaged upper abdomen. Localizer images: No additional findings. DIVISION OF RADIOLOGY Provider, [facility] - 01/06/2024 * * *Final Report* * * DATE OF EXAM: Jan 06 2024 11:28AM [facility] 0539 - CT CHEST W IVCON / PROCEDURE REASON: multiple diagnoses * * * * Physician Interpretation * * * * EXAMINATION: CHEST CT WITH CONTRAST CLINICAL HISTORY: SLE. Technique: Spiral CT acquisition of the chest from the thoracic inlet to the upper abdomen following IV contrast. MQ: CTCW_6 Contrast: 50 mL Omnipaque [address] Radiation dose: Integrated Dose-length product (DLP) for this visit = 140 mGy*cm CT Dose Reduction Employed: Automated exposure control(AEC) and iterative recon Comparison: None. RESULT: Limitations: None. Lines, tubes, and devices: None. Lung parenchyma and airways: The central airways are patent. The lungs are clear of consolidations or reticular opacities. No mass lesion identified. There is a 4.5 mm solid nodule in the right lower lobe abutting the pleural surface, series 7 image 123. Mild biapical scarring noted. Pleural space: No pleural effusion. No pleural thickening. Lower neck, lymph nodes, and mediastinum: The imaged thyroid gland is normal. No lymphadenopathy in the supraclavicular, axillary, mediastinal, or hilar regions. Heart, pericardium, and thoracic vessels: The thoracic aorta and main pulmonary artery are normal in caliber. The cardiac chambers are normal in size. No coronary artery atherosclerotic calcifications are noted, although the study is not optimized for coronary assessment. No pericardial effusion or thickening. Bones and soft tissues: No destructive bone lesion. Chest wall soft tissue is unremarkable. Upper abdomen: No abnormality in the imaged upper abdomen. Localizer images: No additional findings. IMPRESSION IMPRESSION: No CT evidence of acute abnormality. 4.5 mm nodule in the right lower lobe. Incidental Finding: Follow-up Acuity: Incidental Finding: Solid: <6 mm (solitary or multiple) Routing Code: N/A Recommendation: No imaging follow-up is recommended Time Frame: N/A Comments: If there are risk factors for lung malignancy, a follow-up chest CT exam could be obtained in 12 months --END OF FINDING-- Pump Service Supervisor: MARLENE Transcribe Date/Time: Jan 06 2024 3:45P Dictated by : RANDI BROWNLEE MD This examination was interpreted and the report reviewed and electronically signed by: RANDI BROWNLEE MD on Jan 06 2024 3:48PM EST [facility] Radiology Study observation (narrative) [facility] Ben 12-16-2023 CNPN Telephone (FAMPWS) MAYURI CREWS ([id number]) 1985 F Date Time Provider Department 12/16/23 CAILIN MORILLO During your visit today, we recorded the following information about you: Katiana Lombardo LPN 12/16/2023 11:40 AM Signed Pt calls to report that [facility] is still saying they have not received (TE 12/03) fax regarding CT. Pt was advised to have provider or provider nurse call [phone] and speak directly to [facility] about this. Call pt when this has been done. MANSOOR Sousa Jazzmin, MA 12/17/2023 4:29 PM Signed Abelino from [facility] reports CT that was reordered on 11/19/[address] will need reordered. SEUN Shore Rebekah, APRN.SUMMER 12/16/2023 5:[address] reordered. Daniel Trujillo APRN.Renate Rosales MA 12/17/2023 4:29 PM Signed Left message to return call. Please inform pt CT reordered. Pt needs to check with insurance to confirm nothing else is needed. SEUN Shore Beth, LPN 12/17/2023 4:51 PM Signed Patient returned call and went over notes from Lexi Trujillo MACHINE OPERATOR HELPER with understanding. Shane Rust LPN 12/23/2023 10:24 AM Signed Cuca from [facility] calling regarding CT scan. They are still not able to see order. Faxed order to [facility] [phone]. Also transferred Cuca to pss. She is going to provide a number that they can call to try to get PA and order in the system./ Shane Rust LPN Allergies As of Date: 12/16/2023 Noted Allergy Reaction AMITRIPTYLINE 10/20/2023 8 - GI Upset Comments: GI upset and eye problem CATS 01/21/2020 14 - Other: See Comments Comments: Tightness in throat, sinus congestion, swollen eyes MORPHINE 09/18/2020 8 - GI Upset 9 - Itching VICODIN (HYDROCODONE-ACETAMIN OPHE*09/18/2020 8 - GI Upset Date Reviewed: 12/11/2023 Reviewed by: Cailin Morillo APRN.MONITOR TECH - Fully Assessed Reason for Visit: CT authorization [Other] Primary Visit Diagnosis:Systemic lupus erythematosus, unspecified SLE type, unspecified organ involvement status (HCC) [M32.9] Other Visit Diagnoses:SOB (shortness of breath) [R06.02] Generalized abdominal pain [R10.84] Chest pain, unspecified type [R07.9] Cough, persistent [R05.3] Order(s):CT CHEST W IVCON [[id number]] Order #: [id number] FUTURE [] iv contrast (will be provided with radiology test)CT Chest W -Inject, intravenously, once for 1 dose.No IV access, insert saline lock prior to the beginning of sedation, infusion, injection of imaging exam. Discontinue saline lock post exam. If Pt. has a central line or IVAD, may access for administration according to line specific nursing protocol. Once exam is complete flush line and de-access according to line specific nursing protocol in the CT contrast administration guidelines link.Disp: 1 EachRfl: 0 Prescriptions as of 12/23/2023 - PARoxetine (PAXIL) 20 mg tablet Take 1 tablet by mouth once daily. - omeprazole (PRILOSEC) 20 mg capsule Take 1 capsule by mouth every afternoon. - SUMAtriptan (IMITREX) 100 mg tablet Take 1 tablet at the onset of headache. May repeat dose in 2 hours if needed. Do not exceed 2 tablets in 24 hour period. - cholecalciferol, Vitamin D3, (VITAMIN D3) 1,250 mcg (50,000 unit) cap capsule Take 1 capsule by mouth one time a week. - dicyclomine (BENTYL) 10 mg capsule Take 10 mg by mouth before meals and at bedtime. - lansoprazole (PREVACID) 30 mg capsule Take 30 mg by mouth once daily. - scopolamine (TRANSDERM-SCOP) patch 1.5 mg/72 hr (delivers 1 mg over 3 days) Apply 1 Patch as directed every 72 hours. - propranolol (INDERAL) 40 mg tablet Take 1 tablet by mouth once daily. Problem List As Of Date 12/16/2023 Noted Resolved Hyperemesis gravidarum with metabolic disturban*08/29/2005 11/28/2011 Pelvic pain 07/14/2012 Tobacco abuse [Z72.0] 12/18/2012 Knee pain, bilateral [M25.561, M25.562] 12/18/2012 Family history of breast cancer [Z80.3] 09/30/2014 Neck and shoulder pain [M54.2, M25.519] 06/10/2016 Prescriptions ordered this encounter Disp Refills Start End IV CONTRAST (RADIOLOGY PROCEDURE) 1 Ea* 0 12/16/2023 12/17/2023 Class: In Office Sig: CT Chest W -Inject, intravenously, once for 1 dose.No IV access, insert saline lock prior to the beginning of sedation, infusion, injection of imaging exam. Discontinue saline lock post exam. If Pt. has a central line or IVAD, may access for administration according to line specific nursing protocol. Once exam is complete flush line and de-access according to line specific nursing protocol in the CT contrast administration guidelines link. Encounter Status:Closed by KIM PRIEST on 12/17/23 [facility] CNOVwill 12-11-2023 CNOV Office Visit (FAMPWS ) ELEONORAMAYURI Berrios ([id number]) 1985 F Date Time Provider Department 12/11/23 7:40 AM CAILIN MORILLO [facility]AMPWS During your visit today, we recorded the following information about you: Pulse Respiration Blood pressure Weight 60/minute 14/minute 120/62 62.9 kg Cailin Morillo APRN.MONITOR TECH 12/11/2023 8:11 AM Signed Chief Complaint Patient presents with: FMLA Paperwork HPI Mayuri Crews is a 38 year old female who presents here today for Above Complaints. Mayuri is an established patient of Dr. Jaspreet DO and myself. Concerns today... Ongoing GI, cardiac, and pulmonary symptoms. Please refer to numerous prior encounters. Got fired from job recently d/t illness and taking off so frequently per pt. Pt did have FMLA. Now in office today to have paperwork filled out for unemployment. Did see Dr. Ortiz x2 since our last visit, last seen yesterday. Dr Ortiz tried to give patient medications for n/v and anxiety/depression. Pt declined and reports to me I don't just want a Band-Aid, I want to figure out what is going on with me . Pt reports she is not anxious or depressed and refuses to take these medications. Seeing rheumatology for Lupus dx per Dr. Ortiz's referral. Not scheduled till March. No other concerns or complaints today. Past medical history, appointments, medications, allergies reviewed. [...] cancer Hypertension Maternal Grandmother Heart Maternal Grandmother MD Arthritis Maternal Grandfather Hypertension Maternal Grandfather Arthritis Paternal Grandmother Colon Cancer Maternal Uncle Patient Allergies ALLERGIES Allergen Reactions Amitriptyline GI Upset GI upset and eye problem Cats Other: See Comments Tightness in throat, [...] Take 1 tablet by mouth once daily. PARoxetine (PAXIL) 20 mg tablet Take 1 tablet by mouth once daily. omeprazole (PRILOSEC) 20 mg capsule Take 1 capsule by mouth every afternoon. cholecalciferol, Vitamin D3, (VITAMIN D3) 1,250 mcg (50,000 unit) cap capsule Take 1 capsule by mouth one time a week. dicyclomine (BENTYL) 10 mg capsule Take 10 mg by mouth before meals and at bedtime. lansoprazole (PREVACID) 30 mg capsule Take 30 mg by mouth once daily. scopolamine (TRANSDERM-SCOP) patch 1.5 mg/72 hr (delivers 1 mg over 3 days) Apply 1 Patch as directed every 72 hours. No current facility-administered medications on file prior to visit. Social History Social History Tobacco Use Smoking status: Former Packs/day: 0.50 Years: 4.00 Additional pack years: 0.00 Total pack years: 2.00 Types: Cigarettes Quit date: 05/30/2023 Years since quittin.5 Smokeless tobacco: Never Tobacco comments: seldom/3 cigarettes a month Substance Use Topics Alcohol use: No Drug use: No REVIEW OF SYSTEMS: as above Reviewed relevant PMHx, PSHx, Social Hx, current medications and allergies. Review of Symptoms REVIEW OF SYSTEMS See HPI. EXAM: BP 120/62 (BP Site: Left Arm, BP Position: Sitting, BP Cuff Size: Regular Adult) Pulse 60 Resp 14 Wt 62.9 kg (138 lb 9.6 oz) LMP 10/13/2023 (Approximate) BMI 19.89 kg/m? General Appearance: Well appearing, alert, in no acute distress, well-hydrated, well nourished.. Skin: Skin color, texture, turgor normal, no suspicious rashes or lesions. Head: Normocephalic, no masses, lesions, tenderness or abnormalities. Lungs: Lungs clear to auscultation. No wheezing, rhonchi, rales.. Heart: RRR without murmur, gallop, or rubs. No ectopy. Health Maintenance List Hepatitis B Vaccine(1 of 3 - 19+ 3-dose series) Never done Cervical Cancer Screening due on 10/01/2015 Behavioral Health Screening due on 06/29/2024 Covid-19 Vaccine( - 2022- season) due on 10/12/2024 Influenza Vaccine(Season Ended) due on 02/29/2024 DTaP,Tdap,Td Vaccine(2 - Td or Tdap) due on 02/07/2033 Hepatitis C Screening Completed HIV Screening Completed HPV Vaccine Aged Out ASSESSMENT/PLAN: 1. Unemployment (more content not included)... Normal [facility] 12-04-2023 [facility] Telephone (FAMPWS) MAYURI CREWS ([id number]) 1985 F Date Time Provider Department 12/04/23 TEE VOGEL During your visit today, we recorded the following information about you: Haroldo Shin, RN 12/04/2023 9:11 AM Signed Patient asking provider office to phone her to give her updates on the prior authorization for her CT Chest. Reports her CT was cancelled b/c it was denied b/c they needed more information from provider. Asking if this has been done? Please phone patient with update. Lisa Yadav LPN 12/09/2023 10:02 AM Signed Pt calling in to see where this is at (CT of chest). Pt had a CT of upper abd by Dr. Friend was checking pt's gallbladder and pancreas(something different that what the CT of chest is). Pt reports she spoke with her insurance and was told they are waiting on copies of the Lung Volume test and Spirometry test. Pt concerned and needs to get the CT of chest done. Please review and advise. MANSOOR Telles Jazzmin, MA 12/09/2023 10:41 AM Signed Lung volumes and spirometry refaxed to number given by pt. Please advise. SEUN Shore Alyson, APRN.SUMMER 12/10/2023 7:01 AM Signed Not sure what else needs done on our end. Please refer to 11/12 [facility]. Thank you, Cailin Morillo APRN.Hyacinth Eden LPN 12/10/2023 8:39 AM Signed Called and gave pt information that these things were refaxed and confirmation was given again that went through. Carolyn Ramos LPN 12/10/2023 10:21 AM Signed Sindy called and states they have not received the fax. They gave a different fax #: [phone] to try. Faxed as requested. If fax is not going through we can call [phone]. Allergies As of Date: 12/04/2023 Noted Allergy Reaction AMITRIPTYLINE 10/20/2023 8 - GI Upset Comments: GI upset and eye problem CATS 01/21/2020 14 - Other: See Comments Comments: Tightness in throat, sinus congestion, swollen eyes MORPHINE 09/18/2020 8 - GI Upset 9 - Itching VICODIN (HYDROCODONE-ACETAMIN OPHE*09/18/2020 8 - GI Upset Date Reviewed: 12/02/2023 Reviewed by: Loraine Gastelum, RT(R) - Fully Assessed Reason for Visit: CT prior auth [Other] Prescriptions as of 12/10/2023 - PARoxetine (PAXIL) 20 mg tablet Take 1 tablet by mouth once daily. - omeprazole (PRILOSEC) 20 mg capsule Take 1 capsule by mouth every afternoon. - SUMAtriptan (IMITREX) 100 mg tablet Take 1 tablet at the onset of headache. May repeat dose in 2 hours if needed. Do not exceed 2 tablets in 24 hour period. - cholecalciferol, Vitamin D3, (VITAMIN D3) 1,250 mcg (50,000 unit) cap capsule Take 1 capsule by mouth one time a week. - dicyclomine (BENTYL) 10 mg capsule Take 10 mg by mouth before meals and at bedtime. - lansoprazole (PREVACID) 30 mg capsule Take 30 mg by mouth once daily. - scopolamine (TRANSDERM-SCOP) patch 1.5 mg/72 hr (delivers 1 mg over 3 days) Apply 1 Patch as directed every 72 hours. - propranolol (INDERAL) 40 mg tablet Take 1 tablet by mouth once daily. Problem List As Of Date 12/04/2023 Noted Resolved Hyperemesis gravidarum with metabolic disturban*08/29/2005 11/28/2011 Pelvic pain 07/14/2012 Tobacco abuse [Z72.0] 12/18/2012 Knee pain, bilateral [M25.561, M25.562] 12/18/2012 Family history of breast cancer [Z80.3] 09/30/2014 Neck and shoulder pain [M54.2, M25.519] 06/10/2016 Encounter Status:Closed by HYACINTH MOFFETT on 12/10/23 [facility] 12-02-2023 CNPN Telephone (FAMPWS) MAYURI CREWS Yash ([id number]) 1985 F Date Time Provider Department [facility]/02[facility]23 [facility] your visit today, we recorded the following information about you: Haroldo Shin, RN 12/02/2023 2:50 PM Signed Munira Brush, asking if provider submitted a prior auth for the Chest CT on 11-19-23? Reports the 1st one was denied, and they are looking for the second one that should have been submitted on 11-19-23 but have not received it. Pedro states provider can contact the [employer] , at phone number [phone], to submit PA over the phone, and provider will also be instructed on what is needed. Provider can also call provider services at phone # [phone] Asking provider to update patient on the prior authorization. Daniel Trujillo APRN.CNP 12/02/2023 4:09 PM Signed Can a prior auth be done on this? SAMSON Jackson Melody 12/03/2023 9:45 AM Signed This has already been done. Appears our prior auth team received the denial and is waiting on clinical information. Daniel Trujillo APRN.CNP 12/03/2023 10:44 AM Signed Noted, thank you. Daniel Trujillo APRN.CNP Allergies As of Date: 12/02/2023 Noted Allergy Reaction AMITRIPTYLINE 10/20/2023 8 - GI Upset Comments: GI upset and eye problem CATS 01/21/2020 14 - Other: See Comments Comments: Tightness in throat, sinus congestion, swollen eyes MORPHINE 09/18/2020 8 - GI Upset 9 - Itching VICODIN (HYDROCODONE-ACETAMIN OPHE*09/18/2020 8 - GI Upset Date Reviewed: 12/02/2023 Reviewed by: Loraine Gastelum, RT(R) - Fully Assessed Reason for Visit: Chest CT prior auth [Other] Prescriptions as of 12/03/2023 - PARoxetine (PAXIL) 20 mg tablet Take 1 tablet by mouth once daily. - omeprazole (PRILOSEC) 20 mg capsule Take 1 capsule by mouth every afternoon. - SUMAtriptan (IMITREX) 100 mg tablet Take 1 tablet at the onset of headache. May repeat dose in 2 hours if needed. Do not exceed 2 tablets in 24 hour period. - cholecalciferol, Vitamin D3, (VITAMIN D3) 1,250 mcg (50,000 unit) cap capsule Take 1 capsule by mouth one time a week. - dicyclomine (BENTYL) 10 mg capsule Take 10 mg by mouth before meals and at bedtime. - lansoprazole (PREVACID) 30 mg capsule Take 30 mg by mouth once daily. - scopolamine (TRANSDERM-SCOP) patch 1.5 mg/72 hr (delivers 1 mg over 3 days) Apply 1 Patch as directed every 72 hours. - propranolol (INDERAL) 40 mg tablet Take 1 tablet by mouth once daily. Problem List As Of Date 12/02/2023 Noted Resolved Hyperemesis gravidarum with metabolic disturban*08/29/2005 11/28/2011 Pelvic pain 07/14/2012 Tobacco abuse [Z72.0] 12/18/2012 Knee pain, bilateral [M25.561, M25.562] 12/18/2012 Family history of breast cancer [Z80.3] 09/30/2014 Neck and shoulder pain [M54.2, M25.519] 06/10/2016 Encounter Status:Closed by DANIEL TRUJILLO on 12/03/23 [facility] 11-20-2023 [facility] Telephone (NAVWST) MAYURI CREWS ([id number]) 1985 F Date Time Provider Department 11/20/23 JEFF MUSTAFA During your visit today, we recorded the following information about you: Jeff Mustafa, SHIELD CLEANER 11/20/2023 8:33 AM Signed Sw left patient message to return call to discuss financial assistance needs. Sw will send My Chart message to patient as well. It may be easier to communicate back and forth on that platform. Allergies As of Date: 11/20/2023 Noted Allergy Reaction AMITRIPTYLINE 10/20/2023 8 - GI Upset Comments: GI upset and eye problem CATS 01/21/2020 14 - Other: See Comments Comments: Tightness in throat, sinus congestion, swollen eyes MORPHINE 09/18/2020 8 - GI Upset 9 - Itching VICODIN (HYDROCODONE-ACETAMIN OPHE*09/18/2020 8 - GI Upset Date Reviewed: 11/19/2023 Reviewed by: Cailin Morillo APRN.MONITOR TECH - Fully Assessed Prescriptions as of 11/20/2023 - iv contrast (will be provided with radiology test) CT Chest W -Inject, intravenously, once for 1 dose.No IV access, insert saline lock prior to the beginning of sedation, infusion, injection of imaging exam. Discontinue saline lock post exam. If Pt. has a central line or IVAD, may access for administration according to line specific nursing protocol. Once exam is complete flush line and de-access according to line specific nursing protocol in the CT contrast administration guidelines link. - PARoxetine (PAXIL) 20 mg tablet Take 1 tablet by mouth once daily. - omeprazole (PRILOSEC) 20 mg capsule Take 1 capsule by mouth every afternoon. - SUMAtriptan (IMITREX) 100 mg tablet Take 1 tablet at the onset of headache. May repeat dose in 2 hours if needed. Do not exceed 2 tablets in 24 hour period. - cholecalciferol, Vitamin D3, (VITAMIN D3) 1,250 mcg (50,000 unit) cap capsule Take 1 capsule by mouth one time a week. - dicyclomine (BENTYL) 10 mg capsule Take 10 mg by mouth before meals and at bedtime. - lansoprazole (PREVACID) 30 mg capsule Take 30 mg by mouth once daily. - scopolamine (TRANSDERM-SCOP) patch 1.5 mg/72 hr (delivers 1 mg over 3 days) Apply 1 Patch as directed every 72 hours. - propranolol (INDERAL) 40 mg tablet Take 1 tablet by mouth once daily. Problem List As Of Date 11/20/2023 Noted Resolved Hyperemesis gravidarum with metabolic disturban*08/29/2005 11/28/2011 Pelvic pain 07/14/2012 Tobacco abuse [Z72.0] 12/18/2012 Knee pain, bilateral [M25.561, M25.562] 12/18/2012 Family history of breast cancer [Z80.3] 09/30/2014 Neck and shoulder pain [M54.2, M25.519] 06/10/2016 Encounter Status:Closed by JEFF MUSTAFA on 11/20/23 [facility] CNOVon 11-19-2023 CNOV Office Visit (FAMPWS ) MAYURI CREWS Yash ([id number]) 1985 F Date Time Provider Department 11/19/23 2:40 PM [facility] During your visit today, we recorded the following information about you: Pulse Respiration Blood pressure Weight 64/minute 12/minute 90/62 62.1 kg Cailin Morillo APRN.MONITOR TECH 11/19/2023 6:27 PM Signed Chief Complaint Patient presents with: one month f/up : Forms were not filled out correct she went to work and they sent her back home. Now needs a letter with all she can and can not do . Sent HPI Mayuri Crews is a 38 year old female who presents here today for Above Complaints. Mayuri is an established patient of Dr. Jaspreet DO and myself. Concerns today... Made appointment today to get letter for work further explaining FMLA paperwork corrections. Reports CT chest scan needs reordered d/t accidentally cancelled. Feels SOB is worsening and hard to take deep breath intermittently. Concern d/t likely lupus diagnosis and associated GI, cardiac and now pulmonary symptoms. Dr. Ortiz put in rheumatology consult with Dr. Felipe but nothing scheduled yet. Pt concerns about finances d/t being off work so much d/t symptoms.. she can not afford this. Past medical history, appointments, medications, allergies reviewed. [...] cancer Hypertension Maternal Grandmother Heart Maternal Grandmother MD Arthritis Maternal Grandfather Hypertension Maternal Grandfather Arthritis Paternal Grandmother Colon Cancer Maternal Uncle Patient Allergies ALLERGIES Allergen Reactions Amitriptyline GI Upset GI upset and eye problem Cats Other: See Comments Tightness in throat, sinus congestion, swollen eyes Morphine GI Upset, Itching Vicodin [Hydrocodon* GI Upset Current Medications Current Outpatient Medications on File Prior to Visit Medication Sig PARoxetine (PAXIL) 20 mg tablet Take 1 tablet by mouth once daily. sucralfate (CARAFATE) 1 gram tablet Take 1 tablet by mouth before meals and at bedtime. omeprazole (PRILOSEC) 20 mg capsule Take 1 capsule by mouth every afternoon. SUMAtriptan (IMITREX) 100 mg tablet Take 1 tablet at the onset of headache. May repeat dose in 2 hours if needed. Do not exceed 2 tablets in 24 hour period. cholecalciferol, Vitamin D3, (VITAMIN D3) 1,250 mcg (50,000 unit) cap capsule Take 1 capsule by mouth one time a week. dicyclomine (BENTYL) 10 mg capsule Take 10 mg by mouth before meals and at bedtime. lansoprazole (PREVACID) 30 mg capsule Take 30 mg by mouth once daily. scopolamine (TRANSDERM-SCOP) patch 1.5 mg/72 hr (delivers 1 mg over 3 days) Apply 1 Patch as directed every 72 hours. propranolol (INDERAL) 40 mg tablet Take 1 tablet by mouth once daily. No current facility-administered medications on file prior to visit. Social History Social History Tobacco Use Smoking status: Former Packs/day: 0.50 Years: 4.00 Additional pack years: 0.00 Total pack years: 2.00 Types: Cigarettes Quit date: 05/30/2023 Years since quittin.4 Smokeless tobacco: Never Tobacco comments: seldom/3 cigarettes a month Substance Use Topics Alcohol use: No Drug use: No REVIEW OF SYSTEMS: as above Reviewed relevant PMHx, PSHx, Social Hx, current medications and allergies. Review of Symptoms REVIEW OF SYSTEMS See HPI. EXAM: BP 90/62 (BP Site: Left Arm, BP Position: Sitting, BP Cuff Size: Regular Adult) Pulse 64 Resp 12 Wt 62.1 kg (136 lb 12.8 oz) LMP 10/13/2023 (Approximate) BMI 19.63 kg/m? General Appearance: Well appearing, alert, in no acute distress, well-hydrated, well nourished.. Skin: Skin color, texture, turgor normal, no suspicious rashes or lesions. Head: Normocephalic, no masses, lesions, tenderness or abnormalities. Lungs: Lungs clear to auscultation. No wheezing, rhonchi, rales.. Heart: RRR without murmur, gallop, or rubs. No ectopy. Health Maintenance List Hepatitis B Vaccine(1 of 3 - 19+ 3-dose series) Never done HPV Testing due on 2017 Pap Testing due on 10/01/2019 Behavioral Health Screening due on 06/29/2024 Covid-19 Vaccine( - 2022- season) due on 10/12/2024 Influenza Vaccine(Season Ended) due on 02/29/2024 DTaP,Tdap,Td Vaccine(2 - Td or Tdap) due on 02/07/2033 Hepatitis C Screening Completed HIV Screening Completed HPV Vaccine Aged Out ASSES (more content not included)... Normal [facility] 11-19-2023 [facility] Telephone (FAMPWS) MAYURI CREWS ([id number]) 1985 F Date Time Provider Department 11/19/23 CAILIN MORILLO During your visit today, we recorded the following information about you: Kim Priest LPN 11/19/2023 3:56 PM Signed Patient calling she called Dr Felipe office and she is on vacation from November 13 through November 27 not back in office until November 30. Patient is asking what do you want her to do? Please advise Cailin Morillo APRN.SUMMER 11/19/2023 6:00 PM S[address] Wait until Dr. Felipe is back. OR if she is willing to travel far can stay with [facility]. Thank you, Cailin Morillo APRN.Renate Rosales MA 11/19/2023 6:03 PM Signed Pt informed, verbalized understanding. Renate Ivan MA Allergies As of Date: 11/19/2023 Noted Allergy Reaction AMITRIPTYLINE 10/20/2023 8 - GI Upset Comments: GI upset and eye problem CATS 01/21/2020 14 - Other: See Comments Comments: Tightness in throat, sinus congestion, swollen eyes MORPHINE 09/18/2020 8 - GI Upset 9 - Itching VICODIN (HYDROCODONE-ACETAMIN OPHE*09/18/2020 8 - GI Upset Date Reviewed: 11/19/2023 Reviewed by: Cailin Morillo APRN.MONITOR TECH - Fully Assessed Reason for Visit: Patient Question [3797] Prescriptions as of 12/09/2023 - PARoxetine (PAXIL) 20 mg tablet Take 1 tablet by mouth once daily. - omeprazole (PRILOSEC) 20 mg capsule Take 1 capsule by mouth every afternoon. - SUMAtriptan (IMITREX) 100 mg tablet Take 1 tablet at the onset of headache. May repeat dose in 2 hours if needed. Do not exceed 2 tablets in 24 hour period. - cholecalciferol, Vitamin D3, (VITAMIN D3) 1,250 mcg (50,000 unit) cap capsule Take 1 capsule by mouth one time a week. - dicyclomine (BENTYL) 10 mg capsule Take 10 mg by mouth before meals and at bedtime. - lansoprazole (PREVACID) 30 mg capsule Take 30 mg by mouth once daily. - scopolamine (TRANSDERM-SCOP) patch 1.5 mg/72 hr (delivers 1 mg over 3 days) Apply 1 Patch as directed every 72 hours. - propranolol (INDERAL) 40 mg tablet Take 1 tablet by mouth once daily. Problem List As Of Date 11/19/2023 Noted Resolved Hyperemesis gravidarum with metabolic disturban*08/29/2005 11/28/2011 Pelvic pain 07/14/2012 Tobacco abuse [Z72.0] 12/18/2012 Knee pain, bilateral [M25.561, M25.562] 12/18/2012 Family history of breast cancer [Z80.3] 09/30/2014 Neck and shoulder pain [M54.2, M25.519] 06/10/2016 Encounter Status:Closed by KIM PRIEST on 12/09/23 [facility] MAYURI CREWS ([id number]) 1985 F Date Time Provider Department 11/11/23 CAILIN MORILLO [facility] During your visit today, we recorded the following information about you: Shannan Borja, MARTINE 11/11/2023 10:10 AM Signed Patient calling to give Cailin Morillo CNP a message. Pt states her insurance has denied the Chest CT scan that Cailin ordered. Asking if provider wants to do anything to push the order through in some way? Of note, a 11/10 [employer] message was sent to patient from a Buffing Machine Operator with other information. Patient also checking for reply to her message to Cailin from 11/08. Pt aware that provider has been out of the office and will respond as soon as possible. Thank you. Cailin Morillo APRN.SUMMER 11/12/2023 3:26 PM Signed Not sure why this was denied. Can we look into this? She likely has lupus and abnormal PFTs and abnormal chest x-ray. This should be covered. This paperwork was filled out the day of her appointment. Was copy scanned into computer? Thank you, Cailin Morillo APRN.Hyacinth Eden LPN 11/12/2023 6:11 PM Signed This is completed by our financial dept prior to a ct being scheduled. I will have to reach out to someone in that dept.They have all left for tonight so will need to check into this tomorrow. Lisa Yadav LPN 11/13/2023 10:05 AM Signed Pt called back to check status and see what she needs to do. Pt does not feel well and needs to be called back as soon as you can find out anything regarding CT of chest. MANSOOR Telles Linda M, LPN 11/13/2023 10:21 AM Signed This form was faxed on November 04 and also just faxed again today. Pt notified of such. Allergies As of Date: 11/11/2023 Noted Allergy Reaction AMITRIPTYLINE 10/20/2023 8 - GI Upset Comments: GI upset and eye problem CATS 01/21/2020 14 - Other: See Comments Comments: Tightness in throat, sinus congestion, swollen eyes MORPHINE 09/18/2020 8 - GI Upset 9 - Itching VICODIN (HYDROCODONE-ACETAMIN OPHE*09/18/2020 8 - GI Upset Date Reviewed: 11/05/2023 Reviewed by: Cailin Morillo APRN.SUMMER - Fully Assessed Reason for Visit: Patient Update [1234] Prescriptions as of 11/13/2023 - PARoxetine (PAXIL) 20 mg tablet Take 1 tablet by mouth once daily. - sucralfate (CARAFATE) 1 gram tablet Take 1 tablet by mouth before meals and at bedtime. - omeprazole (PRILOSEC) 20 mg capsule Take 1 capsule by mouth every afternoon. - SUMAtriptan (IMITREX) 100 mg tablet Take 1 tablet at the onset of headache. May repeat dose in 2 hours if needed. Do not exceed 2 tablets in 24 hour period. - cholecalciferol, Vitamin D3, (VITAMIN D3) 1,250 mcg (50,000 unit) cap capsule Take 1 capsule by mouth one time a week. - dicyclomine (BENTYL) 10 mg capsule Take 10 mg by mouth before meals and at bedtime. - lansoprazole (PREVACID) 30 mg capsule Take 30 mg by mouth once daily. - scopolamine (TRANSDERM-SCOP) patch 1.5 mg/72 hr (delivers 1 mg over 3 days) Apply 1 Patch as directed every 72 hours. - propranolol (INDERAL) 40 mg tablet Take 1 tablet by mouth once daily. Problem List As Of Date 11/11/2023 Noted Resolved Hyperemesis gravidarum with metabolic disturban*08/29/2005 11/28/2011 Pelvic pain 07/14/2012 Tobacco abuse [Z72.0] 12/18/2012 Knee pain, bilateral [M25.561, M25.562] 12/18/2012 Family history of breast cancer [Z80.3] 09/30/2014 Neck and shoulder pain [M54.2, M25.519] 06/10/2016 Encounter Status:Closed by HYACINTH MOFFETT on 11/13/23 [facility] 11-05-2023 CN Office Visit (GUILLERMINAWS ) MAYURI CREWS ([id number]) 1985 F Date Time Provider Department 11/05/23 9:00 AM CAILIN MORILLO During your visit today, we recorded the following information about you: Pulse Respiration Blood pressure Weight 62/minute 12/minute 90/60 61.6 kg Cailin Morillo APRN.MONITOR TECH 11/05/2023 10:57 AM Signed Chief Complaint Patient presents with: work leave HPI Mayuri Crews is a 38 year old female who presents here today for Above Complaints. Mayuri is an established patient of Dr. Jaspreet DO and myself. Concerns today... Ongoing GI issues -- Was dx with likely lupus attacking GI tract by Dr. Ortiz recently, per pt. Records of this are not in our chart, will need to get his office notes and testing results. Was told she will be set up with rheumatology at [facility], but has not heard anything about a schedule appointment yet. GI issues are ongoing and constant with abd pain and n/v/d. Pt also reports mild, vague complaints of burning in lungs with deep breathes and chest discomfort. 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 Pt is set up for CT scan of chest for next week as ordered by me last month. Main reason for visit today was to bring in [facility] paperwork. Initially filled out [place] paperwork 2 weeks ago but this was the wrong paperwork. New paperwork given today. Past medical history, appointments, medications, allergies reviewed. Previous Medical History PAST MEDICAL HISTORY Diagnosis Date Cervical dysplasia 06/2020 Irregular heart beat Migraine headache Pelvic pain in female ovarian cysts, [facility] SVT (supraventricular tachycardia) ([facility]) [address] Coburn at the time Tobacco abuse Previous Surgical History PAST SURGICAL HISTORY Procedure Laterality Date COLONOSCOPY W/BIOPSY SINGLE/MULTIPLE 09/28/2020 NONE UTERINE CERVIX-EXCISION (CONE/LEEP) SYNOPTIC RPT 06/2020 Family History FAMILY HISTORY Problem Relation Age of Onset Thyroid Mother 40 cancer Hypertension Maternal Grandmother Heart Maternal Grandmother MD Arthritis Maternal Grandfather Hypertension Maternal Grandfather Arthritis Paternal Grandmother Colon Cancer Maternal Uncle Patient Allergies ALLERGIES Allergen Reactions Amitriptyline GI Upset GI upset and eye problem Cats Other: See Comments Tightness in throat, sinus congestion, swollen eyes Morphine GI Upset, Itching Vicodin [Hydrocodon* GI Upset Current Medications Current Outpatient Medications on File Prior to Visit Medication Sig PARoxetine (PAXIL) 20 mg tablet Take 1 tablet by mouth once daily. sucralfate (CARAFATE) 1 gram tablet Take 1 tablet by mouth before meals and at bedtime. omeprazole (PRILOSEC) 20 mg capsule Take 1 capsule by mouth every afternoon. SUMAtriptan (IMITREX) 100 mg tablet Take 1 tablet at the onset of headache. May repeat dose in 2 hours if needed. Do not exceed 2 tablets in 24 hour period. cholecalciferol, Vitamin D3, (VITAMIN D3) 1,250 mcg (50,000 unit) cap capsule Take 1 capsule by mouth one time a week. dicyclomine (BENTYL) 10 mg capsule Take 10 mg by mouth before meals and at bedtime. lansoprazole (PREVACID) 30 mg capsule Take 30 mg by mouth once daily. scopolamine (TRANSDERM-SCOP) patch 1.5 mg/72 hr (delivers 1 mg over 3 days) Apply 1 Patch as directed every 72 hours. propranolol (INDERAL) 40 mg tablet Take 1 tablet by mouth once daily. No current facility-administered medications on file prior to visit. Social History Social History Tobacco Use Smoking status: Former Packs/day: 0.50 Years: 4.00 Additional pack years: 0.00 Total pack years: 2.00 Types: Cigarettes Quit date: 05/30/2023 Years since quittin.4 Smokeless tobacco: Never Tobacco comments: seldom/3 cigarettes a month Substance Use Topics Alcohol use: No Drug use: No REVIEW OF SYSTEMS: as above Reviewed relevant PMHx, PSHx, Social Hx, current medications and allergies. Review of Symptoms REVIEW OF SYSTEMS See HPI. EXAM: BP 90/60 (BP Site: Left Arm, BP Position: Sitting, BP Cuff Size: Regular Adult) Pulse 62 Resp 12 Wt 61.6 kg (135 lb 12.8 oz) LMP 10/13/2023 (Approximate) BMI 19.49 kg/m? General Appearance: Well appearing, alert, in no acute distress, well-hydrated, well nourished.. Skin: Skin color, texture, turgor normal, no suspicious rashes or lesions. Head: Normocephalic, no masses, lesions, tenderness or abnormalities. Lungs: Lungs clear to auscultation. No wheezing, rhonchi, rales.. Heart: RRR without murmur, gallop, or rubs. No ectopy. Abdomen: Normal abdominal exam, Abdomen soft, non-tender. Bowel sounds normal. No masses, organomegaly. Health Maintenance List Hepatitis B Vaccine(1 of 3 - 19+ 3-dose series) Never done HPV Testing due on 2017 Pap Testing due on 10/01/2019 Behavioral Health Screening due on (more content not included)... [facility] CREWSMAYURI ZIMMER Yash ([id number]) 1985 F Date Time Provider Department 10/29/23 CAILIN MORILLO [facility] During your visit today, we recorded the following information about you: Cailin Morillo APRN.CNP 10/29/2023 1:52 PM Signed Please call patient and let her know that PFTs shows possible air trapping. However the spirometry was normal. Therefore, we need to continue with CT scan of chest to further look into this to confirm. No acute concerns. Thank you, SAMSON Patel Susan LPN 10/29/2023 3:56 PM Signed Pt. informed. Please schedule CT scan. Karen Hardin 10/30/2023 11:[address] scan was denied, peer to peer was not done as requested by [facility]. Please advise if a new referral needs placed. Cailin Morillo APRN.CNP 10/30/2023 2:[address] order placed with new diagnosis of abnormal PFTs and symptoms. Should be covered now. Thank you, Cailin Morillo APRN.MONITOR TECH Allergies As of Date: 10/29/2023 Noted Allergy Reaction AMITRIPTYLINE 10/20/2023 8 - GI Upset Comments: GI upset and eye problem CATS 01/21/2020 14 - Other: See Comments Comments: Tightness in throat, sinus congestion, swollen eyes MORPHINE 09/18/2020 8 - GI Upset 9 - Itching VICODIN (HYDROCODONE-ACETAMIN OPHE*09/18/2020 8 - GI Upset Date Reviewed: 10/27/2023 Reviewed by: Abelino Maldonado RPFT - Fully Assessed Reason for Visit: Results [95] Primary Visit Diagnosis:Hyperinflat ion of lungs [R09.89] Other Visit Diagnoses:Abnormal PFTs [R94.2] SOB (shortness of breath) [R06.02] Order(s):CT CHEST WO IVCON [1238006] Order #: [id number] FUTURE Prescriptions as of 11/07/2023 - PARoxetine (PAXIL) 20 mg tablet Take 1 tablet by mouth once daily. - sucralfate (CARAFATE) 1 gram tablet Take 1 tablet by mouth before meals and at bedtime. - omeprazole (PRILOSEC) 20 mg capsule Take 1 capsule by mouth every afternoon. - SUMAtriptan (IMITREX) 100 mg tablet Take 1 tablet at the onset of headache. May repeat dose in 2 hours if needed. Do not exceed 2 tablets in 24 hour period. - cholecalciferol, Vitamin D3, (VITAMIN D3) 1,250 mcg (50,000 unit) cap capsule Take 1 capsule by mouth one time a week. - dicyclomine (BENTYL) 10 mg capsule Take 10 mg by mouth before meals and at bedtime. - lansoprazole (PREVACID) 30 mg capsule Take 30 mg by mouth once daily. - scopolamine (TRANSDERM-SCOP) patch 1.5 mg/72 hr (delivers 1 mg over 3 days) Apply 1 Patch as directed every 72 hours. - propranolol (INDERAL) 40 mg tablet Take 1 tablet by mouth once daily. Problem List As Of Date 10/29/2023 Noted Resolved Hyperemesis gravidarum with metabolic disturban*08/29/2005 11/28/2011 Pelvic pain 07/14/2012 Tobacco abuse [Z72.0] 12/18/2012 Knee pain, bilateral [M25.561, M25.562] 12/18/2012 Family history of breast cancer [Z80.3] 09/30/2014 Neck and shoulder pain [M54.2, M25.519] 06/10/2016 Encounter Status:Closed by DANIEL TRUJILLO on 11/07/23 Normal [facility] LUNG VOLUMESon 10-27-2023 ERV BOX (L) 0.81 L [facility] XYN43-07% POST (L/S) 3.44 L/S [facility] OUP96-80% PRE (L/S) 4.12 L/S [facility] FEV1 PRE (L) 3.36 L [facility] FEV1/FVC POST (%) [facility] FEV1/FVC PRE (%) 89 % [facility] FEV1_POST (L) 3.16 L [facility] FRC Box (L) 4.02 L [facility] FVC POST (L) 3.49 L [facility] FVC PRE (L) 3.78 L [facility] IC BOX (L) 1.63 L [facility] PEF POST (L/S) 4.72 L/S [facility] PEF PRE (L/S) 5.46 L/S [facility] RV Box (L) 3.27 L [facility] RV/TLC Box (%) 58 % [facility] TLC Box (L) 5.60 L [facility] VC (L) BOX 2.61 L 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 No contraindications or sensitivities were noted. Meds taken: None before testing. 2 puffs Albuterol (180 mcg) delivered by MDI via holding chamber. HR pre = 89/min, HR post = 84/min. Pre Bronchodilator: The two largest FVCs were repeatable. The two largest FEV1s were repeatable. Time to Peak Flow greater than ATS/ERS standard, FEV1 may not be valid. Post Bronchodilator: Current ATS/ERS acceptability and repeatability standards for spirometry met. Start of test and EOFE criteria met. Patient with c/o burning pain in lungs during forced exhale. IMPRESSION: Spirometry is normal. There was not a significant bronchodilator response. The RV and RV/TLC are elevated indicating air trapping. Electronically Signed On 10-27-2023 15:45:27 EDT by Anita Swift MD ID: [id number] Name: MAYURI CREWS Race: White Ht: 70.00 in Wt: 133.00 lbs Age: 38 Gender: Female : 1985 Dx: Chest congestion_ Smoking Hx: Non-smoker Doctor: CAILIN [facility] Test Date: 10/27/2023 Site: Tech: Abelino Maldonado PRE-BRONCH POST-BRONCH Pre LLN Pred ULN %Pred Post %Pred %Chg SPIROMETRY FVC (L) 3.78 3.38 4.41 5.47 85 3.49 79 -6 FEV1 (L) 3.36 2.76 3.62 4.45 92 3.16 87 -5 FEV1/FVC 0.89 0.72 0.83 0.91 107 0.91 109 1 PEF L/s (L/sec) 5.46 5.92 7.97 10.02 68 4.72 59 -13 FEF50 (L/sec) 4.41 2.79 4.39 6.00 100 3.90 88 -11 FIF50 (L/sec) 2.05 1.22 -40 FEF50/FIF50 2.16 90-100 3.19 48 FIVC (L) 2.72 2.93 7 RTZ20-77 (L/sec) 4.12 2.35 3.77 5.47 109 3.44 91 -16 Time (sec) 3.60 2.94 -18 FET PEF (sec) 0.23 0.12 -48 INOCENCIA (L) 0.10 0.09 -8 Vol Extrap % (%) 3 3 0 LUNG VOLUMES TGV (L) 4.02 2.47 3.33 4.19 120 ERV (L) 0.81 1.47 54 RV (Pleth) (L) 3.27 1.19 1.82 2.44 180 SVC (L) 2.61 3.38 4.41 5.47 59 IC (L) 1.63 2.94 55 TLC (Pleth) (L) 5.60 5.07 5.95 6.83 94 RV/TLC (Pleth) (%) 58 21 30 39 197 Comments: Medications and Allergies were reviewed for possible drug interactions per policy. No contraindications or sensitivities were noted. Meds taken: None before testing. 2 puffs Albuterol (180 mcg) delivered by MDI via holding chamber. HR pre = 89/min, HR post = 84/min. Pre Bronchodilator: The two largest FVCs were repeatable. The two largest FEV1s were repeatable. Time to Peak Flow greater than ATS/ERS standard, FEV1 may not be valid. Post Bronchodilator: Current ATS/ERS acceptability and repeatability standards for spirometry met. Start of test and EOFE criteria met. Patient with c/o burning pain in lungs during forced exhale. PULMONARY FUNCTION LAB [facility] CNOVon 10-23-2023 CNOV Office Visit (FAMPWS ) CREWSMAYURI ZIMMER Yash ([id number]) 1985 F Date Time Provider Department 10/23/23 8:20 AM [facility] During your visit today, we recorded the following information about you: Pulse Respiration Blood pressure Weight 68/minute 12/minute 110/68 62.2 kg Cailin Morillo APRN.MONITOR TECH 10/23/2023 9:10 AM Signed Chief Complaint Patient presents with: paperwork for work HPI Mayuri Crews is a 38 year old female who presents here today for Above Complaints. Mayuri is an established patient of Dr. Vogel, and myself. Concerns today.. Here today to fill out intermittent FMLA paperwork for time off work d/t ongoing, uncontrolled GI symptoms of n/v and abd pain. Pt also willing to try SSRI therapy for possible IBS. Tried amitriptyline and did not tolerate well after 1 dose so this was discontinued. Willing to try a different regimen. Still taking Carafate and omeprazole with some relief. Day to day feeling better but still having ongoing episodes of uncontrolled n/v and pain. No other concerns or complaints. Past medical [...] cancer Hypertension Maternal Grandmother Heart Maternal Grandmother MD Arthritis Maternal Grandfather Hypertension Maternal Grandfather Arthritis Paternal Grandmother Colon Cancer Maternal Uncle Patient Allergies ALLERGIES Allergen Reactions Amitriptyline GI Upset GI upset and eye problem Cats Other: See Comments Tightness in throat, sinus congestion, swollen eyes Morphine GI Upset, Itching Vicodin [Hydrocodon* GI Upset Current Medications Current Outpatient Medications on File Prior to Visit Medication Sig sucralfate (CARAFATE) 1 gram tablet Take 1 tablet by mouth before meals and at bedtime. omeprazole (PRILOSEC) 20 mg capsule Take 1 capsule by mouth every afternoon. SUMAtriptan (IMITREX) 100 mg tablet Take 1 tablet at the onset of headache. May repeat dose in 2 hours if needed. Do not exceed 2 tablets in 24 hour period. cholecalciferol, Vitamin D3, (VITAMIN D3) 1,250 mcg (50,000 unit) cap capsule Take 1 capsule by mouth one time a week. dicyclomine (BENTYL) 10 mg capsule Take 10 mg by mouth before meals and at bedtime. lansoprazole (PREVACID) 30 mg capsule Take 30 mg by mouth once daily. scopolamine (TRANSDERM-SCOP) patch 1.5 mg/72 hr (delivers 1 mg over 3 days) Apply 1 Patch as directed every 72 hours. propranolol (INDERAL) 40 mg tablet Take 1 tablet by mouth once daily. No current facility-administered medications on file prior to visit. Social History Social History Tobacco Use Smoking status: Former Packs/day: 0.50 Years: 4.00 Additional pack years: 0.00 Total pack years: 2.00 Types: Cigarettes Quit date: 05/30/2023 Years since quittin.4 Smokeless tobacco: Never Tobacco comments: seldom/3 cigarettes a month Substance Use Topics Alcohol use: No Drug use: No REVIEW OF SYSTEMS: as above Reviewed relevant PMHx, PSHx, Social Hx, current medications and allergies. Review of Symptoms REVIEW OF SYSTEMS See HPI. EXAM: BP 110/68 (BP Site: Left Arm, BP Position: Sitting, BP Cuff Size: Regular Adult) Pulse 68 Resp 12 Wt 62.2 kg (137 lb 3.2 oz) LMP 10/13/2023 (Approximate) BMI 19.14 kg/m? General Appearance: Well appearing, alert, in no acute distress, well-hydrated, well nourished.. Skin: Skin color, texture, turgor normal, no suspicious rashes or lesions. Head: Normocephalic, no masses, lesions, tenderness or abnormalities. Abdomen: Normal abdominal exam, Abdomen soft. Bowel sounds normal. No masses, organomegaly, Positive findings: tenderness moderate RUQ and LUQ. Health Maintenance List Hepatitis B Vaccine(1 of 3 - 19+ 3-dose series) Never done HPV Testing due on 2017 Pap Testing due on 10/01/2019 Behavioral Health Screening due on 06/29/2024 Covid-19 Vaccine( - 2022- season) due on 10/12/2024 Influenza Vaccine(Season Ended) due on 02/29/2024 DTaP,Tdap,Td Vaccine(2 - Td or Tdap) due on 02/07/2033 Hepatitis C Screening Completed HIV Screening Completed HPV Vaccine Aged Out ASSESSMENT/PLAN: 1. Generalized abdominal pain - ICD9: 789.07, ICD10: R10.84 (primary diagnosis) Ongoing s/s. Continue with upcoming GI appointment. Trial paxil 20 mg daily. Will discuss and reas (more content not included)... Normal [facility] Ben 10-23-2023 SUMMREN Telephone (GUILLERMINAWS) MAYURI CREWS ([id number]) 1985 F Date Time Provider Department 10/23/23 TEE VOGEL FAMRosaWS During your visit today, we recorded the following information about you: Roma Sorenson RN 10/23/2023 12:48 PM Signed Patient calling to let provider know she saw DrChanda Ortiz today. He is doing testing for lupus. MARTINE Sahu Alyson, APRN.SUMMER 10/23/2023 3:01 PM Signed Noted. Thank you for update. Thank you, Cailin Morillo APRN.MONITOR TECH Allergies As of Date: 10/23/2023 Noted Allergy Reaction AMITRIPTYLINE 10/20/2023 8 - GI Upset Comments: GI upset and eye problem CATS 01/21/2020 14 - Other: See Comments Comments: Tightness in throat, sinus congestion, swollen eyes MORPHINE 09/18/2020 8 - GI Upset 9 - Itching VICODIN (HYDROCODONE-ACETAMIN OPHE*09/18/2020 8 - GI Upset Date Reviewed: 10/23/2023 Reviewed by: Cailin Morillo APRN.MONITOR TECH - Fully Assessed Reason for Visit: Patient Update [1234] Prescriptions as of 10/23/2023 - PARoxetine (PAXIL) 20 mg tablet Take 1 tablet by mouth once daily. - sucralfate (CARAFATE) 1 gram tablet Take 1 tablet by mouth before meals and at bedtime. - omeprazole (PRILOSEC) 20 mg capsule Take 1 capsule by mouth every afternoon. - SUMAtriptan (IMITREX) 100 mg tablet Take 1 tablet at the onset of headache. May repeat dose in 2 hours if needed. Do not exceed 2 tablets in 24 hour period. - cholecalciferol, Vitamin D3, (VITAMIN D3) 1,250 mcg (50,000 unit) cap capsule Take 1 capsule by mouth one time a week. - dicyclomine (BENTYL) 10 mg capsule Take 10 mg by mouth before meals and at bedtime. - lansoprazole (PREVACID) 30 mg capsule Take 30 mg by mouth once daily. - scopolamine (TRANSDERM-SCOP) patch 1.5 mg/72 hr (delivers 1 mg over 3 days) Apply 1 Patch as directed every 72 hours. - propranolol (INDERAL) 40 mg tablet Take 1 tablet by mouth once daily. Problem List As Of Date 10/23/2023 Noted Resolved Hyperemesis gravidarum with metabolic disturban*08/29/2005 11/28/2011 Pelvic pain 07/14/2012 Tobacco abuse [Z72.0] 12/18/2012 Knee pain, bilateral [M25.561, M25.562] 12/18/2012 Family history of breast cancer [Z80.3] 09/30/2014 Neck and shoulder pain [M54.2, M25.519] 06/10/2016 Encounter Status:Closed by CAILIN MORILLO on 10/23/23 Normal [facility] 25(OH)D3 SerPl-mCncon 2023 25-hydroxyvitamin D3 [Mass/Vol] 77.9 ng/mL Normal 31.0-80.0 [facility] Comment on above: Order Comment: Speci men Type: BLOOD SPECIMENOrdering Facility: [facility] Address: [address] [place] [address] Result Comment: Clas sification of 25 [place] Vitamin D status: Deficiency/Insufficiency: < or = 30 ng/ml. Sufficiency/Optimal Levels: 31-80 ng/mL Toxicity: > 100 ng/mL. Test performed by chemiluminescent immunoassay. Performed By: #### 1 989-3 ####[facility] LABCLIA [id number] [facility] [id number] [place] [address] [facility] CNOVon 10-20-2023 CNOV Office Visit (FAMPWS ) MAYURI CREWS ([id number]) 1985 F Date Time Provider Department 10/20/23 8:40 AM CAILIN MORILLO FAMPWS During your visit today, we recorded the following information about you: Pulse Respiration Blood pressure Weight 87/minute 16/minute 90/70 62.2 kg Height Last Period 1.803 m 10/13/23 Cailin Morillo APRN.MONITOR TECH 10/20/2023 9:15 AM Signed Chief Complaint Patient presents with: ED Follow-up: [facility] 10/15/23 HPI Mayuri Crews is a 38 year old female who presents here today for Above Complaints. Mayuri is an established patient of Dr. Jaspreet Do and myself. Concerns today... ER follow-up --- [facility] ER visit on 10/15/23 d/t nausea, dizziness, and abd pain. CBC, hCG, CMP, lipase, COVID/flu/RSV testing was all normal/negative. UA normal. CT abd/pelvis was normal. Dx with gastritis. Given IV fluids, zofran, and Protonix. Sent home with rx for omeprazole. In office today... Pt reports omeprazole regimen working very well for a few days but now she feels like she is back to square one today. Reports s/s of n/v and diarrhea shortly after eating anything and significant upper abd pain with eating. Pt had EGD done in June (unknown results, nothing in computer and pt was never given results from Dr. Ortiz's office). ER also told her is sounds like possible GI ulcer. Stopped amitriptyline after 1 dose d/t disorientation and n/v after taking it. Symptoms resolved after d/c. Last 14 Encounter BP Readings: Date: BP: 10/20/2023 90/70 10/13/2023 112/60 08/20/2023 118/60 07/16/2023 94/60 07/09/2023 122/80 02/17/2023 109/70 02/07/2023 94/62 01/30/2023 96/70 03/05/2022 104/68 09/18/2020 94/70 06/05/2020 128/70 03/31/2020 104/68 01/21/2020 112/60 09/22/2019 106/62 Past medical history, appointments, medications, allergies reviewed. [...] cancer Hypertension Maternal Grandmother Heart Maternal Grandmother MD Arthritis Maternal Grandfather Hypertension Maternal Grandfather Arthritis Paternal Grandmother Colon Cancer Maternal Uncle Patient Allergies ALLERGIES Allergen Reactions Amitriptyline GI Upset GI upset and eye problem Cats Other: See Comments Tightness in throat, sinus congestion, swollen eyes Morphine GI Upset, Itching Vicodin [Hydrocodon* GI Upset Current Medications Current Outpatient Medications on File Prior to Visit Medication Sig amitriptyline (ELAVIL) 10 mg tablet Take 1 tablet by mouth daily at bedtime. SUMAtriptan (IMITREX) 100 mg tablet Take 1 tablet at the onset of headache. May repeat dose in 2 hours if needed. Do not exceed 2 tablets in 24 hour period. cholecalciferol, Vitamin D3, (VITAMIN D3) 1,250 mcg (50,000 unit) cap capsule Take 1 capsule by mouth one time a week. dicyclomine (BENTYL) 10 mg capsule Take 10 mg by mouth before meals and at bedtime. lansoprazole (PREVACID) 30 mg capsule Take 30 mg by mouth once daily. scopolamine (TRANSDERM-SCOP) patch 1.5 mg/72 hr (delivers 1 mg over 3 days) Apply 1 Patch as directed every 72 hours. (Patient not taking: Reported on 08/20/2023) propranolol (INDERAL) 40 mg tablet Take 1 tablet by mouth once daily. No current facility-administered medications on file prior to visit. Social History Social History Tobacco Use Smoking status: Former Packs/day: 0.50 Years: 4.00 Additional pack years: 0.00 Total pack years: 2.00 Types: Cigarettes Quit date: 05/30/2023 Years since quittin.3 Smokeless tobacco: Never Tobacco comments: seldom/3 cigarettes a month Substance Use Topics Alcohol use: No Drug use: No REVIEW OF SYSTEMS: as above Reviewed relevant PMHx, PSHx, Social Hx, current medications and allergies. Review of Symptoms REVIEW OF SYSTEMS See HPI. EXAM: BP 90/70 Pulse 87 Resp 16 Ht 180.3 cm (5' 11 ) Wt 62.2 kg (137 lb 3.2 oz) LMP 10/13/2023 (Approximate) BMI 19.14 kg/m? General Appearance: Well appearing, alert, in no acute distress, well-hydrated, well nourished.. Skin: Skin color, texture, turgor normal, no suspicious rashes or lesions. Head: Normocephalic, no masses, lesions, tenderness or abnormalities. Lungs: Lungs clear to auscultation. No wheezing, rhonchi, rales.. Heart: RRR without murmur, gallop, or rubs. No ectopy. Abdomen: Normal abdominal exam, Positive findings: tenderness mild gener (more content not included)... Normal [facility] CNOVon 10-13-2023 CNOV Office Visit (FAMPWS ) MAYURI CREWS ([id number]) 1985 F Date Time Provider Department 10/13/23 12:40 PM CAILIN MORILLO [facility] During your visit today, we recorded the following information about you: Pulse Respiration Blood pressure Weight 68/minute 14/minute 112/60 60.9 kg Cailin Morillo APRN.MONITOR TECH 10/13/2023 1:12 PM Signed Chief Complaint Patient presents with: nausea and abdominal pain continues: Curtis calls to Dr. Campbell office with no reply HPI Mayuri Crews is a 38 year old female who presents here today for Above Complaints. Mayuri is an established patient of Dr. Jaspreet DO and myself. Concerns today... Ongoing GI symptoms, see prior encounter/office visits. Intermittent n/v, epigastric burning, generalized abd pain, and overall extreme fatigue. Ongoing > 1 year. Had numerous testing done with Dr. Ortiz in June but still has not heard back with results. Pt does not feel like stress/anxiety is playing a role however mother at appointment with patient may disagree. Pt has been through a lot recently with father passing away and these ongoing health issues. Pt also concerned about chest x-ray results from ER visit in December at [facility]. Results scanned in our documents as well. Showed hyperinflation and concerns for COPD. Pt has never been dx with COPD or asthma. Mother with hx of COPD. Pt does report hx of chest pain and SOB daily. Does see sports trainer routinely, next visit is scheduled for next week. No other concerns or complaints. Past medical [...] cancer Hypertension Maternal Grandmother Heart Maternal Grandmother MD Arthritis Maternal Grandfather Hypertension Maternal Grandfather Arthritis [...] exceed 2 tablets in 24 hour period. cholecalciferol, Vitamin D3, (VITAMIN D3) 1,250 mcg (50,000 unit) cap capsule Take 1 capsule by mouth one time a week. dicyclomine (BENTYL) 10 mg capsule Take 10 mg by mouth before meals and at bedtime. lansoprazole (PREVACID) 30 mg capsule Take 30 mg by mouth once daily. scopolamine (TRANSDERM-SCOP) patch 1.5 mg/72 hr (delivers 1 mg over 3 days) Apply 1 Patch as directed every 72 hours. (Patient not taking: Reported on 08/20/2023) propranolol (INDERAL) 40 mg tablet Take 1 tablet by mouth once daily. No current facility-administered medications on file prior [...] REVIEW OF SYSTEMS See HPI. EXAM: BP 112/60 (BP Site: Left Arm, BP Position: Sitting, BP Cuff Size: Regular Adult) Pulse 68 Resp 14 Wt 60.9 kg (134 lb 3.2 oz) LMP 05/16/2019 BMI 18.79 kg/m? General Appearance: Well appearing, alert, in no acute distress, well-hydrated, well nourished.. Skin: Skin color, texture, turgor normal, no suspicious rashes or lesions. Head: Normocephalic, no masses, lesions, tenderness or abnormalities. Lungs: Lungs clear to auscultation. No wheezing, rhonchi, rales.. Heart: RRR without murmur, gallop, or rubs. No ectopy. Health Maintenance List Hepatitis B Vaccine(1 of 3 - 19+ 3-dose series) Never done HPV Testing due on 2017 Pap Testing due on 10/01/2019 Behavioral Health Screening due on 06/29/2024 Covid-19 Vaccine(2022- season) due on 10/12/2024 Influenza Vaccine(Season Ended) due on 02/29/2024 DTaP,Tdap,Td Vaccine(2 - Td or Tdap) due on 02/07/2033 Hepatitis C Screening Completed HIV Screening Completed Pneumococcal Vaccine Completed HPV Vaccine (more content not included)... [facility] MAYURI CREWS ([id number]) 1985 F Date Time Provider Department 08/21/23 CAILIN MORILLO During your visit today, we recorded the following information about you: Cailin Morillo APRN.MONITOR TECH 08/21/2023 7:12 AM Signed Please call patient and let her know that lab work results look fantastic! The only abnormality is a very low vitamin D level. I would recommend starting a vitamin D3 supplement of 50,000 units once per week. Rx sent to pharmacy. Repeat lab in 3 months. Thank you, Cailin Morillo APRN.Hyacinth Eden LPN 08/21/2023 8:07 AM Signed Left message to return call. Purvi Wagner RN 08/21/2023 8:29 AM Signed Patient notified of results and provider's instructions. Patient verbalizes understanding. Please place order for future Vitamin D labs. Patient also asking if Dr. Ortiz's office was contacted? MARTINE Holm Alyson, APRN.SUMMER 08/21/2023 9:08 AM Signed Lab work is in. Hyacinth, any update on Dr. Ortiz's office? Thank you, Cailin Morillo APRN.Hyacinth Eden LPN 08/21/2023 2:31 PM Signed I left a message again on Dr. Campbell nurse line to notify pt of results of testing. Cailin Morillo APRN.CNP 08/21/2023 2:36 PM Signed Thank you. Please update pt. Cailin Morillo APRN.Renate Rosales 08/21/2023 3:31 PM Signed Pt updated Renate Ivan Allergies As of Date: 08/21/2023 Noted Allergy Reaction CATS 01/21/2020 14 - Other: See Comments Comments: Tightness in throat, sinus congestion, swollen eyes MORPHINE 09/18/2020 8 - GI Upset 9 - Itching VICODIN (HYDROCODONE-ACETAMIN OPHE*09/18/2020 8 - GI Upset Date Reviewed: 08/20/2023 Reviewed by: Cailin Morillo APRN.CNP - Fully Assessed Reason for Visit: Results [95] Primary Visit Diagnosis:Vitamin D deficiency [E55.9] Order(s):cholecalcife rol, Vitamin D3, (VITAMIN D3) 1,250 mcg (50,000 unit) cap capsuleTake 1 capsule by mouth one time a week.Disp: 4 capsuleRfl: 2 VITAMIN D 25 HYDROXY [SQVITD] Order #: [id number] FUTURE Prescriptions as of 08/21/2023 - cholecalciferol, Vitamin D3, (VITAMIN D3) 1,250 mcg (50,000 unit) cap capsule Take 1 capsule by mouth one time a week. - dicyclomine (BENTYL) 10 mg capsule Take 10 mg by mouth before meals and at bedtime. - lansoprazole (PREVACID) 30 mg capsule Take 30 mg by mouth once daily. - scopolamine (TRANSDERM-SCOP) patch 1.5 mg/72 hr (delivers 1 mg over 3 days) Apply 1 Patch as directed every 72 hours. - propranolol (INDERAL) 40 mg tablet Take 1 tablet by mouth once daily. - SUMAtriptan (IMITREX) 100 mg tablet Take 1 tablet at the onset of headache. May repeat dose in 2 hours if needed. Do not exceed 2 tablets in 24 hour period. Problem List As Of Date 08/21/2023 Noted Resolved Hyperemesis gravidarum with metabolic disturban*08/29/2005 11/28/2011 Pelvic pain 07/14/2012 Tobacco abuse [Z72.0] 12/18/2012 Knee pain, bilateral [M25.561, M25.562] 12/18/2012 Family history of breast cancer [Z80.3] 09/30/2014 Neck and shoulder pain [M54.2, M25.519] 06/10/2016 Prescriptions ordered this encounter Disp Refills Start End CHOLECALCIFEROL (VITAMIN D3) 1,250 M* 4 ca* 2 08/21/2023 11/19/2023 Route: ORAL Sig: Take 1 capsule by mouth one time a week. Encounter Status:Closed by HOLIDAY, RENATE on 08/21/23 Normal [facility] 25(OH)D3 SerPl-sarahon 2023 25-hydroxyvitamin D3 [Mass/Vol] 18.8 ng/mL Low 31.0-80.0 [facility] Comment on above: Order Comment: Speci men Type: BLOOD SPECIMENOrdering Facility: [facility] Address: [address] [place], [place] [address] [address] Result Comment: Clas sification of 25 [place] Vitamin D status: Deficiency/Insufficiency: < or = 30 ng/ml. Sufficiency/Optimal Levels: 31-80 ng/mL Toxicity: > 100 ng/mL. Test performed by chemiluminescent immunoassay. Performed By: #### 1 989-3 ####[facility] LABCLIA [id number] [place] [id number] [place] CBC W Auto Differential pane l (Bld)on 08-20-2023 Basophils (Bld) [#/Vol] 0.04 10*3/uL <0.11 k/uL [facility] Basophils/100 WBC (Bld) 0.6 % [facility] Differential cell count method Nom (Bld) Auto [facility] Eosinophils (Bld) [#/Vol] 0.09 10*3/uL <0.46 k/uL [facility] Eosinophils/100 WBC (Bld) 1.4 % [facility] Erythrocyte distribution width (RBC) [Ratio] 12.1 % 11.5 - 15.0 % [facility] Hematocrit (Bld) [Volume fraction] 42.3 % 36.0 - 46.0 % [facility] Hemoglobin (Bld) [Mass/Vol] 13.8 g/dL 11.5 - 15.5 g/dL [facility] Immature granulocytes (Bld) [#/Vol] <0.10 k/uL [facility] Immature granulocytes/100 WBC (Bld) 0.2 % [facility] Lymphocytes (Bld) [#/Vol] 2.20 10*3/uL 1.00 - 4.00 k/uL [facility] Lymphocytes/100 WBC (Bld) 33.4 % [facility] MCH (RBC) [Entitic mass] 30.9 pg 26.0 - 34.0 pg [facility] MCHC (RBC) [Mass/Vol] 32.6 g/dL 30.5 - 36.0 g/dL [facility] MCV (RBC) [Entitic vol] 94.8 fL 80.0 - 100.0 fL [facility] Monocytes (Bld) [#/Vol] 0.51 10*3/uL <0.87 k/uL [facility] Monocytes/100 WBC (Bld) 7.7 % [facility] Neutrophils (Bld) [#/Vol] 3.74 10*3/uL 1.45 - 7.50 k/uL [facility] Neutrophils/100 WBC (Bld) 56.7 % [facility] Nucleated RBC (Bld) [#/Vol] <0.01 k/uL [facility] Nucleated RBC/100 WBC (Bld) [Ratio] 0.0 /100 WBC [facility] Platelet mean volume (Bld) [Entitic vol] 10.5 fL 9.0 - 12.7 fL [facility] Platelets (Bld) [#/Vol] 202 10*3/uL 150 - 400 k/uL [facility] RBC (Bld) [#/Vol] 4.46 10*6/uL 3.90 - 5.2 0 m/uL [facility] WBC (Bld) [#/Vol] 6.59 10*3/uL 3.70 - 11. 00 k/uL [facility] Basophils (Bld) [#/Vol] 0.04 10*3/uL Normal <0.11 [facility] Comment on above: Order Comment: Speci men Type: BLOOD SPECIMENOrdering Facility: [facility] Address: [address] [place] [address] Performed By: #### 5 7021-8 ####[facility] LABCLIA [id number] [place] [address] [place] Basophils/100 WBC (Bld) 0.6 % Normal [facility] Comment on above: Order Comment: Speci men Type: BLOOD SPECIMENOrdering Facility: [facility] Address: [address] [place] [address] Performed By: #### 5 7021-8 ####[facility] LABCLIA [id number] [place] [address] [place] Differential cell count method Nom (Bld) Auto Normal [facility] Comment on above: Order Comment: Speci men Type: BLOOD SPECIMENOrdering Facility: [facility] Address: [address] [place] [address] Performed By: #### 5 7021-8 ####[facility] LABIA [id number] [place] [address] [place] Eosinophils (Bld) [#/Vol] 0.09 10*3/uL Normal <0.46 [facility] Comment on above: Order Comment: Speci men Type: BLOOD SPECIMENOrdering Facility: [facility] Address: [address] [place] [address] Performed By: #### 5 7021-8 ####[facility] LABCLIA [id number] [place] [address] [place] Eosinophils/100 WBC (Bld) 1.4 % Normal [facility] Comment on above: Order Comment: Speci men Type: BLOOD SPECIMENOrdering Facility: [facility] Address: [address] [place] [address] Performed By: #### 5 7021-8 ####[facility] LABCLIA [id number] [place] [address] [place] Erythrocyte distribution width (RBC) [Ratio] 12.1 % Normal 11.5-15.0 [facility] Comment on above: Order Comment: Speci men Type: BLOOD SPECIMENOrdering Facility: [facility] Address: [address] [place] [address] Performed By: #### 5 7021-8 ####[facility] LABIA [id number] [place] [address] [place] Hematocrit (Bld) [Volume fraction] 42.3 % Normal 36.0-46.0 [facility] Comment on above: Order Comment: Speci men Type: BLOOD SPECIMENOrdering Facility: [facility] Address: [address] [place] [address] Performed By: #### 5 7021-8 ####[facility] LABCLIA [id number] [place] [address] [place] Hemoglobin (Bld) [Mass/Vol] 13.8 g/dL Normal 11.5-15.5 [facility] Comment on above: Order Comment: Speci men Type: BLOOD SPECIMENOrdering Facility: [facility] Address: [address] [place] [address] Performed By: #### 5 7021-8 ####[facility] LABCLIA [id number] [place] [address] [place] Immature granulocytes (Bld) [#/Vol] 10*3/uL Normal <0.10 [facility] Comment on above: Order Comment: Speci men Type: BLOOD SPECIMENOrdering Facility: [facility] Address: [address] [place] [address] Performed By: #### 5 7021-8 ####[facility] LABCLIA [id number] [place] [address] [place] Immature granulocytes/100 WBC (Bld) 0.2 % Normal [facility] Comment on above: Order Comment: Speci men Type: BLOOD SPECIMENOrdering Facility: [facility] Address: [address] [place] [address] Performed By: #### 5 7021-8 ####[facility] LABCLIA [id number] [place] [address] [place] Lymphocytes (Bld) [#/Vol] 2.20 10*3/uL Normal 1.00-4.00 [facility] Comment on above: Order Comment: Speci men Type: BLOOD SPECIMENOrdering Facility: [facility] Address: [address] [place] [address] Performed By: #### 5 7021-8 ####[facility] LABCLIA [id number] [place] [address] [place] Lymphocytes/100 WBC (Bld) 33.4 % Normal [facility] Comment on above: Order Comment: Speci men Type: BLOOD SPECIMENOrdering Facility: [facility] Address: [address] [place] [address] Performed By: #### 5 7021-8 ####[facility] LABCLIA [id number] [place] [address] [place] MCH (RBC) [Entitic mass] 30.9 pg Normal 26.0-34.0 [facility] Comment on above: Order Comment: Speci men Type: BLOOD SPECIMENOrdering Facility: [facility] Address: [address] [place] [address] Performed By: #### 5 7021-8 ####[facility] LABCLIA [id number] [place] [address] [place] MCHC (RBC) [Mass/Vol] 32.6 g/dL Normal 30.5-36.0 [facility] Comment on above: Order Comment: Speci men Type: BLOOD SPECIMENOrdering Facility: [facility] Address: [address] [place] [address] Performed By: #### 5 7021-8 ####[facility] LABIA [id number] [place] [address] [place] MCV (RBC) [Entitic vol] 94.8 fL Normal 80.0-100.0 [facility] Comment on above: Order Comment: Speci men Type: BLOOD SPECIMENOrdering Facility: [facility] Address: [address] [place] [address] Performed By: #### 5 7021-8 ####[facility] LABIA [id number] [place] [address] [place] Monocytes (Bld) [#/Vol] 0.51 10*3/uL Normal <0.87 [facility] Comment on above: Order Comment: Speci men Type: BLOOD SPECIMENOrdering Facility: [facility] Address: [address] [place] [address] Performed By: #### 5 7021-8 ####[facility] LABCLIA [id number] [place] [address] [place] Monocytes/100 WBC (Bld) 7.7 % Normal [facility] Comment on above: Order Comment: Speci men Type: BLOOD SPECIMENOrdering Facility: [facility] Address: [address] [place] [address] Performed By: #### 5 7021-8 ####[facility] LABCLIA [id number] [place] [address] [place] Neutrophils (Bld) [#/Vol] 3.74 10*3/uL Normal 1.45-7.50 [facility] Comment on above: Order Comment: Speci men Type: BLOOD SPECIMENOrdering Facility: [facility] Address: [address] [place] [address] Performed By: #### 5 7021-8 ####[facility] LABCLIA [id number] [place] [address] [place] Neutrophils/100 WBC (Bld) 56.7 % Normal [facility] Comment on above: Order Comment: Speci men Type: BLOOD SPECIMENOrdering Facility: [facility] Address: [address] [place] [address] Performed By: #### 5 7021-8 ####[facility] LABCLIA [id number] [place] [address] [place] Nucleated RBC (Bld) [#/Vol] 10*3/uL Normal <0.01 [facility] Comment on above: Order Comment: Speci men Type: BLOOD SPECIMENOrdering Facility: [facility] Address: [address] [place] [address] Performed By: #### 5 7021-8 ####[facility] LABCLIA [id number] [place] [address] [place] Nucleated RBC/100 WBC (Bld) [Ratio] 0.0 /100 WBC Normal [facility] Comment on above: Order Comment: Speci men Type: BLOOD SPECIMENOrdering Facility: [facility] Address: [address] [place] [address] Performed By: #### 5 7021-8 ####[facility] LABCLIA [id number] [place] [address] [place] Platelet mean volume (Bld) [Entitic vol] 10.5 fL Normal 9.0-12.7 [facility] Comment on above: Order Comment: Speci men Type: BLOOD SPECIMENOrdering Facility: [facility] Address: [address] [place] [address] Performed By: #### 5 7021-8 ####[facility] LABIA [id number] [place] [address] [place] Platelets (Bld) [#/Vol] 202 10*3/uL Normal 150-400 [facility] Comment on above: Order Comment: Speci men Type: BLOOD SPECIMENOrdering Facility: [facility] Address: [address] [place] [address] Performed By: #### 5 7021-8 ####[facility] [id number] [place] [address] [place] RBC (Bld) [#/Vol] 4.46 10*6/uL Normal 3.90-5.20 [facility] Comment on above: Order Comment: Speci men Type: BLOOD SPECIMENOrdering Facility: [facility] Address: [address] [place] [address] Performed By: #### 5 7021-8 ####[facility] LABIA [id number] [place] [address] [place] WBC (Bld) [#/Vol] 6.59 10*3/uL Normal 3.70-11.00 [facility] Comment on above: Order Comment: Speci men Type: BLOOD SPECIMENOrdering Facility: [facility] Address: [address] [place] [address] Performed By: #### 5 7021-8 ####[facility] LABIA [id number] [place] [address] [place] CNCOon 08-20-2023 CNCO Letter Text Normal [facility] CNOVon 08-20-2023 CNOV Office Visit (FAMPWS ) MAYURI CREWS ([id number]) 1985 F Date Time Provider Department 08/20/23 11:20 AM CAILIN MORILLO During your visit today, we recorded the following information about you: Pulse Respiration Blood pressure Weight 76/minute 12/minute 118/60 60.1 kg Cailin Morillo APRN.MONITOR TECH 08/20/2023 12:22 PM Signed Chief Complaint Patient presents with: TEST RESULTS: dR. Ortiz COMPLETED NOT GOTTEN ANY RESULTS AFTER MULTIPLE CALLS HPI Mayuri Crews is a 38 year old female who presents here today for Above Complaints. Mayuri is an established patient of Dr. Vogel, and myself. Concerns today.. Ongoing abd pain and frequent/daily n/v. Pt reports being seen for this by Dr. Ortiz and has been reaching out to his office numerous times to get results of recent testing and she has not got a call back. Pt reports: EGD, gastric emptying study, and MRI MRCP all within the last month without any results. Pt just wants answers and wants to know what to do next. Last seen by Dr. Ortiz on 07/17. Pt was given 2-3 weeks of FMLA from Dr. Ortiz's office for these complaints and is now back to work without any relief of symptoms. Pt reports employer is very accommodating about her complaints and limitations currently and is working with her now that she is back at work. Pt reports symptoms are not improving at all, symptoms include: burning in belly, upper abd pain, organs feel shaky , dry heaving and n/v numerous x per day, severe fatigue, and poor sleep due to night sweats. Pt made this appointment to see if I could give her any results or input on what to do next. Past medical history, appointments, medications, allergies reviewed. [...] cancer Hypertension Maternal Grandmother Heart Maternal Grandmother MD Arthritis Maternal Grandfather Hypertension Maternal Grandfather Arthritis Paternal Grandmother Colon Cancer Maternal Uncle Patient Allergies ALLERGIES Allergen Reactions Cats Other: See Comments Tightness in throat, sinus congestion, swollen eyes Morphine GI Upset, Itching Vicodin [Hydrocodon* GI Upset Current Medications Current Outpatient Medications on File Prior to Visit Medication Sig dicyclomine (BENTYL) 10 mg capsule Take 10 mg by mouth before meals and at bedtime. lansoprazole (PREVACID) 30 mg capsule Take 30 mg by mouth once daily. propranolol (INDERAL) 40 mg tablet Take 1 tablet by mouth once daily. SUMAtriptan (IMITREX) 100 mg tablet Take 1 tablet at the onset of headache. May repeat dose in 2 hours if needed. Do not exceed 2 tablets in 24 hour period. scopolamine (TRANSDERM-SCOP) patch 1.5 mg/72 hr (delivers 1 mg over 3 days) Apply 1 Patch as directed every 72 hours. (Patient not taking: Reported on 08/20/2023) ibuprofen (MOTRIN) 800 mg tablet Take 1 tablet by mouth every 8 hours as needed for Pain. Take with food. (Patient not taking: Reported on 07/16/2023) No current facility-administered medications on file prior [...] REVIEW OF SYSTEMS See HPI. EXAM: BP 118/60 (BP Site: Left Arm, BP Position: Sitting, BP Cuff Size: Regular Adult) Pulse 76 Resp 12 Wt 60.1 kg (132 lb [...] soft, non-tender. Bowel sounds normal. No masses, organomegaly, Positive findings: tenderness mild generalized. Health Maintenance List Hepatitis B Vaccine(1 of 3 - 3-dose series) Never done HPV Testing due on 2017 Pap Testing due on 10/01/2019 Influenza Vacc (more content not included)... Normal [facility] Comprehensive metabolic 2000 panelon 08-20-2023 Albumin [Mass/Vol] 4.5 g/dL Normal 3.9-4.9 [facility] Comment on above: Order Comment: Speci men Type: BLOOD SPECIMENOrdering Facility: [facility] Address: [address] [place] [address] Performed By: #### 2 4323-8, 16142-2, 3053-6, 3024-7 ####[facility] LABCLIA [id number] [place] [address] [place] ALP [Catalytic activity/Vol] 67 U/L Normal 34-123 [facility] Comment on above: Order Comment: Speci men Type: BLOOD SPECIMENOrdering Facility: [facility] Address: [address] [place] [address] Performed By: #### 2 4323-8, 82299-8, 3053-6, 302-7 ####[facility] LABCLIA [id number] [place] [id number] [place] ALT [Catalytic activity/Vol] 17 U/L Normal 7-38 [facility] Comment on above: Order Comment: Speci men Type: BLOOD SPECIMENOrdering Facility: [facility] Address: [address] [place] [address] Performed By: #### 2 4323-8, 20985-0, 3053-6, 3024-7 ####[facility] LABCLIA [id number] [address] [address] [place] Anion gap [Moles/Vol] 9 mmol/L Normal 9-18 [facility] Comment on above: Order Comment: Speci men Type: BLOOD SPECIMENOrdering Facility: [facility] Address: [address] [place] [address] Performed By: #### 2 4323-8, 98742-7, 3053-6, 3024-7 ####[facility] LABCLIA [id number] [address] [address] [place] AST [Catalytic activity/Vol] 17 U/L Normal 13-35 [facility] Comment on above: Order Comment: Speci men Type: BLOOD SPECIMENOrdering Facility: [facility] Address: [address] [place] [address] Performed By: #### 2 4323-8, 56260-0, 3053-6, 3024-7 ####[facility] LABCLIA [id number] [place] [address] [place] Bilirubin [Mass/Vol] 0.5 mg/dL Normal 0.2-1.3 [facility] Comment on above: Order Comment: Speci men Type: BLOOD SPECIMENOrdering Facility: [facility] Address: [address] [place] [address] Performed By: #### 2 4323-8, 80778-2, 3053-6, 3024-7 ####[facility] LABCLIA [id number] [address] [address] [place] Calcium [Mass/Vol] 9.6 mg/dL Normal 8.5-10.2 [facility] Comment on above: Order Comment: Speci men Type: BLOOD SPECIMENOrdering Facility: [facility] Address: [address] [place] [address] Performed By: #### 2 4323-8, 48168-5, 3053-6, 3024-7 ####[facility] LABCLIA [id number] [address] [address] [place] Chloride [Moles/Vol] 101 mmol/L Normal 97-105 [facility] Comment on above: Order Comment: Speci men Type: BLOOD SPECIMENOrdering Facility: [facility] Address: [address] [place] [address] Performed By: #### 2 4323-8, 65974-7, 3053-6, 3024-7 ####[facility] LABCLIA [id number] [address] [address] [place] CO2 [Moles/Vol] 28 mmol/L Normal 22-30 [facility] Comment on above: Order Comment: Speci men Type: BLOOD SPECIMENOrdering Facility: [facility] Address: [address] [place] [address] Performed By: #### 2 4323-8, 26208-1, 3053-6, 3024-7 ####[facility] LABCLIA [id number] [address] [address] [place] Creatinine [Mass/Vol] 0.58 mg/dL Normal 0.58-0.96 [facility] Comment on above: Order Comment: Speci men Type: BLOOD SPECIMENOrdering Facility: [facility] Address: [address] [place] [address] Performed By: #### 2 4323-8, 92246-7, 3053-6, 3024-7 ####[facility] LABIA [id number] [address] [address] [place] Creatinine and Glomerular filtration rate.predicted panel (S/P/Bld) 120 mL/min/1.73m??? Normal >=60 [facility] Comment on above: Order Comment: Speci men Type: BLOOD SPECIMENOrdering Facility: [facility] Address: [address] [place] [address] Result Comment: Francine mated Glomerular Filtration Rate (eGFR) is calculated using the 2020 CKD-EPI creatinine equation. This equation utilizes serum creatinine, sex, and age as parameters. The creatinine assay has traceable calibration to isotope dilution-mass spectrometry. Refer to KDIGO guidelines for clinical interpretation. In patients with unstable renal function, e.g. those with acute kidney injury, the eGFR may not accurately reflect actual GFR. Performed By: #### 2 4323-8, 50866-0, 3053-6, 3023-7 ####[facility] LABIA [id number] [address] [address] [place] Glucose [Mass/Vol] 77 mg/dL Normal 74-99 [facility] Comment on above: Order Comment: Annika cao Type: BLOOD SPECIMENOrdering Facility: [facility] Address: [address] [place] [address] Result Comment: The [place] Diabetes Association (ADA) provides guidance for cutoff values for fasting glucose and random glucose. The ADA defines fasting as no caloric intake for at least 8 hours. Fasting plasma glucose results between 100 to 125 mg/dL indicate increased risk for diabetes (prediabetes). Fasting plasma glucose results greater than or equal to 126 mg/dL meet the criteria for diagnosis of diabetes. In the absence of unequivocal hyperglycemia, results should be confirmed by repeat testing. In a patient with classic symptoms of hyperglycemia or hyperglycemic crisis, random plasma glucose results greater than or equal to 200 mg/dL meet the criteria for diagnosis of diabetes. Reference: Standards of Medical Care in Diabetes 2016, [place] [employer] Association. Diabetes Care. 2016.39(Suppl 1). Performed By: #### 2 4323-8, 81790-5, 305-6, 3023-7 ####[facility] LABIA [id number] [address] [address] [place] Potassium [Moles/Vol] 4.2 mmol/L Normal 3.7-5.1 [facility] Comment on above: Order Comment: Annika cao Type: BLOOD SPECIMENOrdering Facility: [facility] Address: [address] [place] [address] Performed By: #### 2 4323-8, 60864-9, 3053-6, 3023-7 ####[facility] LABIA [id number] [address] [address] [place] Protein [Mass/Vol] 7.0 g/dL Normal 6.3-8.0 [facility] Comment on above: Order Comment: Speci men Type: BLOOD SPECIMENOrdering Facility: [facility] Address: [address] [place], [place] [address] Performed By: #### 2 4323-8, 93019-1, 3053-6, 3024-7 ####[facility] LABIA [id number] [address] [address] [place] Sodium [Moles/Vol] 138 mmol/L Normal 136-144 [facility] Comment on above: Order Comment: Speci men Type: BLOOD SPECIMENOrdering Facility: [facility] Address: [address] [place] [address] Performed By: #### 2 4323-8, 08499-3, 3053-6, 3024-7 ####[facility] [id number] [address] [address] [place] Urea nitrogen [Mass/Vol] 10 mg/dL Normal 7-21 [facility] Comment on above: Order Comment: Speci men Type: BLOOD SPECIMENOrdering Facility: [facility] Address: [address] [place] [address] Performed By: #### 2 4323-8, 97103-7, 3053-6, 3024-7 ####[facility] LABIA [id number] [address] [address] [place] Ferritin SerPl-mCncon 2023 Ferritin [Mass/Vol] 78.6 ng/mL Normal 14.7-205.1 [facility] Comment on above: Order Comment: Speci men Type: BLOOD SPECIMENOrdering Facility: [facility] Address: [address] [place] [address] Performed By: #### 2 276-4, 3016-3, 2132-9 ####[facility] LABIA [id number] [place] [address] [place] HbA1c (Bld)on 08-20-2023 Average glucose Estimated from glycated hemoglobin (Bld) [Mass/Vol] 100 mg/dL Normal [facility] Comment on above: Order Comment: Speci men Type: BLOOD SPECIMENOrdering Facility: [facility] Address: [address] [place] [address] Result Comment: eAG: (Estimated average glucose) is a calculated value from HgbA1c and is compliance representative dealer of the average blood glucose level in the last 2-3 month period. Performed By: #### 5 5454-3 ####[facility] [id number] [address] [place] [facility] HbA1c (Bld) [Mass fraction] 5.1 % Normal 4.3-5.6 [facility] Comment on above: Order Comment: Annika men Type: BLOOD SPECIMENOrdering Facility: [facility] Address: [address] [place] [address] Result Comment: [place] Diabetes Association guidelines indicate that patients with HgbA1c in the range 5.7-6.4% are at increased risk for development of diabetes, and intervention by lifestyle modification may be beneficial. HgbA1c greater or equal to 6.5% is considered diagnostic of diabetes. Performed By: #### 5 5454-3 ####[facility] LABIA [id number] [address] [place] Iron and Iron binding capaci ty panelon 08-20-2023 Iron [Mass/Vol] 148 ug/dL Normal 41-186 [facility] Comment on above: Order Comment: Annika cao Type: BLOOD SPECIMENOrdering Facility: [facility] Address: [address] [place] [address] Performed By: #### 2 4323-8, 19993-6, 3053-6, 3024-7 ####[facility] LABCLIA [id number] [place] [id number] [place] Iron binding capacity [Mass/Vol] 350 ug/dL Normal 232-386 [facility] Comment on above: Order Comment: Speci men Type: BLOOD SPECIMENOrdering Facility: [facility] Address: [address] [place] [address] Performed By: #### 2 4323-8, 64495-2, 3053-6, 3024-7 ####[facility] LABIA [id number] [place] [address] [place] Iron/TIBC [Molar ratio] 42.3 % Normal 15.0-57.0 [facility] Comment on above: Order Comment: Speci men Type: BLOOD SPECIMENOrdering Facility: [facility] Address: [address] [place] [address] Performed By: #### 2 4323-8, 74739-3, 3053-6, 3024-7 ####[facility] [id number] [place] [address] [place] T3 SerPl-mCncon 08-20-2023 T3 [Mass/Vol] 137 ng/dL Normal 79-165 [facility] Comment on above: Order Comment: Speci men Type: BLOOD SPECIMENOrdering Facility: [facility] Address: [address] [place] [address] Performed By: #### 2 4323-8, 51425-3, 3053-6, 3024-7 ####[facility] LABIA [id number] [place] [id number] [place] T4 Free SerPl-mCncon 024 Free T4 [Mass/Vol] 1.3 ng/dL Normal 0.9-1.7 [facility] Comment on above: Order Comment: Speci men Type: BLOOD SPECIMENOrdering Facility: [facility] Address: [address] [place] [address] Performed By: #### 2 4323-8, 68146-3, 3053-6, 3024-7 ####[facility] LABCLIA [id number] [place] [id number] [place] TSH SerPl-aCncon 08-20-2023 TSH Qn 0.728 m[IU]/L Normal 0.270-4.200 [facility] Comment on above: Order Comment: Eriki kiley Type: BLOOD SPECIMENOrdering Facility: [facility] Address: [address] [place] [address] Result Comment: If t he patient is , TSH reference range varies by gestational period: First Trimester (weeks 9-12): 0.180-2.990 mIU/L Second Trimester: 0.110-3.980 mIU/L Third Trimester: 0.480-4.710 mIU/L Gabriel Xiong et al. A Practical Approach for the Verifications and Determination of Site- and Trimester-Specific Reference Intervals for Thyroid Function tests in . Thyroid, 2019:29:3:412-420. Isaiah Zacarias, et al. 2017 Guidelines of the [place] [employer] for the Diagnosis and Management of Thyroid Disease during and the . Thyroid, 2017:27:3:315-389. Performed By: #### 2 276-4, 3016-3, 2132-02 ####[facility] LABIA [id number] [place] [id number] [place] Vit B12 SerPl-mCncon 024 Cobalamin (Vitamin B12) [Mass/Vol] 402 pg/mL Normal 232-1245 [facility] Comment on above: Order Comment: Annika cao Type: BLOOD SPECIMENOrdering Facility: [facility] Address: [address] [place] [address] Performed By: #### 2 276-4, 3016-3, 9 ####[facility] LABIA [id number] [place] [id number] [place] CNOVon 07-16-2023 CNOV Office Visit (FAMPWS ) MAYURI CREWS ([id number]) 1985 F Date Time Provider Department 07/16/23 8:00 AM CAILIN MORILLO During your visit today, we recorded the following information about you: Pulse Respiration Blood pressure Weight 68/minute 12/minute 94/60 60.1 kg Cailin Morillo APRN.MONITOR TECH 07/16/2023 8:51 AM Signed Chief Complaint Patient presents with: short term disabilityfor migraines HPI Mayuri Crews is a 38 year old female who presents here today for Above Complaints. Mayuri is an established patient of Dr. Vogel, Do and myself. Concerns today... Headaches -- [...] penalized for debilitating headaches. Following with Dr. Ortiz for recent GI issues of abd pain and indigestion. Pt has endoscopy and GI emptying test scheduled for this week. Dr. Ortiz believes GI issues may be contributing to [...] cancer Hypertension Maternal Grandmother Heart Maternal Grandmother MD Arthritis Maternal Grandfather Hypertension Maternal Grandfather Arthritis [...] Maintenance List Hepatitis B Vaccine(1 of 3 (more content not included)... Normal [facility] CNOVon 07-09-2023 CNOV Office Visit (UCWSTR ) MAYURI CREWS ([id number]) 1985 F Date Time Provider Department 07/09/23 7:15 AM ZBIGNIEW RYAN [facility] During your visit today, we recorded the following information about you: Temperature Pulse Respiration Blood pressure 96.9 degrees 72/minute 16/minute 122/80 Weight 59.4 kg Zbigniew Ryan, DEIDRE.MONITOR TECH 07/09/2023 7:37 AM Signed Subjective HPI Nontoxic-appearing female presents urgent care [...] headache Pelvic pain in female ovarian cysts, [facility] SVT (supraventricular tachycardia) [address] Coburn at the time Tobacco abuse PAST SURGICAL HISTORY Procedure Laterality Date COLONOSCOPY W/BIOPSY SINGLE/MULTIPLE 09/28/2020 NONE UTERINE CERVIX-EXCISION (CONE/LEEP) SYNOPTIC RPT 06/2020 ALLERGIES Cats, Morphine, and Vicodin [Hydrocodone-Acetamin ophen] MEDICATIONS SUMAtriptan (IMITREX) 100 mg tablet Take [...] cancer Hypertension Maternal Grandmother Heart Maternal Grandmother MD Arthritis Maternal Grandfather Hypertension Maternal Grandfather Arthritis [...] stone, gallstones or viral gastroenteritis. With patient's present (more content not included)... Normal [facility] STREP A MOLECULAR (POC)on Procedural Control Valid [facility] Strep A (POCT) Negative Negative [facility] CBC W Auto Differential pane l (Bld)on 02-07-2023 Basophils (Bld) [#/Vol] 0.05 10*3/uL <0.11 k/uL [facility] Basophils/100 WBC (Bld) 1.2 % [facility] Differential cell count method Nom (Bld) Auto [facility] Eosinophils (Bld) [#/Vol] 0.10 10*3/uL <0.46 k/uL [facility] Eosinophils/100 WBC (Bld) 2.5 % [facility] Erythrocyte distribution width (RBC) [Ratio] 12.0 % 11.5 - 15.0 % [facility] Hematocrit (Bld) [Volume fraction] 44.7 % 36.0 - 46.0 % [facility] Hemoglobin (Bld) [Mass/Vol] 14.4 g/dL 11.5 - 15.5 g/dL [facility] Immature granulocytes (Bld) [#/Vol] <0.10 k/uL [facility] Immature granulocytes/100 WBC (Bld) 0.0 % [facility] Lymphocytes (Bld) [#/Vol] 1.34 10*3/uL 1.00 - 4.00 k/uL [facility] Lymphocytes/100 WBC (Bld) 32.8 % [facility] MCH (RBC) [Entitic mass] 31.0 pg 26.0 - 34.0 pg [facility] MCHC (RBC) [Mass/Vol] 32.2 g/dL 30.5 - 36.0 g/dL [facility] MCV (RBC) [Entitic vol] 96.1 fL 80.0 - 100.0 fL [facility] Monocytes (Bld) [#/Vol] 0.48 10*3/uL <0.87 k/uL [facility] Monocytes/100 WBC (Bld) 11.8 % [facility] Neutrophils (Bld) [#/Vol] 2.11 10*3/uL 1.45 - 7.50 k/uL [facility] Neutrophils/100 WBC (Bld) 51.7 % [facility] Nucleated RBC (Bld) [#/Vol] <0.01 k/uL [facility] Nucleated RBC/100 WBC (Bld) [Ratio] 0.0 /100 WBC [facility] Platelet mean volume (Bld) [Entitic vol] 11.1 fL 9.0 - 12.7 fL [facility] Platelets (Bld) [#/Vol] 229 10*3/uL 150 - 400 k/uL [facility] RBC (Bld) [#/Vol] 4.65 10*6/uL 3.90 - 5.2 0 m/uL [facility] WBC (Bld) [#/Vol] 4.08 10*3/uL 3.70 - 11. 00 k/uL [facility] Comprehensive metabolic 2000 panelon 02-07-2023 Albumin [Mass/Vol] 4.6 g/dL 3.9 - 4.9 g/dL [facility] ALP [Catalytic activity/Vol] 72 U/L 34 - 123 U/L [facility] ALT [Catalytic activity/Vol] 14 U/L 7 - 38 U/L [facility] Anion gap [Moles/Vol] 12 mmol/L 9 - 18 mmol/L [facility] AST [Catalytic activity/Vol] 18 U/L 13 - 35 U/L [facility] Bilirubin [Mass/Vol] 0.6 mg/dL 0.2 - 1 .3 mg/dL [facility] Calcium [Mass/Vol] 9.6 mg/dL 8.5 - 10. 2 mg/dL [facility] Chloride [Moles/Vol] 104 mmol/L 97 - 10 5 mmol/L [facility] CO2 [Moles/Vol] 23 mmol/L 22 - 30 mmol/L [facility] Creatinine [Mass/Vol] 0.65 mg/dL 0.58 - 0.96 mg/dL [facility] Estimated Glomerular Filtration Rate 118 mL/min/1.73m >=60 mL/min/1.73m [facility] Glucose [Mass/Vol] 87 mg/dL 74 - 99 mg/dL [facility] Potassium [Moles/Vol] 4.3 mmol/L 3.7 - 5.1 mmol/L [facility] Protein [Mass/Vol] 7.2 g/dL 6.3 - 8.0 g/dL [facility] Sodium [Moles/Vol] 139 mmol/L 136 - 144 mmol/L [facility] Urea nitrogen [Mass/Vol] 11 mg/dL 7 - 21 mg/dL [facility] HbA1c (Bld)on 02-07-2023 Average glucose Estimated from glycated hemoglobin (Bld) [Mass/Vol] 100 mg/dL [facility] HbA1c (Bld) [Mass fraction] 5.1 % 4.3 - 5.6 % [facility] Lipid 1996 panelon Cholesterol [Mass/Vol] 207 mg/dL High <200 mg/dL [facility] Cholesterol in HDL [Mass/Vol] 64 mg/dL >39 mg/dL [facility] Cholesterol in LDL [Mass/Vol] 135 mg/dL High <100 mg/dL [facility] Cholesterol in LDL/Cholesterol in HDL [Mass ratio] 2.11 {ratio} <2.54 [facility] Cholesterol in VLDL [Mass/Vol] 8 mg/dL <30 mg/dL [facility] Cholesterol non HDL [Mass/Vol] 143 mg/dL High <130 mg/dL [facility] Cholesterol.total/Cho lesterol in HDL [Mass ratio] 3.23 {ratio} <5.10 [facility] Fasting Time 13 hrs [facility] Triglyceride [Mass/Vol] 42 mg/dL <150 mg/dL [facility] Lab Report: Progesterone Lev richard 04-23-2017 Progesterone mass conc 5.75 ng/mL Invalid Interpretation Code See Comment [facility] Lab Report: Estradiolon Estradiol Free [Mass/volume] in Serum or Plasma 64.7 pg/mL Invalid Interpretation Code [facility] [employer] Work Phone: Lab Report: Follicle Stimula ting Hormoneon 04-04-2017 Follitropin [Moles/volume] in Serum or Plasma 7.8 m[iU]/mL Invalid Interpretation Code [facility] [employer] Work Phone: Lab Report: Prolactinon Prolactin mass conc 7.2 ng/mL Invalid Interpretation Code [facility] [employer] Work Phone: Lab Report: Thyroid Stim Hor nina (TSH)on 04-04-2017 Thyrotropin Qn 0.64 u[iU]/mL Invalid Interpretation Code 0.358-3.74 [facility] [employer] Work Phone: Office Visit: infertility co nsulton 04-02-2017 Documentation of current medications (procedure) Done Invalid Interpretation Code [facility] Documentation of current medications (procedure) T Invalid Interpretation Code [facility] Protein mass conc T Invalid Interpretation Code [facility] Protein mass conc Done Invalid Interpretation Code [facility] Tobacco smoking status NHIS Never Invalid Interpretation Code [facility] Tobacco smoking status NHIS Current every day smoker Invalid Interpretation Code [facility] Tobacco use CPHS Current every day smoker Invalid Interpretation Code [facility] Office Visit: infertility co nsulton 08-29-2015 General categories [Interpretation] of Cervical or vaginal smear or scraping by Cyto stain Normal Invalid Interpretation Code [facility] Office Visiton 09-05-2011 Protein mass conc yes Invalid Interpretation Code [facility] Smoking cessation education (procedure) yes Invalid Interpretation Code [facility] Clinical Lists Update: 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 08-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 Chloride 110 mmol/L Invalid Interpretation Code [facility] CO2 28.0 mmol/L Invalid Interpretation Code [facility] CO2 ppres (BldV) 28.0 mmol/L Invalid Interpretation Code [facility] Creatinine 0.6 mg/dL Invalid Interpretation Code [facility] Erythrocytes (RBC) 4.74 10*6/uL Invalid Interpretation Code [facility] Hematocrit (HCT) 44.0 % Invalid Interpretation Code [facility] Hemoglobin mass conc (Bld) 15.1 g/dL Invalid Interpretation Code [facility] Platelets 194 10*3/mm3 Invalid Interpretation Code [facility] Potassium molar conc 4.2 mmol/L Invalid Interpretation Code [facility] Sodium 144 mmol/L Invalid Interpretation Code [facility] Thyroid stimulating hormone (TSH) 0.83 u[iU]/mL Invalid Interpretation Code [facility] Urea nitrogen 11 mg/dL Invalid Interpretation Code [facility] WBC (Leukocytes) 5.9 10*3/uL Invalid Interpretation Code [facility] MCH 32 pg Invalid Interpretation Code [facility] MCV 93 fL Invalid Interpretation Code [facility] Vital Signs Date Time Vital Sign Value Performing Clinician Facility 04-15-2024 14:43-0400 Body mass index (BMI) [Ratio] 19.8 kg/m2 Anita Swift MD Work Phone: [facility] 04-15-2024 14:43-0400 Body weight 62.6 kg Anita Swift MD Work Phone: [facility] 03-17-2024 08:16-0400 Body mass index (BMI) [Ratio] 19.99 kg/m2 Daniel Trujillo APRN.MONITOR TECH Work Phone: [facility] 03-17-2024 08:16-0400 Body weight 63.2 kg Daniel Trujillo [employer]STALLATION HELPER.MONITOR TECH Work Phone: [facility] 03-17-2024 08:16-0400 Diastolic blood pressure 76 mm[Hg] Daniel Trujillo APRN.MONITOR TECH Work Phone: [facility] 03-17-2024 08:16-0400 Heart rate 83 /min Daniel Trujillo [employer] INSTALLATION HELPER.MONITOR TECH Work Phone: [facility] 03-17-2024 08:16-0400 Respiratory rate 16 /min Daniel Trujillo APRN.MONITOR TECH Work Phone: [facility] 03-17-2024 08:16-0400 SaO2% (BldA) [Mass fraction] 99 % Daniel Trujillo APRN.MONITOR TECH Work Phone: [facility] 03-17-2024 08:16-0400 Systolic blood pressure 122 mm[Hg] Daniel Trujillo APRN.MONITOR TECH Work Phone: [facility] 02-16-2024 10:59-0400 Body mass index (BMI) [Ratio] 19.66 kg/m2 Logan Ruiz APRN.MONITOR TECH Work Phone: [facility] 02-16-2024 10:59-0400 Body temperature 98.71 [degF] Logan Ruiz APRN.MONITOR TECH Work Phone: [facility] 02-16-2024 10:59-0400 Body weight 62.14 kg Logan Ruiz APRN.MONITOR TECH Work Phone: [facility] 02-16-2024 10:59-0400 Diastolic blood pressure 73 mm[Hg] Logan Ruiz APRN.MONITOR TECH Work Phone: [facility] 02-16-2024 10:59-0400 Heart rate 81 /min Logan Ruiz APRN.MONITOR TECH Work Phone: [facility] 02-16-2024 10:59-0400 Respiratory rate 14 /min Logan Ruiz APRN.MONITOR TECH Work Phone: [facility] 02-16-2024 10:59-0400 SaO2% (BldA) [Mass fraction] 96 % Logan Ruiz APRN.MONITOR TECH Work Phone: [facility] 02-16-2024 10:59-0400 Systolic blood pressure 107 mm[Hg] Logan Ruiz APRN.MONITOR TECH Work Phone: [facility] 01-13-2024 12:49-0400 Body mass index (BMI) [Ratio] 18.98 kg/m2 Shanelle Arnett MD Work Phone: [facility] 01-13-2024 12:49-0400 Body weight 60 kg Shanelle Arnett MD Work Phone: [facility] 01-13-2024 12:49-0400 Diastolic blood pressure 88 mm[Hg] Shanelle Arnett MD Work Phone: [facility] 01-13-2024 12:49-0400 Heart rate 86 /min Shanelle Arnett MD Work Phone: [facility] 01-13-2024 12:49-0400 SaO2% (BldA) [Mass fraction] 96 % Shanelle Arnett MD Work Phone: [facility] 01-13-2024 12:49-0400 Systolic blood pressure 121 mm[Hg] Shanelle Arnett MD Work Phone: [facility] 12-11-2023 07:20-0400 Body mass index (BMI) [Ratio] 19.89 kg/m2 Cailin Morillo [employer] INSTALLATION HELPER.MONITOR TECH Work Phone: [facility] 12-11-2023 07:20-0400 Body weight 62.87 kg Cailin Morillo [employer] INSTALLATION HELPER.MONITOR TECH Work Phone: [facility] 12-11-2023 07:20-0400 Diastolic blood pressure 62 mm[Hg] Cailin Morillo [employer]BLE INSTALLATION HELPER.MONITOR TECH Work Phone: [facility] 12-11-2023 07:20-0400 Heart rate 60 /min Cailin Morillo [employer] INSTALLATION HELPER.MONITOR TECH Work Phone: [facility] 12-11-2023 07:20-0400 Respiratory rate 14 /min Cailin Morillo [employer] INSTALLATION HELPER.MONITOR TECH Work Phone: [facility] 12-11-2023 07:20-0400 Systolic blood pressure 120 mm[Hg] Cailin Morillo [employer] INSTALLATION HELPER.MONITOR TECH Work Phone: [facility] 11-19-2023 14:43-0400 Body mass index (BMI) [Ratio] 19.63 kg/m2 Cailin Morillo [employer] INSTALLATION HELPER.MONITOR TECH Work Phone: [facility] 11-19-2023 14:43-0400 Body weight 62.05 kg Cailin Morillo [employer]BLE INSTALLATION HELPER.MONITOR TECH Work Phone: [facility] 11-19-2023 14:43-0400 Diastolic blood pressure 62 mm[Hg] Cailin Morillo [employer]BLE INSTALLATION HELPER.MONITOR TECH Work Phone: [facility] 11-19-2023 14:43-0400 Heart rate 64 /min Cailin Morillo [employer]BLE INSTALLATION HELPER.MONITOR TECH Work Phone: [facility] 11-19-2023 14:43-0400 Respiratory rate 12 /min Cailin Morillo [employer]BLE INSTALLATION HELPER.MONITOR TECH Work Phone: [facility] 11-19-2023 14:43-0400 Systolic blood pressure 90 mm[Hg] Cailin Morillo [employer]BLE INSTALLATION HELPER.MONITOR TECH Work Phone: [facility] 11-05-2023 09:08-0400 Body mass index (BMI) [Ratio] 19.49 kg/m2 Cailin Morillo [employer]BLE INSTALLATION HELPER.MONITOR TECH Work Phone: [facility] 11-05-2023 09:08-0400 Body weight 61.6 kg Cailin Morillo [employer]BLE INSTALLATION HELPER.MONITOR TECH Work Phone: [facility] 11-05-2023 09:08-0400 Diastolic blood pressure 60 mm[Hg] Cailin Morillo [employer]BLE INSTALLATION HELPER.MONITOR TECH Work Phone: [facility] 11-05-2023 09:08-0400 Heart rate 62 /min Cailin Morillo [employer]BLE INSTALLATION HELPER.MONITOR TECH Work Phone: [facility] 11-05-2023 09:08-0400 Respiratory rate 12 /min Cailin Morillo [employer]BLE INSTALLATION HELPER.MONITOR TECH Work Phone: [facility] 11-05-2023 09:08-0400 Systolic blood pressure 90 mm[Hg] Cailin Morillo [employer]BLE INSTALLATION HELPER.MONITOR TECH Work Phone: [facility] 10-27-2023 14:08-0400 Body height 177.8 cm Pul Wstr Work Phone: [facility] 10-27-2023 14:08-0400 Body mass index (BMI) [Ratio] 19.08 kg/m2 Pulm Wstr Work Phone: [facility] 10-27-2023 14:08-0400 Body weight 60.33 kg Pulm Wstr Work Phone: [facility] 10-27-2023 14:08-0400 Heart rate 89 /min Pulm Wstr Work Phone: [facility] 10-27-2023 14:08-0400 Respiratory rate 16 /min Pulm Wstr Work Phone: [facility] 10-27-2023 14:08-0400 SaO2% (BldA) [Mass fraction] 98 % Pulm Wstr Work Phone: [facility] 10-23-2023 07:59-0400 Body mass index (BMI) [Ratio] 19.14 kg/m2 Cailin Morillo [employer]BLE INSTALLATION HELPER.MONITOR TECH Work Phone: [facility] 10-23-2023 07:59-0400 Body weight 62.23 kg Cailin Morillo [employer]BLE INSTALLATION HELPER.MONITOR TECH Work Phone: [facility] 10-23-2023 07:59-0400 Diastolic blood pressure 68 mm[Hg] Cailin Morillo [employer]BLE INSTALLATION HELPER.MONITOR TECH Work Phone: [facility] 10-23-2023 07:59-0400 Heart rate 68 /min Cailin Morillo [employer]BLE INSTALLATION HELPER.MONITOR TECH Work Phone: [facility] 10-23-2023 07:59-0400 Respiratory rate 12 /min Cailin Morillo MARBLE INSTALLATION HELPER.MONITOR TECH Work Phone: [facility] 10-23-2023 07:59-0400 Systolic blood pressure 110 mm[Hg] Cailin Morillo MARBLE INSTALLATION HELPER.MONITOR TECH Work Phone: [facility] 10-20-2023 08:26-0400 Body height 180.3 cm Cailin Morillo MARBLE INSTALLATION HELPER.MONITOR TECH Work Phone: [facility] 10-20-2023 08:26-0400 Body mass index (BMI) [Ratio] 19.14 kg/m2 Cailin Morillo [employer]BLE INSTALLATION HELPER.MONITOR TECH Work Phone: [facility] 10-20-2023 08:26-0400 Body weight 62.23 kg Cailin Morillo [employer]BLE INSTALLATION HELPER.MONITOR TECH Work Phone: [facility] 10-20-2023 08:26-0400 Diastolic blood pressure 70 mm[Hg] Cailin Morillo [employer]BLE INSTALLATION HELPER.MONITOR TECH Work Phone: [facility] 10-20-2023 08:26-0400 Heart rate 87 /min Cailin Morillo MARBLE INSTALLATION HELPER.MONITOR TECH Work Phone: [facility] 10-20-2023 08:26-0400 Respiratory rate 16 /min Cailin Morillo MARBLE INSTALLATION HELPER.MONITOR TECH Work Phone: [facility] 10-20-2023 08:26-0400 Systolic blood pressure 90 mm[Hg] Cailin Morillo MARBLE INSTALLATION HELPER.MONITOR TECH Work Phone: [facility] 10-13-2023 12:28-0400 Body weight 60.87 kg Cailin Morillo MARBLE INSTALLATION HELPER.MONITOR TECH Work Phone: [facility] 10-13-2023 12:28-0400 Diastolic blood pressure 60 mm[Hg] Cailin Morillo MARBLE INSTALLATION HELPER.MONITOR TECH Work Phone: [facility] 10-13-2023 12:28-0400 Heart rate 68 /min Cailin Morillo MARBLE INSTALLATION HELPER.MONITOR TECH Work Phone: [facility] 10-13-2023 12:28-0400 Respiratory rate 14 /min Cailin Morillo MARBLE INSTALLATION HELPER.MONITOR TECH Work Phone: [facility] 10-13-2023 12:28-0400 Systolic blood pressure 112 mm[Hg] Cailin Morillo MARBLE INSTALLATION HELPER.MONITOR TECH Work Phone: [facility] 08-20-2023 11:16-0500 Body weight 60.06 kg Cailin Morillo MARBLE INSTALLATION HELPER.MONITOR TECH Work Phone: [facility] 08-20-2023 11:16-0500 Diastolic blood pressure 60 mm[Hg] Cailin Morillo MARBLE INSTALLATION HELPER.MONITOR TECH Work Phone: [facility] 08-20-2023 11:16-0500 Heart rate 76 /min Cailin Morillo MARBLE INSTALLATION HELPER.MONITOR TECH Work Phone: [facility] 08-20-2023 11:16-0500 Respiratory rate 12 /min Cailin Morillo MARBLE INSTALLATION HELPER.MONITOR TECH Work Phone: [facility] 08-20-2023 11:16-0500 Systolic blood pressure 118 mm[Hg] Cailin Morillo MARBLE INSTALLATION HELPER.MONITOR TECH Work Phone: [facility] 07-09-2023 07:11-0500 Body temperature 96.91 [degF] Zbigniew Ryan [employer]BLE INSTALLATION HELPER.MONITOR TECH Work Phone: [facility] 07-09-2023 07:11-0500 Body weight 59.42 kg Zbigniew Ryan [employer]BLE INSTALLATION HELPER.MONITOR TECH Work Phone: [facility] 07-09-2023 07:11-0500 Diastolic blood pressure 80 mm[Hg] Zbigniew Ryan MARBLE INSTALLATION HELPER.MONITOR TECH Work Phone: [facility] 07-09-2023 07:11-0500 Heart rate 72 /min Zbigniew Ryan [employer]BLE INSTALLATION HELPER.MONITOR TECH Work Phone: [facility] 07-09-2023 07:11-0500 Respiratory rate 16 /min Zbigniew Ryan MARBLE INSTALLATION HELPER.MONITOR TECH Work Phone: [facility] 07-09-2023 07:11-0500 SaO2% (BldA) [Mass fraction] 98 % Zbigniew Ryan [employer]BLE INSTALLATION HELPER.MONITOR TECH Work Phone: [facility] 07-09-2023 07:11-0500 Systolic blood pressure 122 mm[Hg] Zbigniew Ryan [employer]BLE INSTALLATION HELPER.MONITOR TECH Work Phone: [facility] 02-17-2023 09:12-0400 Body temperature 98.91 [degF] Zbigniew Pendlebury [employer] INSTALLATION HELPER.MONITOR TECH Work Phone: [facility] 02-17-2023 09:12-0400 Body weight 62.41 kg Zbigniew Pendlebury [employer]BLE INSTALLATION HELPER.MONITOR TECH Work Phone: [facility] 02-17-2023 09:12-0400 Diastolic blood pressure 70 mm[Hg] Zbigniew Pendlebury [employer]BLE INSTALLATION HELPER.MONITOR TECH Work Phone: [facility] [facility] 02-17-2023 09:12-0400 Heart rate 92 /min Zbigniew Pendlebury MARBLE INSTALLATION HELPER.MONITOR TECH Work Phone: [facility] 02-17-2023 09:12-0400 Respiratory rate 18 /min Zbigniew Pendlebury MARBLE INSTALLATION HELPER.MONITOR TECH Work Phone: [facility] 02-17-2023 09:12-0400 SaO2% (BldA) [Mass fraction] 96 % Zbigniew Pendlebury MARBLE INSTALLATION HELPER.MONITOR TECH Work Phone: [facility] 02-17-2023 09:12-0400 Systolic blood pressure 109 mm[Hg] Zbigniew Pendlebury MARBLE INSTALLATION HELPER.MONITOR TECH Work Phone: [facility] 02-07-2023 07:06-0400 Body height 180 cm Cailin Morillo MARBLE INSTALLATION HELPER.MONITOR TECH Work Phone: [facility] 02-07-2023 07:06-0400 Body weight 62.23 kg Cailin Morillo MARBLE INSTALLATION HELPER.MONITOR TECH Work Phone: [facility] 02-07-2023 07:06-0400 Diastolic blood pressure 62 mm[Hg] Cailin Morillo MARBLE INSTALLATION HELPER.MONITOR TECH Work Phone: [facility] 02-07-2023 07:06-0400 Heart rate 68 /min Cailin Morillo MARBLE INSTALLATION HELPER.MONITOR TECH Work Phone: [facility] 02-07-2023 07:06-0400 Respiratory rate 14 /min Cailin Morillo MARBLE INSTALLATION HELPER.MONITOR TECH Work Phone: [facility] 02-07-2023 07:06-0400 Systolic blood pressure 94 mm[Hg] Cailin Morillo MARBLE INSTALLATION HELPER.MONITOR TECH Work Phone: [facility] 01-30-2023 08:02-0400 Body temperature 97.9 [degF] Krislyn Aberegg PA Work Phone: [facility] 01-30-2023 08:02-0400 Body weight 62.6 kg Krislyn Aberegg PA Work Phone: [facility] 01-30-2023 08:02-0400 Diastolic blood pressure 70 mm[Hg] Krislyn Aberegg PA Work Phone: [facility] 01-30-2023 08:02-0400 Heart rate 78 /min Krislyn Aberegg PA Work Phone: [facility] 01-30-2023 08:02-0400 Respiratory rate 16 /min Krislyn Aberegg PA Work Phone: [facility] 01-30-2023 08:02-0400 SaO2% (BldA) [Mass fraction] 97 % Krislyn Aberegg PA Work Phone: [facility] 01-30-2023 08:02-0400 Systolic blood pressure 96 mm[Hg] Krislyn Aberegg PA Work Phone: [facility] 03-05-2022 09:51-0400 Body weight 58.97 kg Kayla Older MARBLE INSTALLATION HELPER.MONITOR TECH Work Phone: [facility] 03-05-2022 09:51-0400 Diastolic blood pressure 68 mm[Hg] Kayla Older MARBLE INSTALLATION HELPER.MONITOR TECH Work Phone: [facility] 03-05-2022 09:51-0400 Heart rate 64 /min Kayla Older MARBLE INSTALLATION HELPER.MONITOR TECH Work Phone: [facility] 03-05-2022 09:51-0400 Respiratory rate 12 /min Kayla Older MARBLE INSTALLATION HELPER.MONITOR TECH Work Phone: [facility] 03-05-2022 09:51-0400 Systolic blood pressure 104 mm[Hg] Kayla Older MARBLE INSTALLATION HELPER.MONITOR TECH Work Phone: [facility] 08-19-2012 11:33-0500 BMI (Body Mass Index) 1.73 kg/m2 Lore Valentino NP [facility] 08-19-2012 11:33-0500 BP Diastolic 60 mm[Hg] Lore Valentino NP [facility] 08-19-2012 11:33-0500 BP Systolic 90 mm[Hg] Lore Valentino MACHINE OPERATOR HELPER [facility] 08-19-2012 11:33-0500 Pulse (Heart Rate) 90 /min Lore Valentino NP [facility] 08-19-2012 11:33-0500 Respiratory Rate 20 /min Lore Valentino NP [facility] 08-19-2012 11:33-0500 Weight 59.01 kg Lore Valentino NP [facility] 09-05-2011 10:26-0500 Height 177.8 cm Lore Valentino NP [facility] Encounters Encounter Date Encounter Type Care Provider Facility Start: 04-22-2024 End: 04-22-2024 Refill Tee Vogel DO Work Phone: [facility] [place] Comment on above: Refill Request Start: 04-16-2024 End: 04-16-2024 Telephone encounter Anita Swift MD Work Phone: Pulmonary Medicine Comment on above: External Referrals/r esources (Esophogram/Methacholine Challenge/) Start: 04-15-2024 End: 04-15-2024 Patient encounter procedure Pulm Lab [facility] Work Phone: PULM LAB [facility] Comment on above: SOB (shortness of br eath) (Primary Dx); Pulmonary air trapping; Globus sensation Start: 04-15-2024 End: 04-15-2024 ambulatory Pulm Lab [facility] Work Phone: PULM LAB [facility] Comment on above: Spirometry Start: 03-23-2024 End: 03-24-2024 Telephone encounter Daniel Trujillo APRN.CNP Work Phone: [facility] [place] Comment on above: Results Start: 03-22-2024 End: 03-22-2024 Telephone encounter Tee Vogel DO Work Phone: [facility] [place] Comment on above: Patient Update Start: 03-19-2024 End: 03-19-2024 ambulatory TEE VOGEL Facility:[facility] Start: 03-19-2024 End: 03-19-2024 Subsequent hospital visit by physician [facility] Work Phone: Radiology Comment on above: Nausea and vomiting, unspecified vomiting type [R11.2] Start: 03-17-2024 End: 03-17-2024 ambulatory TEE VOGEL Facility:[facility] Start: 03-17-2024 End: 03-17-2024 Office outpatient visit 40 minutes Daniel Trujillo APRN.CNP Work Phone: [facility] [place] Comment on above: Nausea and vomiting, unspecified vomiting type (Primary Dx); Migraine without status migrainosus, not intractable, unspecified migraine type; Epigastric pain; Feeling of foreign body in throat; Fatigue, unspecified type; SOB (shortness of breath); Systemic lupus erythematosus, unspecified SLE type, unspecified organ involvement status (HCC); Family history of thyroid cancer Start: 03-10-2024 End: 03-10-2024 E-mail encounter from caregiver Cailin Ilia DAVIES Work Phone: [facility] [place] Start: 03-10-2024 End: 03-10-2024 Patient encounter procedure Cailin Morillo APRN.CNP Work Phone: [facility] [place] Comment on above: Appointment Request Start: 02-17-2024 End: 02-17-2024 Telephone encounter Logan Ruiz APRN.CNP Work Phone: [facility] [place] Comment on above: Results Start: 02-16-2024 End: 02-16-2024 ambulatory TEE VOGEL Facility:[facility] Start: 02-16-2024 End: 02-16-2024 Patient encounter procedure Logan Ruiz APRN.CNP Work Phone: [facility] [place] Comment on above: Viral URI (Primary D x); Sore throat; Fatigue, unspecified type; Bacterial sinusitis Start: 01-13-2024 End: 01-13-2024 ambulatory TEE Inga PULLIAMVOGEL Facility:[facility] Start: 01-13-2024 End: 01-13-2024 Patient encounter procedure Shanelle Arnett MD Work Phone: Pulmonary Medicine Comment on above: Mild persistent asth ma without complication (Primary Dx); Pulmonary air trapping; Lung nodules; SOB (shortness of breath); Systemic lupus erythematosus, unspecified SLE type, unspecified organ involvement status (HCC); SVT (supraventricular tachycardia) (HCC) Start: 01-07-2024 Telephone encounter Cailin negrete MARBLE INSTALLATION HELPER.MONITOR TECH Work Phone: [facility] [place] Comment on above: Results - Ct Start: 01-06-2024 End: 01-06-2024 [facility] TEE VOGEL Facility:[facility] Start: 01-06-2024 End: 01-06-2024 Subsequent hospital visit by physician [facility] (I-Stat) Work Phone: Cat Scan Comment on above: Systemic lupus eryth ematosus, unspecified SLE type, unspecified organ involvement status (HCC) [M32.9] Start: 12-16-2023 Telephone encounter Cailin negrete MARBLE INSTALLATION HELPER.MONITOR TECH Work Phone: [facility] [place] Comment on above: CT authorization Start: 12-11-2023 End: 12-11-2023 ambulatory TEE Inga JASPREET Facility:[facility] Start: 12-11-2023 End: 12-11-2023 Patient encounter procedure Cailin Morillo MARBLE INSTALLATION HELPER.MONITOR TECH Work Phone: [facility] [place] Comment on above: Unemployment (Primar y Dx); Nausea and vomiting, unspecified vomiting type Start: 12-04-2023 Telephone encounter Tee gonsalves DO Work Phone: [facility] [place] Comment on above: CT prior auth Start: 12-02-2023 Telephone encounter Tee gonsalves DO Work Phone: [facility] [place] Comment on above: Chest CT prior auth Start: 11-20-2023 Telephone encounter Jeff Chenglindaluann Mathur ABHIJIT Pantoja Start: 11-19-2023 End: 11-19-2023 Patient encounter procedure Cailin Morillo MARBLE INSTALLATION HELPER.MONITOR TECH Work Phone: [facility] [place] Comment on above: Financial difficulti es (Primary Dx); Systemic lupus erythematosus, unspecified SLE type, unspecified organ involvement status (HCC); Generalized abdominal pain; SOB (shortness of breath); Chest pain, unspecified type; Cough, persistent Start: 11-19-2023 End: 11-19-2023 ambulatory ETE L VOGEL Facility:[facility] Start: 11-19-2023 Telephone encounter Cailin negrete MARBLE INSTALLATION HELPER.MONITOR TECH Work Phone: [facility] [place] Comment on above: Patient Question Start: 11-13-2023 ambulatory Cailin Morillo MARBLE INSTALLATION HELPER.MONITOR TECH Work Phone: [facility] [place] Comment on above: AmandaHuff Start: 11-11-2023 Telephone encounter Cailin negrete MARBLE INSTALLATION HELPER.MONITOR TECH Work Phone: [facility] [place] Comment on above: Patient Update Start: 11-09-2023 ambulatory Cailin Morillo MARBLE INSTALLATION HELPER.MONITOR TECH Work Phone: [facility] [place] Comment on above: Paperwork Start: 11-05-2023 End: 11-05-2023 ambulatory TEE L VOGEL Facility:[facility] Start: 11-05-2023 End: 11-05-2023 Patient encounter procedure Cailin Morillo MARBLE INSTALLATION HELPER.MONITOR TECH Work Phone: [facility] [place] Comment on above: Systemic lupus eryth ematosus, unspecified SLE type, unspecified organ involvement status (HCC) (Primary Dx); SOB (shortness of breath); Generalized abdominal pain Start: 10-29-2023 Telephone encounter Cailin negrete MARBLE INSTALLATION HELPER.MONITOR TECH Work Phone: [facility] [place] Comment on above: Results Start: 10-27-2023 End: 10-27-2023 ambulatory Pulm Lab [facility] Work Phone: PULM LAB [facility] Comment on above: Spirometry [employer] Start: 10-27-2023 End: 10-27-2023 [facility] Work Phone: [facility]ULM LAB [facility] Start: 10-23-2023 Telephone encounter Tee gonsalves DO Work Phone: [facility] [place] Comment on above: Patient Update Start: 10-23-2023 End: 10-23-2023 ambulatory TEE VOGEL Facility:[facility] Start: 10-23-2023 End: 10-23-2023 Patient encounter procedure Cailin Ilia MARBLE INSTALLATION HELPER.MONITOR TECH Work Phone: [facility] [place] Comment on above: Generalized abdomina l pain (Primary Dx); Nausea and vomiting, unspecified vomiting type; JUAN MANUEL (generalized anxiety disorder) Start: 10-20-2023 End: 10-20-2023 ambulatory TEE PULLIAMRISON Facility:[facility] Start: 10-20-2023 End: 10-20-2023 Patient encounter procedure Cailinwill Morillo MARBLE INSTALLATION HELPER.MONITOR TECH Work Phone: [facility] [place] Comment on above: Generalized abdomina l pain (Primary Dx); Nausea and vomiting, unspecified vomiting type Start: 10-17-2023 E-mail encounter conor mathur caregiver Cailin Madrigalpenelope JIANG.MONITOR TECH Work Phone: [facility] [place] Start: 10-17-2023 Patient encounter procedure Cailin Ilia MARBLE INSTALLATION HELPER.MONITOR TECH Work Phone: [facility] [place] Comment on above: Appointment Request Start: 10-14-2023 ambulatory Tee negrete DO Work Phone: [facility] [place] Comment on above: Medication Problem New medicine Start: 10-13-2023 End: 10-13-2023 ambulatory TEE VOGEL Facility:[facility] Start: 10-13-2023 End: 10-13-2023 Patient encounter procedure Cailin Morillo MARBLE INSTALLATION HELPER.MONITOR TECH Work Phone: [facility] [place] Comment on above: Hyperinflation of hedy ngs (Primary Dx); Fatigue, unspecified type; Migraine without status migrainosus, not intractable, unspecified migraine type; Nausea and vomiting, unspecified vomiting type; Generalized abdominal pain Start: 09-26-2023 Refill Cailin Morillo APRN.MONITOR TECH Work Phone: [facility] [place] Comment on above: Refill Request Start: 08-21-2023 Telephone encounter Cailin Kaitlin negrete APRN.MONITOR TECH Work Phone: [facility] [place] Comment on above: Results Start: 08-20-2023 End: 08-20-2023 ambulatory TEE L VOGEL Facility:[facility] Start: 08-20-2023 End: 08-20-2023 Patient encounter procedure Cailin Ilia MARBLE INSTALLATION HELPER.MONITOR TECH Work Phone: [facility] [place] Comment on above: Fatigue, unspecified type (Primary Dx); Nausea and vomiting, unspecified vomiting type; Generalized abdominal pain Start: 07-16-2023 End: 07-16-2023 ambulatory TEE L VOGEL Facility:[facility] Start: 07-09-2023 End: 07-09-2023 ambulatory TEE L VOGEL Facility:[facility] Start: 07-09-2023 End: 07-09-2023 Office outpatient visit 15 minutes Zbigniew Ryan APRN.MONITOR TECH Work Phone: [facility] Comment on above: Right upper quadrant pain (Primary Dx) Start: 02-24-2023 Telephone encounter Tee gonsalves DO Work Phone: [facility] [place] Comment on above: Covid Question Start: 02-23-2023 ambulatory Lisa Edwards RN NU [employer]SE ANESTHESIA ASSOCIATE Comment on above: Covid19 Concern Start: 02-18-2023 Telephone encounter Tee gonsalves DO Work Phone: [facility] [place] Comment on above: Letter Start: 02-17-2023 End: 02-17-2023 Office outpatient visit 15 minutes Zbigniew Ryan APRN.MONITOR TECH Work Phone: [facility] Comment on above: Pharyngitis, unspeci fied etiology (Primary Dx); Viral illness Start: 02-11-2023 Telephone encounter Tee sheriffison DO Work Phone: [facility] Comment on above: Question (regarding sxs after injections/) Start: 02-07-2023 End: 02-07-2023 Patient encounter procedure Cailin Morillo APRN.MONITOR TECH Work Phone: [facility] Comment on above: Wellness examination (Primary Dx); Encounter for immunization; Migraine without status migrainosus, not intractable, unspecified migraine type Start: 02-07-2023 End: 02-07-2023 Patient encounter status Cailin Morillo DEIDRE.MONITOR TECH Work Phone: [facility] Work Phone: Start: 01-30-2023 End: 01-30-2023 Patient encounter procedure Anuj PAGE Work Phone: [facility] Comment on above: Migraine without sta tus migrainosus, not intractable, unspecified migraine type (Primary Dx) Start: 09-07-2022 Refill Daniel mi APRN.MONITOR TECH Work Phone: [facility] Comment on above: Refill Request Start: 03-05-2022 End: 03-05-2022 Patient encounter procedure Kayla Aguilar APRN.MONITOR TECH Work Phone: [facility] [place] Comment on above: Pain of left upper e xtremity (Primary Dx); Numbness and tingling of left upper extremity Start: 12-17-2021 Refill Daniel mi APRN.MONITOR TECH Work Phone: [facility] Comment on above: Refill Request Procedures Date Procedure Procedure Detail Performing Clinician Start: 04-15-2024 Nitric oxide gas determination Shanelle Arnett MD Work Phone: Start: 03-19-2024 Us soft tissue head & neck real time imge docm Daniel Trujillo APRN.MONITOR TECH Work Phone: Start: 02-16-2024 STREP A MOLECULAR (POC) Logan Ruiz APRN.MONITOR TECH Work Phone: Start: 01-06-2024 Ct thorax w/contrast material Cailin Morillo MARBLE INSTALLATION HELPER.MONITOR TECH Work Phone: Start: 10-27-2023 Brncdilat rspse spmt ry pre&post-brncdilat admn Cailin Morillo MARBLE INSTALLATION HELPER.MONITOR TECH Work Phone: Start: 02-17-2023 STREP A MOLECULAR (POC) Zbigniew Ryan MARBLE INSTALLATION HELPER.MONITOR TECH Work Phone: Start: 04-08-2017 End: 04-23-2017 Progesterone [Mass/volume] in Serum or Plasma Lore Nugents MACHINE OPERATOR HELPER Work Phone: Start: 04-02-2017 End: 04-08-2017 Estradiol (E2) [Mass/volume] in Serum or Plasma Lore S Chelsy MACHINE OPERATOR HELPER Work Phone: Start: 04-02-2017 End: 04-08-2017 Follitropin [Units/volume] in Serum or Plasma Lore S Chelsy MACHINE OPERATOR HELPER Work Phone: Start: 04-02-2017 End: 04-08-2017 Prolactin [Mass/volume] in Serum or Plasma Lore S [place] MACHINE OPERATOR HELPER Work Phone: Start: 04-02-2017 End: 04-08-2017 Thyrotropin [Units/volume] in Serum or Plasma Lore Nugents MACHINE OPERATOR HELPER Work Phone: Start: 05-17-2016 Adult depression scr eening assessment Daniel Trujillo MARBLE INSTALLATION HELPER.MONITOR TECH Work Phone: Start: 08-19-2012 End: 08-19-2012 MANAGER COMBINATION Maulik Coburn MD Start: 08-19-2012 End: 08-19-2012 [...] Detail Author Start: 02-07-2033 Urine microalbumin profile [facility] Start: 01-13-2025 End: 01-13-2025 Patient encounter procedure 01/13/2025 9:00 AM EDT Appointment Cat Scan [address] [place] [address] Lung nodules [R91.8] Cat Scan Comment on above: Lung nodules [R91.8] Start: 01-12-2025 End: 02-11-2025 CT Chest WO contrast CT CHEST WO IVCON Radiology Routine Lung nodules Expected: 01/12/2025, Expires: 02/11/2025 [facility] Work Phone: Comment on above: Expected: 01/12/2025, Expires: 5 Start: 01-06-2025 End: 02-05-2025 CT Chest WO contrast CT CHEST WO IVCON Radiology Routine Lung nodules Expected: 01/06/2025, Expires: 02/05/2025 [facility] Work Phone: Comment on above: Expected: 01/06/2025, Expires: 5 Start: 10-12-2024 Covid-19 Vaccine ( season) Covid-19 Vaccine () [facility] Comment on above: Postponed from 02/28/2023 (Declined at t his time) Start: 06-29-2024 Behavioral Health Screening Behavioral Health Screening [facility] Comment on above: Postponed from 06/30/2023 (Declined at t his time) Start: 06-29-2024 Depression Assessment Depression Assessment [facility] Comment on above: Postponed from 06/30/2023 (Declined at t his time) Start: 05-10-2024 End: 05-10-2024 Patient encounter procedure 05/10/2024 9:40 AM EST Office Visit [facility] [address] [place] [id number] Elvi Blake PA-C [address] [place] [address] Nausea and vomiting, unspecified vomiting type [R11.2] [facility] Comment on above: Nausea and vomiting, unspecified vomitin g type [R11.2] Start: 04-15-2024 End: 04-15-2024 Patient encounter procedure 04/15/2024 3:15 PM EDT Office Visit Pulmonary Medicine [address] [place] [address] Anita Swift MD [address] [place] [address] Est. Care, switching from [facility] Comment on above: Est. Care, switching from [facility] Start: 04-15-2024 End: 04-15-2024 ambulatory 04/15/2024 3:00 PM EDT Procedure PULM LAB [facility] [address] [place] [address] [facility], Pulm [facility] [address] [place] [address] Pulmonary air trapping [R09.89] PULM LAB [facility] Comment on above: Pulmonary air trapping [R09.89] Start: 03-19-2024 End: 03-19-2024 Patient encounter procedure 03/19/2024 8:30 AM EDT Appointment Radiology [address] [place] [address] Nausea and vomiting, unspecified vomiting type [R11.2] Radiology Comment on above: Nausea and vomiting, unspecified vomitin g type [R11.2] Start: 03-17-2024 End: 06-16-2024 Cyclic citrullinated peptide IgG Ab [Units/volume] in Serum or Plasma [facility] Comment on above: Expected: 03/17/2024, Expires: Start: 03-17-2024 End: 06-16-2024 Extractable nuclear Ab panel - Serum [facility] Comment on above: Expected: 03/17/2024, Expires: Start: 03-17-2024 End: 06-16-2024 Nuclear Ab [Presence] in Serum by Immunoassay [facility] Work Phone: Comment on above: Expected: 03/17/2024, Expires: Start: 03-17-2024 End: 06-16-2024 THYROGLOBULIN ANTIBODY [facility] Comment on above: Expected: 03/17/2024, Expires: Start: 03-17-2024 End: 03-17-2024 Patient encounter procedure 03/17/2024 8:20 AM EDT Office Visit [facility] [address] [place], [place] [id number] Daniel Trujillo APRN.MONITOR TECH [address] [place], [place] [id number] persistent symptoms [facility] Comment on above: persistent symptoms Start: 02-29-2024 Covid-19 Vaccine ( season) Covid-19 Vaccine ( season) [facility] Start: 02-29-2024 Covid-19 Vaccine ( season) Covid-19 Vaccine ( season) [facility] Start: 02-29-2024 Influenza vaccination [facility] Start: 02-16-2024 End: 05-17-2024 CBC W Auto Differential panel - Blood [facility] Comment on above: Expected: 02/16/2024, Expires: Start: 02-16-2024 End: 03-01-2024 COVID & INFLUENZA A/B & RSV NAAT, ROUTINE [facility] Work Phone: Comment on above: Expected: 02/16/2024, Expires: Start: 02-16-2024 End: 05-17-2024 Heterophile Ab [Presence] in Serum by Latex agglutination [facility] Comment on above: Expected: 02/16/2024, Expires: Start: 02-08-2024 COVID-19 VACCINE (#1) COVID-19 VACCINE (#1) [facility] Comment on above: Postponed from 1987 (Declined at t his time) Start: 01-13-2024 End: 01-13-2024 Patient encounter procedure 01/13/2024 1:00 PM EDT Office Visit Pulmonary Medicine [address] [phone] Shanelle Arnett MD [address] [place], [place] [phone] Lung nodules [R91.8] Pulmonary Medicine Comment on above: Lung nodules [R91.8] Start: 12-28-2023 Influenza vaccination Influenza Vaccine (#1) [facility] Comment on above: Postponed from 02/28/2023 (Declined at t his time) Start: 12-11-2023 End: 12-11-2023 Patient encounter procedure 12/11/2023 7:40 AM EDT Office Visit [facility] [place] [address] [place], [place] [phone] Cailin Morillo APRN.MONITOR TECH [address] [place] [address] paper work [facility] [place] Comment on above: paper work Start: 12-05-2023 End: 12-05-2023 Patient encounter procedure 12/05/2023 10:30 AM EDT Office Visit [facility] [address] [place] [address] Purvi Parekh PA-C [address] [facility] [place] [address] Generalized abdominal pain [R10.84]; Nausea and vomiting, unspecified vomiting type [R11.2] [facility] Comment on above: Generalized abdominal pain [R10.84]; Ryan sea and vomiting, unspecified vomiting type [R11.2] Start: 12-03-2023 End: 12-03-2023 Patient encounter procedure 12/03/2023 10:40 AM EDT Appointment Cat Scan [address] [place] [address] Hyperinflation of lungs [R09.89] Cat Scan Comment on above: Hyperinflation of lungs [R09.89] Start: 11-19-2023 End: 11-19-2023 Patient encounter procedure 11/19/2023 2:40 PM EDT Office Visit [facility] [place] [address] [facility] [place], [place] [phone] Cailin Morillo APRN.MONITOR TECH [address] [facility] [place], [place] [phone] 1 month follow up [facility] Comment on above: 1 month follow up Start: 11-19-2023 End: 02-18-2024 25-hydroxyvitamin D3 [Mass/volume] in Serum or Plasma VITAMIN D 25 HYDROXY Lab Routine Vitamin D deficiency Expected: 11/19/2023, Expires: 02/18/2024 [facility] Work Phone: Comment on above: Expected: 11/19/2023, Expires: Start: 11-19-2023 End: 11-19-2023 Patient encounter procedure Cat Scan Comment on above: Hyperinflation of lungs [R09.89] CCN DENIED-APPEAL PE NDING PATIENT AWARE CALLING REFERRING PROVIDER Start: 10-27-2023 End: 10-27-2023 ambulatory PULM LAB [facility] Comment on above: Hyperinflation of lungs [R09.89] Start: 10-27-2023 End: 10-27-2023 Patient encounter procedure 10/27/2023 1:20 PM EDT Appointment [facility] [id number] [address] Hyperinflation of lungs [R09.89] Cat Scan Comment on above: Hyperinflation of lungs [R09.89] Start: 08-20-2023 End: 11-19-2023 25-hydroxyvitamin D3 [Mass/volume] in Serum or Plasma [facility] Work Phone: Comment on above: Expected: 08/20/2023, Expires: Start: 08-20-2023 End: 11-19-2023 Cobalamin (Vitamin B12) [Mass/volume] in Serum or Plasma [facility] Work Phone: Comment on above: Expected: 08/20/2023, Expires: Start: 08-20-2023 End: 11-19-2023 Comprehensive metabolic 2000 panel - Serum or Plasma [facility] Work Phone: Comment on above: Expected: 08/20/2023, Expires: Start: 08-20-2023 End: 11-19-2023 Ferritin [Mass/volume] in Serum or Plasma [facility] Work Phone: Comment on above: Expected: 08/20/2023, Expires: Start: 08-20-2023 End: 11-19-2023 Hemoglobin A1c in Blood [facility] Work Phone: Comment on above: Expected: 08/20/2023, Expires: Start: 08-20-2023 End: 11-19-2023 Iron and Iron binding capacity panel - Serum or Plasma [facility] Work Phone: Comment on above: Expected: 08/20/2023, Expires: Start: 08-20-2023 End: 11-19-2023 Thyrotropin [Units/volume] in Serum or Plasma [facility] Work Phone: Comment on above: Expected: 08/20/2023, Expires: Start: 08-20-2023 End: 11-19-2023 Thyroxine (T4) free [Mass/volume] in Serum or Plasma [facility] Work Phone: Comment on above: Expected: 08/20/2023, Expires: Start: 08-20-2023 End: 11-19-2023 Triiodothyronine (T3) [Mass/volume] in Serum or Plasma [facility] Work Phone: Comment on above: Expected: 08/20/2023, Expires: 4 Start: 06-30-2023 Depression Assessment Depression Assessment [facility] Start: 02-28-2023 Covid-19 Vaccine () Covid-19 Vaccine () [facility] Start: 02-28-2023 Influenza vaccination [facility] Start: 02-17-2023 End: 03-03-2023 COVID & INFLUENZA A/B & RSV NAAT, ROUTINE [facility] Work Phone: Comment on above: Expected: 02/17/2023, Expires: 3 Start: 06-30-2022 DEPRESSION ASSESSMENT DEPRESSION ASSESSMENT [facility] Start: 02-28-2022 Influenza vaccination [facility] Start: 10-01-2019 PAP TESTING PAP TESTING [facility] Start: 10-01-2019 Screening for malignant neoplasm of cervix Pap Testing [facility] Start: 05-17-2017 Adult depression screening assessment DEPRESSION SCREENING [facility] Start: 05-05-2017 End: 05-05-2017 Appointment Appointment [facility] Start: 04-30-2017 End: 04-30-2017 Cath & saline/contrast sonohyster/hysterosalpi Hysterosalpingogram: catheter and introduction of saline or contrast material [facility] Start: 2017 HPV TESTING HPV TESTING [facility] Start: 2017 Screening for malignant neoplasm of cervix HPV Testing [facility] Start: 04-08-2017 End: 04-23-2017 Progesterone *PROG Progesterone [facility] Work Phone: Start: 04-02-2017 End: 04-08-2017 Estradiol *ESTRA - Estradiol [facility] Start: 04-02-2017 End: 04-08-2017 Follitropin (FSH) *FSH Level [facility] Start: 04-02-2017 End: 04-08-2017 Prolactin *PROL Prolactin [facility] Start: 04-02-2017 End: 04-08-2017 Thyroid stimulating hormone (TSH) *TSH [facility] Start: 04-02-2017 End: 04-02-2017 Appointment Appointment [facility] Start: 10-01-2015 Screening for malignant neoplasm of cervix Cervical Cancer Screening [facility] Start: 08-19-2012 End: 08-19-2012 MANAGER COMBINATION MANAGER COMBINATION [facility] Start: 08-19-2012 End: 08-19-2012 Follow Up Appt 3 months Follow Up Appt 3 months [facility] Start: 05-13-2012 End: 05-13-2012 Follow Up Appt 3 months Follow Up Appt 3 months [facility] Start: 05-13-2012 End: 05-13-2012 Xtrnl mobile cv telemetry w/i&report 30 days 30 Day Holter Monitor [facility] Start: 09-05-2011 End: 09-05-2011 Follow Up Appt 6 months Follow Up Appt 6 months [facility] Start: 09-05-2011 End: 09-05-2011 Stress Echocardiogram (treadmill) Stress Echocardiogram (treadmill) [facility] Start: 2006 Hepatitis B Vaccine (1 of 3 - 19+ 3-dose series) Hepatitis B Vaccine (1 of 3 - 19+ 3-dose series) [facility] Start: 2006 Urine microalbumin profile DTAP,TDAP,TD (1 - Tdap) [facility] Start: 2005 Anxiety Screening Anxiety Screening [facility] Start: 2005 Depression Screening Depression Screening [facility] Start: 1993 PNEUMOCOCCAL (1 - PCV) PNEUMOCOCCAL (1 - PCV) [facility] Start: 1992 COVID-19 VACCINE (#1) COVID-19 VACCINE (#1) [facility] Start: 1987 COVID-19 VACCINE (#1) COVID-19 VACCINE (#1) [facility] Start: 1987 HEPATITIS B (1 of 3 - 3-dose series) HEPATITIS B (1 of 3 - 3-dose series) [facility] Start: 1987 Hepatitis B Vaccine (1 of 3 - 3-dose series) Hepatitis B Vaccine (1 of 3 - 3-dose series) [facility] End: 12-18-2024 CT Chest W contrast IV CT CHEST W IVCON Radiology Routine Systemic lupus erythematosus, unspecified SLE type, unspecified organ involvement status (HCC) Generalized abdominal pain SOB (shortness of breath) Chest pain, unspecified type Cough, persistent 1 Occurrences starting 11/19/2023 until 12/18/2024 [facility] Work Phone: Comment on above: 1 Occurrences starting 11/19/2023 until 12/18/2024 End: 01-14-2025 CT Chest W contrast IV CT CHEST W IVCON Radiology Routine Systemic lupus erythematosus, unspecified SLE type, unspecified organ involvement status (HCC) SOB (shortness of breath) Generalized abdominal pain Chest pain, unspecified type Cough, persistent 1 Occurrences starting 12/16/2023 until 01/14/2025 [facility] Work Phone: Comment on above: 1 Occurrences starting 12/16/2023 until 01/14/2025 End: 11-11-2024 CT Chest WO contrast CT CHEST WO IVCON Radiology Routine Hyperinflation of lungs 1 Occurrences starting 10/13/2023 until 11/11/2024 [facility] Work Phone: Comment on above: 1 Occurrences starting 10/13/2023 until 11/11/2024 End: 11-28-2024 CT Chest WO contrast CT CHEST WO IVCON Radiology Routine Hyperinflation of lungs Abnormal PFTs SOB (shortness of breath) 1 Occurrences starting 10/30/2023 until 11/28/2024 [facility] Work Phone: Comment on above: 1 Occurrences starting 10/30/2023 until 11/28/2024 End: 03-05-2023 EMG(NEURO/NI) EMG(NEURO/NI) EMG Routine Pain of left upper extremity Numbness and tingling of left upper extremity 1 Occurrences starting 03/05/2022 until 03/05/2023 [facility] Work Phone: Comment on above: 1 Occurrences starting 03/05/2022 until 03/05/2023 End: 11-11-2024 LUNG VOLUMES LUNG VOLUMES PFT Routine Hyperinflation of lungs 1 Occurrences starting 10/13/2023 until 11/11/2024 [facility] Work Phone: Comment on above: 1 Occurrences starting 10/13/2023 until 11/11/2024 End: 07-14-2024 METHACHOLINE CHALLENGE METHACHOLINE CHALLENGE PFT Routine SOB (shortness of breath) 1 Occurrences starting 04/15/2024 until 07/14/2024 [facility] Work Phone: Comment on above: 1 Occurrences starting 04/15/2024 until 07/14/2024 End: 02-11-2025 NITRIC OXIDE, EXHALED NITRIC OXIDE, EXHALED PFT Routine Pulmonary air trapping 1 Occurrences starting 01/13/2024 until 02/11/2025 [facility] Comment on above: 1 Occurrences starting 01/13/2024 until 02/11/2025 ROUTINE FLU A/B + RSV ROUTINE FL U A/B + RSV Lab Routine Pharyngitis, unspecified etiology Viral illness 02/17/2023 9:43 AM EDT [facility] Work Phone: SARS-CoV-2 (COVID-19 ) RNA [Presence] in Respiratory specimen by BLUE with probe detection COVID NAAT, ROUTINE Microbiology Routine Pharyngitis, unspecified etiology Viral illness 02/17/2023 9:43 AM EDT [facility] Work Phone: End: 11-11-2024 SPIROMETRY - BASELINE AND POST DILATOR SPIROMETRY - BASELINE AND POST DILATOR PFT Routine Hyperinflation of lungs 1 Occurrences starting 10/13/2023 until 11/11/2024 [facility] Work Phone: Comment on above: 1 Occurrences starting 10/13/2023 until 11/11/2024 End: 04-16-2025 US Thyroid gland US THYROID/PARATHYROID Radiology Routine Nausea and vomiting, unspecified vomiting type Feeling of foreign body in throat Fatigue, unspecified type SOB (shortness of breath) Systemic lupus erythematosus, unspecified SLE type, unspecified organ involvement status (HCC) Family history of thyroid cancer 1 Occurrences starting 03/17/2024 until 04/16/2025 [facility] Comment on above: 1 Occurrences starting 03/17/2024 until 04/16/2025 End: 05-15-2025 XR Esophagus Views W contrast PO XR ESOPHAGRAM Radiology Routine 1 Occurrences starting 04/15/2024 until 05/15/2025 [facility] Comment on above: 1 Occurrences starting 04/15/2024 until 05/15/2025 [facility] Immunizations Immunization Date Immunization Notes Care Provider Kirt dale 02-07-2023 pneumococcal (PCV20) vaccine, 20 valent (PREVNAR 20) Cailin Morillo [employer] Work Phone: [facility] 02-07-2023 tetanus toxoid, redu daisha diphtheria toxoid, and acellular pertussis vaccine, adsorbed Cailinwill Morillo [employer]ATION [employer] Work Phone: [facility] 02-07-2023 pneumococcal Conjuga te, unspecified formulation Cailin Ilia [employer] INSTALLATION HELPER.[employer] Work Phone: [facility] Work Phone: 01-21-2020 tuberculin skin test ; purified protein derivative solution, intradermal Logan Ruiz [employer] INSTALLATION HELPER.[facility] Work Phone: [facility] Payers Date Payer Category Payer Medicaid [id number] 2009 Medicaid [employer] [facility] MEDICAID [id number] 2009-Present [phone] [address] [place] [address] Medicaid [id number] 2009 Medicaid [id number] Social History Date Type Detail Facility Start: 09-30-2014 End: 01-30-2023 Tobacco smoking status NHIS Occasional tobacco smoker [facility] Work Phone: Start: 09-30-2014 End: 02-07-2023 Cigarettes smoked current (pack per day) - Reported 0.5 [facility] Work Phone: Start: 09-30-2014 End: 03-17-2024 Tobacco use and exposure Smokeless tobacco non-user [facility] Work Phone: Start: 10-02-2020 End: 04-15-2024 Alcohol intake Current non-drinker of alcohol (finding) [facility] Start: 09-18-2020 End: 01-30-2023 Tobacco Comment seldom/3 cigarettes a month [facility] Start: 1985 Sex Assigned At Not on file [facility] Start: 05-30-2005 End: 05-30-2023 History of tobacco use Cigarette Smoker [facility] Start: 02-23-2022 End: 03-05-2022 Exposure to SARS-CoV-2 (event) Not sure [facility] Start: 01-30-2023 End: 02-07-2023 Tobacco use panel [facility] Work Phone: Adult Depression Screening Assessment 1 [facility] Work Phone: Start: 10-20-2023 End: 03-17-2024 Tobacco smoking status NHIS Ex-smoker [facility] Start: 05-30-2005 End: 05-30-2023 History of tobacco use Current smoker [facility] Clinical Notes 08-29-2005 to 04-22-2024 Telephone Encounter - Purvi Wagner RN - 04/22/2024 11:40 AM EDTTelephone Encounter - Purvi Wagner RN - 04/22/2024 11:40 AM EDTTelephone Encounter - Slime Brennan - 04/16/2024 11:22 AM EDT Note Date & Type Note Facility 04-22-2024 Telephone encounter Note The patient has been identified by name and date of : Yes Caregiver verified no other encounters exist for this prescription request: Yes Caregiver confirmed with patient/requestor that no other refills are due, in the near future, with this provider at this time: Yes The last office visit in the department: 03/17/2024 Does the patient have a future office visit with this provider/department: No Requested Prescriptions Pending Prescriptions Disp Refills SUMAtriptan (IMITREX) 100 mg tablet 15 tablet 1 Sig: Take 1 tablet at the onset of headache. May repeat dose in 2 hours if needed. Do not exceed 2 tablets in 24 hour period. Purvi Wagner RN April 22, 2024 11:41 AM [facility] 04-22-2024 Miscellaneous Notes The patient has been identified by name and date of : Yes Caregiver verified no other encounters exist for this prescription request: Yes Caregiver confirmed with patient/requestor that no other refills are due, in the near future, with this provider at this time: Yes The last office visit in the department: 03/17/2024 Does the patient have a future office visit with this provider/department: No Requested Prescriptions Pending Prescriptions Disp Refills SUMAtriptan (IMITREX) 100 mg tablet 15 tablet 1 Sig: Take 1 tablet at the onset of headache. May repeat dose in 2 hours if needed. Do not exceed 2 tablets in 24 hour period. Purvi Wagner RN April 22, 2024 11:41 AM documented in this encounter [facility] 04-16-2024 Telephone encounter Note Orders prepped and signed by EB. Faxed to [facility] scheduling. Nelly Coleman LPN [facility] 04-16-2024 Miscellaneous Notes Orders prepped and signed by MAIA. Faxed to [facility] scheduling. Nelly Coleman LPN Patient spoke with [facility] and she is able to have the testing completed there. She would like the orders faxed to [phone]. Krystal Anderson LPN Patient contacted office for assistance with scheduling XR Esophogram and Methacholine Challenge. PSS unable to find [facility] facility with availability that was conducive to patient's personal schedule. Patient choosing to locate external [facility] facility and will call back to notify office where orders are to be sent. documented in this encounter [facility] 04-16-2024 Telephone encounter Note Patient spoke with [facility] and she is able to have the testing completed there. She would like the orders faxed to [phone]. Krystal Anderson LPN [facility] 04-16-2024 Telephone encounter Note Patient contacted office for assistance with scheduling XR Esophogram and Methacholine Challenge. PSS unable to find [facility] facility with availability that was conducive to patient's personal schedule. Patient choosing to locate external [facility] facility and will call back to notify office where orders are to be sent. [facility] 04-15-2024 History of Present illness Narrative Images from the original note were not included. . [facility] [place] Note Patient name: Mayuri Crews PCP: Tee Vogel DO CC: Air trapping HPI: Mayuri Crews 38 year old female former minimal smoker with PMH significant for possible asthma, lung nodules and possible SLE recently seen by Dr. Arnett for her pulmonary issues. Started on ICS with as needed albuterol. She is transferring her care to [facility] office for convenience. She is scheduled for follow up chest CT in December of 2024. She relates her history of respiratory issues starting approximately 2 years ago. She does not have a history of antecedent upper respiratory infection. No history of asthma or allergies as a child. She first presented to [facility] ED for shortness of breath and tingling in her fingertips. She does have a history of anxiety and was concerned that she may be having a panic attack. Chest x-ray at that time showed large lung volumes consistent with hyperinflation. She was prescribed albuterol which she uses up to 6 times a day. Albuterol does help her shortness of breath. She states she is short of breath all the time, has frequent sighing and difficulty speaking. She does not have significant cough or wheezing. She has significant globus sensation. No postnasal drip. She has had intermittent chest pain and recent evaluation for possible reflux was negative. Pulmonary function tests showed air trapping although she had difficulty performing the testing and may have had incomplete emptying. When she was seen by Dr. Arnett, she ordered exhaled nitric oxide level and started her on inhaled corticosteroid. Her exhaled nitric oxide level today was normal. She is not noted any difference in her shortness of breath with the addition of inhaled corticosteroid to her regimen. She is pending evaluation for possible lupus. She has a positive PRECIOUS and slightly positive double-stranded DNA with diffuse joint pain and facial rash. DATA: SERVICE DATE: 04/15/2024 SERVICE TIME: 2:46 PM Oral Exhaled Nitric Oxide measurement: 7.0 (ppb) PFT 09/2023: No obstruction. Air trapping. Technicians comments note that FEV1 may not be valid as patient complained of burning pain in her lungs during forced exhalation which brings up the question of whether she had complete emptying or not Labs: Positive PRECIOUS Double-stranded DNA 11 Imaging / Diagnostic Studies: DATE OF EXAM: Jan 06 2024 11:28AM [facility] 0539 - CT CHEST W IVCON / IMPRESSION: No CT evidence of acute abnormality. 4.5 mm nodule in the right lower lobe I personally reviewed the images which shows several small pulmonary nodules most subpleural. Pertinent for no mosaicism Chest x-ray from [facility] from 2022 read as hyperinflation. She did have borderline large lung volumes but no flattening of her diaphragms PAST MEDICAL HISTORY Diagnosis Date Cervical dysplasia 06/2020 Irregular heart beat Migraine headache Pelvic pain in female ovarian cysts, [facility] Sleep apnea SVT (supraventricular tachycardia) ([facility] [address] Coburn at the time ALLERGIES Allergen Reactions Amitriptyline GI Upset GI upset and eye problem Cats Other: See Comments Tightness in throat, sinus congestion, swollen eyes Morphine GI Upset, Itching Vicodin [Hydrocodon* GI Upset budesonide-formoterol (SYMBICORT) 80-4.5 mcg/actuation inhaler Inhale 2 Puffs as instructed two times a day. propranolol (INDERAL) 40 mg tablet Take 1 tablet by mouth once daily. sucralfate (CARAFATE) 1 gram tablet Take 1 tablet by mouth before meals and at bedtime. albuterol HFA (PROVENTIL HFA, VENTOLIN HFA) 90 mcg/actuation inhaler Inhale 1 Puff as instructed every 4 hours as needed for wheezing/shortness of breath. SUMAtriptan (IMITREX) 100 mg tablet Take 1 tablet at the onset of headache. May repeat dose in 2 hours if needed. Do not exceed 2 tablets in 24 hour period. Social History Tobacco Use Smoking status: Former Current packs/day: 0.00 Average packs/day: 0.5 packs/day for 18.0 years (9.0 ttl pk-yrs) Types: Cigarettes Start date: 05/30/2005 Quit date: 05/30/2023 Years since quittin.8 Smokeless tobacco: Never Substance Use Topics Alcohol use: No Drug use: No Pets: None FAMILY HISTORY Problem Relation Age of Onset Thyroid Mother 40 cancer COPD Mother other (bladder cancer) Father other (alcoholic) Father Celiac Disease Sister Crohn's Disease Brother Hypertension Maternal Grandmother Heart Maternal Grandmother MD Arthritis Maternal Grandfather Hypertension Maternal Grandfather Arthritis Paternal Grandmother Colon Cancer Maternal Uncle PAST SURGICAL HISTORY Procedure Laterality Date COLONOSCOPY W/BIOPSY SINGLE/MULTIPLE 09/28/2020 NONE UTERINE CERVIX-EXCISION (CONE/LEEP) SYNOPTIC RPT 06/2020 PMH, Social history, family history and surgical history reviewed and updated in EMR REVIEW OF SYSTEMS: CONSTITUTIONAL: No fevers, chills, nightsweats, unintended weight loss HEENT: Denies nasal congestion/sinus symptoms, allergy problems. EYES: No diplopia or blurry vision. CARDIOVASCULAR: Chest pain, dyspnea, palpitations. No edema PULM: See HPI GI: No dysphagia/odynophagia, problematic reflux NEURO: No new balance problems, peripheral weakness/paresthesias or numbness of concern. MUSC-SKEL: Polyarticular joint pain. No swelling, or erythema. PSY: Anxiety INTEGUMENTARY: Intermittent facial rash PHYSICAL EXAMINATION: Wt 138 lb (62.6kg) LMP 10/13/2023, BP 104/64, pulse 60, RR 17, SpO2 98% on room air General Appearance: Thin anxious female. Skin: Skin color, texture, turgor normal, no suspicious rashes or lesions. Head: Normocephalic, no masses, lesions, tenderness or abnormalities. Eyes: Sclera, conjunctiva normal. Oropharynx: Piercings, no oral lesions no posterior pharyngeal cobblestoning. Neck: No JVD, no masses, no adenopathy. Lungs: Intermittent pursed lipped breathing, normal to percussion, no wheezes or crackles. Heart: Regular rate and rhythm, no murmurs or gallops. Extremities: No edema, no clubbing, no nailbed changes. Musculoskeletal: No joint deformities, no synovitis. Assessment/Plan: 1. Shortness of breath -Symptomatic relief with albuterol but patient overusing. Cautioned her about overuse of albuterol especially in light of her history of SVT. Changed inhaled therapy to low-dose Symbicort -Definitive methacholine challenge testing -I am not convinced that she has asthma or significant air trapping -Anxiety seems to be playing a major role 2. Pulmonary air-trapping -Question of incomplete emptying -See #1 3. Globus sensation -No postnasal drip. Could have LPR -Esophagram looking for reflux I spent a total of 56 minutes on the date of the service which included preparing to see the patient, [id number] patient care, completing clinical documentation, obtaining and/or reviewing separately obtained history, performing a medically appropriate examination, ordering medications, tests, or procedures, and independently interpreting results (not separately reported). Anita Swift MD [facility] [place] documented in this encounter [facility] 04-15-2024 Note HNO ID: [id number] Author: ANITA SWIFT MD Service: ? Author Type: Physician Type: Progress Notes Filed: 04/15/2024 16:43 Note Text: . [facility] [place] Note Patient name: Mayuri Crews PCP: Tee Vogel DO CC: Air trapping HPI: Mayuri Crews 38 year old female former minimal smoker with PMH significant for possible asthma, lung nodules and possible SLE recently seen by Dr. Arnett for her pulmonary issues. Started on ICS with as needed albuterol. She is transferring her care to [place] office for convenience. She is scheduled for follow up chest CT in December of 2024. She relates her history of respiratory issues starting approximately 2 years ago. She does not have a history of antecedent upper respiratory infection. No history of asthma or allergies as a child. She first presented to [facility] ED for shortness of breath and tingling in her fingertips. She does have a history of anxiety and was concerned that she may be having a panic attack. Chest x-ray at that time showed large lung volumes consistent with hyperinflation. She was prescribed albuterol which she uses up to 6 times a day. Albuterol does help her shortness of breath. She states she is short of breath all the time, has frequent sighing and difficulty speaking. She does not have significant cough or wheezing. She has significant globus sensation. No postnasal drip. She has had intermittent chest pain and recent evaluation for possible reflux was negative. Pulmonary function tests showed air trapping although she had difficulty performing the testing and may have had incomplete emptying. When she was seen by Dr. Arnett, she ordered exhaled nitric oxide level and started her on inhaled corticosteroid. Her exhaled nitric oxide level today was normal. She is not noted any difference in her shortness of breath with the addition of inhaled corticosteroid to her regimen. She is pending evaluation for possible lupus. She has a positive PRECIOUS and slightly positive double-stranded DNA with diffuse joint pain and facial rash. DATA: SERVICE DATE: 04/15/2024 SERVICE TIME: 2:46 PM Oral Exhaled Nitric Oxide measurement: 7.0 (ppb) PFT 09/2023: No obstruction. Air trapping. Technicians comments note that FEV1 may not be valid as patient complained of burning pain in her lungs during forced exhalation which brings up the question of whether she had complete emptying or not Labs: Positive PRECIOUS Double-stranded DNA 11 Imaging / Diagnostic Studies: DATE OF EXAM: Jan 06 2024 11:28AM [facility] 0539 - CT CHEST W IVCON / IMPRESSION: No CT evidence of acute abnormality. 4.5 mm nodule in the right lower lobe I personally reviewed the images which shows several small pulmonary nodules most subpleural. Pertinent for no mosaicism Chest x-ray from [facility] from 2022 read as hyperinflation. She did have borderline large lung volumes but no flattening of her diaphragms PAST MEDICAL HISTORY Diagnosis Date Cervical dysplasia 06/2020 Irregular heart beat Migraine headache Pelvic pain in female ovarian cysts, [facility] Sleep apnea SVT (supraventricular tachycardia) ([facility]) [address] Coburn at the time ALLERGIES Allergen Reactions Amitriptyline GI Upset GI upset and eye problem Cats Other: See Comments Tightness in throat, sinus congestion, swollen eyes Morphine GI Upset, Itching Vicodin [Hydrocodon* GI Upset budesonide-formoterol (SYMBICORT) 80-4.5 mcg/actuation inhaler Inhale 2 Puffs as instructed two times a day. propranolol (INDERAL) 40 mg tablet Take 1 tablet by mouth once daily. sucralfate (CARAFATE) 1 gram tablet Take 1 tablet by mouth before meals and at bedtime. albuterol HFA (PROVENTIL HFA, VENTOLIN HFA) 90 mcg/actuation inhaler Inhale 1 Puff as instructed every 4 hours as needed for wheezing/shortness of breath. SUMAtriptan (IMITREX) 100 mg tablet Take 1 tablet at the onset of headache. May repeat dose in 2 hours if needed. Do not exceed 2 tablets in 24 hour period. Social History Tobacco Use Smoking status: Former Current packs/day: 0.00 Average packs/day: 0.5 packs/day for 18.0 years (9.0 ttl pk-yrs) Types: Cigarettes Start date: 05/30/2005 Quit date: 05/30/2023 Years since quittin.8 Smokeless tobacco: Never Substance Use Topics Alcohol use: No Drug use: No Pets: None FAMILY HISTORY Problem Relation Age of Onset Thyroid Mother 40 cancer COPD Mother other (bladder cancer) Father other (alcoholic) Father Celiac Disease Sister Crohn's Disease Brother Hypertension Maternal Grandmother Heart Maternal Grandmother MD Arthritis Maternal Grandfather Hypertension Maternal Grandfather Arthritis Paternal Grandmother Colon Cancer Maternal Uncle PAST SURGICAL HISTORY Procedure Laterality Date COLONOSCOPY W/BIOPSY SINGLE/MULTIPLE 09/28/2020 NONE UTERINE CERVIX-EXCISION (CONE/LEEP) SYNOPTIC RPT (more content not included)... [facility] 04-15-2024 Note HNO ID: [id number] Author: ABELINO MALDONADO RPFT Service: ? Author Type: Respiratory Therapist Type: Procedures Filed: 04/15/2024 14:46 Note Text: RESPIRATORY THERAPY ORAL EXHALED NITRIC OXIDE SERVICE DATE: 04/15/2024 SERVICE TIME: 2:46 PM Oral Exhaled Nitric Oxide measurement: 7.0 (ppb) Normal: Adult <25 ppb, pediatric (<12 years) <20 ppb High Normal / Increased: Adult 25-50 ppb, pediatric (<12 years) 20-35 ppb Moderately raised exhaled Nitric Oxide may indicate underlying inflammation, but note that: Cold and influenza can raise exhaled Nitric Oxide and some patients have higher baseline exhaled Nitric Oxide levels than others. High: Adult >50 ppb, pediatric (<12 years) >35 ppb Indicative of ongoing eosinophilic inflammation. Symptomatic patient likely to respond to steroids. Possible causes (if already on steroids): Poor compliance, recent allergen exposure, steroid dose inadequate, and steroid resistance. Note that not all patients with high exhaled nitric oxide levels display symptoms. Oral Exhaled Nitric Oxide measurement (Previous Encounters) Test Date Oral Exhaled Nitric Oxide (ppb) 04/15/2024 7.0 NAME: KELSI Snyder PATIENT NAME: Mayuri Crews DATE: April 15, 2024 TIME: 2:46 PM [facility] 04-15-2024 Procedure note Associated Ord er(s): NITRIC OXIDE, EXHALED RESPIRATORY THERAPY ORAL EXHALED NITRIC OXIDE SERVICE DATE: 04/15/2024 SERVICE TIME: 2:46 PM Oral Exhaled Nitric Oxide measurement: 7.0 (ppb) Normal: Adult <25 ppb, pediatric (<12 years) <20 ppb High Normal / Increased: Adult 25-50 ppb, pediatric (<12 years) 20-35 ppb Moderately raised exhaled Nitric Oxide may indicate underlying inflammation, but note that: Cold and influenza can raise exhaled Nitric Oxide and some patients have higher baseline exhaled Nitric Oxide levels than others. High: Adult >50 ppb, pediatric (<12 years) >35 ppb Indicative of ongoing eosinophilic inflammation. Symptomatic patient likely to respond to steroids. Possible causes (if already on steroids): Poor compliance, recent allergen exposure, steroid dose inadequate, and steroid resistance. Note that not all patients with high exhaled nitric oxide levels display symptoms. Oral Exhaled Nitric Oxide measurement (Previous Encounters) Test Date Oral Exhaled Nitric Oxide (ppb) 04/15/2024 7.0 NAME: KELSI Snyder PATIENT NAME: Mayuri Crews DATE: April 15, 2024 TIME: 2:46 PM [facility] 04-15-2024 Procedure note Associated Ord er(s): NITRIC OXIDE, EXHALED RESPIRATORY THERAPY ORAL EXHALED NITRIC OXIDE SERVICE DATE: 04/15/2024 SERVICE TIME: 2:46 PM Oral Exhaled Nitric Oxide measurement: 7.0 (ppb) Normal: Adult <25 ppb, pediatric (<12 years) <20 ppb High Normal / Increased: Adult 25-50 ppb, pediatric (<12 years) 20-35 ppb Moderately raised exhaled Nitric Oxide may indicate underlying inflammation, but note that: Cold and influenza can raise exhaled Nitric Oxide and some patients have higher baseline exhaled Nitric Oxide levels than others. High: Adult >50 ppb, pediatric (<12 years) >35 ppb Indicative of ongoing eosinophilic inflammation. Symptomatic patient likely to respond to steroids. Possible causes (if already on steroids): Poor compliance, recent allergen exposure, steroid dose inadequate, and steroid resistance. Note that not all patients with high exhaled nitric oxide levels display symptoms. Oral Exhaled Nitric Oxide measurement (Previous Encounters) Test Date Oral Exhaled Nitric Oxide (ppb) 04/15/2024 7.0 NAME: KELSI Snyder PATIENT NAME: Mayuri Crews DATE: April 15, 2024 TIME: 2:46 PM documented in this encounter [facility] 04-15-2024 Note HNO ID: [id number] Author: ABELINO MALDONADO RPFT Service: ? Author Type: Respiratory Therapist Type: Progress Notes Filed: 04/15/2024 14:46 Note Text: PULM FUNCTION: Provider: Shanelle Arnett MD Assisting Tech: Abelino Maldonado RPFT Exhaled Nitric Oxide: 1 [facility] 04-15-2024 History of Present illness Narrative PULM FUNCTION: Provider: Shanelle Arnett MD Assisting Tech: Abelino Maldonado RPFT Exhaled Nitric Oxide: 1 documented in this encounter [facility] 03-24-2024 Telephone encounter Note Patient notified of results and provider's instructions. Patient verbalizes understanding. Pt advises that she has a Rheumatology appointment already scheduled in Apr with Niurka [facility] in [place]. This was set up through Dr Ortiz's office. Shane Rust LPN [facility] 03-24-2024 Miscellaneous Notes Patient notified of results and provider's instructions. Patient verbalizes understanding. Pt advises that she has a Rheumatology appointment already scheduled in Apr with Niurka [facility] in [place]. This was set up through Dr Ortiz's office. Shane Rust LPN Left message to return call Renate Ivan MA Please let her know I received her lab results. Her PRECIOUS level is positive, which can be indicative of an autoimmune condition, but not always. The rest of her lab work is all negative. I would recommend she see a aircraft maintenance engineer for further assessment. Please assist her to schedule. Daniel Trujillo APRN.MONITOR TECH documented in this encounter [facility] 03-24-2024 Telephone encounter Note Left message to return call Renate Iavn MA [facility] 03-23-2024 Telephone encounter Note Please let her know I received her lab results. Her PRECIOUS level is positive, which can be indicative of an autoimmune condition, but not always. The rest of her lab work is all negative. I would recommend she see a aircraft maintenance engineer for further assessment. Please assist her to schedule. Daniel Trujillo APRN.MONITOR TECH [facility] 03-22-2024 Telephone encounter Note This nurse contacted [facility] regarding Sucralfate script. [facility] says script is there and ready. Attempted to notify patient. No answer. Roma Sorenson RN [facility] 03-22-2024 Miscellaneous Notes This nurse contacted [facility] regarding Sucralfate script. [facility] says script is there and ready. Attempted to notify patient. No answer. Roma Sorenson RN Spoke with patient. Given message from provider's office. Patient verbalizes understanding. Roma Sorenson RN Agree with ED if vomiting, weakness, dizziness, and last void >12 hours ago. Jackeline Davis PA-C 03/22/2024 Patient calling to say she has been having persistent symptoms of nausea and vomiting with migraine headache since OV on 03/17. She says see has not been able to eat or drink much x 6 days. She says she vomits after eating or drinking anything. She says she has no worsening symptoms but she has a new symptom of esophageal burning. She states she is weak and dizzy. She says the last time she voided was yesterday. She can't remember the time and does not know the color of her urine. Advised ER evaluation due to possible dehydration. She was not able to slate picker Sucralfate stating it was not sent to [facility]. This nurse will call [facility]. Roma Sorenson RN documented in this encounter [facility] 03-22-2024 Telephone encounter Note Spoke with patient. Given message from provider's office. Patient verbalizes understanding. Roma Sorenson RN [facility] 03-22-2024 Telephone encounter Note Agree with ED if vomiting, weakness, dizziness, and last void >12 hours ago. Jackeline Davis PA-C 03/22/2024 [facility] 03-22-2024 Telephone encounter Note Patient calling to say she has been having persistent symptoms of nausea and vomiting with migraine headache since OV on 03/17. She says see has not been able to eat or drink much x 6 days. She says she vomits after eating or drinking anything. She says she has no worsening symptoms but she has a new symptom of esophageal burning. She states she is weak and dizzy. She says the last time she voided was yesterday. She can't remember the time and does not know the color of her urine. Advised ER evaluation due to possible dehydration. She was not able to slate picker Sucralfate stating it was not sent to [facility]. This nurse will call [facility]. Roma Soresnon RN [facility] 03-19-2024 History of Present illness Narrative Radiology Service Progress Note PATIENT NAME: Mayuri Crews DATE OF SERVICE: March 19, 2024 TIME: 8:58 AM PATIENT IDENTITY VERIFICATION COMPLETED USING TWO (2) IDENTIFIERS: Name and Date of confirmed by patient verbally. FALL SCREENING: Has the patient had 2 falls in the last year or 1 fall with injury or currently using an Ambulatory Assistive Device (Walker, Cane, Wheelchair, Crutches, etc.)? No PATIENT GENDER DATA: Female. status: : No status: NO. PATIENT RELEVANT IMPLANT DATA REVIEWED: Not Applicable PATIENT PRESENTS WITH AN IMPLANTABLE OR ATTACHED TAKER DOWN: No RADIOLOGY DEPARTMENT: Ultrasound PERIPHERAL IV DATA: Not applicable SIGNED BY: Krystal Rome RDMS RVT March 19, 2024 8:58 AM documented in this encounter [facility] 03-19-2024 Note HNO ID: [id number] Author: KRYSTAL ROME RDMS Service: ? Author Type: Food Stand Manager Type: Progress Notes Filed: 03/19/2024 08:58 Note Text: Radiology Service Progress Note PATIENT NAME: Mayuri Crews DATE OF SERVICE: March 19, 2024 TIME: 8:58 AM PATIENT IDENTITY VERIFICATION COMPLETED USING TWO (2) IDENTIFIERS: Name and Date of confirmed by patient verbally. FALL SCREENING: Has the patient had 2 falls in the last year or 1 fall with injury or currently using an Ambulatory Assistive Device (Walker, Cane, Wheelchair, Crutches, etc.)? No PATIENT GENDER DATA: Female. status: : No status: NO. PATIENT RELEVANT IMPLANT DATA REVIEWED: Not Applicable PATIENT PRESENTS WITH AN IMPLANTABLE OR ATTACHED TAKER DOWN: No RADIOLOGY DEPARTMENT: Ultrasound PERIPHERAL IV DATA: Not applicable SIGNED BY: Krystal Rome RDMS RVT March 19, 2024 8:58 AM [facility] 03-17-2024 Note HNO ID: [id number] Author: DANIEL TRUJILLO APRN.CNP Service: ? Author Type: Nurse Practitioner Type: Progress Notes Filed: 03/17/2024 19:55 Note Text: Chief Complaint Patient presents with: Follow Up: Multiple consistent sx, dizziness, fatigue, sob, poor appetite,night sweats. Reports she was recently dx with lupus 09/2023, appt with Rheum in Apr. Mayuri Crews is a 38 year old female who presents here today for Above Complaints.. In 10/[address] Ortiz with [facility] for a lot of GI sx, he did blood work and dx her with lupus. He told her she had inflammation in her stomach lining. Patient states her fecal calprotectin was abnormal, but by review of her labs by myself was 79 and WNL. Epigastric burning, pain. Frequent vomiting, about 4-5 days per week. Very nauseated all the time. Eats only once daily d/t lack of appetite and that any eating makes her nauseated. Tries to eat little packs such as cheese for protein. Is scheduled to see rheumatology in April with Niurka Lucero, in [place]. This is the closest place to her. States she is afraid to drive any further than this because it scares her and that she is afraid that she will need to throw up. Mother hx thyroid cancer. Past medical history, appointments, medications, allergies reviewed. [...] cancer Hypertension Maternal Grandmother Heart Maternal Grandmother MD Arthritis Maternal Grandfather Hypertension Maternal Grandfather Arthritis Paternal Grandmother Colon Cancer Maternal Uncle Patient Allergies ALLERGIES Allergen Reactions Amitriptyline GI Upset GI upset and eye problem Cats Other: See Comments Tightness in throat, sinus congestion, swollen eyes Morphine GI Upset, Itching Vicodin [Hydrocodon* GI Upset Current Medications Current Outpatient Medications on File Prior to Visit Medication Sig albuterol HFA (PROVENTIL HFA, VENTOLIN HFA) 90 mcg/actuation inhaler Inhale 1 Puff as instructed every 4 hours as needed for wheezing/shortness of breath. fluticasone (FLOVENT) 110 mcg/actuation inhaler Inhale 1 Puff as instructed two times a day. Shake well before use. Rinse mouth after use. SUMAtriptan (IMITREX) 100 mg tablet Take 1 tablet at the onset of headache. May repeat dose in 2 hours if needed. Do not exceed 2 tablets in 24 hour period. propranolol (INDERAL) 40 mg tablet Take 1 tablet by mouth once daily. PARoxetine (PAXIL) 20 mg tablet Take 1 tablet by mouth once daily. omeprazole (PRILOSEC) 20 mg capsule Take 1 capsule by mouth every afternoon. cholecalciferol, Vitamin D3, (VITAMIN D3) 1,250 mcg (50,000 unit) cap capsule Take 1 capsule by mouth one time a week. dicyclomine (BENTYL) 10 mg capsule Take 10 mg by mouth before meals and at bedtime. lansoprazole (PREVACID) 30 mg capsule Take 30 mg by mouth once daily. scopolamine (TRANSDERM-SCOP) patch 1.5 mg/72 hr (delivers 1 mg over 3 days) Apply 1 Patch as directed every 72 hours. No current facility-administered medications on file prior to visit. Social History Social History Tobacco Use Smoking status: Former Current packs/day: 0.00 Average packs/day: 0.5 packs/day for 18.0 years (9.0 ttl pk-yrs) Types: Cigarettes Start date: 05/30/2005 Quit date: 05/30/2023 Years since quittin.8 Smokeless tobacco: Never Substance Use Topics Alcohol use: No Drug use: No Review of Symptoms REVIEW OF SYSTEMS See HPI, otherwise negative EXAM: BP 122/76 (BP Site: Left Arm, BP Position: Sitting, BP Cuff Size: Regular Adult) Pulse 83 Resp 16 Wt 63.2 kg (139 lb 5.3 oz) LMP 10/13/2023 (Approximate) SpO2 99% BMI 19.99 kg/m? General Appearance: ill-appearing, alert, in no acute distress, well-hydrated, well nourished.. Head: Normocephalic, no masses, lesions, tenderness or abnormalities. Eyes: Anicteric sclera. Pupils are equally round and reactive to light. Extraocular movements are intact. . Ears: External ears normal, canals clear. Nose/Sinuses: Nares normal, septum midline, mucosa normal, no drainage or sinus tenderness. Oropharynx: Lips, mucosa, and tongue normal, teeth and gums normal, oropharynx normal. Neck: Supple, no adenopathy; thyroid symmetric, normal size, no bruits. Back:no pain to palpation of vertebrae, good flexion and extension, good range of motion, no muscle tenderness, motor and sensory appear to be normal Lungs: Lungs clear to auscultation. (more content not included)... [facility] 03-17-2024 History of Present illness Narrative Chief Complaint Patient presents with: Follow Up: Multiple consistent sx, dizziness, fatigue, sob, poor appetite,night sweats. Reports she was recently dx with lupus 09/2023, appt with Rheum in [place] Crews is a 38 year old female who presents here today for Above Complaints.. In 10/[address] Ortiz with [facility] for a lot of GI sx, he did blood work and dx her with lupus. He told her she had inflammation in her stomach lining. Patient states her fecal calprotectin was abnormal, but by review of her labs by myself was 79 and WNL. Epigastric burning, pain. Frequent vomiting, about 4-5 days per week. Very nauseated all the time. Eats only once daily d/t lack of appetite and that any eating makes her nauseated. Tries to eat little packs such as cheese for protein. Is scheduled to see rheumatology in April with Niurka Lucero, in [place]. This is the closest place to her. States she is afraid to drive any further than this because it scares her and that she is afraid that she will need to throw up. Mother hx thyroid cancer. Past medical history, appointments, medications, allergies reviewed. [...] cancer Hypertension Maternal Grandmother Heart Maternal Grandmother MD Arthritis Maternal Grandfather Hypertension Maternal Grandfather Arthritis Paternal Grandmother Colon Cancer Maternal Uncle Patient Allergies ALLERGIES Allergen Reactions Amitriptyline GI Upset GI upset and eye problem Cats Other: See Comments Tightness in throat, sinus congestion, swollen eyes Morphine GI Upset, Itching Vicodin [Hydrocodon* GI Upset Current Medications Current Outpatient Medications on File Prior to Visit Medication Sig albuterol HFA (PROVENTIL HFA, VENTOLIN HFA) 90 mcg/actuation inhaler Inhale 1 Puff as instructed every 4 hours as needed for wheezing/shortness of breath. fluticasone (FLOVENT) 110 mcg/actuation inhaler Inhale 1 Puff as instructed two times a day. Shake well before use. Rinse mouth after use. SUMAtriptan (IMITREX) 100 mg tablet Take 1 tablet at the onset of headache. May repeat dose in 2 hours if needed. Do not exceed 2 tablets in 24 hour period. propranolol (INDERAL) 40 mg tablet Take 1 tablet by mouth once daily. PARoxetine (PAXIL) 20 mg tablet Take 1 tablet by mouth once daily. omeprazole (PRILOSEC) 20 mg capsule Take 1 capsule by mouth every afternoon. cholecalciferol, Vitamin D3, (VITAMIN D3) 1,250 mcg (50,000 unit) cap capsule Take 1 capsule by mouth one time a week. dicyclomine (BENTYL) 10 mg capsule Take 10 mg by mouth before meals and at bedtime. lansoprazole (PREVACID) 30 mg capsule Take 30 mg by mouth once daily. scopolamine (TRANSDERM-SCOP) patch 1.5 mg/72 hr (delivers 1 mg over 3 days) Apply 1 Patch as directed every 72 hours. No current facility-administered medications on file prior to visit. Social History Social History Tobacco Use Smoking status: Former Current packs/day: 0.00 Average packs/day: 0.5 packs/day for 18.0 years (9.0 ttl pk-yrs) Types: Cigarettes Start date: 05/30/2005 Quit date: 05/30/2023 Years since quittin.8 Smokeless tobacco: Never Substance Use Topics Alcohol use: No Drug use: No Review of Symptoms REVIEW OF SYSTEMS See HPI, otherwise negative EXAM: BP 122/76 (BP Site: Left Arm, BP Position: Sitting, BP Cuff Size: Regular Adult) Pulse 83 Resp 16 Wt 63.2 kg (139 lb 5.3 oz) LMP 10/13/2023 (Approximate) SpO2 99% BMI 19.99 kg/m General Appearance: ill-appearing, alert, in no acute distress, well-hydrated, well nourished.. Head: Normocephalic, no masses, lesions, tenderness or abnormalities. Eyes: Anicteric sclera. Pupils are equally round and reactive to light. Extraocular movements are intact. . Ears: External ears normal, canals clear. Nose/Sinuses: Nares normal, septum midline, mucosa normal, no drainage or sinus tenderness. Oropharynx: Lips, mucosa, and tongue normal, teeth and gums normal, oropharynx normal. Neck: Supple, no adenopathy; thyroid symmetric, normal size, no bruits. Back:no pain to palpation of vertebrae, good flexion and extension, good range of motion, no muscle tenderness, motor and sensory appear to be normal Lungs: Lungs clear to auscultation. No wheezing, rhonchi, rales.. Heart: RRR without murmur, gallop, or rubs. No ectopy. Abdomen: tender to palpation in epigastric region. Extremities: No deformities, edema, skin discoloration, clubbing or cyanosis. Good capillary refill. . Musculoskeletal: No joint swelling, deformity, or tenderness. Peripheral Pulses: Normal. Neurologic: Gait normal. Reflexes normal and symmetric. Sensation grossly intact.. Lymph Nodes: No cervical lymphadenopathy and No supraclavicular lymphadenopathy. Psychiatric: pleasant, cooperative. Health Maintenance List Depression Screening Never done Anxiety Screening Never done Hepatitis B Vaccine(1 of 3 - 19+ 3-dose series) Never done Cervical Cancer Screening due on 10/01/2015 Covid-19 Vaccine( - 2022-24 season) Never done Influenza Vaccine(1) due on 02/29/2024 DTaP,Tdap,Td Vaccine(2 - Td or Tdap) due on 02/07/2033 Hepatitis C Screening Completed HIV Screening Completed HPV Vaccine Aged Out Data reviewed Previous records, office notes ASSESSMENT/PLAN: 1. Nausea and vomiting, unspecified vomiting type - ICD9: 787.01, ICD10: R11.2 (primary diagnosis) - PRECIOUS BLOOD - ANTI HERLINDA ID - RHEUMATOID FACTOR - CCP ANTIBODY IGG - US THYROID/PARATHYROID - THYROID PEROXIDASE ANTIBODY - THYROGLOBULIN ANTIBODY - THYROID STIMULATING HORMONE - T3 - T4 FREE/FREE THYROXINE - COMPLETE BLOOD COUNT AND DIFFERENTIAL - SUCRALFATE 1 GRAM TABLET - CONSULT TO GASTROENTEROLOGY 2. Migraine without status migrainosus, not intractable, unspecified migraine type - ICD9: 346.90, ICD10: G43.909 - PROPRANOLOL 40 MG TABLET 3. Epigastric pain - ICD9: 789.06, ICD10: R10.13 - COMPLETE BLOOD COUNT AND DIFFERENTIAL - COMPREHENSIVE METABOLIC PANEL - SUCRALFATE 1 GRAM TABLET - CONSULT TO GASTROENTEROLOGY 4. Feeling of foreign body in throat - ICD9: 784.99, ICD10: R09.A2 - US THYROID/PARATHYROID - THYROID PEROXIDASE ANTIBODY - THYROGLOBULIN ANTIBODY - THYROID STIMULATING HORMONE - T3 - T4 FREE/FREE THYROXINE - SUCRALFATE 1 GRAM TABLET - CONSULT TO GASTROENTEROLOGY 5. Fatigue, unspecified type - ICD9: 780.79, ICD10: R53.83 - PRECIOUS BLOOD - ANTI HRELINDA ID - RHEUMATOID FACTOR - CCP ANTIBODY IGG - US THYROID/PARATHYROID - THYROID PEROXIDASE ANTIBODY - THYROGLOBULIN ANTIBODY - THYROID STIMULATING HORMONE - T3 - T4 FREE/FREE THYROXINE - COMPLETE BLOOD COUNT AND DIFFERENTIAL - COMPREHENSIVE METABOLIC PANEL 6. SOB (shortness of breath) - ICD9: 786.05, ICD10: R06.02 - PRECIOUS BLOOD - ANTI HERLINDA ID - RHEUMATOID FACTOR - CCP ANTIBODY IGG - US THYROID/PARATHYROID - THYROID PEROXIDASE ANTIBODY - THYROGLOBULIN ANTIBODY - THYROID STIMULATING HORMONE - T3 - T4 FREE/FREE THYROXINE 7. Systemic lupus erythematosus, unspecified SLE type, unspecified organ involvement status (HCC) - ICD9: 710.0, ICD10: M32.9 - PRECIOUS BLOOD - ANTI HERLINDA ID - RHEUMATOID FACTOR - CCP ANTIBODY IGG - US THYROID/PARATHYROID - THYROID PEROXIDASE ANTIBODY - THYROGLOBULIN ANTIBODY - THYROID STIMULATING HORMONE - T3 - T4 FREE/FREE THYROXINE - COMPLETE BLOOD COUNT AND DIFFERENTIAL - COMPREHENSIVE METABOLIC PANEL 8. Family history of thyroid cancer - ICD9: V16.8, ICD10: Z80.8 - US THYROID/PARATHYROID - THYROID PEROXIDASE ANTIBODY - THYROGLOBULIN ANTIBODY - THYROID STIMULATING HORMONE - T3 - T4 FREE/FREE THYROXINE Daniel Trujillo APRN.MONITOR TECH documented in this encounter [facility] 03-10-2024 Telephone encounter Note Duplicate encounter. Denies worsening SOB. Persistent since June. Using prescribed inhalers with slight effect. Scheduled with Daniel on 03/17/24. Advised ER evaluation per triage protocol if worsening SOB. [1] MODERATE difficulty breathing (e.g., speaks in phrases, SOB even at rest, pulse 100-120) AND [2] NEW-onset or WORSE than normal Yes Go to ED Now Care Advice: 1: GO TO ED NOW: Roma Sorenson RN [facility] 03-10-2024 Miscellaneous Notes Duplicate encounter. Denies worsening SOB. Persistent since June. Using prescribed inhalers with slight effect. Scheduled with Daniel on 03/17/24. Advised ER evaluation per triage protocol if worsening SOB. [1] MODERATE difficulty breathing (e.g., speaks in phrases, SOB even at rest, pulse 100-120) AND [2] NEW-onset or WORSE than normal Yes Go to ED Now Care Advice: 1: GO TO ED NOW: Roma Sorenson RN documented in this encounter [facility] 03-10-2024 Telephone encounter Note Spoke with patient. Appointment scheduled with Daniel. Patient says she is scheduled to see RHEUM in April for new diagnosis of SLE. Roma Sorenson RN [facility] 03-10-2024 Miscellaneous Notes Spoke with patient. Appointment scheduled with Daniel. Patient says she is scheduled to see RHEUM in April for new diagnosis of SLE. Roma Sorenson RN documented in this encounter [facility] 02-17-2024 Telephone encounter Note Pt returned call and given provider's message below with verbalized understanding. [facility] 02-17-2024 Miscellaneous Notes Pt returned call and given provider's message below with verbalized understanding. Left message for patient to return call to office Heather Lora MA Please let patient know her viral testing and monotest are normal. Her blood work is also normal. documented in this encounter [facility] 02-17-2024 Telephone encounter Note Left message for patient to return call to office Heather Lora MA [facility] 02-17-2024 Telephone encounter Note Please let patient know her viral testing and monotest are normal. Her blood work is also normal. [facility] 02-16-2024 Note HNO ID: [id number] Author: LOGAN RUIZ APRN.CNP Service: ? Author Type: Nurse Practitioner Type: Progress Notes Filed: 02/16/2024 11:58 Note Text: Chief Complaint Patient presents with: Sore Throat Sinus Problem Head Congestion Cough HPI Mayuri Crews is a 38 year old female who presents here today for Above Complaints.. Patient presents for sore throat, cough, head congestion, and sinus congestion for 3 weeks. Patient has lupus but has not started immunosuppressives at this time. Patient reports symptoms are constant but rotate which ones are worst from day to day. Reports aching pain in shoulders, fatigue. Denies fever, worsening SOB, chest pain, n/v/d/constipation. Past medical history, appointments, medications, allergies reviewed. Previous Medical History PAST MEDICAL HISTORY 06/2020: Cervical dysplasia No date: Irregular heart beat No date: Migraine headache No date: Pelvic pain in female Comment: ovarian cysts, [facility] 2012: SVT (supraventricular tachycardia) (HCC) Comment: saw Dr. Coburn at the time No date: Tobacco abuse Previous Surgical History PAST SURGICAL HISTORY 09/28/2020: COLONOSCOPY W/BIOPSY SINGLE/MULTIPLE No date: NONE 06/2020: UTERINE CERVIX-EXCISION (CONE/LEEP) SYNOPTIC RPT Family History FAMILY HISTORY Problem Relation Age of Onset Thyroid Mother 40 cancer Hypertension Maternal Grandmother Heart Maternal Grandmother MD Arthritis Maternal Grandfather Hypertension Maternal Grandfather Arthritis Paternal Grandmother Colon Cancer Maternal Uncle Patient Allergies ALLERGIES Allergen Reactions Amitriptyline GI Upset GI upset and eye problem Cats Other: See Comments Tightness in throat, sinus congestion, swollen eyes Morphine GI Upset, Itching Vicodin [Hydrocodon* GI Upset Current Medications Current Outpatient Medications on File Prior to Visit Medication Sig albuterol HFA (PROVENTIL HFA, VENTOLIN HFA) 90 mcg/actuation inhaler Inhale 1 Puff as instructed every 4 hours as needed for wheezing/shortness of breath. fluticasone (FLOVENT) 110 mcg/actuation inhaler Inhale 1 Puff as instructed two times a day. Shake well before use. Rinse mouth after use. PARoxetine (PAXIL) 20 mg tablet Take 1 tablet by mouth once daily. omeprazole (PRILOSEC) 20 mg capsule Take 1 capsule by mouth every afternoon. SUMAtriptan (IMITREX) 100 mg tablet Take 1 tablet at the onset of headache. May repeat dose in 2 hours if needed. Do not exceed 2 tablets in 24 hour period. cholecalciferol, Vitamin D3, (VITAMIN D3) 1,250 mcg (50,000 unit) cap capsule Take 1 capsule by mouth one time a week. dicyclomine (BENTYL) 10 mg capsule Take 10 mg by mouth before meals and at bedtime. lansoprazole (PREVACID) 30 mg capsule Take 30 mg by mouth once daily. scopolamine (TRANSDERM-SCOP) patch 1.5 mg/72 hr (delivers 1 mg over 3 days) Apply 1 Patch as directed every 72 hours. propranolol (INDERAL) 40 mg tablet Take 1 tablet by mouth once daily. No current facility-administered medications on file prior to visit. Social History Social History Tobacco Use Smoking status: Former Current packs/day: 0.00 Average packs/day: 0.5 packs/day for 18.0 years (9.0 ttl pk-yrs) Types: Cigarettes Start date: 05/30/2005 Quit date: 05/30/2023 Years since quittin.7 Smokeless tobacco: Never Substance Use Topics Alcohol use: No Drug use: No Review of Symptoms REVIEW OF SYSTEMS SEE HPI EXAM: BP 107/73 Pulse 81 Temp 37.1 ?C (98.7 ?F) Resp 14 Wt 62.1 kg (137 lb) LMP 10/13/2023 (Approximate) SpO2 96% BMI 19.66 kg/m? General Appearance: Well appearing, alert, in no acute distress, well-hydrated, well nourished.. Oropharynx: Lips, mucosa, and tongue normal, teeth and gums normal, oropharynx normal. Neck: Supple, no adenopathy; thyroid symmetric, normal size, no bruits. Lungs: Lungs clear to auscultation. No wheezing, rhonchi, rales.. Heart: RRR without murmur, gallop, or rubs. No ectopy. Abdomen: Positive findings: tenderness mild generalized. Health Maintenance List Depression Screening Never done Anxiety Screening Never done Hepatitis B Vaccine(1 of 3 - 19+ 3-dose series) Never done Cervical Cancer Screening due on 10/01/2015 Covid-19 Vaccine( - 2022- season) due on 10/12/2024 Influenza Vaccine(1) due on 02/29/2024 DTaP,Tdap,Td Vaccine(2 - Td or Tdap) due on 02/07/2033 Hepatitis C Screening Completed HIV Screening Completed HPV Vaccine Aged Out ASSESSMENT/PLAN: 1. Viral URI - ICD9: 465.9, ICD10: J06.9 (primary diagnosis) - Discussed viral etiology and rationale for treatment. - Symptomatic treatment with prn analgesia - Supportive care with fluids and rest - COVID AND INFLUENZA A/B AND RSV NAAT, ROUTINE 2. Sore throat - ICD9: 462, ICD10: J02.9 - Rapid Strep negative in the office today - STREP A MOLECULAR (POC) - COMPLETE BLOOD COUNT AND DIFFERENTIAL - MONOTEST, INFECTIOUS MONO 3. Fatigue, unsp (more content not included)... [facility] 02-16-2024 History of Present illness Narrative Chief Complaint Patient presents with: Sore Throat Sinus Problem Head Congestion Cough HPI Mayuri Crews is a 38 year old female who presents here today for Above Complaints.. Patient presents for sore throat, cough, head congestion, and sinus congestion for 3 weeks. Patient has lupus but has not started immunosuppressives at this time. Patient reports symptoms are constant but rotate which ones are worst from day to day. Reports aching pain in shoulders, fatigue. Denies fever, worsening SOB, chest pain, n/v/d/constipation. Past medical history, appointments, medications, allergies reviewed. Previous Medical History PAST MEDICAL HISTORY 06/2020: Cervical dysplasia No date: Irregular heart beat No date: Migraine headache No date: Pelvic pain in female Comment: ovarian cysts, [facility] 2012: SVT (supraventricular tachycardia) ([facility]) Comment: saw Dr. Coburn at the time No date: Tobacco abuse Previous Surgical History PAST SURGICAL HISTORY 09/28/2020: COLONOSCOPY W/BIOPSY SINGLE/MULTIPLE No date: NONE 06/2020: UTERINE CERVIX-EXCISION (CONE/LEEP) SYNOPTIC RPT Family History FAMILY HISTORY Problem Relation Age of Onset Thyroid Mother 40 cancer Hypertension Maternal Grandmother Heart Maternal Grandmother MD Arthritis Maternal Grandfather Hypertension Maternal Grandfather Arthritis Paternal Grandmother Colon Cancer Maternal Uncle Patient Allergies ALLERGIES Allergen Reactions Amitriptyline GI Upset GI upset and eye problem Cats Other: See Comments Tightness in throat, sinus congestion, swollen eyes Morphine GI Upset, Itching Vicodin [Hydrocodon* GI Upset Current Medications Current Outpatient Medications on File Prior to Visit Medication Sig albuterol HFA (PROVENTIL HFA, VENTOLIN HFA) 90 mcg/actuation inhaler Inhale 1 Puff as instructed every 4 hours as needed for wheezing/shortness of breath. fluticasone (FLOVENT) 110 mcg/actuation inhaler Inhale 1 Puff as instructed two times a day. Shake well before use. Rinse mouth after use. PARoxetine (PAXIL) 20 mg tablet Take 1 tablet by mouth once daily. omeprazole (PRILOSEC) 20 mg capsule Take 1 capsule by mouth every afternoon. SUMAtriptan (IMITREX) 100 mg tablet Take 1 tablet at the onset of headache. May repeat dose in 2 hours if needed. Do not exceed 2 tablets in 24 hour period. cholecalciferol, Vitamin D3, (VITAMIN D3) 1,250 mcg (50,000 unit) cap capsule Take 1 capsule by mouth one time a week. dicyclomine (BENTYL) 10 mg capsule Take 10 mg by mouth before meals and at bedtime. lansoprazole (PREVACID) 30 mg capsule Take 30 mg by mouth once daily. scopolamine (TRANSDERM-SCOP) patch 1.5 mg/72 hr (delivers 1 mg over 3 days) Apply 1 Patch as directed every 72 hours. propranolol (INDERAL) 40 mg tablet Take 1 tablet by mouth once daily. No current facility-administered medications on file prior to visit. Social History Social History Tobacco Use Smoking status: Former Current packs/day: 0.00 Average packs/day: 0.5 packs/day for 18.0 years (9.0 ttl pk-yrs) Types: Cigarettes Start date: 05/30/2005 Quit date: 05/30/2023 Years since quittin.7 Smokeless tobacco: Never Substance Use Topics Alcohol use: No Drug use: No Review of Symptoms REVIEW OF SYSTEMS SEE HPI EXAM: BP 107/73 Pulse 81 Temp 37.1 C (98.7 F) Resp 14 Wt 62.1 kg (137 lb) LMP 10/13/2023 (Approximate) SpO2 96% BMI 19.66 kg/m General Appearance: Well appearing, alert, in no acute distress, well-hydrated, well nourished.. Oropharynx: Lips, mucosa, and tongue normal, teeth and gums normal, oropharynx normal. Neck: Supple, no adenopathy; thyroid symmetric, normal size, no bruits. Lungs: Lungs clear to auscultation. No wheezing, rhonchi, rales.. Heart: RRR without murmur, gallop, or rubs. No ectopy. Abdomen: Positive findings: tenderness mild generalized. Health Maintenance List Depression Screening Never done Anxiety Screening Never done Hepatitis B Vaccine(1 of 3 - 19+ 3-dose series) Never done Cervical Cancer Screening due on 10/01/2015 Covid-19 Vaccine(2022- season) due on 10/12/2024 Influenza Vaccine(1) due on 02/29/2024 DTaP,Tdap,Td Vaccine(2 - Td or Tdap) due on 02/07/2033 Hepatitis C Screening Completed HIV Screening Completed HPV Vaccine Aged Out ASSESSMENT/PLAN: 1. Viral URI - ICD9: 465.9, ICD10: J06.9 (primary diagnosis) - Discussed viral etiology and rationale for treatment. - Symptomatic treatment with prn analgesia - Supportive care with fluids and rest - COVID & INFLUENZA A/B & RSV NAAT, ROUTINE 2. Sore throat - ICD9: 462, ICD10: J02.9 - Rapid Strep negative in the office today - STREP A MOLECULAR (POC) - COMPLETE BLOOD COUNT AND DIFFERENTIAL - MONOTEST, INFECTIOUS MONO 3. Fatigue, unspecified type - ICD9: 780.79, ICD10: R53.83 - COMPLETE BLOOD COUNT AND DIFFERENTIAL - MONOTEST, INFECTIOUS MONO 4. Bacterial sinusitis - ICD9: 473.9, 041.9, ICD10: J32.9, B96.89 - Will begin treatment with Augmentin 875 mg PO BID for 5 days - The patient should also be given OTC decongestants prn and OTC cough and cold meds as needed for the first 5-7 days of treatment. - Supportive care with plenty of fluids, rest, and analgesia prn. - Follow up in 3-5 days if symptoms persist or worsen. SAMSON Ruano APRN.CNP documented in this encounter [facility] 01-13-2024 Note HNO ID: [id number] Author: SHANELLE ARNETT MD Service: ? Author Type: Physician Type: Progress Notes Filed: 01/13/2024 13:36 Note Text: [facility] OFFICE VISIT CONSULT 01/13/2024 Patient Name: Mayuri Crews PRIMARY CARE PHYSICIAN: Tee Vogel DO REASON FOR CONSULT: lung nodule, abnormal PFTs/air trapping, PND, SLE, ex smoker, SVT REFERRING PHYSICIAN: Cailin Morillo APRN.CNP My final recommendations will be communicated to the requesting health care provider by way of the shared medical record for internal providers or by letter via [place] mail for external providers. CHIEF COMPLAINT: Air trapping, HISTORY OF PRESENT ILLNESS: Mayuri Crews is a 38 year old female, BMI 18.98 kg/m2 with a PMH significant for ex smoking, getting evaluated for SLE, here for abnormal PFTs and lung nodule. Patient feels SOB on exertion since May. She was diagnosed with SLE in June No cough but has post nasal drip and throat clearing Episodes of wheezing Mother accompanying her- has COPD No h/o asthma Sometimes feels dizzy because of her breathing Ex smoker- smoked since age 20- quit in May 2023 No vaping No pets Allergic to cats Not surrently working- no occupational exposure Described epigastric pain- not relieved by PPI- wondering if it is caused by her lungs The symptoms are mild, intermittent, occur at rest and on exertion CT chest12/2023 4.5 mm nodule in the right lower lobe. Spirometry no airflow obstruction Air trapping MMRC Dyspnea Scale: 0. Not troubled by breathlessness except on strenuous exercise Short of breath when hurrying or walking up a slight hill Walks slower than contemporaries on the level because of breathlessness, or has to stop for breath when walking at own pace Stops for breath after about 100 m or after a few minutes on the level Too breathless to leave the house, or breathless when dressing or undressing Environmental/ Occupational Exposure History: Pets: No birds Asbestos: No significant exposure Silica: No significant exposure Curry: No significant exposure Mold: No significant exposure Hot tub: No significant exposure Fumes: No significant exposure Metal dust: No significant exposure Beryllium: No significant exposure Dust: No significant exposure Medications: No relevant exposure for interstitial lung diseases PAST MEDICAL HISTORY Diagnosis Date Cervical dysplasia 06/2020 Irregular heart beat Migraine headache Pelvic pain in female ovarian cysts, [facility] SVT (supraventricular tachycardia) (HCC) [address] Coburn at the time Tobacco abuse PAST SURGICAL HISTORY Procedure Laterality Date COLONOSCOPY W/BIOPSY SINGLE/MULTIPLE 09/28/2020 NONE UTERINE CERVIX-EXCISION (CONE/LEEP) SYNOPTIC RPT 06/2020 FAMILY HISTORY Problem Relation Age of Onset Thyroid Mother 40 cancer Hypertension Maternal Grandmother Heart Maternal Grandmother MD Arthritis Maternal Grandfather Hypertension Maternal Grandfather Arthritis Paternal Grandmother Colon Cancer Maternal Uncle no pertinent family history Social History Tobacco Use Smoking status: Former Packs/day: 0.50 Years: 18.00 Additional pack years: 0.00 Total pack years: 9.00 Types: Cigarettes Quit date: 05/30/2023 Years since quittin.6 Smokeless tobacco: Never Substance Use Topics Alcohol use: No Drug use: No ALLERGIES ALLERGIES Allergen Reactions Amitriptyline GI Upset GI upset and eye problem Cats Other: See Comments Tightness in throat, sinus congestion, swollen eyes Morphine GI Upset, Itching Vicodin [Hydrocodon* GI Upset CURRENT OUTPATIENT MEDICATIONS SUMAtriptan (IMITREX) 100 mg tablet Take 1 tablet at the onset of headache. May repeat dose in 2 hours if needed. Do not exceed 2 tablets in 24 hour period. PARoxetine (PAXIL) 20 mg tablet Take 1 tablet by mouth once daily. omeprazole (PRILOSEC) 20 mg capsule Take 1 capsule by mouth every afternoon. cholecalciferol, Vitamin D3, (VITAMIN D3) 1,250 mcg (50,000 unit) cap capsule Take 1 capsule by mouth one time a week. dicyclomine (BENTYL) 10 mg capsule Take 10 mg by mouth before meals and at bedtime. lansoprazole (PREVACID) 30 mg capsule Take 30 mg by mouth once daily. scopolamine (TRANSDERM-SCOP) patch 1.5 mg/72 hr (delivers 1 mg over 3 days) Apply 1 Patch as directed every 72 hours. propranolol (INDERAL) 40 mg tablet Take 1 tablet by mouth once daily. REVIEW OF SYSTEMS Review of Systems Constitutional: Negative for chills, fever and weight loss. Respiratory: Positive for shortness of breath and wheezing. Negative for cough, hemoptysis and sputum production. Cardiovascular: Negative for leg swelling. The remainder of review of systems was negative. PHYSICAL EXAM BP 121/88 Pulse 86 Wt 132 lb 4.4 oz (60.0kg) SpO2 96% LMP 10/13/2023 General appearance: Well appearing, alert, in no acu (more content not included)... [facility] 01-13-2024 History of Present illness Narrative Images from the original note were not included. [facility] OFFICE VISIT CONSULT 01/13/2024 Patient Name: Mayuri Crews PRIMARY CARE PHYSICIAN: Tee Vogel DO REASON FOR CONSULT: lung nodule, abnormal PFTs/air trapping, PND, SLE, ex smoker, SVT REFERRING PHYSICIAN: Cailin Morillo APRN.SUMMER My final recommendations will be communicated to the requesting health care provider by way of the shared medical record for internal providers or by letter via [place] mail for external providers. CHIEF COMPLAINT: Air trapping, HISTORY OF PRESENT ILLNESS: Mayuri Crews is a 38 year old female, BMI 18.98 kg/m2 with a PMH significant for ex smoking, getting evaluated for SLE, here for abnormal PFTs and lung nodule. Patient feels SOB on exertion since May. She was diagnosed with SLE in June No cough but has post nasal drip and throat clearing Episodes of wheezing Mother accompanying her- has COPD No h/o asthma Sometimes feels dizzy because of her breathing Ex smoker- smoked since age 20- quit in May 2023 No vaping No pets Allergic to cats Not surrently working- no occupational exposure Described epigastric pain- not relieved by PPI- wondering if it is caused by her lungs The symptoms are mild, intermittent, occur at rest and on exertion CT chest12/2023 4.5 mm nodule in the right lower lobe. Spirometry no airflow obstruction Air trapping MMRC Dyspnea Scale: 0. Not troubled by breathlessness except on strenuous exercise Short of breath when hurrying or walking up a slight hill Walks slower than contemporaries on the level because of breathlessness, or has to stop for breath when walking at own pace Stops for breath after about 100 m or after a few minutes on the level Too breathless to leave the house, or breathless when dressing or undressing Environmental/ Occupational Exposure History: Pets: No birds Asbestos: No significant exposure Silica: No significant exposure Curry: No significant exposure Mold: No significant exposure Hot tub: No significant exposure Fumes: No significant exposure Metal dust: No significant exposure Beryllium: No significant exposure Dust: No significant exposure Medications: No relevant exposure for interstitial lung diseases PAST MEDICAL HISTORY Diagnosis Date Cervical dysplasia 06/2020 Irregular heart beat Migraine headache Pelvic pain in female ovarian cysts, [facility] SVT (supraventricular tachycardia) (HCC) [address] Coburn at the time Tobacco abuse PAST SURGICAL HISTORY Procedure Laterality Date COLONOSCOPY W/BIOPSY SINGLE/MULTIPLE 09/28/2020 NONE UTERINE CERVIX-EXCISION (CONE/LEEP) SYNOPTIC RPT 06/2020 FAMILY HISTORY Problem Relation Age of Onset Thyroid Mother 40 cancer Hypertension Maternal Grandmother Heart Maternal Grandmother MD Arthritis Maternal Grandfather Hypertension Maternal Grandfather Arthritis Paternal Grandmother Colon Cancer Maternal Uncle no pertinent family history Social History Tobacco Use Smoking status: Former Packs/day: 0.50 Years: 18.00 Additional pack years: 0.00 Total pack years: 9.00 Types: Cigarettes Quit date: 05/30/2023 Years since quittin.6 Smokeless tobacco: Never Substance Use Topics Alcohol use: No Drug use: No ALLERGIES ALLERGIES Allergen Reactions Amitriptyline GI Upset GI upset and eye problem Cats Other: See Comments Tightness in throat, sinus congestion, swollen eyes Morphine GI Upset, Itching Vicodin [Hydrocodon* GI Upset CURRENT OUTPATIENT MEDICATIONS SUMAtriptan (IMITREX) 100 mg tablet Take 1 tablet at the onset of headache. May repeat dose in 2 hours if needed. Do not exceed 2 tablets in 24 hour period. PARoxetine (PAXIL) 20 mg tablet Take 1 tablet by mouth once daily. omeprazole (PRILOSEC) 20 mg capsule Take 1 capsule by mouth every afternoon. cholecalciferol, Vitamin D3, (VITAMIN D3) 1,250 mcg (50,000 unit) cap capsule Take 1 capsule by mouth one time a week. dicyclomine (BENTYL) 10 mg capsule Take 10 mg by mouth before meals and at bedtime. lansoprazole (PREVACID) 30 mg capsule Take 30 mg by mouth once daily. scopolamine (TRANSDERM-SCOP) patch 1.5 mg/72 hr (delivers 1 mg over 3 days) Apply 1 Patch as directed every 72 hours. propranolol (INDERAL) 40 mg tablet Take 1 tablet by mouth once daily. REVIEW OF SYSTEMS Review of Systems Constitutional: Negative for chills, fever and weight loss. Respiratory: Positive for shortness of breath and wheezing. Negative for cough, hemoptysis and sputum production. Cardiovascular: Negative for leg swelling. The remainder of review of systems was negative. PHYSICAL EXAM BP 121/88 Pulse 86 Wt 132 lb 4.4 oz (60.0kg) SpO2 96% LMP 10/13/2023 General appearance: Well appearing, alert, in no acute distress, well-hydrated, well nourished. Eyes: PERRLA Oropharynx: Lips, mucosa, and tongue normal, teeth and gums normal, oropharynx normal Neck: no palpable masses Lungs: Lungs clear to auscultation. No wheezing, rhonchi, rales Heart: RRR without murmur, gallop, or rubs. No ectopy , normal peripheral pulses, no peripheral edema Abdomen: Abdomen soft, non-tender. Bowel sounds normal. No masses, organomegaly Extremities: Normal, Warm, No cyanosis, no clubbing, No edema, and Nontender Neuro: no focal weakness Psychiatry: Alert, Oriented X 3 DATA Diagnostic tests reviewed and analysed for today's visit, including films and specimens, personally reviewed by me: Most recent labs and imaging results. No results found. CT CHEST W IVCON Result Date: 01/06/2024 IMPRESSION: No CT evidence of acute abnormality. 4.5 mm nodule in the right lower lobe. Incidental Finding: Follow-up Acuity: Incidental Finding: Solid: <6 mm (solitary or multiple) Routing Code: N/A Recommendation: No imaging follow-up is recommended Time Frame: N/A Comments: If there are risk factors for lung malignancy, a follow-up chest CT exam could be obtained in 12 months --END OF FINDING-- Pump Service Supervisor: MARLENE Transcribe Date/Time: Jan 06 2024 3:45P Dictated by : RANDI BROWNLEE MD This examination was interpreted and the report reviewed and electronically signed by: RANDI BROWNLEE MD on Jan 06 2024 3:48PM EST Immunizations: Up to date ASSESSMENT/PLAN ASSESSMENT/PLAN: 1. Mild persistent asthma without complication - ICD9: 493.90, ICD10: J45.30 (primary diagnosis) Start ICS flovent Avoid laba because of SVT Xopenex not on formulary Albuterol 2 puff as needed Inhalation technique reviewed JORDIN next visit Will follow up with Dr Swift due to proximity to [place] 2. Pulmonary air trapping - ICD9: 786.9, ICD10: R09.89 3. Lung nodules - ICD9: 793.19, ICD10: R91.8 Ct chest 12/2023: 4.5 mm RLL nodule - CT CHEST WO IVCON 4. SOB (shortness of breath) - ICD9: 786.05, ICD10: R06.02 5. Systemic lupus erythematosus, unspecified SLE type, unspecified organ involvement status (HCC) - ICD9: 710.0, ICD10: M32.9 6. SVT (supraventricular tachycardia) (HCC) - ICD9: 427.89, ICD10: I47.10 MD Shanelle Tran MD, MARGARITA Staff, Respiratory [place] [facility] CC: DO Ilia Gutierrez Alyson, APRN.MONITOR TECH documented in this encounter [facility] 01-07-2024 Telephone encounter Note Phoned patient went over notes below from Lexi Trujillo NP with understanding. Assisted with transfer to equipment scheduler to get Pulmonary appt set up. [facility] 01-07-2024 Miscellaneous Notes Phoned patient went over notes below from Lexi Trujillo NP with understanding. Assisted with transfer to equipment scheduler to get Pulmonary appt set up. This can be due to inflammation, occasionally other causes. I'd like her to see pulmonology for further workup if necessary, please assist her to schedule. Daniel Trujillo APRN.MONITOR TECH Patient returned call and given provider's message below. Patient asking provider why is she having air trapping, SOB and a hard time take a deep breath intermittently? Please advise. Thank you. The CT overall looked good. There was a very small incidental lung nodule on the CT. This is no cause for concern but we can repeat the CT in 12 months just to monitor. Daniel Trujillo APRN.SUMMER Pt received a MyChart message regarding the CT scan she had yesterday. The message said unexpected results were found. Pt asking for results. Viji Dai LPN documented in this encounter [facility] 01-07-2024 Telephone encounter Note This can be due to inflammation, occasionally other causes. I'd like her to see pulmonology for further workup if necessary, please assist her to schedule. Daniel Trujillo APRN.SUMMER [facility] 01-07-2024 Telephone encounter Note Patient returned call and given provider's message below. Patient asking provider why is she having air trapping, SOB and a hard time take a deep breath intermittently? Please advise. Thank you. [facility] 01-07-2024 Telephone encounter Note The CT overall looked good. There was a very small incidental lung nodule on the CT. This is no cause for concern but we can repeat the CT in 12 months just to monitor. Daniel Trujillo APRN.SUMMER [facility] 01-07-2024 Telephone encounter Note Pt received a [employer] message regarding the CT scan she had yesterday. The message said unexpected results were found. Pt asking for results. Viji Dai LPN [facility] 01-06-2024 History of Present illness Narrative Radiology Service Progress Note DATE OF SERVICE: January 06, 2024 TIME: 2:04 PM PATIENT IDENTITY VERIFICATION COMPLETED USING TWO (2) STANDARD IDENTIFIERS: Name and Date of confirmed by patient verbally. FALL SCREENING: Has the patient had 2 falls in the last year or 1 fall with injury or currently using an Ambulatory Assistive Device (Walker, Cane, Wheelchair, Crutches, etc.)? No PATIENT GENDER DATA: Female. status: : No status: NO. PATIENT RELEVANT IMPLANT DATA REVIEWED: Yes PATIENT PRESENTS WITH AN IMPLANTABLE OR ATTACHED TAKER DOWN: No ALLERGIES: Reviewed and unchanged CONTRAST ALLERGY: NO. EXAM: CT -CONTRAST INDUCED NEPHROPATHY RISK FACTORS: Not applicable CREATININE: Creatinine Date Value Ref Range Status 08/20/2023 0.58 0.58 - 0.96 mg/dL Final 02/07/2023 0.65 0.58 - 0.96 mg/dL Final Estimated Glomerular Filtration Rate Date Value Ref Range Status 08/20/2023 120 >=60 mL/min/1.73m Final Comment: Estimated Glomerular Filtration Rate (eGFR) is calculated using the 2020 CKD-EPI creatinine equation. This equation utilizes serum creatinine, sex, and age as parameters. The creatinine assay has traceable calibration to isotope dilution-mass spectrometry. Refer to KDIGO guidelines for clinical interpretation. In patients with unstable renal function, e.g. those with acute kidney injury, the eGFR may not accurately reflect actual GFR. P.O.C.T. RESULTS: POC done: Yes, See Lab Tab January 06, 2024 TREATMENT: N/A PERIPHERAL IV DATA: Ambulatory: A peripheral IV was started in the Left antecubital site with a Angio cath: 22 gauge. RADIOLOGY DEPARTMENT: CT; Exam(s) Completed: Chest SIGNATURE: RT John(Monse) PATIENT NAME: Mayuri Crews DATE: January 06, 2024 TIME: 2:04 PM documented in this encounter [facility] 01-06-2024 Note HNO ID: [id number] Author: LORAINE GASTELUM RT(R) Service: ? Author Type: Form Setter Helper Type: Progress Notes Filed: 01/06/2024 14:04 Note Text: Radiology Service Progress Note DATE OF SERVICE: January 06, 2024 TIME: 2:04 PM PATIENT IDENTITY VERIFICATION COMPLETED USING TWO (2) STANDARD IDENTIFIERS: Name and Date of confirmed by patient verbally. FALL SCREENING: Has the patient had 2 falls in the last year or 1 fall with injury or currently using an Ambulatory Assistive Device (Walker, Cane, Wheelchair, Crutches, etc.)? No PATIENT GENDER DATA: Female. status: : No status: NO. PATIENT RELEVANT IMPLANT DATA REVIEWED: Yes PATIENT PRESENTS WITH AN IMPLANTABLE OR ATTACHED TAKER DOWN: No ALLERGIES: Reviewed and unchanged CONTRAST ALLERGY: NO. EXAM: CT -CONTRAST INDUCED NEPHROPATHY RISK FACTORS: Not applicable CREATININE: Creatinine Date Value Ref Range Status 08/20/2023 0.58 0.58 - 0.96 mg/dL Final 02/07/2023 0.65 0.58 - 0.96 mg/dL Final Estimated Glomerular Filtration Rate Date Value Ref Range Status 08/20/2023 120 >=60 mL/min/1.73m? Final Comment: Estimated Glomerular Filtration Rate (eGFR) is calculated using the 2020 CKD-EPI creatinine equation. This equation utilizes serum creatinine, sex, and age as parameters. The creatinine assay has traceable calibration to isotope dilution-mass spectrometry. Refer to KDIGO guidelines for clinical interpretation. In patients with unstable renal function, e.g. those with acute kidney injury, the eGFR may not accurately reflect actual GFR. P.O.C.T. RESULTS: POC done: Yes, See Lab Tab January 06, 2024 TREATMENT: N/A PERIPHERAL IV DATA: Ambulatory: A peripheral IV was started in the Left antecubital site with a Angio cath: 22 gauge. RADIOLOGY DEPARTMENT: CT; Exam(s) Completed: Chest SIGNATURE: SONAL Lopez) PATIENT NAME: Mayuri Crews DATE: January 06, 2024 TIME: 2:04 PM [facility] 12-17-2023 Telephone encounter Note Patient returned call and went over notes from Lexi Trujillo NP with understanding. [facility] 12-17-2023 Miscellaneous Notes Patient returned call and went over notes from Lexi Trujillo MACHINE OPERATOR HELPER with understanding. Left message to return call. Please inform pt CT reordered. Pt needs to check with insurance to confirm nothing else is needed. Renate Ivan MA CT reordered. Daniel Trujillo APRN.MONITOR TECH Abelino from [facility] reports CT that was reordered on 11/19/[address] will need reordered. Renate Ivan MA Pt calls to report that [facility] is still saying they have not received (TE 12/03) fax regarding CT. Pt was advised to have provider or provider nurse call [phone] and speak directly to [facility] about this. Call pt when this has been done. Katiana Lombardo LPN documented in this encounter [facility] 12-17-2023 Telephone encounter Note Left message to return call. Please inform pt CT reordered. Pt needs to check with insurance to confirm nothing else is needed. Renate Ivan MA [facility] 12-16-[address] reordered. Daniel Trujillo APRN.SUMMER [facility] 12-16-2023 Telephone encounter Note Abelino from [facility] reports CT that was reordered on 11/19/[address] will need reordered. Renate Ivan MA [facility] 12-16-2023 Telephone encounter Note Pt calls to report that [facility] is still saying they have not received (TE 12/03) fax regarding CT. Pt was advised to have provider or provider nurse call [phone] and speak directly to [facility] about this. Call pt when this has been done. Katiana Lombardo LPN [facility] 12-11-2023 Note HNO ID: [id number] Author: CAILIN MORILLO APRN.SUMMER Service: ? Author Type: Nurse Practitioner Type: Progress Notes Filed: 12/11/2023 08:11 Note Text: Chief Complaint Patient presents with: FMLA Paperwork HPI Mayuri Crews is a 38 year old female who presents here today for Above Complaints. Mayuri is an established patient of Dr. Vogel, and myself. Concerns today... Ongoing GI, cardiac, and pulmonary symptoms. Please refer to numerous prior encounters. Got fired from job recently d/t illness and taking off so frequently per pt. Pt did have FMLA. Now in office today to have paperwork filled out for unemployment. Did see Dr. Ortiz x2 since our last visit, last seen yesterday. Dr Ortiz tried to give patient medications for n/v and anxiety/depression. Pt declined and reports to me I don't just want a Band-Aid, I want to figure out what is going on with me . Pt reports she is not anxious or depressed and refuses to take these medications. Seeing rheumatology for Lupus dx per Dr. Ortiz's referral. Not scheduled till March. No other concerns or complaints today. Past medical history, appointments, medications, allergies reviewed. [...] cancer Hypertension Maternal Grandmother Heart Maternal Grandmother MD Arthritis Maternal Grandfather Hypertension Maternal Grandfather Arthritis Paternal Grandmother Colon Cancer Maternal Uncle Patient Allergies ALLERGIES Allergen Reactions Amitriptyline GI Upset GI upset and eye problem Cats Other: See Comments Tightness in throat, [...] Take 1 tablet by mouth once daily. PARoxetine (PAXIL) 20 mg tablet Take 1 tablet by mouth once daily. omeprazole (PRILOSEC) 20 mg capsule Take 1 capsule by mouth every afternoon. cholecalciferol, Vitamin D3, (VITAMIN D3) 1,250 mcg (50,000 unit) cap capsule Take 1 capsule by mouth one time a week. dicyclomine (BENTYL) 10 mg capsule Take 10 mg by mouth before meals and at bedtime. lansoprazole (PREVACID) 30 mg capsule Take 30 mg by mouth once daily. scopolamine (TRANSDERM-SCOP) patch 1.5 mg/72 hr (delivers 1 mg over 3 days) Apply 1 Patch as directed every 72 hours. No current facility-administered medications on file prior to visit. Social History Social History Tobacco Use Smoking status: Former Packs/day: 0.50 Years: 4.00 Additional pack years: 0.00 Total pack years: 2.00 Types: Cigarettes Quit date: 05/30/2023 Years since quittin.5 Smokeless tobacco: Never Tobacco comments: seldom/3 cigarettes a month Substance Use Topics Alcohol use: No Drug use: No REVIEW OF SYSTEMS: as above Reviewed relevant PMHx, PSHx, Social Hx, current medications and allergies. Review of Symptoms REVIEW OF SYSTEMS See HPI. EXAM: BP 120/62 (BP Site: Left Arm, BP Position: Sitting, BP Cuff Size: Regular Adult) Pulse 60 Resp 14 Wt 62.9 kg (138 lb 9.6 oz) LMP 10/13/2023 (Approximate) BMI 19.89 kg/m? General Appearance: Well appearing, alert, in no acute distress, well-hydrated, well nourished.. Skin: Skin color, texture, turgor normal, no suspicious rashes or lesions. Head: Normocephalic, no masses, lesions, tenderness or abnormalities. Lungs: Lungs clear to auscultation. No wheezing, rhonchi, rales.. Heart: RRR without murmur, gallop, or rubs. No ectopy. Health Maintenance List Hepatitis B Vaccine(1 of 3 - 19+ 3-dose series) Never done Cervical Cancer Screening due on 10/01/2015 Behavioral Health Screening due on 06/29/2024 Covid-19 Vaccine( - 2022- season) due on 10/12/2024 Influenza Vaccine(Season Ended) due on 02/29/2024 DTaP,Tdap,Td Vaccine(2 - Td or Tdap) due on 02/07/2033 Hepatitis C Screening Completed HIV Screening Completed HPV Vaccine Aged Out ASSESSMENT/PLAN: 1. Unemployment - ICD9: V62.0, ICD10: Z56.0 (primary diagnosis) Paperwork filled out and reviewed. Copies made for our records. 2. Nausea and vomiting, unspecified vomiting type - ICD9: 787.01, ICD10: R11.[address] Ortiz's attempt to trial antidepressant regime (more content not included)... [facility] 12-11-2023 History of Present illness Narrative Chief Complaint Patient presents with: FMLA Paperwork HPI Mayuri Crews is a 38 year old female who presents here today for Above Complaints. Mayuri is an established patient of Dr. Vogel, and myself. Concerns today... Ongoing GI, cardiac, and pulmonary symptoms. Please refer to numerous prior encounters. Got fired from job recently d/t illness and taking off so frequently per pt. Pt did have FMLA. Now in office today to have paperwork filled out for unemployment. Did see Dr. Ortiz x2 since our last visit, last seen yesterday. Dr Ortiz tried to give patient medications for n/v and anxiety/depression. Pt declined and reports to me I don't just want a Band-Aid, I want to figure out what is going on with me . Pt reports she is not anxious or depressed and refuses to take these medications. Seeing rheumatology for Lupus dx per Dr. Ortiz's referral. Not scheduled till March. No other concerns or complaints today. Past medical history, appointments, medications, allergies reviewed. [...] cancer Hypertension Maternal Grandmother Heart Maternal Grandmother MD Arthritis Maternal Grandfather Hypertension Maternal Grandfather Arthritis Paternal Grandmother Colon Cancer Maternal Uncle Patient Allergies ALLERGIES Allergen Reactions Amitriptyline GI Upset GI upset and eye problem Cats Other: See Comments Tightness in throat, [...] Take 1 tablet by mouth once daily. PARoxetine (PAXIL) 20 mg tablet Take 1 tablet by mouth once daily. omeprazole (PRILOSEC) 20 mg capsule Take 1 capsule by mouth every afternoon. cholecalciferol, Vitamin D3, (VITAMIN D3) 1,250 mcg (50,000 unit) cap capsule Take 1 capsule by mouth one time a week. dicyclomine (BENTYL) 10 mg capsule Take 10 mg by mouth before meals and at bedtime. lansoprazole (PREVACID) 30 mg capsule Take 30 mg by mouth once daily. scopolamine (TRANSDERM-SCOP) patch 1.5 mg/72 hr (delivers 1 mg over 3 days) Apply 1 Patch as directed every 72 hours. No current facility-administered medications on file prior to visit. Social History Social History Tobacco Use Smoking status: Former Packs/day: 0.50 Years: 4.00 Additional pack years: 0.00 Total pack years: 2.00 Types: Cigarettes Quit date: 05/30/2023 Years since quittin.5 Smokeless tobacco: Never Tobacco comments: seldom/3 cigarettes a month Substance Use Topics Alcohol use: No Drug use: No REVIEW OF SYSTEMS: as above Reviewed relevant PMHx, PSHx, Social Hx, current medications and allergies. Review of Symptoms REVIEW OF SYSTEMS See HPI. EXAM: BP 120/62 (BP Site: Left Arm, BP Position: Sitting, BP Cuff Size: Regular Adult) Pulse 60 Resp 14 Wt 62.9 kg (138 lb 9.6 oz) LMP 10/13/2023 (Approximate) BMI 19.89 kg/m General Appearance: Well appearing, alert, in no acute distress, well-hydrated, well nourished.. Skin: Skin color, texture, turgor normal, no suspicious rashes or lesions. Head: Normocephalic, no masses, lesions, tenderness or abnormalities. Lungs: Lungs clear to auscultation. No wheezing, rhonchi, rales.. Heart: RRR without murmur, gallop, or rubs. No ectopy. Health Maintenance List Hepatitis B Vaccine(1 of 3 - 19+ 3-dose series) Never done Cervical Cancer Screening due on 10/01/2015 Behavioral Health Screening due on 06/29/2024 Covid-19 Vaccine( - 2022- season) due on 10/12/2024 Influenza Vaccine(Season Ended) due on 02/29/2024 DTaP,Tdap,Td Vaccine(2 - Td or Tdap) due on 02/07/2033 Hepatitis C Screening Completed HIV Screening Completed HPV Vaccine Aged Out ASSESSMENT/PLAN: 1. Unemployment - ICD9: V62.0, ICD10: Z56.0 (primary diagnosis) Paperwork filled out and reviewed. Copies made for our records. 2. Nausea and vomiting, unspecified vomiting type - ICD9: 787.01, ICD10: R11.[address] Ortiz's attempt to trial antidepressant regimen. Pt declined. RTO as needed. Prescription instructions reviewed with patient as applicable. Potential red flag symptoms discussed with the patient. Reviewed appropriate action plan to take if red flag symptoms occur. Patient agreeable to treatment plan. Cailin Hsu APRN.MONITOR TECH [address] [place] [address] documented in this encounter [facility] 12-10-2023 Telephone encounter Note Sindy called and states they have not received the fax. They gave a different fax #: [phone] to try. Faxed as requested. If fax is not going through we can call [phone]. [facility] 12-10-2023 Miscellaneous Notes Sindy called and states they have not received the fax. They gave a different fax #: [phone] to try. Faxed as requested. If fax is not going through we can call [phone]. Called and gave pt information that these things were refaxed and confirmation was given again that went through. Not sure what else needs done on our end. Please refer to 11/12 [facility]. Thank you, Cailin Morillo APRN.MONITOR TECH Lung volumes and spirometry refaxed to number given by pt. Please advise. Renate Ivan MA Pt calling in to see where this is at (CT of chest). Pt had a CT of upper abd by ,. Friend was checking pt's gallbladder and pancreas(something different that what the CT of chest is). Pt reports she spoke with her insurance and was told they are waiting on copies of the Lung Volume test and Spirometry test. Pt concerned and needs to get the CT of chest done. Please review and advise. Lisa Yadav LPN Patient asking provider office to phone her to give her updates on the prior authorization for her CT Chest. Reports her CT was cancelled b/c it was denied b/c they needed more information from provider. Asking if this has been done? Please phone patient with update. documented in this encounter [facility] 12-10-2023 Telephone encounter Note Called and gave pt information that these things were refaxed and confirmation was given again that went through. [facility] 12-10-2023 Telephone encounter Note Not sure what else needs done on our end. Please refer to 11/12 [facility]. Thank you, Cailin Morillo APRN.MONITOR TECH [facility] 12-09-2023 Telephone encounter Note Lung volumes and spirometry refaxed to number given by pt. Please advise. Renate Ivan MA [facility] 12-09-2023 Telephone encounter Note Pt calling in to see where this is at (CT of chest). Pt had a CT of upper abd by Dr. Friend was checking pt's gallbladder and pancreas(something different that what the CT of chest is). Pt reports she spoke with her insurance and was told they are waiting on copies of the Lung Volume test and Spirometry test. Pt concerned and needs to get the CT of chest done. Please review and advise. Lisa Yadav LPN [facility] 12-04-2023 Telephone encounter Note Patient asking provider office to phone her to give her updates on the prior authorization for her CT Chest. Reports her CT was cancelled b/c it was denied b/c they needed more information from provider. Asking if this has been done? Please phone patient with update. [facility] 12-03-2023 Telephone encounter Note Noted, thank you. Daniel Trujillo APRN.SUMMER [facility] Work Phone: 12-03-2023 Miscellaneous Notes Noted, thank you. Daniel Trujillo APRN.MONITOR TECH This has already been done. Appears our prior auth team received the denial and is waiting on clinical information. Can a prior auth be done on this? Daniel Trujillo APRN.CNP Munira Brush, asking if provider submitted a prior auth for the Chest CT on 11-19-23? Reports the 1st one was denied, and they are looking for the second one that should have been submitted on 11-19-23 but have not received it. Pedro states provider can contact the ALEKSANDAR rizzo MD, at phone number [phone], to submit PA over the phone, and provider will also be instructed on what is needed. Provider can also call provider services at phone # [phone] Asking provider to update patient on the prior authorization. documented in this encounter [facility] 12-03-2023 Telephone encounter Note This has already been done. Appears our prior auth team received the denial and is waiting on clinical information. [facility] 12-02-2023 Telephone encounter Note Can a prior auth be done on this? Daniel Trujillo APRN.SUMMER [facility] 12-02-2023 Telephone encounter Note Munira Brush, asking if provider submitted a prior auth for the Chest CT on 11-19-23? Reports the 1st one was denied, and they are looking for the second one that should have been submitted on 11-19-23 but have not received it. Pedro states provider can contact the ALEKSANDAR rizzo MD, at phone number [phone], to submit PA over the phone, and provider will also be instructed on what is needed. Provider can also call provider services at phone # [phone] Asking provider to update patient on the prior authorization. [facility] 11-20-2023 Telephone encounter Note Sw left patient message to return call to discuss financial assistance needs. Sw will send My Chart message to patient as well. It may be easier to communicate back and forth on that platform. [facility] 11-20-2023 Miscellaneous Notes Sw left patient message to return call to discuss financial assistance needs. Sw will send My Chart message to patient as well. It may be easier to communicate back and forth on that platform. documented in this encounter [facility] 11-19-2023 Telephone encounter Note Pt informed, verbalized understanding. Renate Ivan MA [facility] 11-19-2023 Telephone encounter Note This was discussed at appointment today. Pt reports CT scan was just cancelled and needs reordered with the same diagnosis. This was done. Thank you, Cailin Morillo APRN.MONITOR TECH [facility] 11-19-2023 Miscellaneous Notes This was discussed at appointment today. Pt reports CT scan was just cancelled and needs reordered with the same diagnosis. This was done. Thank you, Cailin Morillo APRN.MONITOR TECH Forms and letter re faxed to number provided. I guess there is a email that Cynthia from Triage sent us on a appeal. Good Morning [place] the , [place] [id number] - CT CHEST WO IVCON and the Date of service would be 11/19/2023 Please know that the 2 forms must need to be filled out and sent along with the Appeal , otherwise, it would not be review, Best regards FMLA paperwork corrected and in outbox to refax. Letter printed and signed and also in my outbox in office. As far as the CT scan goes --- I am not sure what else she wants me to do? She needs to call insurance and see why this is not covered. Thank you, Cailin Morillo APRN.MONITOR TECH FYI: in this phone encounter, there are two separate issues being addressed, pt's need for a return to work letter and regarding getting her CT scan approved. Called and spoke with pt again and she states her employer told her they are okay with a letter stating she is allowed to go back to work with the corrected restrictions as does not have any issues with numbness occurring in her hands and she is able to type. Pt returned to work today but because of the restriction of the numbness in her hands and inability to type, she was sent home. Pt apologizing for all this extra work that Cailin has to do for her work and for getting the CT scan approved. She is appreciative. If possible and Cailin could get her work letter typed up today, she will pick it up. Please contact pt when completed. Forms placed in AD inbox Renate Ivan MA I need these forms to correct. Thank you, Cailin Morillo APRN.MONITOR TECH Patient returns call and reports fax number to [facility] is [phone]. Reference # [id number]. Mariluz Lopez RN Patient returned call and given message below. Patient agreeable. Patient reports Cailin had her off work until today. Reports her employer told her on the last page of the forms, Cailin wrote on her restrictions that patient's hands go numb and she is unable to type. Reports she does not have that symptom. Asking if provider can take that part out and re-fax to her employer? Please advise patient. Called pt and LM for her to return the call. Wanted to make sure she was aware that her two lung tests were sent to insurance this past Friday. Nurse sent another msg to [employer] for them to look into it as soon as possible today as your CT is scheduled for Fri of this week. Maybe pt could call and see what they tell her as well. If they still need something, please have pt ask for phone and fax numbers from insurance. Pt called and is confused. She states she needs the 2 lung tests done on 10/26 (lung volumes test and spirometry tests) sent to her insurance company. Renate notified and will get those faxed. Office note faxed to pt insurance. Renate Ivan MA documented in this encounter [facility] 11-19-2023 Miscellaneous Notes Pt informed, verbalized understanding. Renate Ivan MA Wait until Dr. Felipe is back. OR if she is willing to travel far can stay with [facility]. Thank you, Cailin Morillo APRN.MONITOR TECH Patient calling she called Dr Felipe office and she is on vacation from November 13 through November 27 not back in office until November 30. Patient is asking what do you want her to do? Please advise documented in this encounter [facility] 11-19-2023 Telephone encounter Note Wait until Dr. Felipe is back. OR if she is willing to travel far can stay with [facility]. Thank you, Cailin Morillo APRN.MONITOR TECH [facility] 11-19-2023 Telephone encounter Note Patient calling she called Dr Felipe office and she is on vacation from November 13 through November 27 not back in office until November 30. Patient is asking what do you want her to do? Please advise [facility] 11-19-2023 Note HNO ID: [id number] Author: CAILIN MORILLO APRN.CNP Service: ? Author Type: Nurse Practitioner Type: Progress Notes Filed: 11/19/2023 18:27 Note Text: Chief Complaint Patient presents with: one month f/up : Forms were not filled out correct she went to work and they sent her back home. Now needs a letter with all she can and can not do . Sent HPI Mayuri Crews is a 38 year old female who presents here today for Above Complaints. Mayuri is an established patient of Dr. Jaspreet DO and myself. Concerns today... Made appointment today to get letter for work further explaining FMLA paperwork corrections. Reports CT chest scan needs reordered d/t accidentally cancelled. Feels SOB is worsening and hard to take deep breath intermittently. Concern d/t likely lupus diagnosis and associated GI, cardiac and now pulmonary symptoms. Dr. Ortiz put in rheumatology consult with Dr. Felipe but nothing scheduled yet. Pt concerns about finances d/t being off work so much d/t symptoms.. she can not afford this. Past medical history, appointments, medications, allergies reviewed. [...] cancer Hypertension Maternal Grandmother Heart Maternal Grandmother MD Arthritis Maternal Grandfather Hypertension Maternal Grandfather Arthritis Paternal Grandmother Colon Cancer Maternal Uncle Patient Allergies ALLERGIES Allergen Reactions Amitriptyline GI Upset GI upset and eye problem Cats Other: See Comments Tightness in throat, sinus congestion, swollen eyes Morphine GI Upset, Itching Vicodin [Hydrocodon* GI Upset Current Medications Current Outpatient Medications on File Prior to Visit Medication Sig PARoxetine (PAXIL) 20 mg tablet Take 1 tablet by mouth once daily. sucralfate (CARAFATE) 1 gram tablet Take 1 tablet by mouth before meals and at bedtime. omeprazole (PRILOSEC) 20 mg capsule Take 1 capsule by mouth every afternoon. SUMAtriptan (IMITREX) 100 mg tablet Take 1 tablet at the onset of headache. May repeat dose in 2 hours if needed. Do not exceed 2 tablets in 24 hour period. cholecalciferol, Vitamin D3, (VITAMIN D3) 1,250 mcg (50,000 unit) cap capsule Take 1 capsule by mouth one time a week. dicyclomine (BENTYL) 10 mg capsule Take 10 mg by mouth before meals and at bedtime. lansoprazole (PREVACID) 30 mg capsule Take 30 mg by mouth once daily. scopolamine (TRANSDERM-SCOP) patch 1.5 mg/72 hr (delivers 1 mg over 3 days) Apply 1 Patch as directed every 72 hours. propranolol (INDERAL) 40 mg tablet Take 1 tablet by mouth once daily. No current facility-administered medications on file prior to visit. Social History Social History Tobacco Use Smoking status: Former Packs/day: 0.50 Years: 4.00 Additional pack years: 0.00 Total pack years: 2.00 Types: Cigarettes Quit date: 05/30/2023 Years since quittin.4 Smokeless tobacco: Never Tobacco comments: seldom/3 cigarettes a month Substance Use Topics Alcohol use: No Drug use: No REVIEW OF SYSTEMS: as above Reviewed relevant PMHx, PSHx, Social Hx, current medications and allergies. Review of Symptoms REVIEW OF SYSTEMS See HPI. EXAM: BP 90/62 (BP Site: Left Arm, BP Position: Sitting, BP Cuff Size: Regular Adult) Pulse 64 Resp 12 Wt 62.1 kg (136 lb 12.8 oz) LMP 10/13/2023 (Approximate) BMI 19.63 kg/m? General Appearance: Well appearing, alert, in no acute distress, well-hydrated, well nourished.. Skin: Skin color, texture, turgor normal, no suspicious rashes or lesions. Head: Normocephalic, no masses, lesions, tenderness or abnormalities. Lungs: Lungs clear to auscultation. No wheezing, rhonchi, rales.. Heart: RRR without murmur, gallop, or rubs. No ectopy. Health Maintenance List Hepatitis B Vaccine(1 of 3 - 19+ 3-dose series) Never done HPV Testing due on 2017 Pap Testing due on 10/01/2019 Behavioral Health Screening due on 06/29/2024 Covid-19 Vaccine(2022- season) due on 10/12/2024 Influenza Vaccine(Season Ended) due on 02/29/2024 DTaP,Tdap,Td Vaccine(2 - Td or Tdap) due on 02/07/2033 Hepatitis C Screening Completed HIV Screening Completed HPV Vaccine Aged Out ASSESSMENT/PLAN: 1. Financial difficulties - ICD9: V60.2, ICD10: Z59.9 (primary diagnosis) Social work consult to help with financial resources. May help navigate possibility of assisted disability since patient says she is unable to figure this out. - [place] (more content not included)... [facility] 11-19-2023 History of Present illness Narrative Chief Complaint Patient presents with: one month f/up : Forms were not filled out correct she went to work and they sent her back home. Now needs a letter with all she can and can not do . Sent HPI Mayuri Crews is a 38 year old female who presents here today for Above Complaints. Mayuri is an established patient of Dr. Vogel, DO and myself. Concerns today... Made appointment today to get letter for work further explaining FMLA paperwork corrections. Reports CT chest scan needs reordered d/t accidentally cancelled. Feels SOB is worsening and hard to take deep breath intermittently. Concern d/t likely lupus diagnosis and associated GI, cardiac and now pulmonary symptoms. Dr. Ortiz put in rheumatology consult with Dr. Felipe but nothing scheduled yet. Pt concerns about finances d/t being off work so much d/t symptoms.. she can not afford this. Past medical history, appointments, medications, allergies reviewed. [...] cancer Hypertension Maternal Grandmother Heart Maternal Grandmother MD Arthritis Maternal Grandfather Hypertension Maternal Grandfather Arthritis Paternal Grandmother Colon Cancer Maternal Uncle Patient Allergies ALLERGIES Allergen Reactions Amitriptyline GI Upset GI upset and eye problem Cats Other: See Comments Tightness in throat, sinus congestion, swollen eyes Morphine GI Upset, Itching Vicodin [Hydrocodon* GI Upset Current Medications Current Outpatient Medications on File Prior to Visit Medication Sig PARoxetine (PAXIL) 20 mg tablet Take 1 tablet by mouth once daily. sucralfate (CARAFATE) 1 gram tablet Take 1 tablet by mouth before meals and at bedtime. omeprazole (PRILOSEC) 20 mg capsule Take 1 capsule by mouth every afternoon. SUMAtriptan (IMITREX) 100 mg tablet Take 1 tablet at the onset of headache. May repeat dose in 2 hours if needed. Do not exceed 2 tablets in 24 hour period. cholecalciferol, Vitamin D3, (VITAMIN D3) 1,250 mcg (50,000 unit) cap capsule Take 1 capsule by mouth one time a week. dicyclomine (BENTYL) 10 mg capsule Take 10 mg by mouth before meals and at bedtime. lansoprazole (PREVACID) 30 mg capsule Take 30 mg by mouth once daily. scopolamine (TRANSDERM-SCOP) patch 1.5 mg/72 hr (delivers 1 mg over 3 days) Apply 1 Patch as directed every 72 hours. propranolol (INDERAL) 40 mg tablet Take 1 tablet by mouth once daily. No current facility-administered medications on file prior to visit. Social History Social History Tobacco Use Smoking status: Former Packs/day: 0.50 Years: 4.00 Additional pack years: 0.00 Total pack years: 2.00 Types: Cigarettes Quit date: 05/30/2023 Years since quittin.4 Smokeless tobacco: Never Tobacco comments: seldom/3 cigarettes a month Substance Use Topics Alcohol use: No Drug use: No REVIEW OF SYSTEMS: as above Reviewed relevant PMHx, PSHx, Social Hx, current medications and allergies. Review of Symptoms REVIEW OF SYSTEMS See HPI. EXAM: BP 90/62 (BP Site: Left Arm, BP Position: Sitting, BP Cuff Size: Regular Adult) Pulse 64 Resp 12 Wt 62.1 kg (136 lb 12.8 oz) LMP 10/13/2023 (Approximate) BMI 19.63 kg/m General Appearance: Well appearing, alert, in no acute distress, well-hydrated, well nourished.. Skin: Skin color, texture, turgor normal, no suspicious rashes or lesions. Head: Normocephalic, no masses, lesions, tenderness or abnormalities. Lungs: Lungs clear to auscultation. No wheezing, rhonchi, rales.. Heart: RRR without murmur, gallop, or rubs. No ectopy. Health Maintenance List Hepatitis B Vaccine(1 of 3 - 19+ 3-dose series) Never done HPV Testing due on 2017 Pap Testing due on 10/01/2019 Behavioral Health Screening due on 06/29/2024 Covid-19 Vaccine( - 2022- season) due on 10/12/2024 Influenza Vaccine(Season Ended) due on 02/29/2024 DTaP,Tdap,Td Vaccine(2 - Td or Tdap) due on 02/07/2033 Hepatitis C Screening Completed HIV Screening Completed HPV Vaccine Aged Out ASSESSMENT/PLAN: 1. Financial difficulties - ICD9: V60.2, ICD10: Z59.9 (primary diagnosis) Social work consult to help with financial resources. May help navigate possibility of assisted disability since patient says she is unable to figure this out. - PRIMARY CARE SOCIAL WORK CONSULT 2. Systemic lupus erythematosus, unspecified SLE type, unspecified organ involvement status (HCC) - ICD9: 710.0, ICD10: M32.9 CT scan of chest as ordered prior. - CT CHEST W IVCON - IV CONTRAST (RADIOLOGY PROCEDURE) 3. Generalized abdominal pain - ICD9: 789.07, ICD10: R10.84 Ongoing symptoms. - CT CHEST W IVCON - IV CONTRAST (RADIOLOGY PROCEDURE) 4. SOB (shortness of breath) - ICD9: 786.05, ICD10: R06.02 See above. - CT CHEST W IVCON - IV CONTRAST (RADIOLOGY PROCEDURE) 5. Chest pain, unspecified type - ICD9: 786.50, ICD10: R07.9 See above. Continue with cardiology recommendations. - CT CHEST W IVCON - IV CONTRAST (RADIOLOGY PROCEDURE) 6. Cough, persistent - ICD9: 786.2, ICD10: R05.3 See above. - CT CHEST W IVCON - IV CONTRAST (RADIOLOGY PROCEDURE) RTO as needed. Prescription instructions reviewed with patient as applicable. Potential red flag symptoms discussed with the patient. Reviewed appropriate action plan to take if red flag symptoms occur. Patient agreeable to treatment plan. Cailin Hsu APRN.SUMMER [id number] [place] [address] documented in this encounter [facility] 11-17-2023 Telephone encounter Note Forms and letter re faxed to number provided. I guess there is a email that Cynthia from [employer] sent us on a appeal. Good Morning [place] , [place] [address] - CT CHEST WO IVCON and the Date of service would be 11/19/2023 Please know that the 2 forms must need to be filled out and sent along with the Appeal , otherwise, it would not be review, Best regards [facility] 11-17-2023 Telephone encounter Note FMLA paperwork corrected and in outbox to refax. Letter printed and signed and also in my outbox in office. As far as the CT scan goes --- I am not sure what else she wants me to do? She needs to call insurance and see why this is not covered. Thank you, Cailin Morillo APRN.SUMMER [facility] 11-17-2023 Telephone encounter Note FYI: in this phone encounter, there are two separate issues being addressed, pt's need for a return to work letter and regarding getting her CT scan approved. Called and spoke with pt again and she states her employer told her they are okay with a letter stating she is allowed to go back to work with the corrected restrictions as does not have any issues with numbness occurring in her hands and she is able to type. Pt returned to work today but because of the restriction of the numbness in her hands and inability to type, she was sent home. Pt apologizing for all this extra work that Cailin has to do for her work and for getting the CT scan approved. She is appreciative. If possible and Cailin could get her work letter typed up today, she will pick it up. Please contact pt when completed. T [facility] 11-17-2023 Telephone encounter Note Forms placed in AD inbox Renate Ivan MA [facility] 11-17-2023 Telephone encounter Note I need these forms to correct. Thank you, Cailin Morillo APRN.MONITOR TECH [facility] 11-17-2023 Telephone encounter Note Patient returns call and reports fax number to [facility] is [phone]. Reference # [id number]. Mariluz Lopez RN [facility] 11-17-2023 Telephone encounter Note Patient returned call and given message below. Patient agreeable. Patient reports Cailin had her off work until today. Reports her employer told her on the last page of the forms, Cailin wrote on her restrictions that patient's hands go numb and she is unable to type. Reports she does not have that symptom. Asking if provider can take that part out and re-fax to her employer? Please advise patient. [facility] 11-17-2023 Telephone encounter Note Called pt and LM for her to return the call. Wanted to make sure she was aware that her two lung tests were sent to insurance this past Friday. Nurse sent another msg to [employer] for them to look into it as soon as possible today as your CT is scheduled for Fri of this week. Maybe pt could call and see what they tell her as well. If they still need something, please have pt ask for phone and fax numbers from insurance. [facility] 11-14-2023 Telephone encounter Note Pt called and is confused. She states she needs the 2 lung tests done on 10/26 (lung volumes test and spirometry tests) sent to her insurance company. Renate notified and will get those faxed. [facility] 11-14-2023 Telephone encounter Note Office note faxed to pt insurance. Renate Ivan MA [facility] 11-13-2023 Telephone encounter Note Called and spoke with pt at length that this was faxed on the the day she was in office and it was received this had went through , faxed again today and mailed patient another copy out to her address as was also done prior. Found the original forms with date on them in our folder to go down to scanning as we wait until we have a full envelope to take to scanning. Advised pt there was a my chart message sent to her from blanca Pettit for her to call about financial clearance. She was wanting this nurse to call her insurance and find out why was denied and get them what they need. This nurse explained I do not have time to sit on phone with her insurance on hold we are seeing pts. She would need to call her insurance to find this out and we would be glad to get them whatever is needed and Hodan the the person that sent her a my chart message in regards to this is the one it sounds like is trying to work with her insurance . Gave her number off the my chart message that was sent to her to call. She also askes if medical records were released to her insurance company. I gave the number for medical records to call and check. [facility] 11-13-2023 Miscellaneous Notes Called and spoke with pt at length that this was faxed on the 8th the day she was in office and it was received this had went through , faxed again today and mailed patient another copy out to her address as was also done prior. Found the original forms with date on them in our folder to go down to scanning as we wait until we have a full envelope to take to scanning. Advised pt there was a my chart message sent to her from a Hodan for her to call about financial clearance. She was wanting this nurse to call her insurance and find out why was denied and get them what they need. This nurse explained I do not have time to sit on phone with her insurance on hold we are seeing pts. She would need to call her insurance to find this out and we would be glad to get them whatever is needed and Hodan the the person that sent her a my chart message in regards to this is the one it sounds like is trying to work with her insurance . Gave her number off the my chart message that was sent to her to call. She also askes if medical records were released to her insurance company. I gave the number for medical records to call and check. Pt called back and needs this to be faxed to number on top of form and also copy of paper work needs to be mailed to her. Lisa Yadav LPN Please advise pt when this has been done. This was filled out and completed the day of most recent office visit. Did we fax this? Cailin Morillo APRN.SUMMER Pt asking about forms. Zena Rowley MA documented in this encounter [facility] 11-13-2023 Telephone encounter Note This form was faxed on November 04 and also just faxed again today. Pt notified of such. [facility] 11-13-2023 Miscellaneous Notes This form was faxed on November 04 and also just faxed again today. Pt notified of such. Pt called back to check status and see what she needs to do. Pt does not feel well and needs to be called back as soon as you can find out anything regarding CT of chest. Lisa Yadav LPN This is completed by our financial dept prior to a ct being scheduled. I will have to reach out to someone in that dept.They have all left for tonight so will need to check into this tomorrow. Not sure why this was denied. Can we look into this? She likely has lupus and abnormal PFTs and abnormal chest x-ray. This should be covered. This paperwork was filled out the day of her appointment. Was copy scanned into computer? Thank you, Cailin Morillo APRN.SUMMER Patient calling to give Cailin Morillo CNP a message. Pt states her insurance has denied the Chest CT scan that Cailin ordered. Asking if provider wants to do anything to push the order through in some way? Of note, a 11/10 [employer] message was sent to patient from a [employer]ing [employer] with other information. Patient also checking for reply to her message to Cailin from 11/08. Pt aware that provider has been out of the office and will respond as soon as possible. Thank you. documented in this encounter [facility] 11-13-2023 Telephone encounter Note Pt called back to check status and see what she needs to do. Pt does not feel well and needs to be called back as soon as you can find out anything regarding CT of chest. Lisa Yadav LPN [facility] 11-13-2023 Telephone encounter Note Pt called back and needs this to be faxed to number on top of form and also copy of paper work needs to be mailed to her. Lisa Yadav LPN Please advise pt when this has been done. [facility] 11-12-2023 Telephone encounter Note This is completed by our financial dept prior to a ct being scheduled. I will have to reach out to someone in that dept.They have all left for tonight so will need to check into this tomorrow. [facility] 11-12-2023 Telephone encounter Note Not sure why this was denied. Can we look into this? She likely has lupus and abnormal PFTs and abnormal chest x-ray. This should be covered. This paperwork was filled out the day of her appointment. Was copy scanned into computer? Thank you, Cailin Morillo APRN.MONITOR TECH [facility] 11-12-2023 Telephone encounter Note This was filled out and completed the day of most recent office visit. Did we fax this? Cailin Morillo APRN.CNP T [facility] 11-11-2023 Telephone encounter Note Patient calling to give Cailin Morillo CNP a message. Pt states her insurance has denied the Chest CT scan that Cailin ordered. Asking if provider wants to do anything to push the order through in some way? Of note, a 11/10 [employer] message was sent to patient from a Buffing Machine Operator with other information. Patient also checking for reply to her [employer] message to Cailin from 11/08. Pt aware that provider has been out of the office and will respond as soon as possible. Thank you. T [facility] 11-10-2023 Telephone encounter Note Pt asking about forms. Zena Rowley MA [facility] 11-05-2023 Note HNO ID: [id number] Author: CAILIN MORILLO APRN.CNP Service: ? Author Type: Nurse Practitioner Type: Progress Notes Filed: 11/05/2023 10:57 Note Text: Chief Complaint Patient presents with: work leave HPI Mayuri Crews is a 38 year old female who presents here today for Above Complaints. Mayuri is an established patient of Dr. Jaspreet DO and myself. Concerns today... Ongoing GI issues -- Was dx with likely lupus attacking GI tract by Dr. Ortiz recently, per pt. Records of this are not in our chart, will need to get his office notes and testing results. Was told she will be set up with rheumatology at [facility], but has not heard anything about a schedule appointment yet. GI issues are ongoing and constant with abd pain and n/v/d. Pt also reports mild, vague complaints of burning in lungs with deep breathes and chest discomfort. Pt currently wearing monitor tech x 4 weeks from [facility]. Pt is set up for CT scan of chest for next week as ordered by me last month. Main reason for visit today was to bring in [facility] paperwork. Initially filled out [facility] paperwork 2 weeks ago but this was the wrong paperwork. New paperwork given today. Past medical history, appointments, medications, allergies reviewed. Previous Medical History PAST MEDICAL HISTORY Diagnosis Date Cervical dysplasia 06/2020 Irregular heart beat Migraine headache Pelvic pain in female ovarian cysts, [facility] SVT (supraventricular tachycardia) ([facility]) [address] Coburn at the time Tobacco abuse Previous Surgical History PAST SURGICAL HISTORY Procedure Laterality Date COLONOSCOPY W/BIOPSY SINGLE/MULTIPLE 09/28/2020 NONE UTERINE CERVIX-EXCISION (CONE/LEEP) SYNOPTIC RPT 06/2020 Family History FAMILY HISTORY Problem Relation Age of Onset Thyroid Mother 40 cancer Hypertension Maternal Grandmother Heart Maternal Grandmother MD Arthritis Maternal Grandfather Hypertension Maternal Grandfather Arthritis Paternal Grandmother Colon Cancer Maternal Uncle Patient Allergies ALLERGIES Allergen Reactions Amitriptyline GI Upset GI upset and eye problem Cats Other: See Comments Tightness in throat, sinus congestion, swollen eyes Morphine GI Upset, Itching Vicodin [Hydrocodon* GI Upset Current Medications Current Outpatient Medications on File Prior to Visit Medication Sig PARoxetine (PAXIL) 20 mg tablet Take 1 tablet by mouth once daily. sucralfate (CARAFATE) 1 gram tablet Take 1 tablet by mouth before meals and at bedtime. omeprazole (PRILOSEC) 20 mg capsule Take 1 capsule by mouth every afternoon. SUMAtriptan (IMITREX) 100 mg tablet Take 1 tablet at the onset of headache. May repeat dose in 2 hours if needed. Do not exceed 2 tablets in 24 hour period. cholecalciferol, Vitamin D3, (VITAMIN D3) 1,250 mcg (50,000 unit) cap capsule Take 1 capsule by mouth one time a week. dicyclomine (BENTYL) 10 mg capsule Take 10 mg by mouth before meals and at bedtime. lansoprazole (PREVACID) 30 mg capsule Take 30 mg by mouth once daily. scopolamine (TRANSDERM-SCOP) patch 1.5 mg/72 hr (delivers 1 mg over 3 days) Apply 1 Patch as directed every 72 hours. propranolol (INDERAL) 40 mg tablet Take 1 tablet by mouth once daily. No current facility-administered medications on file prior to visit. Social History Social History Tobacco Use Smoking status: Former Packs/day: 0.50 Years: 4.00 Additional pack years: 0.00 Total pack years: 2.00 Types: Cigarettes Quit date: 05/30/2023 Years since quittin.4 Smokeless tobacco: Never Tobacco comments: seldom/3 cigarettes a month Substance Use Topics Alcohol use: No Drug use: No REVIEW OF SYSTEMS: as above Reviewed relevant PMHx, PSHx, Social Hx, current medications and allergies. Review of Symptoms REVIEW OF SYSTEMS See HPI. EXAM: BP 90/60 (BP Site: Left Arm, BP Position: Sitting, BP Cuff Size: Regular Adult) Pulse 62 Resp 12 Wt 61.6 kg (135 lb 12.8 oz) LMP 10/13/2023 (Approximate) BMI 19.49 kg/m? General Appearance: Well appearing, alert, in no acute distress, well-hydrated, well nourished.. Skin: Skin color, texture, turgor normal, no suspicious rashes or lesions. Head: Normocephalic, no masses, lesions, tenderness or abnormalities. Lungs: Lungs clear to auscultation. No wheezing, rhonchi, rales.. Heart: RRR without murmur, gallop, or rubs. No ectopy. Abdomen: Normal abdominal exam, Abdomen soft, non-tender. Bowel sounds normal. No masses, organomegaly. Health Maintenance List Hepatitis B Vaccine(1 of 3 - 19+ 3-dose series) Never done HPV Testing due on 2017 Pap Testing due on 10/01/2019 Behavioral Health Screening due on 06/29/2024 Covid-19 Vaccine(2022- season) due on 10/12/2024 Influenza Vaccine(Season Ended) due on 02/29/2024 DTaP,Tdap,Td Vaccine(2 - Td or Tdap) due on 02/07/2033 Hepatitis C Screening Completed HIV Screening Completed HPV Vaccine Aged Out ASSESSM (more content not included)... [facility] 11-05-2023 History of Present illness Narrative Chief Complaint Patient presents with: work leave HPI Mayuri Crews is a 38 year old female who presents here today for Above Complaints. Mayuri is an established patient of Dr. Vogel, DO and myself. Concerns today... Ongoing GI issues -- Was dx with likely lupus attacking GI tract by Dr. Ortiz recently, per pt. Records of this are not in our chart, will need to get his office notes and testing results. Was told she will be set up with rheumatology at [facility], but has not heard anything about a schedule appointment yet. GI issues are ongoing and constant with abd pain and n/v/d. Pt also reports mild, vague complaints of burning in lungs with deep breathes and chest discomfort. 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 Pt is set up for CT scan of chest for next week as ordered by me last month. Main reason for visit today was to bring in [place] paperwork. Initially filled out [place] paperwork 2 weeks ago but this was the wrong paperwork. New paperwork given today. Past medical history, appointments, medications, allergies reviewed. Previous Medical History PAST MEDICAL HISTORY Diagnosis Date Cervical dysplasia 06/2020 Irregular heart beat Migraine headache Pelvic pain in female ovarian cysts, [facility] SVT (supraventricular tachycardia) ([facility]) [address] Coburn at the time Tobacco abuse Previous Surgical History PAST SURGICAL HISTORY Procedure Laterality Date COLONOSCOPY W/BIOPSY SINGLE/MULTIPLE 09/28/2020 NONE UTERINE CERVIX-EXCISION (CONE/LEEP) SYNOPTIC RPT 06/2020 Family History FAMILY HISTORY Problem Relation Age of Onset Thyroid Mother 40 cancer Hypertension Maternal Grandmother Heart Maternal Grandmother MD Arthritis Maternal Grandfather Hypertension Maternal Grandfather Arthritis Paternal Grandmother Colon Cancer Maternal Uncle Patient Allergies ALLERGIES Allergen Reactions Amitriptyline GI Upset GI upset and eye problem Cats Other: See Comments Tightness in throat, sinus congestion, swollen eyes Morphine GI Upset, Itching Vicodin [Hydrocodon* GI Upset Current Medications Current Outpatient Medications on File Prior to Visit Medication Sig PARoxetine (PAXIL) 20 mg tablet Take 1 tablet by mouth once daily. sucralfate (CARAFATE) 1 gram tablet Take 1 tablet by mouth before meals and at bedtime. omeprazole (PRILOSEC) 20 mg capsule Take 1 capsule by mouth every afternoon. SUMAtriptan (IMITREX) 100 mg tablet Take 1 tablet at the onset of headache. May repeat dose in 2 hours if needed. Do not exceed 2 tablets in 24 hour period. cholecalciferol, Vitamin D3, (VITAMIN D3) 1,250 mcg (50,000 unit) cap capsule Take 1 capsule by mouth one time a week. dicyclomine (BENTYL) 10 mg capsule Take 10 mg by mouth before meals and at bedtime. lansoprazole (PREVACID) 30 mg capsule Take 30 mg by mouth once daily. scopolamine (TRANSDERM-SCOP) patch 1.5 mg/72 hr (delivers 1 mg over 3 days) Apply 1 Patch as directed every 72 hours. propranolol (INDERAL) 40 mg tablet Take 1 tablet by mouth once daily. No current facility-administered medications on file prior to visit. Social History Social History Tobacco Use Smoking status: Former Packs/day: 0.50 Years: 4.00 Additional pack years: 0.00 Total pack years: 2.00 Types: Cigarettes Quit date: 05/30/2023 Years since quittin.4 Smokeless tobacco: Never Tobacco comments: seldom/3 cigarettes a month Substance Use Topics Alcohol use: No Drug use: No REVIEW OF SYSTEMS: as above Reviewed relevant PMHx, PSHx, Social Hx, current medications and allergies. Review of Symptoms REVIEW OF SYSTEMS See HPI. EXAM: BP 90/60 (BP Site: Left Arm, BP Position: Sitting, BP Cuff Size: Regular Adult) Pulse 62 Resp 12 Wt 61.6 kg (135 lb 12.8 oz) LMP 10/13/2023 (Approximate) BMI 19.49 kg/m General Appearance: Well appearing, alert, in no acute distress, well-hydrated, well nourished.. Skin: Skin color, texture, turgor normal, no suspicious rashes or lesions. Head: Normocephalic, no masses, lesions, tenderness or abnormalities. Lungs: Lungs clear to auscultation. No wheezing, rhonchi, rales.. Heart: RRR without murmur, gallop, or rubs. No ectopy. Abdomen: Normal abdominal exam, Abdomen soft, non-tender. Bowel sounds normal. No masses, organomegaly. Health Maintenance List Hepatitis B Vaccine(1 of 3 - 19+ 3-dose series) Never done HPV Testing due on 2017 Pap Testing due on 10/01/2019 Behavioral Health Screening due on 06/29/2024 Covid-19 Vaccine( season) due on 10/12/2024 Influenza Vaccine(Season Ended) due on 02/29/2024 DTaP,Tdap,Td Vaccine(2 - Td or Tdap) due on 02/07/2033 Hepatitis C Screening Completed HIV Screening Completed HPV Vaccine Aged Out ASSESSMENT/PLAN: 1. Systemic lupus erythematosus, unspecified SLE type, unspecified organ involvement status (HCC) - ICD9: 710.0, ICD10: M32.9 (primary diagnosis) As stated by patient, will need to review office notes and diagnostic tests from Dr. Ortiz's office to confirm. In the process of communicating with their office to get all of these. Referral to rheumatology with [facility] placed today if pt is unable to get in with [facility] soon. Wait to schedule this depending on Dr. Ortiz's chart/results. - CONSULT TO RHEUM/IMMUN DISEASE 2. SOB (shortness of breath) - ICD9: 786.05, ICD10: R06.[address] scan of chest as scheduled for next week. Concern for lupus effecting pulmonary system as well. 3. Generalized abdominal pain - ICD9: 789.07, ICD10: R10.[address] Ortiz's recommendations. Will fill out new FMLA paperwork as able today. Prescription instructions reviewed with patient as applicable. Potential red flag symptoms discussed with the patient. Reviewed appropriate action plan to take if red flag symptoms occur. Patient agreeable to treatment plan. Cailin Hsu APRN.MONITOR TECH [address] [place] [address] documented in this encounter [facility] 10-30-[address] Telephone encounter [address] New CT order placed with new diagnosis of abnormal PFTs and symptoms. Should be covered now. Thank you, Cailin Morillo APRN.CNP [facility] 10-30-[address] order placed with new diagnosis of abnormal PFTs and symptoms. Should be covered now. Thank you, Cailin Morillo APRN.MONITOR TECH CT scan was denied, peer to peer was not done as requested by [facility]. Please advise if a new referral needs placed. Pt. informed. Please schedule CT scan. Please call patient and let her know that PFTs shows possible air trapping. However the spirometry was normal. Therefore, we need to continue with CT scan of chest to further look into this to confirm. No acute concerns. Thank you, Cailin Morillo APRN.MONITOR TECH documented in this encounter [facility] 10-30-[address] scan was denied, peer to peer was not done as requested by [facility]. Please advise if a new referral needs placed. [facility] 10-29-2023 Telephone encounter Note Pt. informed. Please schedule CT scan. [facility] Work Phone: 10-29-2023 Telephone encounter Note Please call patient and let her know that PFTs shows possible air trapping. However the spirometry was normal. Therefore, we need to continue with CT scan of chest to further look into this to confirm. No acute concerns. Thank you, Cailin Morillo APRN.MONITOR TECH [facility] 10-27-2023 Note HNO ID: [id number] Author: ABELINO MALDONADO RPFT Service: ? Author Type: Respiratory Therapist Type: Progress Notes Filed: 10/27/2023 14:11 Note Text: PULM FUNCTION SMARTBLOCK: Provider: Cailin Morillo APRN.MONITOR TECH Assisting Tech: Petush, Abelino, RPFT Spirometry w/BD: 1 LV - Box: 1 [facility] 10-27-2023 History of Present illness Narrative PULM FUNCTION SMARTBLOCK: Provider: Cailin Morillo APRN.MONITOR TECH Assisting Tech: Petush, Abelino, RPFT Spirometry w/BD: 1 LV - Box: 1 documented in this encounter [facility] 10-23-2023 Telephone encounter Note Noted. Thank you for update. Thank you, Cailin Morillo APRN.MONITOR TECH [facility] 10-23-2023 Miscellaneous Notes Noted. Thank you for update. Thank you, Cailin Morillo APRN.MONITOR TECH Patient calling to let provider know she saw Dr. Ortiz today. He is doing testing for lupus. Roma Sorenson, RN documented in this encounter [facility] 10-23-2023 Telephone encounter Note Patient calling to let provider know she saw Dr. Ortiz today. He is doing testing for lupus. Roma Sorenson, RN [facility] 10-23-2023 History of Present illness Narrative Chief Complaint Patient presents with: paperwork for work HPI Mayuri Crews is a 38 year old female who presents here today for Above Complaints. Mayuri is an established patient of Dr. Jaspreet DO and myself. Concerns today.. Here today to fill out intermittent FMLA paperwork for time off work d/t ongoing, uncontrolled GI symptoms of n/v and abd pain. Pt also willing to try SSRI therapy for possible IBS. Tried amitriptyline and did not tolerate well after 1 dose so this was discontinued. Willing to try a different regimen. Still taking Carafate and omeprazole with some relief. Day to day feeling better but still having ongoing episodes of uncontrolled n/v and pain. No other concerns or complaints. Past medical history, appointments, medications, allergies reviewed. Previous Medical History PAST MEDICAL HISTORY Diagnosis Date Cervical dysplasia 06/2020 Irregular heart beat Migraine headache Pelvic pain in female ovarian cysts, [facility] SVT (supraventricular tachycardia) ([facility]) [address] Coburn at the time Tobacco abuse Previous Surgical History PAST SURGICAL HISTORY Procedure Laterality Date COLONOSCOPY W/BIOPSY SINGLE/MULTIPLE 09/28/2020 NONE UTERINE CERVIX-EXCISION (CONE/LEEP) SYNOPTIC RPT 06/2020 Family History FAMILY HISTORY Problem Relation Age of Onset Thyroid Mother 40 cancer Hypertension Maternal Grandmother Heart Maternal Grandmother MD Arthritis Maternal Grandfather Hypertension Maternal Grandfather Arthritis Paternal Grandmother Colon Cancer Maternal Uncle Patient Allergies ALLERGIES Allergen Reactions Amitriptyline GI Upset GI upset and eye problem Cats Other: See Comments Tightness in throat, sinus congestion, swollen eyes Morphine GI Upset, Itching Vicodin [Hydrocodon* GI Upset Current Medications Current Outpatient Medications on File Prior to Visit Medication Sig sucralfate (CARAFATE) 1 gram tablet Take 1 tablet by mouth before meals and at bedtime. omeprazole (PRILOSEC) 20 mg capsule Take 1 capsule by mouth every afternoon. SUMAtriptan (IMITREX) 100 mg tablet Take 1 tablet at the onset of headache. May repeat dose in 2 hours if needed. Do not exceed 2 tablets in 24 hour period. cholecalciferol, Vitamin D3, (VITAMIN D3) 1,250 mcg (50,000 unit) cap capsule Take 1 capsule by mouth one time a week. dicyclomine (BENTYL) 10 mg capsule Take 10 mg by mouth before meals and at bedtime. lansoprazole (PREVACID) 30 mg capsule Take 30 mg by mouth once daily. scopolamine (TRANSDERM-SCOP) patch 1.5 mg/72 hr (delivers 1 mg over 3 days) Apply 1 Patch as directed every 72 hours. propranolol (INDERAL) 40 mg tablet Take 1 tablet by mouth once daily. No current facility-administered medications on file prior to visit. Social History Social History Tobacco Use Smoking status: Former Packs/day: 0.50 Years: 4.00 Additional pack years: 0.00 Total pack years: 2.00 Types: Cigarettes Quit date: 05/30/2023 Years since quittin.4 Smokeless tobacco: Never Tobacco comments: seldom/3 cigarettes a month Substance Use Topics Alcohol use: No Drug use: No REVIEW OF SYSTEMS: as above Reviewed relevant PMHx, PSHx, Social Hx, current medications and allergies. Review of Symptoms REVIEW OF SYSTEMS See HPI. EXAM: BP 110/68 (BP Site: Left Arm, BP Position: Sitting, BP Cuff Size: Regular Adult) Pulse 68 Resp 12 Wt 62.2 kg (137 lb 3.2 oz) LMP 10/13/2023 (Approximate) BMI 19.14 kg/m General Appearance: Well appearing, alert, in no acute distress, well-hydrated, well nourished.. Skin: Skin color, texture, turgor normal, no suspicious rashes or lesions. Head: Normocephalic, no masses, lesions, tenderness or abnormalities. Abdomen: Normal abdominal exam, Abdomen soft. Bowel sounds normal. No masses, organomegaly, Positive findings: tenderness moderate RUQ and LUQ. Health Maintenance List Hepatitis B Vaccine(1 of 3 - 19+ 3-dose series) Never done HPV Testing due on 2017 Pap Testing due on 10/01/2019 Behavioral Health Screening due on 06/29/2024 Covid-19 Vaccine(2022- season) due on 10/12/2024 Influenza Vaccine(Season Ended) due on 02/29/2024 DTaP,Tdap,Td Vaccine(2 - Td or Tdap) due on 02/07/2033 Hepatitis C Screening Completed HIV Screening Completed HPV Vaccine Aged Out ASSESSMENT/PLAN: 1. Generalized abdominal pain - ICD9: 789.07, ICD10: R10.84 (primary diagnosis) Ongoing s/s. Continue with upcoming GI appointment. Trial paxil 20 mg daily. Will discuss and reassess at follow-up appointment. Paperwork filled out with patient for intermittent FMLA. Copied and scanned into chart. - PAROXETINE 20 MG TABLET 2. Nausea and vomiting, unspecified vomiting type - ICD9: 787.01, ICD10: R11.2 See above. - PAROXETINE 20 MG TABLET 3. JUAN MANUEL (generalized anxiety disorder) - ICD9: 300.02, ICD10: F41.1 See above. - PAROXETINE 20 MG TABLET RTO as scheduled in 4 weeks, sooner if needed. Prescription instructions reviewed with patient as applicable. Potential red flag symptoms discussed with the patient. Reviewed appropriate action plan to take if red flag symptoms occur. Patient agreeable to treatment plan. Cailin Hsu APRN.SUMMER [address] [place] [address] documented in this encounter [facility] 10-23-2023 Note HNO ID: [id number] Author: CAILIN MORILLO APRN.SUMMER Service: ? Author Type: Nurse Practitioner Type: Progress Notes Filed: 10/23/2023 09:10 Note Text: Chief Complaint Patient presents with: paperwork for work HPI Mayuri Crews is a 38 year old female who presents here today for Above Complaints. Mayuri is an established patient of Dr. Vogel, DO and myself. Concerns today.. Here today to fill out intermittent FMLA paperwork for time off work d/t ongoing, uncontrolled GI symptoms of n/v and abd pain. Pt also willing to try SSRI therapy for possible IBS. Tried amitriptyline and did not tolerate well after 1 dose so this was discontinued. Willing to try a different regimen. Still taking Carafate and omeprazole with some relief. Day to day feeling better but still having ongoing episodes of uncontrolled n/v and pain. No other concerns or complaints. Past medical [...] cancer Hypertension Maternal Grandmother Heart Maternal Grandmother MD Arthritis Maternal Grandfather Hypertension Maternal Grandfather Arthritis Paternal Grandmother Colon Cancer Maternal Uncle Patient Allergies ALLERGIES Allergen Reactions Amitriptyline GI Upset GI upset and eye problem Cats Other: See Comments Tightness in throat, sinus congestion, swollen eyes Morphine GI Upset, Itching Vicodin [Hydrocodon* GI Upset Current Medications Current Outpatient Medications on File Prior to Visit Medication Sig sucralfate (CARAFATE) 1 gram tablet Take 1 tablet by mouth before meals and at bedtime. omeprazole (PRILOSEC) 20 mg capsule Take 1 capsule by mouth every afternoon. SUMAtriptan (IMITREX) 100 mg tablet Take 1 tablet at the onset of headache. May repeat dose in 2 hours if needed. Do not exceed 2 tablets in 24 hour period. cholecalciferol, Vitamin D3, (VITAMIN D3) 1,250 mcg (50,000 unit) cap capsule Take 1 capsule by mouth one time a week. dicyclomine (BENTYL) 10 mg capsule Take 10 mg by mouth before meals and at bedtime. lansoprazole (PREVACID) 30 mg capsule Take 30 mg by mouth once daily. scopolamine (TRANSDERM-SCOP) patch 1.5 mg/72 hr (delivers 1 mg over 3 days) Apply 1 Patch as directed every 72 hours. propranolol (INDERAL) 40 mg tablet Take 1 tablet by mouth once daily. No current facility-administered medications on file prior to visit. Social History Social History Tobacco Use Smoking status: Former Packs/day: 0.50 Years: 4.00 Additional pack years: 0.00 Total pack years: 2.00 Types: Cigarettes Quit date: 05/30/2023 Years since quittin.4 Smokeless tobacco: Never Tobacco comments: seldom/3 cigarettes a month Substance Use Topics Alcohol use: No Drug use: No REVIEW OF SYSTEMS: as above Reviewed relevant PMHx, PSHx, Social Hx, current medications and allergies. Review of Symptoms REVIEW OF SYSTEMS See HPI. EXAM: BP 110/68 (BP Site: Left Arm, BP Position: Sitting, BP Cuff Size: Regular Adult) Pulse 68 Resp 12 Wt 62.2 kg (137 lb 3.2 oz) LMP 10/13/2023 (Approximate) BMI 19.14 kg/m? General Appearance: Well appearing, alert, in no acute distress, well-hydrated, well nourished.. Skin: Skin color, texture, turgor normal, no suspicious rashes or lesions. Head: Normocephalic, no masses, lesions, tenderness or abnormalities. Abdomen: Normal abdominal exam, Abdomen soft. Bowel sounds normal. No masses, organomegaly, Positive findings: tenderness moderate RUQ and LUQ. Health Maintenance List Hepatitis B Vaccine(1 of 3 - 19+ 3-dose series) Never done HPV Testing due on 2017 Pap Testing due on 10/01/2019 Behavioral Health Screening due on 06/29/2024 Covid-19 Vaccine( - 2022- season) due on 10/12/2024 Influenza Vaccine(Season Ended) due on 02/29/2024 DTaP,Tdap,Td Vaccine(2 - Td or Tdap) due on 02/07/2033 Hepatitis C Screening Completed HIV Screening Completed HPV Vaccine Aged Out ASSESSMENT/PLAN: 1. Generalized abdominal pain - ICD9: 789.07, ICD10: R10.84 (primary diagnosis) Ongoing s/s. Continue with upcoming GI appointment. Trial paxil 20 mg daily. Will discuss and reassess at follow-up appointment. Paperwork filled out with patient for intermittent FMLA. Copied and scanned into chart. - PAROXETINE 20 MG TABLET 2. Nausea and vomiting, unspecified vomiting type - ICD9: 787.01, ICD10: R11.2 See above. - PAROXETINE 20 (more content not included)... [facility] 10-20-2023 History of Present illness Narrative Chief Complaint Patient presents with: ED Follow-up: [facility] 10/15/23 HPI Mayuri Crews is a 38 year old female who presents here today for Above Complaints. Mayuri is an established patient of Dr. Jaspreet Do and myself. Concerns today... ER follow-up --- [facility] ER visit on 10/15/23 d/t nausea, dizziness, and abd pain. CBC, hCG, CMP, lipase, COVID/flu/RSV testing was all normal/negative. UA normal. CT abd/pelvis was normal. Dx with gastritis. Given IV fluids, zofran, and Protonix. Sent home with rx for omeprazole. In office today... Pt reports omeprazole regimen working very well for a few days but now she feels like she is back to square one today. Reports s/s of n/v and diarrhea shortly after eating anything and significant upper abd pain with eating. Pt had EGD done in June (unknown results, nothing in computer and pt was never given results from Dr. Ortiz's office). ER also told her is sounds like possible GI ulcer. Stopped amitriptyline after 1 dose d/t disorientation and n/v after taking it. Symptoms resolved after d/c. Last 14 Encounter BP Readings: Date: BP: 10/20/2023 90/70 10/13/2023 112/60 08/20/2023 118/60 07/16/2023 94/60 07/09/2023 122/80 02/17/2023 109/70 02/07/2023 94/62 01/30/2023 96/70 03/05/2022 104/68 09/18/2020 94/70 06/05/2020 128/70 03/31/2020 104/68 01/21/2020 112/60 09/22/2019 106/62 Past medical history, appointments, medications, allergies reviewed. Previous Medical History PAST MEDICAL HISTORY Diagnosis Date Cervical dysplasia 06/2020 Irregular heart beat Migraine headache Pelvic pain in female ovarian cysts, [facility] SVT (supraventricular tachycardia) ([facility]) [address] Coburn at the time Tobacco abuse Previous Surgical History PAST SURGICAL HISTORY Procedure Laterality Date COLONOSCOPY W/BIOPSY SINGLE/MULTIPLE 09/28/2020 NONE UTERINE CERVIX-EXCISION (CONE/LEEP) SYNOPTIC RPT 06/2020 Family History FAMILY HISTORY Problem Relation Age of Onset Thyroid Mother 40 cancer Hypertension Maternal Grandmother Heart Maternal Grandmother MD Arthritis Maternal Grandfather Hypertension Maternal Grandfather Arthritis Paternal Grandmother Colon Cancer Maternal Uncle Patient Allergies ALLERGIES Allergen Reactions Amitriptyline GI Upset GI upset and eye problem Cats Other: See Comments Tightness in throat, sinus congestion, swollen eyes Morphine GI Upset, Itching Vicodin [Hydrocodon* GI Upset Current Medications Current Outpatient Medications on File Prior to Visit Medication Sig amitriptyline (ELAVIL) 10 mg tablet Take 1 tablet by mouth daily at bedtime. SUMAtriptan (IMITREX) 100 mg tablet Take 1 tablet at the onset of headache. May repeat dose in 2 hours if needed. Do not exceed 2 tablets in 24 hour period. cholecalciferol, Vitamin D3, (VITAMIN D3) 1,250 mcg (50,000 unit) cap capsule Take 1 capsule by mouth one time a week. dicyclomine (BENTYL) 10 mg capsule Take 10 mg by mouth before meals and at bedtime. lansoprazole (PREVACID) 30 mg capsule Take 30 mg by mouth once daily. scopolamine (TRANSDERM-SCOP) patch 1.5 mg/72 hr (delivers 1 mg over 3 days) Apply 1 Patch as directed every 72 hours. (Patient not taking: Reported on 08/20/2023) propranolol (INDERAL) 40 mg tablet Take 1 tablet by mouth once daily. No current facility-administered medications on file prior to visit. Social History Social History Tobacco Use Smoking status: Former Packs/day: 0.50 Years: 4.00 Additional pack years: 0.00 Total pack years: 2.00 Types: Cigarettes Quit date: 05/30/2023 Years since quittin.3 Smokeless tobacco: Never Tobacco comments: seldom/3 cigarettes a month Substance Use Topics Alcohol use: No Drug use: No REVIEW OF SYSTEMS: as above Reviewed relevant PMHx, PSHx, Social Hx, current medications and allergies. Review of Symptoms REVIEW OF SYSTEMS See HPI. EXAM: BP 90/70 Pulse 87 Resp 16 Ht 180.3 cm (5' 11 ) Wt 62.2 kg (137 lb 3.2 oz) LMP 10/13/2023 (Approximate) BMI 19.14 kg/m General Appearance: Well appearing, alert, in no acute distress, well-hydrated, well nourished.. Skin: Skin color, texture, turgor normal, no suspicious rashes or lesions. Head: Normocephalic, no masses, lesions, tenderness or abnormalities. Lungs: Lungs clear to auscultation. No wheezing, rhonchi, rales.. Heart: RRR without murmur, gallop, or rubs. No ectopy. Abdomen: Normal abdominal exam, Positive findings: tenderness mild generalized. Health Maintenance List Hepatitis B Vaccine(1 of 3 - 19+ 3-dose series) Never done HPV Testing due on 2017 Pap Testing due on 10/01/2019 Behavioral Health Screening due on 06/29/2024 Covid-19 Vaccine( - 2022- season) due on 10/12/2024 Influenza Vaccine(Season Ended) due on 02/29/2024 DTaP,Tdap,Td Vaccine(2 - Td or Tdap) due on 02/07/2033 Hepatitis C Screening Completed HIV Screening Completed Pneumococcal Vaccine Completed HPV Vaccine Aged Out ASSESSMENT/PLAN: 1. Generalized abdominal pain - ICD9: 789.07, ICD10: R10.84 (primary diagnosis) Acute on chronic symptoms. Concern for GI ulcer. Continue omeprazole daily. Start carafate with meals and bedtime x 4 weeks. RTO in 4 weeks to re-evaluate. Consult and get opinion of GI doctor within [facility]. EGD completed in June with Dr. Ortiz, no results within chart. Discontinue amitriptyline, will reassess at follow-up about starting medication in different drug class to help with anxiety and GI symptoms. - SUCRALFATE 1 GRAM TABLET - OMEPRAZOLE 20 MG CAPSULE,DELAYED RELEASE - CONSULT TO GASTROENTEROLOGY 2. Nausea and vomiting, unspecified vomiting type - ICD9: 787.01, ICD10: R11.2 See above. - SUCRALFATE 1 GRAM TABLET - OMEPRAZOLE 20 MG CAPSULE,DELAYED RELEASE - CONSULT TO GASTROENTEROLOGY RTO in 1 month, sooner if needed. Prescription instructions reviewed with patient as applicable. Potential red flag symptoms discussed with the patient. Reviewed appropriate action plan to take if red flag symptoms occur. Patient agreeable to treatment plan. Cailin Hsu APRN.SUMMER [address] [place] [address] documented in this encounter [facility] 10-20-2023 Note HNO ID: [id number] Author: CAILIN MORILLO APRN.CNP Service: ? Author Type: Nurse Practitioner Type: Progress Notes Filed: 10/20/2023 09:15 Note Text: Chief Complaint Patient presents with: ED Follow-up: [facility] 10/15/23 HPI Mayuri Crews is a 38 year old female who presents here today for Above Complaints. Mayuri is an established patient of Dr. Jaspreet Do and myself. Concerns today... ER follow-up --- [facility] ER visit on 10/15/23 d/t nausea, dizziness, and abd pain. CBC, hCG, CMP, lipase, COVID/flu/RSV testing was all normal/negative. UA normal. CT abd/pelvis was normal. Dx with gastritis. Given IV fluids, zofran, and Protonix. Sent home with rx for omeprazole. In office today... Pt reports omeprazole regimen working very well for a few days but now she feels like she is back to square one today. Reports s/s of n/v and diarrhea shortly after eating anything and significant upper abd pain with eating. Pt had EGD done in June (unknown results, nothing in computer and pt was never given results from Dr. Ortiz's office). ER also told her is sounds like possible GI ulcer. Stopped amitriptyline after 1 dose d/t disorientation and n/v after taking it. Symptoms resolved after d/c. Last 14 Encounter BP Readings: Date: BP: 10/20/2023 90/70 10/13/2023 112/60 08/20/2023 118/60 07/16/2023 94/60 07/09/2023 122/80 02/17/2023 109/70 02/07/2023 94/62 01/30/2023 96/70 03/05/2022 104/68 09/18/2020 94/70 06/05/2020 128/70 03/31/2020 104/68 01/21/2020 112/60 09/22/2019 106/62 Past medical history, appointments, medications, allergies reviewed. [...] cancer Hypertension Maternal Grandmother Heart Maternal Grandmother MD Arthritis Maternal Grandfather Hypertension Maternal Grandfather Arthritis Paternal Grandmother Colon Cancer Maternal Uncle Patient Allergies ALLERGIES Allergen Reactions Amitriptyline GI Upset GI upset and eye problem Cats Other: See Comments Tightness in throat, sinus congestion, swollen eyes Morphine GI Upset, Itching Vicodin [Hydrocodon* GI Upset Current Medications Current Outpatient Medications on File Prior to Visit Medication Sig amitriptyline (ELAVIL) 10 mg tablet Take 1 tablet by mouth daily at bedtime. SUMAtriptan (IMITREX) 100 mg tablet Take 1 tablet at the onset of headache. May repeat dose in 2 hours if needed. Do not exceed 2 tablets in 24 hour period. cholecalciferol, Vitamin D3, (VITAMIN D3) 1,250 mcg (50,000 unit) cap capsule Take 1 capsule by mouth one time a week. dicyclomine (BENTYL) 10 mg capsule Take 10 mg by mouth before meals and at bedtime. lansoprazole (PREVACID) 30 mg capsule Take 30 mg by mouth once daily. scopolamine (TRANSDERM-SCOP) patch 1.5 mg/72 hr (delivers 1 mg over 3 days) Apply 1 Patch as directed every 72 hours. (Patient not taking: Reported on 08/20/2023) propranolol (INDERAL) 40 mg tablet Take 1 tablet by mouth once daily. No current facility-administered medications on file prior to visit. Social History Social History Tobacco Use Smoking status: Former Packs/day: 0.50 Years: 4.00 Additional pack years: 0.00 Total pack years: 2.00 Types: Cigarettes Quit date: 05/30/2023 Years since quittin.3 Smokeless tobacco: Never Tobacco comments: seldom/3 cigarettes a month Substance Use Topics Alcohol use: No Drug use: No REVIEW OF SYSTEMS: as above Reviewed relevant PMHx, PSHx, Social Hx, current medications and allergies. Review of Symptoms REVIEW OF SYSTEMS See HPI. EXAM: BP 90/70 Pulse 87 Resp 16 Ht 180.3 cm (5' 11 ) Wt 62.2 kg (137 lb 3.2 oz) LMP 10/13/2023 (Approximate) BMI 19.14 kg/m? General Appearance: Well appearing, alert, in no acute distress, well-hydrated, well nourished.. Skin: Skin color, texture, turgor normal, no suspicious rashes or lesions. Head: Normocephalic, no masses, lesions, tenderness or abnormalities. Lungs: Lungs clear to auscultation. No wheezing, rhonchi, rales.. Heart: RRR without murmur, gallop, or rubs. No ectopy. Abdomen: Normal abdominal exam, Positive findings: tenderness mild generalized. Health Maintenance List Hepatitis B Vaccine(1 of 3 - 19+ 3-dose series) Never done HPV Testing due on 2017 Pap Testing due on 10/01/2019 Behavioral Health Screening due on 06/29/2024 Covid-19 Vaccine( season) due on 10/12/2024 Influenza Vaccine(Season Ended) due (more content not included)... 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 documented in this encounter [facility] 10-14-2023 Miscellaneous Notes Pt. called as per Dr. Vogel's request. Most likely a side effect from the Med. this should wear off in time. Pt. states her Bp was elevated 150/80. Advised to rest and retake in a couple of hours. If symptoms worsen she can preceded to the ER. Also advised she can call back with questions if needed. Triage protocol: ER or PCP to advise. Requesting PCP to advise patient. Patient verbalizes understanding to call 911 should severe sx's occur as dicussed. Reason for Disposition [1] Caller has URGENT medicine question about med that PCP or specialist prescribed AND [2] triager unable to answer question Answer Assessment - Initial Assessment Questions 1. NAME of MEDICINE:Amitriptyline 2. QUESTION: Pt saw Cailin Morillo yesterday. Multiple testing ordered. Pt prescribed amitriptyline for fatigue. Patient took 1st dose at 5:30pm last night. Woke at 4 am to get ready for work and feeling lethargic. Pt states she fell asleep after calling her employer this morning and does not recall falling back asleep. Woke again shortly ago to contact PCP to request excuse for work and to reports current side effects: -mild SOB-states this is not new, this is ongoing and not worse -no chest pain -intermittent lightheadedness-last episode about 30 min ago -slight headache since she woke up -feeling out of sorts , reports disoriented in recent message but denies confusion, answering questions appropriately -Denies fever, diarrhea -Denies balance problems -intermittent hot and clammy at times 3. PRESCRIBER: Cailin Morillo CNP 4. SYMPTOMS: as above Protocols used: Medication Question [id number] documented in this encounter [facility] 10-13-2023 History of Present illness Narrative Chief Complaint Patient presents with: nausea and abdominal pain continues: Curtis calls to Dr. Campbell office with no reply HPI Mayuri Crews is a 38 year old female who presents here today for Above Complaints. Mayuri is an established patient of Dr. Vogle, and myself. Concerns today... Ongoing GI symptoms, see prior encounter/office visits. Intermittent n/v, epigastric burning, generalized abd pain, and overall extreme fatigue. Ongoing > 1 year. Had numerous testing done with Dr. Ortiz in June but still has not heard back with results. Pt does not feel like stress/anxiety is playing a role however mother at appointment with patient may disagree. Pt has been through a lot recently with father passing away and these ongoing health issues. Pt also concerned about chest x-ray results from ER visit in December at [facility]. Results scanned in our documents as well. Showed hyperinflation and concerns for COPD. Pt has never been dx with COPD or asthma. Mother with hx of COPD. Pt does report hx of chest pain and SOB daily. Does see sports trainer routinely, next visit is scheduled for next week. No other concerns or complaints. Past medical history, appointments, medications, allergies reviewed. Previous Medical History PAST MEDICAL HISTORY Diagnosis Date Cervical dysplasia 06/2020 Irregular heart beat Migraine headache Pelvic pain in female ovarian cysts, [facility] SVT (supraventricular tachycardia) ([facility]) [address] Coburn at the time Tobacco abuse Previous Surgical History PAST SURGICAL HISTORY Procedure Laterality Date COLONOSCOPY W/BIOPSY SINGLE/MULTIPLE 09/28/2020 NONE UTERINE CERVIX-EXCISION (CONE/LEEP) SYNOPTIC RPT 06/2020 Family History FAMILY HISTORY Problem Relation Age of Onset Thyroid Mother 40 cancer Hypertension Maternal Grandmother Heart Maternal Grandmother MD Arthritis Maternal Grandfather Hypertension Maternal Grandfather Arthritis [...] exceed 2 tablets in 24 hour period. cholecalciferol, Vitamin D3, (VITAMIN D3) 1,250 mcg (50,000 unit) cap capsule Take 1 capsule by mouth one time a week. dicyclomine (BENTYL) 10 mg capsule Take 10 mg by mouth before meals and at bedtime. lansoprazole (PREVACID) 30 mg capsule Take 30 mg by mouth once daily. scopolamine (TRANSDERM-SCOP) patch 1.5 mg/72 hr (delivers 1 mg over 3 days) Apply 1 Patch as directed every 72 hours. (Patient not taking: Reported on 08/20/2023) propranolol (INDERAL) 40 mg tablet Take 1 tablet by mouth once daily. No current facility-administered medications on file prior [...] REVIEW OF SYSTEMS See HPI. EXAM: BP 112/60 (BP Site: Left Arm, BP Position: Sitting, BP Cuff Size: Regular Adult) Pulse 68 Resp 14 Wt 60.9 kg (134 lb 3.2 oz) LMP 05/16/2019 BMI 18.79 kg/m General Appearance: Well appearing, alert, in no acute distress, well-hydrated, well nourished.. Skin: Skin color, texture, turgor normal, no suspicious rashes or lesions. Head: Normocephalic, no masses, lesions, tenderness or abnormalities. Lungs: Lungs clear to auscultation. No wheezing, rhonchi, rales.. Heart: RRR without murmur, gallop, or rubs. No ectopy. Health Maintenance List Hepatitis B Vaccine(1 of 3 - 19+ 3-dose series) Never done HPV Testing due on 2017 Pap Testing due on 10/01/2019 Behavioral Health Screening due on 06/29/2024 Covid-19 Vaccine(2022- season) due on 10/12/2024 Influenza Vaccine(Season Ended) due on 02/29/2024 DTaP,Tdap,Td Vaccine(2 - Td or Tdap) due on 02/07/2033 Hepatitis C Screening Completed HIV Screening Completed Pneumococcal Vaccine Completed HPV Vaccine Aged Out ASSESSMENT/PLAN: 1. Hyperinflation of lungs - ICD9: 786.9, ICD10: R09.89 (primary diagnosis) Hyperinflation and concern for COPD documented on CXR from ER visit in December, from [facility]. Further evaluation with PFTs and chest CT. - CT CHEST WO IVCON - LUNG VOLUMES - SPIROMETRY - BASELINE AND POST DILATOR 2. Fatigue, unspecified type - ICD9: 780.79, ICD10: R53.83 Start amitriptyline 10 mg daily at bedtime. RTO in 4 weeks to reassess and likely increase dosage if needed. This should help s/s and help with possible differentials of: fibromyalgia, anxiety/depression, irritable bowel disease, cyclic n/v, and/or longstanding headache disorder. - AMITRIPTYLINE 10 MG TABLET 3. Migraine without status migrainosus, not intractable, unspecified migraine type - ICD9: 346.90, ICD10: G43.909 Start amitriptyline 10 mg daily at bedtime. RTO in 4 weeks to reassess and likely increase dosage if needed. This should help s/s and help with possible differentials of: fibromyalgia, anxiety/depression, irritable bowel disease, cyclic n/v, and/or longstanding headache disorder. - AMITRIPTYLINE 10 MG TABLET 4. Nausea and vomiting, unspecified vomiting type - ICD9: 787.01, ICD10: R11.2 Start amitriptyline 10 mg daily at bedtime. RTO in 4 weeks to reassess and likely increase dosage if needed. This should help s/s and help with possible differentials of: fibromyalgia, anxiety/depression, irritable bowel disease, cyclic n/v, and/or longstanding headache disorder. - AMITRIPTYLINE 10 MG TABLET 5. Generalized abdominal pain - ICD9: 789.07, ICD10: R10.84 Continue with GI recommendations. MANSOOR Claros reached out to Dr. Ortiz's office about pt concerns and requesting results. Start amitriptyline 10 mg daily at bedtime. RTO in 4 weeks to reassess and likely increase dosage if needed. This should help s/s and help with possible differentials of: fibromyalgia, anxiety/depression irritable bowel disease, cyclic n/v, and/or longstanding headache disorder. - AMITRIPTYLINE 10 MG TABLET RTO in 4 weeks, sooner if needed. Prescription instructions reviewed with patient as applicable. Potential red flag symptoms discussed with the patient. Reviewed appropriate action plan to take if red flag symptoms occur. Patient agreeable to treatment plan. Cailin Hsu APRN.SUMMER [address] [place] [address] documented in this encounter [facility] 10-13-2023 Note HNO ID: [id number] Author: CAILIN MORILLO APRN.CNP Service: ? Author Type: Nurse Practitioner Type: Progress Notes Filed: 10/13/2023 13:12 Note Text: Chief Complaint Patient presents with: nausea and abdominal pain continues: Curtis calls to Dr. Campbell office with no reply HPI Mayuri Crews is a 38 year old female who presents here today for Above Complaints. Mayuri is an established patient of Dr. Jaspreet DO and myself. Concerns today... Ongoing GI symptoms, see prior encounter/office visits. Intermittent n/v, epigastric burning, generalized abd pain, and overall extreme fatigue. Ongoing > 1 year. Had numerous testing done with Dr. Ortiz in June but still has not heard back with results. Pt does not feel like stress/anxiety is playing a role however mother at appointment with patient may disagree. Pt has been through a lot recently with father passing away and these ongoing health issues. Pt also concerned about chest x-ray results from ER visit in December at [facility]. Results scanned in our documents as well. Showed hyperinflation and concerns for COPD. Pt has never been dx with COPD or asthma. Mother with hx of COPD. Pt does report hx of chest pain and SOB daily. Does see sports trainer routinely, next visit is scheduled for next week. No other concerns or complaints. Past medical [...] cancer Hypertension Maternal Grandmother Heart Maternal Grandmother MD Arthritis Maternal Grandfather Hypertension Maternal Grandfather Arthritis [...] exceed 2 tablets in 24 hour period. cholecalciferol, Vitamin D3, (VITAMIN D3) 1,250 mcg (50,000 unit) cap capsule Take 1 capsule by mouth one time a week. dicyclomine (BENTYL) 10 mg capsule Take 10 mg by mouth before meals and at bedtime. lansoprazole (PREVACID) 30 mg capsule Take 30 mg by mouth once daily. scopolamine (TRANSDERM-SCOP) patch 1.5 mg/72 hr (delivers 1 mg over 3 days) Apply 1 Patch as directed every 72 hours. (Patient not taking: Reported on 08/20/2023) propranolol (INDERAL) 40 mg tablet Take 1 tablet by mouth once daily. No current facility-administered medications on file prior [...] REVIEW OF SYSTEMS See HPI. EXAM: BP 112/60 (BP Site: Left Arm, BP Position: Sitting, BP Cuff Size: Regular Adult) Pulse 68 Resp 14 Wt 60.9 kg (134 lb 3.2 oz) LMP 05/16/2019 BMI 18.79 kg/m? General Appearance: Well appearing, alert, in no acute distress, well-hydrated, well nourished.. Skin: Skin color, texture, turgor normal, no suspicious rashes or lesions. Head: Normocephalic, no masses, lesions, tenderness or abnormalities. Lungs: Lungs clear to auscultation. No wheezing, rhonchi, rales.. Heart: RRR without murmur, gallop, or rubs. No ectopy. Health Maintenance List Hepatitis B Vaccine(1 of 3 - 19+ 3-dose series) Never done HPV Testing due on 2017 Pap Testing due on 10/01/2019 Behavioral Health Screening due on 06/29/2024 Covid-19 Vaccine(2022- season) due on 10/12/2024 Influenza Vaccine(Season Ended) due on 02/29/2024 DTaP,Tdap,Td Vaccine(2 - Td or Tdap) due on 02/07/2033 Hepatitis C Screening Completed HIV Screening Completed Pneumococcal Vaccine Completed HPV Vaccine Aged Out ASSESSMENT/PLAN: 1. Hyperinflation of lungs - ICD9: 786.9, ICD10: R09.89 (primary diagnosis) Hyperinflation and concern for COPD documented on CXR from ER visit in December, from [facility]. Further evaluation with PFTs and chest CT. - CT CHEST WO IVCO (more content not included)... [facility] 09-29-2023 Miscellaneous Notes Patient has been identified by name and date of : Patient phones for refill(s): Requested Prescriptions Pending Prescriptions Disp Refills SUMAtriptan (IMITREX) 100 mg tablet 15 tablet 1 Sig: Take 1 tablet at the onset of headache. May repeat dose in 2 hours if needed. Do not exceed 2 tablets in 24 hour period. Date of last office visit in primary care: 08/20/2023 Date of next office visit in primary care: Visit date not found Please advise. Thank you. Jory Ramon LPN. documented in this encounter [facility] 08-21-2023 Miscellaneous Notes Pt updated Renate Ivan Thank you. Please update pt. Cailin Morillo APRN.SUMMER I left a message again on Dr. Campbell nurse line to notify pt of results of testing. Lab work is in. Hyacinth, any update on Dr. Ortiz's office? Thank you, Cailin Morillo APRN.MONITOR TECH Patient notified of results and provider's instructions. Patient verbalizes understanding. Please place order for future Vitamin D labs. Patient also asking if Dr. Ortiz's office was contacted? Purvi Wagner RN Left message to return call. Please call patient and let her know that lab work results look fantastic! The only abnormality is a very low vitamin D level. I would recommend starting a vitamin D3 supplement of 50,000 units once per week. Rx sent to pharmacy. Repeat lab in 3 months. Thank you, Cailin Morillo APRN.MONITOR TECH documented in this encounter [facility] 08-20-2023 Note HNO ID: [id number] Author: CAILIN MORILLO APRN.SUMMER Service: ? Author Type: Nurse Practitioner Type: Progress Notes Filed: 08/20/2023 12:22 Note Text: Chief Complaint Patient presents with: TEST RESULTS: dR. Ortiz COMPLETED NOT GOTTEN ANY RESULTS AFTER MULTIPLE CALLS HPI Mayuri Crews is a 38 year old female who presents here today for Above Complaints. Mayuri is an established patient of Dr. Vogel, DO and myself. Concerns today.. Ongoing abd pain and frequent/daily n/v. Pt reports being seen for this by Dr. Ortiz and has been reaching out to his office numerous times to get results of recent testing and she has not got a call back. Pt reports: EGD, gastric emptying study, and MRI MRCP all within the last month without any results. Pt just wants answers and wants to know what to do next. Last seen by Dr. Ortiz on 07/17. Pt was given 2-3 weeks of FMLA from Dr. Ortiz's office for these complaints and is now back to work without any relief of symptoms. Pt reports employer is very accommodating about her complaints and limitations currently and is working with her now that she is back at work. Pt reports symptoms are not improving at all, symptoms include: burning in belly, upper abd pain, organs feel shaky , dry heaving and n/v numerous x per day, severe fatigue, and poor sleep due to night sweats. Pt made this appointment to see if I could give her any results or input on what to do next. Past medical history, appointments, medications, allergies reviewed. Previous Medical History PAST MEDICAL HISTORY Diagnosis Date Cervical dysplasia 06/2020 Irregular heart beat Migraine headache Pelvic pain in female ovarian cysts, [facility] SVT (supraventricular tachycardia) [address] Coburn at the time Tobacco abuse Previous Surgical History PAST SURGICAL HISTORY Procedure Laterality Date COLONOSCOPY W/BIOPSY SINGLE/MULTIPLE 09/28/2020 NONE UTERINE CERVIX-EXCISION (CONE/LEEP) SYNOPTIC RPT 06/2020 Family History FAMILY HISTORY Problem Relation Age of Onset Thyroid Mother 40 cancer Hypertension Maternal Grandmother Heart Maternal Grandmother MD Arthritis Maternal Grandfather Hypertension Maternal Grandfather Arthritis Paternal Grandmother Colon Cancer Maternal Uncle Patient Allergies ALLERGIES Allergen Reactions Cats Other: See Comments Tightness in throat, sinus congestion, swollen eyes Morphine GI Upset, Itching Vicodin [Hydrocodon* GI Upset Current Medications Current Outpatient Medications on File Prior to Visit Medication Sig dicyclomine (BENTYL) 10 mg capsule Take 10 mg by mouth before meals and at bedtime. lansoprazole (PREVACID) 30 mg capsule Take 30 mg by mouth once daily. propranolol (INDERAL) 40 mg tablet Take 1 tablet by mouth once daily. SUMAtriptan (IMITREX) 100 mg tablet Take 1 tablet at the onset of headache. May repeat dose in 2 hours if needed. Do not exceed 2 tablets in 24 hour period. scopolamine (TRANSDERM-SCOP) patch 1.5 mg/72 hr (delivers 1 mg over 3 days) Apply 1 Patch as directed every 72 hours. (Patient not taking: Reported on 08/20/2023) ibuprofen (MOTRIN) 800 mg tablet Take 1 tablet by mouth every 8 hours as needed for Pain. Take with food. (Patient not taking: Reported on 07/16/2023) No current facility-administered medications on file prior [...] REVIEW OF SYSTEMS See HPI. EXAM: BP 118/60 (BP Site: Left Arm, BP Position: Sitting, BP Cuff Size: Regular Adult) Pulse 76 Resp 12 Wt 60.1 kg (132 lb [...] soft, non-tender. Bowel sounds normal. No masses, organomegaly, Positive findings: tenderness mild generalized. Health Maintenance List Hepatitis B Vaccine(1 of 3 - 3-dose series) Never done HPV Testing due on 2017 Pap Testing due on 10/01/2019 Influenza Vaccine(1) due on 12/28/2023 Covid-19 Vaccine(1) due on 02/08/2024 Depression Assessment due on 06/29/2024 DTaP,Tdap,Td Vaccine(2 - Td or Tdap) due on 02/07/2033 Hepatitis C Screening Completed HIV Screening Completed Pneumococcal Vaccine Completed HPV V (more content not included)... [facility] 08-20-2023 History of Present illness Narrative Chief Complaint Patient presents with: TEST RESULTS: dR. Ortiz COMPLETED NOT GOTTEN ANY RESULTS AFTER MULTIPLE CALLS HPI Mayuri Crews is a 38 year old female who presents here today for Above Complaints. Mayuri is an established patient of Dr. Vogel, DO and myself. Concerns today.. Ongoing abd pain and frequent/daily n/v. Pt reports being seen for this by Dr. Ortiz and has been reaching out to his office numerous times to get results of recent testing and she has not got a call back. Pt reports: EGD, gastric emptying study, and MRI MRCP all within the last month without any results. Pt just wants answers and wants to know what to do next. Last seen by Dr. Ortiz on 07/17. Pt was given 2-3 weeks of FMLA from Dr. Ortiz's office for these complaints and is now back to work without any relief of symptoms. Pt reports employer is very accommodating about her complaints and limitations currently and is working with her now that she is back at work. Pt reports symptoms are not improving at all, symptoms include: burning in belly, upper abd pain, organs feel shaky , dry heaving and n/v numerous x per day, severe fatigue, and poor sleep due to night sweats. Pt made this appointment to see if I could give her any results or input on what to do next. Past medical history, appointments, medications, allergies reviewed. [...] cancer Hypertension Maternal Grandmother Heart Maternal Grandmother MD Arthritis Maternal Grandfather Hypertension Maternal Grandfather Arthritis Paternal Grandmother Colon Cancer Maternal Uncle Patient Allergies ALLERGIES Allergen Reactions Cats Other: See Comments Tightness in throat, sinus congestion, swollen eyes Morphine GI Upset, Itching Vicodin [Hydrocodon* GI Upset Current Medications Current Outpatient Medications on File Prior to Visit Medication Sig dicyclomine (BENTYL) 10 mg capsule Take 10 mg by mouth before meals and at bedtime. lansoprazole (PREVACID) 30 mg capsule Take 30 mg by mouth once daily. propranolol (INDERAL) 40 mg tablet Take 1 tablet by mouth once daily. SUMAtriptan (IMITREX) 100 mg tablet Take 1 tablet at the onset of headache. May repeat dose in 2 hours if needed. Do not exceed 2 tablets in 24 hour period. scopolamine (TRANSDERM-SCOP) patch 1.5 mg/72 hr (delivers 1 mg over 3 days) Apply 1 Patch as directed every 72 hours. (Patient not taking: Reported on 08/20/2023) ibuprofen (MOTRIN) 800 mg tablet Take 1 tablet by mouth every 8 hours as needed for Pain. Take with food. (Patient not taking: Reported on 07/16/2023) No current facility-administered medications on file prior [...] REVIEW OF SYSTEMS See HPI. EXAM: BP 118/60 (BP Site: Left Arm, BP Position: Sitting, BP Cuff Size: Regular Adult) Pulse 76 Resp 12 Wt 60.1 kg (132 lb 6.4 oz) LMP 05/16/2019 BMI 18.54 kg/m General Appearance: Well appearing, alert, in no acute distress, well-hydrated, well nourished.. Skin: Skin color, texture, turgor normal, no suspicious rashes or lesions. Head: Normocephalic, no masses, lesions, tenderness or abnormalities. Lungs: Lungs clear to auscultation. No wheezing, rhonchi, rales.. Heart: RRR without murmur, gallop, or rubs. No ectopy. Abdomen: Normal abdominal exam, Abdomen soft, non-tender. Bowel sounds normal. No masses, organomegaly, Positive findings: tenderness mild generalized. Health Maintenance List Hepatitis B Vaccine(1 of 3 - 3-dose series) Never done HPV Testing due on 2017 Pap Testing due on 10/01/2019 Influenza Vaccine(1) due on 12/28/2023 Covid-19 Vaccine(1) due on 02/08/2024 Depression Assessment due on 06/29/2024 DTaP,Tdap,Td Vaccine(2 - Td or Tdap) due on 02/07/2033 Hepatitis C Screening Completed HIV Screening Completed Pneumococcal Vaccine Completed HPV Vaccine Aged Out ASSESSMENT/PLAN: 1. Fatigue, unspecified type - ICD9: 780.79, ICD10: R53.83 (primary diagnosis) Discussed with patient that I am unable to advise and give results of testing and lab work ordered by another provider. Given Dr. Ortiz is not within [facility], I am unable to see these results anyway. I do see lab work ordered in [place] by Dr. Ortiz but no diagnostic testing. Pt aware and agreeable. Please get lab work as ordered to further investigate severe fatigue and weakness. Likely related to significant daily vomiting, but would like to rule out other causes. MANSOOR Claros will reach out to Dr. Ortiz's office to discuss patient's concern and relay that pt made appointment with PCP team to try to get results. - COMP METABOLIC PANEL - CBC + DIFF - IRON + TIBC - FERRITIN BLD - VITAMIN B12 BLOOD - VITAMIN D 25 HYDROXY - HGB A1C - TSH BLD - T3 BLD - T4 FREE/FREE THYROX 2. Nausea and vomiting, unspecified vomiting type - ICD9: 787.01, ICD10: R11.2 Discussed with patient that I am unable to advise and give results of testing and lab work ordered by another provider. Given Dr. Ortiz is not within [facility], I am unable to see these results anyway. I do see lab work ordered in Jun by Dr. Ortiz but no diagnostic testing. Pt aware and agreeable. Please get lab work as ordered to further investigate severe fatigue and weakness. Likely related to significant daily vomiting, but would like to rule out other causes. MANSOOR Claros will reach out to Dr. Ortiz's office to discuss patient's concern and relay that pt made appointment with PCP team to try to get GI testing results. - COMP METABOLIC PANEL - CBC + DIFF 3. Generalized abdominal pain - ICD9: 789.07, ICD10: R10.84 See above. - COMP METABOLIC PANEL - CBC + DIFF Prescription instructions reviewed with patient as applicable. Potential red flag symptoms discussed with the patient. Reviewed appropriate action plan to take if red flag symptoms occur. Patient agreeable to treatment plan. Cailin Hsu APRN.[facility] [address] [place] [address] documented in this encounter [facility] 07-16-2023 Note HNO ID: [id number] Author: CAILIN MORILLO APRN.SUMMER Service: ? Author Type: Nurse Practitioner Type: Progress Notes Filed: 07/16/2023 08:51 Note Text: Chief Complaint Patient presents with: short term disabilityfor migraines HPI Mayuri Crews is a 38 year old female who presents here today for Above Complaints. Mayuri is an established patient of Dr. Vogel, Do and myself. Concerns today... Headaches -- [...] penalized for debilitating headaches. Following with Dr. Ortiz for recent GI issues of abd pain and indigestion. Pt has endoscopy and GI emptying test scheduled for this week. Dr. Ortiz believes GI issues may be contributing to [...] cancer Hypertension Maternal Grandmother Heart Maternal Grandmother MD Arthritis Maternal Grandfather Hypertension Maternal Grandfather Arthritis [...] Tdap) due on (more content not included)... [facility] 07-09-2023 Note HNO ID: [id number] Author: ZBIGNIEW RYAN APRN.[facility] Service: ? Author Type: Nurse Practitioner Type: [...] female ovarian cysts, [facility] SVT (supraventricular tachycardia) [address] Coburn [...] cancer Hypertension Maternal Grandmother Heart Maternal Grandmother MD Arthritis Maternal Grandfather Hypertension Maternal Grandfather Arthritis [...] further evaluation care. Will be sending to [facility]. Zbigniew Ryan APRN.[facility] 07-09-2023 History of Present illness Narrative Subjective HPI Nontoxic-appearing female presents [...] headache Pelvic pain in female ovarian cysts, [facility] SVT (supraventricular tachycardia) [address] Coburn [...] cancer Hypertension Maternal Grandmother Heart Maternal Grandmother MD Arthritis Maternal Grandfather Hypertension Maternal Grandfather Arthritis [...] further evaluation care. Will be sending to [facility]. Zbigniew Ryan APRN.[facility]MER documented in this encounter [facility] 02-24-2023 Miscellaneous Notes Pt informed, verbalized understanding Renate Ivan Per CDC guidelines, pt only needs to quarantine x 5 days as long as no fever present. Then pt is able to return to normal activities wearing a mask x 5 days -- despite son having it currently. Thank you, Cailin Morillo APRN.MONITOR TECH Pt calls to report she is done with her five days of quarantine for Covid but now her son has Covid with a fever. Pt herself does not have a fever. Pt is asking if she can still go out without worrying that she is going to infect others. Please review and advise. Katiana Lombardo LPN documented in this encounter [facility] 02-23-2023 Miscellaneous Notes Reason for Call: [...] quarantine until certain. documented in this encounter [facility] 02-18-2023 Miscellaneous Notes Patient notified.Eva Orlando LPN Letter done, available at desk, please notify patient. Pt was seen in on 02/17. Pt calls to report she needs a letter for work that states she tested positive for Covid and how long she has to quarantine and wear a mask. 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 Katiana Lombardo LPN documented in this encounter [facility] 02-17-2023 Instructions Zbigniew Ryan APRN.[facility]MER - 02/17/2023 9:27 AM EDT How to [...] concerning to you. documented in this encounter [facility] 02-17-2023 History of Present illness Narrative Subjective HPI Nontoxic-appearing female presents [...] cancer Hypertension Maternal Grandmother Heart Maternal Grandmother MD Arthritis Maternal Grandfather Hypertension Maternal Grandfather Arthritis [...] of care. This note was generated using [employer] software. It may contain errors in wording, punctuation, or spelling. Zbigniew Ryan APRN.[facility]MER documented in this encounter [facility] 02-11-2023 Miscellaneous Notes Spoke with pt and information listed below given. Pt verbalizes understanding. Lisa Yadav LPN Yes, this can be normal due to the vaccines. Would recommend tylenol 500 mg every 6-8 hours for the next 24-48 hours as well as increased hydration Tee Vogel DO Pt called to report she was [...] Lisa Yadav LPN documented in this encounter [facility] 02-07-2023 History of Present illness Narrative Chief Complaint Patient presents with: Physical HPI Mayuri Crews is a 37 year old female who presents here today for Above Complaints. Mayuri is an established patient of Dr. Jaspreet [...] cancer Hypertension Maternal Grandmother Heart Maternal Grandmother MD Arthritis Maternal Grandfather Hypertension Maternal Grandfather Arthritis [...] diet of 1000 mg/day for under 50, 7023-6734 mg/day for 50+ - Depression screening tool [...] symptoms occur. Patient agreeable to treatment plan. Cailin Hsu APRN.MONITOR TECH [address] [place] [address] documented in this encounter [facility] 01-30-2023 History of Present illness Narrative This note was created using [employer]. Subjective Mayuri Crews is a 37 year old female. [...] cancer Hypertension Maternal Grandmother Heart Maternal Grandmother MD Arthritis Maternal Grandfather Hypertension Maternal Grandfather Arthritis [...] evaluation. KAYLEE Douglas documented in this encounter [facility] 09-07-2022 Miscellaneous Notes Last office visit: 06/05/20 F/u scheduled: none Pt has not been seen since 2019. Zena Rowley Ma documented in this encounter [facility] 03-05-2022 History of Present illness Narrative CC: Patient presents with: ED Follow-up HPI Mayuri Crews is a 36 year old female who presents today for above follow-up. 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 DATA REVIEWED: Outside chart from [facility] ER reviewed. ASSESSMENT/PLAN: 1. Pain of left upper extremity - ICD9: 729.5, ICD10: M79.602 (primary diagnosis) Symptoms and exam findings suspicious for nerve impingement. Arthritis seems unlikely. Discussed options including continued monitoring vs nerve conduction study. Patient prefers to have nerve conduction study done now - check EMG(NEURO/NI), will be done at [facility] per pt request - continue with prednisone [...] Kayla Aguilar APRN.CNP documented in this encounter [facility] 08-29-2005 History of Past i llness Narrative Problem Noted Date Resolved Date Hyperemesis gravidarum with metabolic disturbance, antepartum 08/29/2005 11/28/2011 documented as of this encounter (statuses as of 12/17/2021) [facility] History of Past illness Narrative* Problem Noted Date Resolved Date Hyperemesis gravidarum with metabolic disturbance, antepartum 08/29/2005 11/28/2011 documented as of this encounter (statuses as of 03/05/2022) [facility] History of Past illness Narrative* Problem Noted Date Resolved Date Hyperemesis gravidarum with metabolic disturbance, antepartum 08/29/2005 11/28/2011 documented as of this encounter (statuses as of 09/09/2022) [facility] History of Past illness Narrative* Problem Noted Date Diagnosed Date Resolved Date Hyperemesis gravidarum with metabolic disturbance, antepartum 08/29/2005 11/28/2011 documented as of this encounter (statuses as of 01/30/2023) [facility] History of Past illness Narrative* Problem Noted Date Diagnosed Date Resolved Date Hyperemesis gravidarum with metabolic disturbance, antepartum 08/29/2005 11/28/2011 documented as of this encounter (statuses as of 02/07/2023) [facility] History of Past illness Narrative* Problem Noted Date Diagnosed Date Resolved Date Hyperemesis gravidarum with metabolic disturbance, antepartum 08/29/2005 11/28/2011 documented as of this encounter (statuses as of 02/11/2023) [facility] History of Past illness Narrative* Problem Noted Date Diagnosed Date Resolved Date Hyperemesis gravidarum with metabolic disturbance, antepartum 08/29/2005 11/28/2011 documented as of this encounter (statuses as of 02/17/2023) [facility] History of Past illness Narrative* Problem Noted Date Diagnosed Date Resolved Date Hyperemesis gravidarum with metabolic disturbance, antepartum 08/29/2005 11/28/2011 documented as of this encounter (statuses as of 02/18/2023) [facility] History of Past illness Narrative* Problem Noted Date Diagnosed Date Resolved Date Hyperemesis gravidarum with metabolic disturbance, antepartum 08/29/2005 11/28/2011 documented as of this encounter (statuses as of 02/23/2023) [facility] History of Past illness Narrative* Problem Noted Date Diagnosed Date Resolved Date Hyperemesis gravidarum with metabolic disturbance, antepartum 08/29/2005 11/28/2011 documented as of this encounter (statuses as of 02/24/2023) [facility] History of Past illness Narrative* Problem Noted Date Diagnosed Date Resolved Date Hyperemesis gravidarum with metabolic disturbance, antepartum 08/29/2005 11/28/2011 documented as of this encounter (statuses as of 07/09/2023) [facility] History of Past illness Narrative* Problem Noted Date Diagnosed Date Resolved Date Hyperemesis gravidarum with metabolic disturbance, antepartum 08/29/2005 11/28/2011 documented as of this encounter (statuses as of 08/20/2023) [facility] History of Past illness Narrative* Problem Noted Date Diagnosed Date Resolved Date Hyperemesis gravidarum with metabolic disturbance, antepartum 08/29/2005 11/28/2011 documented as of this encounter (statuses as of 08/21/2023) [facility] History of Past illness Narrative* Problem Noted Date Diagnosed Date Resolved Date Hyperemesis gravidarum with metabolic disturbance, antepartum 08/29/2005 11/28/2011 documented as of this encounter (statuses as of 09/30/2023) [facility] History of Past illness Narrative* Problem Noted Date Diagnosed Date Resolved Date Hyperemesis gravidarum with metabolic disturbance, antepartum 08/29/2005 11/28/2011 documented as of this encounter (statuses as of 10/14/2023) [facility] History of Past illness Narrative* Problem Noted Date Diagnosed Date Resolved Date Hyperemesis gravidarum with metabolic disturbance, antepartum 08/29/2005 11/28/2011 documented as of this encounter (statuses as of 10/14/2023) [facility] History of Past illness Narrative* Problem Noted Date Diagnosed Date Resolved Date Hyperemesis gravidarum with metabolic disturbance, antepartum 08/29/2005 11/28/2011 documented as of this encounter (statuses as of 10/15/2023) [facility] History of Past illness Narrative* Problem Noted Date Diagnosed Date Resolved Date Hyperemesis gravidarum with metabolic disturbance, antepartum 08/29/2005 11/28/2011 documented as of this encounter (statuses as of 10/17/2023) [facility] Diagnosis Migraine with aura, not intractable, without status migrainosus [facility] Pain of left upper extremity- Primary Numbness and tingling of left upper extremity [facility] Diagnosis Migraine with aura, not intractable, without status migrainosus [facility] Diagnosis Migraine without status migrainosus, not intractable, unspecified migraine type- Primary [facility]* Diagnosis Wellness examination- Primary Encounter for immunization Need for other specified prophylactic vaccination against single bacterial disease Migraine without status migrainosus, not intractable, unspecified migraine type [facility]* Diagnosis Pharyngitis, unspecified etiology- Primary Viral illness Unspecified viral infection, in conditions classified elsewhere and of unspecified site [facility] Diagnosis Right upper quadrant pain- Primary Abdominal pain, right upper quadrant [facility] Diagnosis Fatigue, unspecified type- Primary Nausea and vomiting, unspecified vomiting type Generalized abdominal pain Abdominal pain, generalized [facility] Diagnosis Vitamin D deficiency- Primary Unspecified vitamin D deficiency [facility] Diagnosis Migraine without status migrainosus, not intractable, unspecified migraine type [facility] Diagnosis Hyperinflation of lungs- Primary Other symptoms involving respiratory system and chest Fatigue, unspecified type Migraine without status migrainosus, not intractable, unspecified migraine type Nausea and vomiting, unspecified vomiting type Generalized abdominal pain Abdominal pain, generalized documented in this encounter [facility] note* Diagnosis Generalized abdominal pain- Primary Abdominal pain, generalized Nausea and vomiting, unspecified vomiting type documented in this encounter [facility] note* Diagnosis Generalized abdominal pain- Primary Abdominal pain, generalized Nausea and vomiting, unspecified vomiting type JUAN MANUEL (generalized anxiety disorder) Generalized anxiety disorder documented in this encounter [facility] note* Diagnosis Hyperinflation of lungs Other symptoms involving respiratory system and chest documented in this encounter [facility] note* Diagnosis Systemic lupus erythematosus, unspecified SLE type, unspecified organ involvement status (HCC)- Primary SOB (shortness of breath) Shortness of breath Generalized abdominal pain Abdominal pain, generalized documented in this encounter [facility] note* Diagnosis Hyperinflation of lungs- Primary Other symptoms involving respiratory system and chest Abnormal PFTs Nonspecific abnormal results of pulmonary system function study SOB (shortness of breath) Shortness of breath documented in this encounter [facility] note* Diagnosis Financial difficulties- Primary Inadequate material resources Systemic lupus erythematosus, unspecified SLE type, unspecified organ involvement status (HCC) Generalized abdominal pain Abdominal pain, generalized SOB (shortness of breath) Shortness of breath Chest pain, unspecified type Cough, persistent Cough documented in this encounter [facility] note* Diagnosis Unemployment- Primary Nausea and vomiting, unspecified vomiting type documented in this encounter [facility] note* Diagnosis Systemic lupus erythematosus, unspecified SLE type, unspecified organ involvement status (HCC)- Primary SOB (shortness of breath) Shortness of breath Generalized abdominal pain Abdominal pain, generalized Chest pain, unspecified type Cough, persistent Cough documented in this encounter [facility] note* Diagnosis Systemic lupus erythematosus, unspecified SLE type, unspecified organ involvement status (HCC) SOB (shortness of breath) Shortness of breath Generalized abdominal pain Abdominal pain, generalized Chest pain, unspecified type Cough, persistent Cough documented in this encounter [facility] note* Diagnosis Lung nodules- Primary Other nonspecific abnormal finding of lung field SOB (shortness of breath) Shortness of breath Pulmonary air trapping documented in this encounter [facility] note* Diagnosis Mild persistent asthma without complication- Primary Unspecified asthma Pulmonary air trapping Lung nodules Other nonspecific abnormal finding of lung field SOB (shortness of breath) Shortness of breath Systemic lupus erythematosus, unspecified SLE type, unspecified organ involvement status (HCC) SVT (supraventricular tachycardia) (HCC) Other specified cardiac dysrhythmias [facility] Diagnosis Viral URI- Primary Acute upper respiratory infections of unspecified site Sore throat Acute pharyngitis Fatigue, unspecified type Bacterial sinusitis Unspecified sinusitis (chronic) documented in this encounter [facility] note* Diagnosis Nausea and vomiting, unspecified vomiting type- Primary Migraine without status migrainosus, not intractable, unspecified migraine type Epigastric pain Abdominal pain, epigastric Feeling of foreign body in throat Other symptoms involving head and neck Fatigue, unspecified type SOB (shortness of breath) Shortness of breath Systemic lupus erythematosus, unspecified SLE type, unspecified organ involvement status (HCC) Family history of thyroid cancer Family history of other specified malignant neoplasm documented in this encounter [facility] note* Diagnosis Nausea and vomiting, unspecified vomiting type Feeling of foreign body in throat Other symptoms involving head and neck Fatigue, unspecified type SOB (shortness of breath) Shortness of breath Systemic lupus erythematosus, unspecified SLE type, unspecified organ involvement status (HCC) Family history of thyroid cancer Family history of other specified malignant neoplasm [facility] Diagnosis Positive PRECIOUS (antinuclear antibody)- Primary Other and unspecified nonspecific immunological findings documented in this encounter [facility] note* Diagnosis Pulmonary air trapping documented in this encounter [facility] note* Diagnosis SOB (shortness of breath)- Primary Shortness of breath Pulmonary air trapping Globus sensation Gastrointestinal malfunction arising from mental factors documented in this encounter [facility] note* Diagnosis Migraine without status migrainosus, not intractable, unspecified migraine type documented in this encounter [facility] for referral (narrative)* Outpatient Procedure (Routine) - Pending Review Specialty Diagnoses / Procedures Referred By Lucien mata Referred To Contact [facility] Diagnoses Pain of left upper extremity Numbness and tingling of left upper extremity Procedures EMG(NEURO/NI) NERVE CONDUCTION STUDIES 9-10 STUDIES Kayla Aguilar, DEIDRE.MONITOR TECH [address] [place] [address] Neurological [place] [address] [place] [address] Referral ID Status Reason Start Date Expiration Date Visits Requested Visits Authorized [id number] Pending Review Auto-Generat ed Referral 03/05/2022 03/05/2023 1 1 [facility] for referral (narrative)* Outpatient Procedure (Routine) - Authorized Specialty Diagnoses / Procedures Referred By Contac t Referred To Contact [facility] Diagnoses Hyperinflation of lungs Procedures SPIROMETRY - BASELINE AND POST DILATOR BRNCDILAT RSPSE SPMTRY PRE&POST-BRNCDILAT ADMN Cailin Morillo APRN.MONITOR TECH [address] [place] [address] [address] Referral ID Status Reason Start Date Expiration Date Visits Requested Visits Authorized [id number] Authorized Auto-Generat ed Referral 10/13/2023 11/11/2024 1 1 * Outpatient Procedure (Routine) - Pending Review Specialty Diagnoses / Procedures Referred By Contac t Referred To Contact [facility] Diagnoses Hyperinflation of lungs Procedures LUNG VOLUMES Cailin Morillo APRN.MONITOR TECH [address] [place] [address] [address] [address] [address] Referral ID Status Reason Start Date Expiration Date Visits Requested Visits Authorized [id number] Pending Review Auto-Generat ed Referral 10/13/2023 11/11/2024 1 1 * MRI/CT (Routine) - Additional Clinical Info Needed Specialty Diagnoses / Procedures Referred By Contac t Referred To Contact CT IMAGING Diagnoses Hyperinflation of lungs Procedures CT CHEST WO IVCON DIAGNOSTIC COMPUTED TOMOGRAPHY THORAX W/O CNTRST Cailin Morillo APRN.MONITOR TECH [address] [place] [address] [place] [address] Referral ID Status Reason Start Date Expiration Date Visits Requested Visits Authorized [id number] Additional Clinical Info Needed Auto-Generat ed Referral 10/13/2023 11/11/2024 1 1 [facility] for referral (narrative)* Outpatient Procedure (Routine) - Authorized Specialty Diagnoses / Procedures Referred By Contac t Referred To Contact [facility] Diagnoses Pulmonary air trapping Procedures NITRIC OXIDE, EXHALED NITRIC OXIDE GAS DETERMINATION Shanelle Arnett MD [address] [place] [address] [facility] [place] [address] [place] [address] Referral ID Status Reason Start Date Expiration Date Visits Requested Visits Authorized [id number] Authorized Auto-Generat ed Referral 01/13/2024 02/11/2025 1 1 * MRI/CT (Routine) - Pending Review Specialty Diagnoses / Procedures Referred By Contac t Referred To Contact CT IMAGING Diagnoses Lung nodules Procedures CT CHEST WO IVCON DIAGNOSTIC COMPUTED TOMOGRAPHY THORAX W/O CNTRST Shanelle Arnett MD [address] [place] [address] Ct Imaging [facility] Referral ID Status Reason Start Date Expiration Date Visits Requested Visits Authorized [id number] Pending Review Auto-Generat ed Referral 01/12/2025 02/11/2025 1 1 [facility] for referral (narrative)* Diagnostic Procedure Only (Routine) - Closed Specialty Diagnoses / Procedures Referred By Contac t Referred To Contact US IMAGING Diagnoses Nausea and vomiting, unspecified vomiting type Feeling of foreign body in throat Fatigue, unspecified type SOB (shortness of breath) Systemic lupus erythematosus, unspecified SLE type, unspecified organ involvement status (HCC) Family history of thyroid cancer Procedures US THYROID/PARATHYROID US SOFT TISSUE HEAD & NECK REAL TIME IMGE Daniel Baron APRN.CNP [address] [place] [address] [place] [address] Referral ID Status Reason Start Date Expiration Date V isits Requested Visits Authorized [id number] Closed Auto-Generate d Referral 03/17/2024 04/16/2025 1 1 [facility] Medications Administered Section Inactive Administered Medications [...] Indicated Resolved Time COVID-19 Confirmed 02/17/2023 02/17/2023 Reason for Referral Specialty Diagnoses / Procedures Referred By Lucien mata Referred To Contact Gastroenterology Diagnoses Generalized abdominal pain Nausea and vomiting, unspecified vomiting type Procedures CONSULT TO GASTROENTEROLOGY OFFICE/OUTPATIENT [facility] 60 MINUTES Cailin Morillo APRN.MONITOR TECH [address] [place] [address] Referral ID Status Reason Start Date Expiration Date Visits Requested Visits Authorized [id number] Authorized PCP Requested Referral 10/20/2023 10/19/2024 1 1 Specialty Diagnoses / Procedures Referred By Lucien mata Referred To Contact Rheumatology Diagnoses Systemic lupus erythematosus, unspecified SLE type, unspecified organ involvement status (HCC) Procedures CONSULT TO RHEUM/IMMUN DISEASE OFFICE/OUTPATIENT [facility] 60 MINUTES Cailin Morillo APRN.CNP [address] [place] [address] Referral ID Status Reason Start Date Expiration Date Visits Requested Visits Authorized [id number] Authorized PCP Requested Referral 11/05/2023 11/04/2024 1 1 Specialty Diagnoses / Procedures Referred By Contac t Referred To Contact CT IMAGING Diagnoses Hyperinflation of lungs Abnormal PFTs SOB (shortness of breath) Procedures CT CHEST WO IVCON DIAGNOSTIC COMPUTED TOMOGRAPHY THORAX W/O CNTRST Ilia, Cailin, [employer]BLE INSTALLATION HELPER.MONITOR TECH [address] [place] [address] [place] [address] Referral ID Status Reason Start Date Expiration Date V isits Requested Visits Authorized [id number] Denied Auto-Generate d Referral 10/30/2023 11/28/2024 1 0 Specialty Diagnoses / Procedures Referred By Contac t Referred To Contact CT IMAGING Diagnoses Systemic lupus erythematosus, unspecified SLE type, unspecified organ involvement status (HCC) Generalized abdominal pain SOB (shortness of breath) Chest pain, unspecified type Cough, persistent Procedures CT CHEST W IVCON DIAGNOSTIC COMPUTED TOMOGRAPHY THORAX W/CONTRAST Ilia, Cailin, MARBLE INSTALLATION HELPER.MONITOR TECH [address] [place] [address] [place] [address] Referral ID Status Reason Start Date Expiration Date Visits Requested Visits Authorized [id number] Additional Clinical Info Needed Auto-Generat ed Referral 11/19/2023 12/18/2024 1 1 [facility]ty Diagnoses / [facility] Diagnoses Systemic lupus erythematosus, unspecified SLE type, unspecified organ involvement status (HCC) SOB (shortness of breath) Generalized abdominal pain Chest pain, unspecified type Cough, persistent Procedures CT CHEST W IVCON DIAGNOSTIC COMPUTED TOMOGRAPHY THORAX W/CONTRAST Morillo, Cailin, MARBLE INSTALLATION HELPER.MONITOR TECH [address] [place] [address] [place] [address] Referral ID Status Reason Start Date Expiration Date Visits Requested Visits Authorized [id number] Pending Review Auto-Generat ed Referral 12/16/2023 01/14/2025 1 1 Referral ID Status Reason Start Date Expiration Date V isits Requested Visits Authorized [id number] Closed Auto-Generate d Referral 12/23/2023 02/21/2024 1 1 Specialty Diagnoses / Procedures Referred By Contac t Referred To Contact Pulmonary and Critical Care Medicine Diagnoses Lung nodules SOB (shortness of breath) Pulmonary air trapping Procedures CONSULT TO PULM/CRITICAL CARE OFFICE/OUTPATIENT [facility] 60 MINUTES Cailin Morillo, DEIDRE.MONITOR TECH [address] [place] [address] Referral ID Status Reason Start Date Expiration Date Visits Requested Visits Authorized [id number] Authorized PCP Requested Referral 01/07/2024 01/06/2025 1 1 Specialty Diagnoses / Procedures Referred By Contac t Referred To Contact CT IMAGING Diagnoses Lung nodules Procedures CT CHEST WO IVCON DIAGNOSTIC COMPUTED TOMOGRAPHY THORAX W/O CNTRST Cailin Morillo APRN.MONITOR TECH [address] [place] [address] [place] [address] Referral ID Status Reason Start Date Expiration Date Visits Requested Visits Authorized [id number] Pending Review Auto-Generat ed Referral 01/06/2025 02/05/2025 1 1 Specialty Diagnoses / Procedures Referred By Contac t Referred To Contact Gastroenterology Diagnoses Nausea and vomiting, unspecified vomiting type Epigastric pain Feeling of foreign body in throat Procedures CONSULT TO GASTROENTEROLOGY OFFICE/OUTPATIENT [facility] 60 MINUTES Daniel Trujillo, MARBLE INSTALLATION HELPER.MONITOR TECH [address] [place] [address] Referral ID Status Reason Start Date Expiration Date Visits Requested Visits Authorized [id number] Authorized PCP Requested Referral 03/17/2024 03/17/2025 1 1 Specialty Diagnoses / Procedures Referred By Contac t Referred To Contact US IMAGING Diagnoses Nausea and vomiting, unspecified vomiting type Feeling of foreign body in throat Fatigue, unspecified type SOB (shortness of breath) Systemic lupus erythematosus, unspecified SLE type, unspecified organ involvement status (HCC) Family history of thyroid cancer Procedures US THYROID/PARATHYROID US SOFT TISSUE HEAD & NECK REAL TIME IMGE DOCM Daniel Trujillo, MARBLE INSTALLATION HELPER.MONITOR TECH [address] [place] [address] [place] [address] Referral ID Status Reason Start Date Expiration Date Visits Requested Visits Authorized [id number] Authorized Auto-Generat ed Referral 03/17/2024 04/16/2025 1 1 Specialty Diagnoses / Procedures Referred By Contac t Referred To Contact Rheumatology Diagnoses Positive PRECIOUS (antinuclear antibody) Procedures CONSULT TO RHEUM/IMMUN DISEASE OFFICE/OUTPATIENT [facility] 60 MINUTES Daniel Trujillo APRN.MONITOR TECH [address] [place] [address] Referral ID Status Reason Start Date Expiration Date Visits Requested Visits Authorized [id number] Authorized PCP Requested Referral 03/23/2024 03/23/2025 1 1 Specialty Diagnoses / Procedures Referred By Contac t Referred To Contact Diagnoses SOB (shortness of breath) Anita Swift MD [address] [facility] [place] [address] Referral ID Status Reason Start Date Expiration Date Visits Re quested Visits Authorized [id number] Closed 1 1 Specialty Diagnoses / Procedures Referred By Contac t Referred To Contact XR IMAGING Diagnoses Other chest pain Procedures XR ESOPHAGRAM RADIOLOGIC EXAM ESOPHAGUS SINGLE CONTRAST STUDY Anita Swift MD [address] [facility] [place] [address] [place] [address] Referral ID Status Reason Start Date Expiration Date Visits Requested Visits Authorized [id number] New Request Auto-Generat ed Referral 05/15/2025 1 1 Specialty Diagnoses / Procedures Referred By Contac t Referred To Contact [facility] Diagnoses SOB (shortness of breath) Procedures METHACHOLINE CHALLENGE INHLJ BRNCL CHALLENGE TSTG W/HISTAM/METHACHOL Anita Swift MD [address] [facility] [place] [address] [facility] [place] [address] [place] [address] Referral ID Status Reason Start Date Expiration Date Visits Requested Visits Authorized [id number] New Request Auto-Generat ed Referral 05/15/2025 1 1 Summary Purpose Family History No Family History [...] or prosecute any alcohol or drug abuse patient.[facility] the event this information is protected by the Federal Confidentiality of Alcohol and Drug Abuse Patient Records regulations: The Federal rules restrict any use of the information to criminally investigate or prosecute any alcohol or drug abuse patient.[facility] the event this information is protected by the Federal Confidentiality of Alcohol and Drug Abuse Patient Records regulations: The Federal rules restrict any use of the information to criminally investigate or prosecute any alcohol or drug abuse patient.[facility] HospitalIn the event this information is protected by the Federal Confidentiality of Alcohol and Drug Abuse Patient Records regulations: The Federal rules restrict any use of the information to criminally investigate or prosecute any alcohol or drug abuse patient.[facility] HospitalIn the event this information is protected by the Federal Confidentiality of Alcohol and Drug Abuse Patient Records regulations: The Federal rules restrict any use of the information to criminally investigate or prosecute any alcohol or drug abuse patient.[facility] HospitalIn the event this information is protected by the Federal Confidentiality of Alcohol and Drug Abuse Patient Records regulations: The Federal rules restrict any use of the information to criminally investigate or prosecute any alcohol or drug abuse patient.[facility] HospitalIn the event this information is protected by the Federal Confidentiality of Alcohol and Drug Abuse Patient Records regulations: The Federal rules restrict any use of the information to criminally investigate or prosecute any alcohol or drug abuse patient.[facility] HospitalIn the event this information is protected by the Federal Confidentiality of Alcohol and Drug Abuse Patient Records regulations: The Federal rules restrict any use of the information to criminally investigate or prosecute any alcohol or drug abuse patient.[facility] HospitalIn the event this information is protected by the Federal Confidentiality of Alcohol and Drug Abuse Patient Records regulations: The Federal rules restrict any use of the information to criminally investigate or prosecute any alcohol or drug abuse patient.[facility] HospitalIn the event this information is protected by the Federal Confidentiality of Alcohol and Drug Abuse Patient Records regulations: The Federal rules restrict any use of the information to criminally investigate or prosecute any alcohol or drug abuse patient.[facility] HospitalIn the event this information is protected by the Federal Confidentiality of Alcohol and Drug Abuse Patient Records regulations: The Federal rules restrict any use of the information to criminally investigate or prosecute any alcohol or drug abuse patient.[facility] HospitalIn the event this information is protected by the Federal Confidentiality of Alcohol and Drug Abuse Patient Records regulations: The Federal rules restrict any use of the information to criminally investigate or prosecute any alcohol or drug abuse patient.[facility] HospitalIn the event this information is protected by the Federal Confidentiality of Alcohol and Drug Abuse Patient Records regulations: The Federal rules restrict any use of the information to criminally investigate or prosecute any alcohol or drug abuse patient.[facility] HospitalIn the event this information is protected by the Federal Confidentiality of Alcohol and Drug Abuse Patient Records regulations: The Federal rules restrict any use of the information to criminally investigate or prosecute any alcohol or drug abuse patient.[facility] HospitalIn the event this information is protected by the Federal Confidentiality of Alcohol and Drug Abuse Patient Records regulations: The Federal rules restrict any use of the information to criminally investigate or prosecute any alcohol or drug abuse patient.[facility] HospitalIn the event this information is protected by the Federal Confidentiality of Alcohol and Drug Abuse Patient Records regulations: The Federal rules restrict any use of the information to criminally investigate or prosecute any alcohol or drug abuse patient.[facility] HospitalIn the event this information is protected by the Federal Confidentiality of Alcohol and Drug Abuse Patient Records regulations: The Federal rules restrict any use of the information to criminally investigate or prosecute any alcohol or drug abuse patient.[facility] HospitalIn the event this information is protected by the Federal Confidentiality of Alcohol and Drug Abuse Patient Records regulations: The Federal rules restrict any use of the information to criminally investigate or prosecute any alcohol or drug abuse patient.[facility] HospitalIn the event this information is protected by the Federal Confidentiality of Alcohol and Drug Abuse Patient Records regulations: The Federal rules restrict any use of the information to criminally investigate or prosecute any alcohol or drug abuse patient.[facility] HospitalIn the event this information is protected by the Federal Confidentiality of Alcohol and Drug Abuse Patient Records regulations: The Federal rules restrict any use of the information to criminally investigate or prosecute any alcohol or drug abuse patient.[facility] the event this information is protected by the Federal Confidentiality of Alcohol and Drug Abuse Patient Records regulations: The Federal rules restrict any use of the information to criminally investigate or prosecute any alcohol or drug abuse patient.[facility] HospitalIn the event this information is protected by the Federal Confidentiality of Alcohol and Drug Abuse Patient Records regulations: The Federal rules restrict any use of the information to criminally investigate or prosecute any alcohol or drug abuse patient.[facility] HospitalIn the event this information is protected by the Federal Confidentiality of Alcohol and Drug Abuse Patient Records regulations: The Federal rules restrict any use of the information to criminally investigate or prosecute any alcohol or drug abuse patient.[facility] the event this information is protected by the Federal Confidentiality of Alcohol and Drug Abuse Patient Records regulations: The Federal rules restrict any use of the information to criminally investigate or prosecute any alcohol or drug abuse patient.[facility] HospitalIn the event this information is protected by the Federal Confidentiality of Alcohol and Drug Abuse Patient Records regulations: The Federal rules restrict any use of the information to criminally investigate or prosecute any alcohol or drug abuse patient.[facility] HospitalIn the event this information is protected by the Federal Confidentiality of Alcohol and Drug Abuse Patient Records regulations: The Federal rules restrict any use of the information to criminally investigate or prosecute any alcohol or drug abuse patient.[facility] HospitalIn the event this information is protected by the Federal Confidentiality of Alcohol and Drug Abuse Patient Records regulations: The Federal rules restrict any use of the information to criminally investigate or prosecute any alcohol or drug abuse patient.[facility] HospitalIn the event this information is protected by the Federal Confidentiality of Alcohol and Drug Abuse Patient Records regulations: The Federal rules restrict any use of the information to criminally investigate or prosecute any alcohol or drug abuse patient.[facility] HospitalIn the event this information is protected by the Federal Confidentiality of Alcohol and Drug Abuse Patient Records regulations: The Federal rules restrict any use of the information to criminally investigate or prosecute any alcohol or drug abuse patient.[facility] HospitalIn the event this information is protected by the Federal Confidentiality of Alcohol and Drug Abuse Patient Records regulations: The Federal rules restrict any use of the information to criminally investigate or prosecute any alcohol or drug abuse patient.[facility] HospitalIn the event this information is protected by the Federal Confidentiality of Alcohol and Drug Abuse Patient Records regulations: The Federal rules restrict any use of the information to criminally investigate or prosecute any alcohol or drug abuse patient.[facility] HospitalIn the event this information is protected by the Federal Confidentiality of Alcohol and Drug Abuse Patient Records regulations: The Federal rules restrict any use of the information to criminally investigate or prosecute any alcohol or drug abuse patient.[facility] HospitalIn the event this information is protected by the Federal Confidentiality of Alcohol and Drug Abuse Patient Records regulations: The Federal rules restrict any use of the information to criminally investigate or prosecute any alcohol or drug abuse patient.[facility] HospitalIn the event this information is protected by the Federal Confidentiality of Alcohol and Drug Abuse Patient Records regulations: The Federal rules restrict any use of the information to criminally investigate or prosecute any alcohol or drug abuse patient.[facility] HospitalIn the event this information is protected by the Federal Confidentiality of Alcohol and Drug Abuse Patient Records regulations: The Federal rules restrict any use of the information to criminally investigate or prosecute any alcohol or drug abuse patient.[facility] HospitalIn the event this information is protected by the Federal Confidentiality of Alcohol and Drug Abuse Patient Records regulations: The Federal rules restrict any use of the information to criminally investigate or prosecute any alcohol or drug abuse patient.[facility] HospitalIn the event this information is protected by the Federal Confidentiality of Alcohol and Drug Abuse Patient Records regulations: The Federal rules restrict any use of the information to criminally investigate or prosecute any alcohol or drug abuse patient.[facility] HospitalIn the event this information is protected by the Federal Confidentiality of Alcohol and Drug Abuse Patient Records regulations: The Federal rules restrict any use of the information to criminally investigate or prosecute any alcohol or drug abuse patient.[facility] HospitalIn the event this information is protected by the Federal Confidentiality of Alcohol and Drug Abuse Patient Records regulations: The Federal rules restrict any use of the information to criminally investigate or prosecute any alcohol or drug abuse patient.[facility] HospitalIn the event this information is protected by the Federal Confidentiality of Alcohol and Drug Abuse Patient Records regulations: The Federal rules restrict any use of the information to criminally investigate or prosecute any alcohol or drug abuse patient.[facility] HospitalIn the event this information is protected by the Federal Confidentiality of Alcohol and Drug Abuse Patient Records regulations: The Federal rules restrict any use of the information to criminally investigate or prosecute any alcohol or drug abuse patient.[facility] HospitalIn the event this information is protected by the Federal Confidentiality of Alcohol and Drug Abuse Patient Records regulations: The Federal rules restrict any use of the information to criminally investigate or prosecute any alcohol or drug abuse patient.[facility] HospitalIn the event this information is protected by the Federal Confidentiality of Alcohol and Drug Abuse Patient Records regulations: The Federal rules restrict any use of the information to criminally investigate or prosecute any alcohol or drug abuse patient.[facility] HospitalIn the event this information is protected by the Federal Confidentiality of Alcohol and Drug Abuse Patient Records regulations: The Federal rules restrict any use of the information to criminally investigate or prosecute any alcohol or drug abuse patient.[facility] HospitalIn the event this information is protected by the Federal Confidentiality of Alcohol and Drug Abuse Patient Records regulations: The Federal rules restrict any use of the information to criminally investigate or prosecute any alcohol or drug abuse patient.[facility] HospitalIn the event this information is protected by the Federal Confidentiality of Alcohol and Drug Abuse Patient Records regulations: The Federal rules restrict any use of the information to criminally investigate or prosecute any alcohol or drug abuse patient.[facility] HospitalIn the event this information is protected by the Federal Confidentiality of Alcohol and Drug Abuse Patient Records regulations: The Federal rules restrict any use of the information to criminally investigate or prosecute any alcohol or drug abuse patient.[facility] HospitalIn the event this information is protected by the Federal Confidentiality of Alcohol and Drug Abuse Patient Records regulations: The Federal rules restrict any use of the information to criminally investigate or prosecute any alcohol or drug abuse patient.[facility] HospitalIn the event this information is protected by the Federal Confidentiality of Alcohol and Drug Abuse Patient Records regulations: The Federal rules restrict any use of the information to criminally investigate or prosecute any alcohol or drug abuse patient.[facility] HospitalIn the event this information is protected by the Federal Confidentiality of Alcohol and Drug Abuse Patient Records regulations: The Federal rules restrict any use of the information to criminally investigate or prosecute any alcohol or drug abuse patient.[facility] HospitalIn the event this information is protected by the Federal Confidentiality of Alcohol and Drug Abuse Patient Records regulations: The Federal rules restrict any use of the information to criminally investigate or prosecute any alcohol or drug abuse patient.[facility] Reason for Visit (unrecogniz ed section and content) Reason Comments Refill Request Reason Comments ED Follow-up Reason Comments Headache X3 days Reason Comments Physical Reason Comments Question regarding sxs after injections Reason Comments Cough Chest congestion, ST , vomiting x2 days Reason Comments Letter Reason Comments Covid19 Concern Reason Comments Covid Question Reason Comments Nausea & Vomiting diarrhea, abdominal cramping x 1 week. Reason Comments TEST RESULTS dR. Ortiz COMPLETED NOT GOTTEN ANY RESULTS AFTER MULTIPLE CALLS Reason Comments Results Reason Onset Date Comments Refill Request 09/26/2023 Reason Comments nausea and abdominal pain continues Muli ple calls to Dr. Campbell office with no reply Reason Comments Medication Problem Reason Comments ED Follow-up [facility] 10/15/23 Reason Comments paperwork for work Reason Comments Patient Update Reason Comments Spirometry Specialty Diagnoses / Procedures Referred By Contac t Referred To Contact [facility] Diagnoses Hyperinflation of lungs Procedures SPIROMETRY - BASELINE AND POST DILATOR BRNCDILAT RSPSE SPMTRY PRE&POST-BRNCDILAT ADMN Cailin Morillo APRN.MONITOR TECH [address] [place] [address] [facility] [place] [address] [place] [address] Referral ID Status Reason Start Date Expiration Date V isits Requested Visits Authorized [id number] Closed Auto-Generate d Referral 10/13/2023 11/11/2024 1 1 Specialty Diagnoses / Procedures Referred By Contac t Referred To Contact [facility] Diagnoses Hyperinflation of lungs Procedures LUNG VOLUMES Cailin Morillo APRN.MONITOR TECH [address] [place] [address] [facility] [place] [address] [place] [address] Referral ID Status Reason Start Date Expiration Date V isits Requested Visits Authorized [id number] Closed Auto-Generate d Referral 06/30/2023 06/29/2024 1 1 Reason Comments work leave Reason Comments Results Reason Comments one month f/up Forms were not fille d out correct she went to work and they sent her back home. Now needs a letter with all she can and can not do . Sent Reason Comments Chest CT prior auth Reason Comments Patient Question Reason Comments CT prior auth Reason Comments FMLA Paperwork Reason Comments CT authorization Reason Comments Radiology CT Specialty Diagnoses / Procedures Referred By Lucien t Referred To Contact [facility] IMAGING Diagnoses Systemic lupus erythematosus, unspecified SLE type, unspecified organ involvement status (HCC) SOB (shortness of breath) Generalized abdominal pain Chest pain, unspecified type Cough, persistent Procedures CT CHEST W IVCON DIAGNOSTIC COMPUTED TOMOGRAPHY THORAX W/CONTRAST Cailin Morillo, [employer]BLE INSTALLATION HELPER.MONITOR TECH [address] [place] [address] [place] [address] Referral ID Status Reason Start Date Expiration Date V isits Requested Visits Authorized [id number] Closed Auto-Generate d Referral 12/23/2023 02/21/2024 1 1 Reason Comments Results - Ct Reason Comments Consult lung nodules, shortn ess of breath Specialty Diagnoses / Procedures Referred By Lucien t Referred To Contact [facility]monary [facility] Medicine Diagnoses Lung nodules SOB (shortness of breath) Pulmonary air trapping Procedures CONSULT TO PULM/CRITICAL CARE OFFICE/OUTPATIENT [facility] 60 MINUTES Cailin Morillo, [employer]BLE INSTALLATION HELPER.MONITOR TECH [address] [place] [address] Referral ID Status Reason Start Date Expiration Date V isits Requested Visits Authorized [id number] Closed PCP Requested Referral 01/07/2024 01/06/2025 1 1 Reason Comments Sore Throat Sinus Problem Head Congestion Cough Reason Comments Follow Up Multiple consistent sx, dizziness, fatigue, sob, poor appetite,night sweats, nausea & vomiting. Reports she was recently dx with lupus 09/2023, appt with Rheum in Nov. Reason Comments Radiology [facility] Specialty Diagnoses / Procedures Referred By Contac t Referred To Contact [facility] Diagnoses Nausea and vomiting, unspecified vomiting type Feeling of foreign body in throat Fatigue, unspecified type SOB (shortness of breath) Systemic lupus erythematosus, unspecified SLE type, unspecified organ involvement status (HCC) Family history of thyroid cancer Procedures US THYROID/PARATHYROID US SOFT TISSUE HEAD & NECK REAL TIME IMGE Daniel Baron APRN.MONITOR TECH [address] [place] [address] [place] [address] Referral ID Status Reason Start Date Expiration Date V isits Requested Visits Authorized [id number] Closed Auto-Generate d Referral 03/17/2024 04/16/2025 1 1 Specialty Diagnoses / Procedures Referred By Contac t Referred To Contact [facility] Diagnoses Pulmonary air trapping Procedures NITRIC OXIDE, EXHALED NITRIC OXIDE GAS DETERMINATION Shanelle Arnett MD [address] [place] [address] [facility] [place] [address] [facility] [facility] [place] [address] Referral ID Status Reason Start Date Expiration Date V isits Requested Visits Authorized [id number] Closed Auto-Generate d Referral 01/13/2024 02/11/2025 1 1 Reason Comments New Patient Asthma- transfer car e Shortness of Breath Reason Comments External Referrals/resources Esophogram/ Methacholine Challenge Reason Onset Date Comments Refill Request 04/22/2024 Care Teams (unrecognized sec tion and content) [employer] Machine Bluer Relationship Specialty Start Date End Date Tee Vogel DO [address] [place] [address] PCP - General Family Practice 01/18/13 [employer]uer Relationship Specialty Start Date End Date Tee Vogel DO [address] [place] [address] PCP - General Family Practice 01/18/13 [employer] Bluer Relationship Specialty Start Date End Date Tee Vogel DO [address] [place] [address] PCP - General Family Medicine 01/18/13 [employer] Machine Bluer Relationship Specialty Start Date End Date Tee Vogel, DO [address] [place] [address] PCP - General Family Medicine 01/18/13 [employer] Machine Bluer Relationship Specialty Start Date End Date Tee Vogel DO [address] [place] [address] PCP - General Family Medicine 01/18/13 [employer] Machine Bluer Relationship Specialty Start Date End Date Tee Vogel, [address] [place] [address] PCP - General Family Medicine 01/18/13 [employer] Machine Bluer Relationship Specialty Start Date End Date Tee Vogel DO [address] [place] [address] PCP - General Family Medicine 01/18/13 [employer] Machine Bluer Relationship Specialty Start Date End Date Tee Vogel DO [address] [place] [address] PCP - General Family Medicine 01/18/13 [employer] Machine Bluer Relationship Specialty Start Date End Date Tee Vogel DO [address] [place] [address] PCP - General Family Medicine 01/18/13 [employer] Machine Bluer Relationship Specialty Start Date End Date Tee Vogel DO [address] [place] [address] PCP - General Family Medicine 01/18/13 [employer] Machine Bluer Relationship Specialty Start Date End Date Tee Vogel DO [address] [place] [address] PCP - General Family Medicine 01/18/13 [employer] Machine Bluer Relationship Specialty Start Date End Date Tee Vogle, [address] [place] [address] PCP - General Family Medicine 01/18/13 [employer] Bluer Relationship Specialty Start Date End Date Tee Vogel, [address] [place] [address] PCP - General Family Medicine 01/18/13 [employer] Machine Bluer Relationship Specialty Start Date End Date Tee Vogel, [address] [place] [address] PCP - General Family Medicine 01/18/13 [employer] Machine Bluer Relationship Specialty Start Date End Date Tee Vogel, [address] [place] [address] PCP - General Family Medicine 01/18/13 [employer] Machine Bluer Relationship Specialty Start Date End Date Tee Vogel, [address] [place] [address] PCP - General Family Medicine 01/18/13 [employer] Machine Bluer Relationship Specialty Start Date End Date Tee Vogel, [address] [place] [address] PCP - General Family Medicine 01/18/13 [employer] Machine Bluer Relationship Specialty Start Date End Date Tee Vogel, [address] [place] [address] PCP - General Family Medicine 01/18/13 [employer] Machine Bluer Relationship Specialty Start Date End Date Tee Vogel, [address] [place] [address] PCP - General Family Medicine 01/18/13 [employer] Machine Bluer Relationship Specialty Start Date End Date Tee Vogel DO [address] [place] [address] PCP - General Family Medicine 01/18/13 [employer] Machine Bluer Relationship Specialty Start Date End Date Tee Vogel DO [address] [place] [address] PCP - General Family Medicine 01/18/13 [employer] Machine Bluer Relationship Specialty Start Date End Date Tee Vogel DO [address] [place] [address] PCP - General Family Medicine 01/18/13 [employer] Machine Bluer Relationship Specialty Start Date End Date Tee Vogel DO [address] [place] [address] PCP - General Family Medicine 01/18/13 [employer] Machine Bluer Relationship Specialty Start Date End Date Tee Vogel DO [address] [place] [address] PCP - General Family Medicine 01/18/13 [employer] Machine Bluer Relationship Specialty Start Date End Date Tee Vogel DO [address] [place] [address] PCP - General Family Medicine 01/18/13 [employer] Machine Bluer Relationship Specialty Start Date End Date Tee Vogel DO [address] [place] [address] PCP - General Family Medicine 01/18/13 [employer] Machine Bluer Relationship Specialty Start Date End Date Tee Vogel DO [address] [place] [address] PCP - General Family Medicine 01/18/13 [employer] Machine Bluer Relationship Specialty Start Date End Date Tee Vogel DO [address] [place] [address] PCP - General Family Medicine 01/18/13 [employer] Machine Bluer Relationship Specialty Start Date End Date Tee Vogel DO [address] [place] [address] PCP - General Family Medicine 01/18/13 [employer] Machine Bluer Relationship Specialty Start Date End Date Tee Vogel DO [address] [place] [address] PCP - General Family Medicine 01/18/13 [employer] Machine Bluer Relationship Specialty Start Date End Date Tee Vogel DO [address] [place] [address] PCP - General Family Medicine 01/18/13 [employer] Machine Bluer Relationship Specialty Start Date End Date Tee Vogel DO [address] [place] [address] PCP - General Family Medicine 01/18/13 [employer] Machine Bluer Relationship Specialty Start Date End Date Tee Vogel DO [address] [place] [address] PCP - General Family Medicine 01/18/13 Dulite Machine Bluer Relationship Specialty Start Date End Date Tee Vogel DO [address] [place] [address] PCP - General Family Medicine 01/18/13 INFORMATION SOURCE (unrecogn ized section and content) DATE CREATED AUTHOR 04/18/2024 [facility] FOR RECORDS PERTAINING TO PATIENTS WHO ARE [...] BE BASED ON THE PRIMARY CLINICAL RECORDS. [facility] [employer] [facility]. provides no warranty or guarantee of the accuracy or completeness of information in this document.
== END | disposition home or self-care (01) ==
LOC: RAD 07:44
PROVIDERS: PCP Student in an Organized Health Care Education/Training Program
DX: R09.A2 Foreign body sensation, throat (principal); R10.13 Epigastric pain
CPT/HCPCS: 74246

== ENCOUNTER → 2024-05-03 | Outpatient (CLI) | payer MEDICAID, SELFPAY ==
[2024-05-03] MEDS: Methacholine Chloride 18 ml neb kit INHALATION (07:12)
--- NOTE | 2024-05-03 07:37 | CPS ---
Patient given increasing doses of Methacholine per protocol. Patient had >20% drop in FEV1 on 4th dose. Stopped testing per protocol and gave albuterol treatment. Disposed of last two Methacholine doses in the [employer] waste bin.
== END | disposition home or self-care (01) ==
LOC: PSN 06:45
PROVIDERS: PCP Student in an Organized Health Care Education/Training Program
DX: R06.00 Dyspnea, unspecified (principal); R09.89 Other specified symptoms and signs involving the circulatory and respiratory systems
CPT/HCPCS: 94070; 95070

== ENCOUNTER 2024-08-11 21:55 | Emergency (ER) | payer MEDICAID, SELFPAY ==
[2024-08-11 21:56] VITALS: BP 121/90; PULSE 109; RESP 18; TEMP 36.8; O2SAT 97
--- NOTE | 2024-08-11 22:05 | EDS_ITS ---
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 Strain of right elbow Migraines Home Medications ?Medication ?Instructions ?Recorded ?Last Taken ?Type sumatriptan succinate 100 mg tablet 100 mg PO ONCE PRN migraine 02/17/23 Unknown History headache propranolol 40 mg tablet 40 mg PO DAILY 10/15/23 Unkn own History albuterol sulfate 90 mcg/actuation 1 inh inhalation ON CE 04/28/24 Unknown History aerosol inhaler sucralfate 1 gram tablet 1 g PO BID 04/28/24 Unknown History metoclopramide HCl 5 mg tablet 5 mg PO Q8H PRN PRN stephanie sea and 08/11/24 Unknown Rx (Reglan) vomiting 3 days #12 tabs Allergy/AdvReac Type Severity Reaction Status Date / Time ketorolac (From Toradol) Allergy Intermediate Other Verified 08/11/24 21:58 acetaminophen (From Vicodin) Allergy Mild throat Verified 08/11/24 21:58 swelling, vomiting hydrocodone (From Vicodin) Allergy Mild throat Verified 08/11/24 21:58 swelling, vomiting cat dander Allergy Unknown Throat Verified 08/11/24 21:58 tightness
--- NOTE | 2024-08-11 22:05 | EX.ED.DYSGE1 ---
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 Strain of right elbow Migraines Home Medications ?Medication ?Instructions ?Recorded ?Last Taken ?Type sumatriptan succinate 100 mg tablet 100 mg PO ONCE PRN migraine 02/17/23 Unknown History headache propranolol 40 mg tablet 40 mg PO DAILY 10/15/23 Unknown History albuterol sulfate 90 mcg/actuation 1 inh inhalation ONCE 04/28/24 Unknown History aerosol inhaler sucralfate 1 gram tablet 1 g PO BID 04/28/24 Unknown History metoclopramide HCl 5 mg tablet 5 mg PO Q8H PRN PRN nausea and 08/11/24 Unknown Rx (Reglan) vomiting 3 days #12 tabs Allergy/AdvReac Type Severity Reaction Status Date / Time ketorolac (From Toradol) Allergy Intermediate Other Verified 08/11/24 21:58 acetaminophen (From Vicodin) Allergy Mild throat Verified 08/11/24 21:58 swelling, vomiting hydrocodone (From Vicodin) Allergy Mild throat Verified 08/11/24 21:58 swelling, vomiting cat dander Allergy Unknown Throat Verified 08/11/24 21:58 tightness morphine AdvReac Itching Verified 08/11/24 21:58 Family History Mother COPD (chronic obstructive pulmonary disease) WILY (obstructive sleep apnea) Brittle bone syndrome Thyroid cancer 40 Grandmother Hypertension Myocardial infarction Grandfather Hypertension Arthritis Brother Pacemaker Sister Heart disease Grandmother Arthritis Uncle Colon cancer Surgical History History of esophagogastroduodenoscopy (EGD) History of colonoscopy S/P tooth extraction H/O LEEP (~07/25/20) Social History household members: significant other number of children: 1 current occupational status: employed current occupation: [employer] history of recent travel: No sexually active: Yes Smoking Status: Former smoker how long ago did patient quit smoking: since May alcohol intake: never substance use type: does not use caffeine: Yes what type of physical activity do you participate in: none seatbelt use: always do you feel safe at home: Yes additional social history: Fiance - Cor[employer] EXAM Physical Exam Const Vital Signs: 08/11/24 21:56 08/11/24 22:50 Temperature 98.3 F 98.3 F Temperature Source Temporal Pulse Rate 109 H 69 Respiratory Rate 18 16 Blood Pressure 121/90 H 107/74 Blood Pressure Mean 100 85 Pulse Ox 97 98 Oxygen Delivery Method Room Air MDM [facility] Narrative Medical decision making narrative: HISTORY OF PRESENT ILLNESS: 39-year-old female presents concern for headache for 5 days. Notes her migraine medicines not working. She further states she has had 5 days of a frontal headache. Notes similar to prior migraines. The headache started gradually. Denies any head trauma or falls. Notes sensitivity to light and sound. Denies any fever. Denies any neck stiffness. Denies any sick contacts. No one else at home is sick. Patient denies sudden onset or thunderclap headache, denies maximal intensity within 1 minute, vomiting, neck pain, stiffness, changes in vision, fever, history malignancy, syncope, or seizures associated with headache. REVIEW OF SYSTEMS: Pertinent positives: Headache, vomiting Pertinent negatives: PHYSICAL EXAM: Nursing triage notes reviewed, Vital signs reviewed Constitutional: please see mdm HENT: MMM Eyes: Pupils equal round and reactive to light, Extraocular muscles intact Neck: No stridor, no JVD, full neck ROM Lungs: Clear to auscultation, No wheezing or rales. No increased work of breathing, no conversational dyspnea, no accessory muscle use, no nasal flaring. No respiratory distress noted Heart: Regular rate and rhythm, No murmurs, No rubs and No gallops, 2+ distal pulses (radial, femoral, posterior tibial) in all extremities Abdomen: Soft, there is no tenderness, rigidity, rebound or guarding, no obvious peritoneal signs, no palpable pulsatile abdominal masses, no auscultated abdominal bruit : No CVAT Extremities: No edema Neuro: alert and oriented x3, neuro exam at baseline, cranial nerves II through XII are intact. No pain with extraocular muscle movement. There is negative test of skew. 5 of 5 strength in upper and lower extremities in flexion extension. Intact sensation to light touch in upper and lower extremity dermatomes. No truncal or extremity ataxia. No dysdiadochokinesia. Normal gait. 2+ reflexes in upper and lower extremities. No meningeal signs. Negative Babinski. NIH of 0. Skin: No rash or lesions noted MEDICAL DECISION MAKING: Chief Complaint: Headache External records reviewed: Imaging reviewed, medications reviewed. Patient noted to be on sumatriptan 100 mg as needed for migraine Factors affecting care: Migraine Social determinants of health: denies drug use History obtained from others: none Consults: none MDM Narrative: Patient was initially tachycardic otherwise hemodynamically stable afebrile nontoxic-appearing. Neurologic exam of right closed I considered the following differential diagnosis: Life-threatening secondary headache including: ICH, subarachnoid hemorrhage, carotid artery dissection, Carbon oxide poisoning, meningitis/encephalitis. Primary headache (migraine, tension headache, cluster headache) The patient's history and physical exam are most consistent with primary headache. Low suspicion for secondary headache given lack of fever. Lack of carotid bruits to suggest carotid artery dissection. There is no one in her home that was sick as well to suggest carbon oxide poisoning. She had no fever or meningeal signs to suggest meningitis or encephalitis. Her history and physical exam are most consistent with primary headache likely migraine given photophobia and phonophobia. Treated with Reglan and Decadron. Will prescribe Reglan for home-going. Strict return precautions were discussed and neurology follow-up was recommended. The patient and/or family, caregivers express understanding. The patient and/or family, caregivers agrees with the plan. Shared decision making: I will have a discussion with the patient and or visitors regarding risk/benefits of further testing or admission. They will be made aware of of the risk/benefits inherent in this decision they will be given the opportunity to voice understanding. Total critical care time today provided was at least 0 minutes. This excludes separately billable procedures. Critical care time (if documented) is secondary to the patient having high probability of clinically significant/life threatening deterioration in the patient's condition which required my urgent intervention. Impression: 1. Acute headache 2. History of migraine Dispo: discharge home This note was generated with Giv[employer]to dictation software. It may contain incorrect words, spelling, and punctuation that were not noted in review of the chart prior to signing. Discharge Plan Triage Chief Complaint: Headache ED Provider: Ramo Avelar Dx/Rx/DC Orders Clinical Impression: Headache, Migraine Instructions: ED, Migraine (Classical) Prescriptions: New metoclopramide HCl [Reglan] 5 mg tablet 5 mg PO Q8H PRN PRN (Reason: nausea and vomiting) 3 Days Qty: 12 0RF No Action sumatriptan succinate 100 mg tablet 100 mg PO ONCE PRN (Reason: migraine headache) Patient Comments: Emergency script Take 1 tablet at the onset of headache. May repeat dose in 2 hours if needed. Do not exceed 2 tablets in 24 hour period. sucralfate 1 gram tablet 1 g PO BID albuterol sulfate 90 mcg/actuation HFA aerosol inhaler 1 inh inhalation ONCE propranolol 40 mg tablet 40 mg PO DAILY Stand Alone Forms: ED Work / School Excuse Primary Care Provider: Tee Vogel Referrals: Tee Vogel DO [Primary Care Provider] - Activity Restrictions/Additional Instructions: Thank you for trusting us with your care today! Please take Reglan as needed for headache. Please take Tylenol (2 pills, 650 mg), ibuprofen (2 pills, 400 mg) every 6 hours as needed for pain and fever control. Please return to the emergency department if your symptoms change or worsen. Please follow with your primary care physician for further outpatient evaluation and management. Print Language: Welsh Disposition Disposition: Home, Self Care
[2024-08-11] MEDS: Metoclopramide 10 MG/2 ML Vial 5 MG IV (22:22)
[2024-08-11] MEDS: 0.9% Normal Saline (1000mL) 1,000 ML 999 ML IV (22:22)
[2024-08-11] MEDS: dexAMETHasone 4 MG/ML Vial IV (22:23)
[2024-08-11 22:50] VITALS: BP 107/74; PULSE 69; RESP 16; TEMP 36.8; O2SAT 98
== END 2024-08-11 23:21 | disposition home or self-care (01) ==
PROVIDERS: Emergency Provider Emergency Medicine; PCP Student in an Organized Health Care Education/Training Program; Visit Provider Emergency Medicine
DX: G43.909 Migraine, unspecified, not intractable, without status migrainosus (principal); K21.9 Gastro-esophageal reflux disease without esophagitis; Z87.891 Personal history of nicotine dependence
CPT/HCPCS: 96374; 96375; 99283; A4216

== ENCOUNTER → 2024-08-25 | Outpatient (CLI) | payer MEDICAID, SELFPAY ==
--- NOTE | 2024-08-25 14:35 | RAD_ITS ---
PROCEDURE: Cervical spine radiographs, 8 views REASON FOR EXAM: Neck and arm pain bilateral TECHNIQUE: 8 views of the cervical spine were obtained. COMPARISON: None. FINDINGS: 8 views of the cervical spine were obtained. On the lateral projections, the cervical spine is imaged from the skull base through the C7-T1 interspace. No evidence of acute fracture or focal subluxation in the cervical spine. Mild disc space narrowing at C3-4 and C5-6. The prevertebral soft tissues are within normal limits. No evidence of instability on flexion and extension views. Mild bilateral neural foraminal narrowing at C5-6. Included upper lungs are clear. The odontoid process is not well evaluated on this study. RAD/Cerv Spine Obl/Flex/Ext Comp IMPRESSION: No acute bony abnormality of the cervical spine. Mild disc space narrowing at C3-4 and C5-6. Mild bilateral neural foraminal na rrowing at C5-6. No evidence of instability on flexion and extension views. If there is persistent pain or clinical concern, follow-up MRI evaluation may b e considered. Reading Location: [facility]
== END | disposition home or self-care (01) ==
LOC: RAD 14:29
PROVIDERS: PCP Student in an Organized Health Care Education/Training Program; Referring Provider Anesthesiology Pain Medicine; Visit Provider Anesthesiology Pain Medicine
DX: M54.2 Cervicalgia (principal); M79.603 Pain in arm, unspecified
CPT/HCPCS: 72052

== ENCOUNTER 2024-09-16 10:30 | Outpatient (RCR) | payer MEDICAID, SELFPAY ==
--- NOTE | 2024-07-07 11:31 | HP.PTEVAL_ITS ---
Patient's Visit Information Visit Information Visit Information: MADDIE CREWS is a 39 year old F referred to Physical Therapy by Dr. Niurka Hernandez DO with a diagnosis of FIBROMAYALGIA. Date of Evaluation: 07/07/24 Physical Therapist: Kareem Reeves PT, Cert MDT, OCS Visit Plan Frequency: 2x /Week Duration: 4 Weeks Plan: PATIENT IS HIGHLY IRRITABLE PT INTERVENTIONS AQUATIC THERAPY CERVICAL/LUMBAR ROM ,DLS ,POSTURAL EX'S AND BUE/LE FLEXABILITY ,ACTIVITY MODIFICATION Subjective Subjective: This 39 y/o female presents to physical therapy for fibromyalgia. Patient has had pain for ~ [address] and recommended PT . Also has been tested for lupus. Patient has constant shoulder and arm pain, back ,hips ,lumbar and symptoms in legs. Aggravating factors walking ,staning , bending lifting. Patient condition affects housework tasks and ADLS . Patient has paresthesia/tingling -. Bowel/bladder-. Patient has multiple complexity issu es affects condition.Patient plans to see management. Patient pain affects sleeping. Patient is unable to sleep. Patient goals to manage pain. SOCIAL: single VOCATION : unemployed Pain Bilateral Shoulder: Pain Intensity (Out of 10): 6 Pain Intensity Range: 10 Bilateral Lower Extremity: Pain Intensity (Out of 10): 6 Pain Intensity Range: 10 Bilateral Back: Pain Intensity (Out of 10): 6 Pain Intensity Range: 10 Bilateral Neck: Pain Intensity (Out of 10): 6 Pain Intensity Range: 10 Objective Objective: POSTURE: mild forward posture GAIT: reciprocal pattern slow elisa guarded gait NEURO: denies paresthesia/tingling reflexes C5-6-7 1/2,reflexes L3-4,L4-5 ,L5-S1 1/3 PALPATION: tender throughout spine AROM BLE: WFL unable shoulders CERVICAL ROM: flexion min loss ,rotation /lateral flexion ,extension mod loss LUMBAR ROM: flexion mod loss ,extension mod /severe loss,side glides mod loss MMT: BUE grossly 3+/5 ,shoulders poor FLEXABLITY: hamstrings mod tight Special Tests C/S Radiculapathy - Left Upper limb tension test: Negative C/S Radiculapathy - Right Upper limb tension test: Negative Sharp Trisha: Negative Vertebral Artery Test: Negative Alar Ligament Test: Negative L/S Slump test left side: Negative L/S Slump test right side: Negative L/S Left Straight Leg Raise: Negative L/S Right Straight Leg Raise: Negative Balance/Special Test Scores Quick DASH Score: 70.4525 Goals Goal 1:: Patient to be I with Aquatic therapy program Goal Time Frame: 4-6 Weeks Goal 2:: Patient to demonstrate 30% improvement with less pain and improved function Goal Time Frame: 4-6 Weeks Goal 3:: Patient to improve improve cervical and lumbar ROM for function of recovery for ADL Goal Time Frame: 4-6 Weeks Goal 4:: Patient to improve shoulders ROM to WFL for ADLS Goal Time Frame: 4-6 Weeks Goal 5:: Patient to improve quick dash to improve QOL Goal Time Frame: 4-6 Weeks Goal 6:: Patient to improve strength BUE/LE BY 4-/5 to improve QOL and function. Goal Time Frame: 4-6 Weeks Rehabilitation Potential Physical Therapy Diagnosis: This patient has chronic pain with fibromyalgia with high irritability with pain activity and weakness throughout thus benefit from Aquatic therapy Rehabilitation Potential: Fair Anticipated Interventions Patient/Client Instruction: Educate patient on: Condition and Plan of Care For the Purpose of:: To decrease pain, To increase ROM, To improve muscle performance and motor function, To improve ability to perform ADL's, To increase tolerance to activity/condition/position, To improve ability of physical actions for home/community/work/leisure, To improve health of tissue, To decrease soft tissue restriction, To increase flexibility/ROM, To reduce risk of recurrence and To prevent re-injury Therapeutic Exercise to Include: Strength training, Endurance training, Postural training, Flexibilty training, In an aquatic setting and Dynamic Lumbar Stabilization For the Purpose of:: To decrease pain, To increase ROM, To improve muscle pe rformance and motor function, To improve ability to perform ADL's, To increase tolerance to activity/condition/position, To improve ability of physical actions for home/community/work/leisure, To improve health of tissue, To decrease soft tissue restriction, To increase flexibility/ROM, To improve endurance and To improve balance Text: Thank you for the opportunity to evaluate your patient. For Medicare and Medicare HMO plans, please review the plan of care and approve it. It will need to be FAXED BACK to us at [phone] for Medicare purposes. For Medicare only, by signing this I certify the plan of care. Please let me know if there are questions or concerns regarding this plan of care. Physician Signature: Date:
--- NOTE | 2024-09-16 10:57 | HP.PTDCSUM ---
Discharge Summary D/C summary: It has been my pleasure to treat MADDIE CREWS referred by Dr. Niurka Hernandez DO, with the diagnosis of FIBROMAYALGIA for a total of 10 visit(s). Discharge Date: Please see the following information for a summary of their discharge status. Subjective Subjective: Patient states water ex's makes symptoms worse .Chlorine affects my eczema . Also too pain full changin cloths. So patient wants to stop water ex's Patient seen DR Palmer for neck recommend PT on land . Patient had x-rays showed DDD ,spondylosis cervical Pain Bilateral Shoulder: Pain Intensity (Out of 10): 7 Bilateral Lower Extremity: Pain Intensity (Out of 10): 7 Bilateral Back: Pain Intensity (Out of 10): 7 Bilateral Neck: Pain Intensity (Out of 10): 7 WHOLE BODY: Pain Intensity (Out of 10): 7 Overall Improvement % Improvement: 10 Objective Objective/Function: POSTURE: mild forward posture GAIT: reciprocal pattern slow elisa guarded gait NEURO: denies paresthesia/tingling reflexes C5-6-7 1/2,reflexes L3-4,L4-5 ,L5-S1 1/3 PALPATION: tender throughout spine AROM BLE: WFL unable shoulders CERVICAL ROM: flexion min loss ,rotation /lateral flexion ,extension mod loss LUMBAR ROM: flexion mod loss ,extension mod /severe loss,side glides mod loss MMT: BUE grossly 3+/5 ,shoulders poor FLEXABLITY: hamstrings mod tight Goals Goal 1:: Patient to be I with Aquatic therapy program Goal Progress: Not Progressing Goal 2:: Patient to demonstrate 30% improvement with less pain and improved function Goal Progress: Not Progressing Goal 3:: Patient to improve improve cervical and lumbar ROM for function of recovery for ADL Goal Progress: Not Progressing Goal 4:: Patient to improve shoulders ROM to WFL for ADLS Goal Progress: Not Progressing Goal 5:: Patient to improve quick dash to improve QOL Goal Progress: Not Progressing Goal 6:: Patient to improve strength BUE/LE BY 4-/5 to improve QOL and function. Goal Progress: Not Progressing Plan Plan: D/C NOT HELPING D/C Information d/c sentence: If there are questions or concerns regarding this patient's physical therapy, please feel free to call me at [phone]. Thank you for the referral of this patient. Sincerely, Kareem Reeves, PT, Cert MDT, OCS Balance/Gait/Functional tests Balance/Special Test Scores Quick DASH Score: 70.4525 Improvement % Improvement: 10
== END 2024-09-16 19:00 | disposition home or self-care (01) ==
LOC: PT 10:30
PROVIDERS: PCP Student in an Organized Health Care Education/Training Program; Referring Provider Student in an Organized Health Care Education/Training Program; Visit Provider Student in an Organized Health Care Education/Training Program
DX: M79.7 Fibromyalgia (principal)
CPT/HCPCS: 97113; 97162; 97530

== ENCOUNTER 2024-10-21 12:30 | Outpatient (RCR) | payer MEDICAID, SELFPAY ==
--- NOTE | 2024-09-21 15:47 | HP.PTEVAL_ITS ---
Patient's Visit Information Visit Information Visit Information: MADDIE CREWS is a 39 year old F referred to Physical Therapy by Dr. Zbigniew Curry MD with a diagnosis of CERVICAL DISC DEGENERATION UNSPECIFIED CERVICAL REGION. Date of Evaluation: 09/21/24 Physical Therapist: Kareem Reeves, PT, Cert MDT, OCS Visit Plan Frequency: 2x /Week Duration: 4 Weeks Plan: * PATIENT HIGHLY IRRITABLE MOVE SLOW * PT INTERVENTIONS MODALITIES FOR PAIN, MANUAL THERAPY STM , GRADE CERVICAL ROM AND POSTURAL EX'S Subjective Subjective: This 39 y/o female presents to physical therapy with cervical pain. Patient has cervical Since last year ~ December which progressively worse. Patient was referred to pain management recommended PT and had x-rays showed DDD. Patient has been PT in [facility] for fibromyalgia which made symptoms worse.Due to pain patient has pain global throughout body. Patient has been tested for lupus - at this point and returns to [facility] Dr End of month. Patient located occiput cervical UT to shoulders and radiates in arms. Aggravating sitting ,movement ,lifting with arms and turning neck . Alleviating factors heat . Patient has paresthesia/tingling in fingers. Patient has LEGER Occiput -eyes. Patient has nausea occasional dizziness. . Pain affects sleeping. Patient condition affects QOL and function/housework tasks. Patient goals to decrease pain. SOCIAL: Single VOCATION: unemployed Pain Bilateral Neck: Pain Intensity (Out of 10): 8 Pain Intensity Range: 10 Bilateral Shoulder: Pain Intensity (Out of 10): 8 Pain Intensity Range: 10 Objective Objective: POSTURE: patient very guarded hold arms NEURO: denies paresthesia/tingling ,reflexes L3-4,L4-5,L5-S1 1/3 PALPATION: tender occiput /OA ,paraspinals AROM: BUE Shoulder poor unable to raise up to ~ 50 degrees very guarded due to pain PROM: Flexion ~ 90 Degrees CERVICAL ROM: flexion mod/severe loss ,extension severe loss ,lateral flexion/rotation severe loss MMT: fait unable to assess due to pain Special Tests C/S Radiculapathy - Left Upper limb tension test: Negative C/S Radiculapathy - Right Upper limb tension test: Negative C/S Radiculapathy - Left Spurlings: Negative C/S Radiculapathy - Left Cervical distraction: Positive C/S Radiculapathy - Right Cervical distraction: Positive Comments: pain with attempting cervical distraction Sharp Trisha: Negative Vertebral Artery Test: Negative Alar Ligament Test: Negative Balance/Special Test Scores Oswestry Neck Score: 40 Goals Goal 1:: Patient to be I with HEP Goal Time Frame: 4-6 Weeks Goal 2:: Patient to improve cervical 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 Goal Time Frame: 4-6 Weeks Goal 3:: Patient to demonstrate 30% improvement with less pain and improved function Goal Time Frame: 4-6 Weeks Goal 4:: Patient to improve neck oswestry score by 3-5 points to improve function adn ADLS Goal Time Frame: 4-6 Weeks Goal 5:: Patient to improve shoulder flexion AROM .> 100 degrees for ADLS Goal Time Frame: 4-6 Weeks Rehabilitation Potential Physical Therapy Diagnosis: This patient has chronic pain been diagnosed with fibromyalgia with current symptoms with neck with pain ,muscle guarding ,poor BUE ROM ,weakness with guarding and poor cervical ROM thus benefit benefit from skilled PT Rehabilitation Potential: Fair Anticipated Interventions Patient/Client Instruction: Educate patient on: Condition and Plan of Care For the Purpose of:: To decrease pain, To increase ROM, To improve muscle performance and motor function, To improve ability to perform ADL's, To increase tolerance to activity/condition/position, To improve performance and independence with ADL's, To improve ability of physical actions for home/community/work/leisure, To improve health of tissue, To decrease soft tissue restriction, To increase flexibility/ROM, To improve health and function and To improve tolerance to ADL's Therapeutic Exercise to Include: Strength training, Postural training, Flexibilty training and Active ROM Comment: BUE For the Purpose of:: To decrease pain, To increase ROM, To improve nutrient delivery to tissue, To increase oxygenation perfusion, To improve ability to perform ADL's, To increase tolerance to activity/condition/position, To improve ability of physical actions for home/community/work/leisure, To improve health of tissue, To decrease soft tissue restriction, To increase flexibility/ROM, To reduce risk of recurrence and To improve tolerance to ADL's Manual Therapy Techniques to Include: Soft tissue mobilization Comment: NECK For the Purpose of:: To decrease pain, To increase ROM, To improve nutrient delivery to tissue, To increase oxygenation perfusion, To improve health of tissue, To decrease soft tissue restriction and To increase flexibility/ROM TENS: Yes IF ES: Yes Thermo therapy (hot pack): Yes Ultrasound (thermal/non thermal): Yes For the Purpose of:: To decrease pain, To improve nutrient delivery to tissue and To increase oxygenation perfusion Text: Thank you for the opportunity to evaluate your patient. For Medicare and Medicare HMO plans, please review the plan of care and approve it. It will need to be FAXED BACK to us at [phone] for Medicare purposes. For Medicare only, by signing this I certify the plan of care. Please let me know if there are questions or concerns regarding this plan of care. Physician Signature: Date:
--- NOTE | 2025-03-02 08:55 | HP.PTDCSUM ---
Discharge Summary D/C summary: It has been my pleasure to treat MADDIE CREWS referred by Dr. Zbigniew Curry MD, with the diagnosis of CERVICAL DISC DEGENERATION UNSPECIFIED CERVICAL REGION for a total of 5 visit(s). Discharge Date: Please see the following information for a summary of their discharge status. Subjective Subjective: Plan to do epidural injections Then see DR Hernandez for RA andblo od work Pain Bilateral Neck: Pain Intensity (Out of 10): 7 Bilateral Shoulder: Pain Intensity (Out of 10): 7 LEGER: Pain Intensity (Out of 10): 7 Objective Objective/Function: making small gains Discussed with deep breathing and take POSTURE: patient very guarded hold arms NEURO: denies paresthesia/tingling ,reflexes L3-4,L4-5,L5-S1 1/3 PALPATION: less tender occiput /OA ,paraspinals scapular AROM: BUE Shoulder flexion to ~90 flexion degrees very guarded due to pain CERVICAL ROM: flexion mod/severe loss ,extension severe loss ,lateral flexion/rotation severe loss MMT: shoulders 3-/5 , biceps /triceps ,4/5 ,wrist 4/5 Goals Goal 1:: Patient to be I with HEP Goal 2:: Patient to improve cervical 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 Thank you for the referral of this patient. Sincerely, Kareem Reeves, PT, Cert MDT, OCS Balance/Gait/Functional tests Balance/Special Test Scores Oswestry Neck Score: 40
== END 2024-10-21 19:00 | disposition home or self-care (01) ==
LOC: PT 12:30
PROVIDERS: PCP Student in an Organized Health Care Education/Training Program; Referring Provider Anesthesiology Pain Medicine; Visit Provider Anesthesiology Pain Medicine
DX: M50.30 Other cervical disc degeneration, unspecified cervical region (principal)
CPT/HCPCS: 97035; 97140; 97162; 97530